=== PATIENT | female | born 1965 | race Caucasian/White ===

== ENCOUNTER → 2016-09-06 | Outpatient (CLI) | payer BC ==
--- NOTE | 2016-09-06 14:00 | REP ---
MRI LUMBAR SPINE WITHOUT CONTRAST: HISTORY: Back and left leg pain. Decreased signal intensity on T2-weighted images is present in the L3-4 through L5-S1 intervertebral discs. The discs are decreased in height. These findings are consistent with disc degeneration. A diffuse disc bulge and small left paracentral disc protrusion are present at the L1-2 level. There is minimal compression of the thecal sac. The L1 nerves exit the neural foramina without compression. There is no disc bulge or herniation at the L2-3 level. The L2 nerves exit the neural foramina without compression. A diffuse disc bulge is present at the L3-4 level. There is minimal compression of the thecal sac. The L3 nerves exit the neural foramina without compression. A diffuse disc bulge is present at the L4-5 level. There is minimal compression of the thecal sac. There is hypertrophy of the posterior articulating facets. The L4 nerves exit the neural foramina without compression. A diffuse disc bulge is present at the L5-S1 level. There is no thecal sac compression. There is hypertrophy of the posterior articulating facets. There are bilateral L5 pars defects. There are 3 mm of grade 1 spondylolisthesis of L5 on S1. There is compression of the L5 nerves in the neural foramina. The conus medullaris is normal in appearance terminating at the level of the L1-2 intervertebral disc. Normal signal intensity is present in the lumbar vertebral bodies. IMPRESSION: 1. Diffuse disc bulge and small left paracentral disc protrusion at the L1-2 level with minimal thecal sac compression. 2. Diffuse disc bulges at the L3-4 and L4-5 levels with minimal thecal sac compression. 3. Diffuse disc bulge at the L5-S1 level without thecal sac compression. There is grade 1 spondylolisthesis of L5 on S1 with associated L5 pars defects. There is compression of the L5 nerves in the neural foramina. Signed by Boom Van MD 09/06/2016 02:04 P
== END ==
LOC: M RAD 10:45
PROVIDERS: ATTEND Orthopaedic Surgery
DX: M54.5 Low back pain (principal)

== ENCOUNTER → 2017-07-17 | Outpatient (REF) ==
[2017-07-18 08:06] LABS: RUBEOLA IgG ANTIBODY >300.0 AU/mL (Immune >29.9)
[2017-07-18 11:40] LABS: RUBELLA IgG QUALITATIVE IMMUNE (IMMUNE)
== END ==
LOC: M LAB REF 13:43
DX: Z00.00 Encounter for general adult medical examination without abnormal findings (principal)

== ENCOUNTER → 2017-08-18 | Outpatient (REF) | payer BC ==
[2017-08-18 19:56] LABS: ERYTHROCYTE SEDIMENTATION RATE 67 mm/hr (0-30)
[2017-08-18 20:16] LABS: RHEUMATOID FACTOR QUANT < 10.0 IU/ML (0-15.0); TOTAL PROTEIN 7.7 GM/DL (6.4-8.2)
[2017-08-18 20:16] LABS: URIC ACID 4.1 MG/DL (2.6-6.0)
[2017-08-19 11:17] LABS: ALBUMIN 3.59 GM/DL (3.29-5.55); ALBUMIN % 46.6 % (55.8-66.1); ALPHA-1-GLOBULIN % 7.3 % (2.9-4.9); ALPHA-1-GLOBULINS 0.56 GM/DL (0.17-0.41); ALPHA-2-GLOBULINS 1.01 GM/DL (0.42-0.99); ALPHA-2-GLOBULINS % 13.1 % (7.1-11.8); BETA-1-GLOBULINS 0.52 GM/DL (0.28-0.60); BETA-1-GLOBULINS % 6.7 % (4.7-7.2); BETA-2-GLOBULINS 0.55 GM/DL (0.19-0.55); BETA-2-GLOBULINS % 7.1 % (3.2-6.5); GAMMA GLOBULIN % 19.2 % (11.1-18.8); GAMMA GLOBULINS 1.48 GM/DL (0.65-1.58)
== END ==
LOC: M LAB REF 17:52
DX: M51.36 Other intervertebral disc degeneration, lumbar region (principal)
CPT/HCPCS: 84165

== ENCOUNTER → 2017-09-01 | Outpatient (CLI) | payer BC | LOC: M PLARAD 08:07 | DX: R22.42 Localized swelling, mass and lump, left lower limb (principal); Z53.9 Procedure and treatment not carried out, unspecified reason ==

== ENCOUNTER → 2017-09-15 | Outpatient (CLI) | payer BC | LOC: M PLARAD 09:44 | DX: M51.26 Other intervertebral disc displacement, lumbar region (principal); R22.42 Localized swelling, mass and lump, left lower limb ==

== ENCOUNTER → 2017-09-25 | Outpatient (CLI) | payer BC ==
[~2017-09-25] MED LIST: ISOVUE-370 76% 100ML VIAL (Q9967) As Ordered
== END ==
LOC: M RAD 11:53
DX: M79.652 Pain in left thigh (principal); M54.5 Low back pain

== ENCOUNTER → 2017-09-26 | Outpatient (CLI) | payer BC ==
[~2017-09-26] MED LIST changes: -ISOVUE-370 76% 100ML VIAL (Q9967) As Ordered; +LIDOCAINE 1% MDV 20ML VIAL As Ordered
== END ==
LOC: M RADPRO 08:33
DX: C80.1 Malignant (primary) neoplasm, unspecified (principal); F06.4 Anxiety disorder due to known physiological condition; M54.2 Cervicalgia; K21.0 Gastro-esophageal reflux disease with esophagitis; F17.210 Nicotine dependence, cigarettes, uncomplicated; Z79.899 Other long term (current) drug therapy; Z88.8 Allergy status to other drugs, medicaments and biological substances
CPT/HCPCS: 27041

== ENCOUNTER → 2017-09-29 | Outpatient (REF) | payer BC ==
[2017-09-30 10:00] LABS: CA 125 34.7 U/ML (<30.2)
== END ==
LOC: M LAB REF 13:22
DX: C55 Malignant neoplasm of uterus, part unspecified (principal)
CPT/HCPCS: 86304

== ENCOUNTER → 2017-10-01 | Outpatient (CLI) | payer BC ==
[~2017-10-01] MED LIST changes: +ISOVUE-370 76% 100ML VIAL (Q9967) As Ordered; -LIDOCAINE 1% MDV 20ML VIAL As Ordered
== END ==
LOC: M RAD 16:19
DX: R19.00 Intra-abdominal and pelvic swelling, mass and lump, unspecified site (principal); Z85.42 Personal history of malignant neoplasm of other parts of uterus; R91.8 Other nonspecific abnormal finding of lung field
CPT/HCPCS: Q9967

== ENCOUNTER 2017-10-31 17:10 | Emergency (ER) | payer BC ==
[2017-10-31] MEDS: ENOXAPARIN 150 MG/ML SYR (J1650) SC ×2 (18:44)
== END 2017-10-31 19:16 | disposition home or self-care (01) ==
LOC: M ED 17:10
DX: I82.90 Acute embolism and thrombosis of unspecified vein (principal); C55 Malignant neoplasm of uterus, part unspecified; Z92.21 Personal history of antineoplastic chemotherapy; Z79.899 Other long term (current) drug therapy; Z88.1 Allergy status to other antibiotic agents; Z88.8 Allergy status to other drugs, medicaments and biological substances
CPT/HCPCS: J1650

== ENCOUNTER → 2017-10-31 | Outpatient (CLI) | payer BC | LOC: M RAD 14:49 | DX: I82.412 Acute embolism and thrombosis of left femoral vein (principal); I82.432 Acute embolism and thrombosis of left popliteal vein | CPT/HCPCS: 93971 ==

== ENCOUNTER → 2017-10-31 | Outpatient (REF) | payer BC ==
[2017-10-31 14:45] LABS: CA 125 30.3 U/ML (<30.2)
== END ==
LOC: M LAB REF 13:21
DX: C54.1 Malignant neoplasm of endometrium (principal); C79.9 Secondary malignant neoplasm of unspecified site
CPT/HCPCS: 86304

== ENCOUNTER → 2017-11-05 | Outpatient (CLI) | payer BC ==
[~2017-11-05] MED LIST changes: +GASTROGRAFIN SOLUTION 30ML (Q9963) As Ordered
== END ==
LOC: M RAD 14:57
DX: C54.1 Malignant neoplasm of endometrium (principal)
CPT/HCPCS: Q9963

== ENCOUNTER → 2017-11-21 | Outpatient (REF) | payer BC ==
[2017-11-21 13:05] LABS: CA 125 19.7 U/ML (<30.2)
== END ==
LOC: M LAB REF 11:59
DX: C54.1 Malignant neoplasm of endometrium (principal); C79.9 Secondary malignant neoplasm of unspecified site
CPT/HCPCS: 86304

== ENCOUNTER → 2017-12-11 | Outpatient (REF) | payer BC ==
[2017-12-12 11:04] LABS: CA 125 13.3 U/ML (<30.2)
== END ==
LOC: M LAB REF 13:52
DX: C54.1 Malignant neoplasm of endometrium (principal); C79.9 Secondary malignant neoplasm of unspecified site
CPT/HCPCS: 86304

== ENCOUNTER → 2018-01-01 | Outpatient (REF) | payer BC ==
[2018-01-02 10:25] LABS: CA 125 14.3 U/ML (<30.2)
== END ==
LOC: M LAB REF 13:12
DX: C54.1 Malignant neoplasm of endometrium (principal); C79.9 Secondary malignant neoplasm of unspecified site; Z86.718 Personal history of other venous thrombosis and embolism; G89.3 Neoplasm related pain (acute) (chronic)
CPT/HCPCS: 86304

== ENCOUNTER → 2018-01-22 | Outpatient (REF) | payer BC ==
[2018-01-23 10:46] LABS: CA 125 11.2 U/ML (<30.2)
== END ==
LOC: M LAB REF 13:54
DX: C54.1 Malignant neoplasm of endometrium (principal); C79.9 Secondary malignant neoplasm of unspecified site; Z86.718 Personal history of other venous thrombosis and embolism; G89.3 Neoplasm related pain (acute) (chronic)
CPT/HCPCS: 86304

== ENCOUNTER → 2018-02-23 | Outpatient (CLI) | payer BC | LOC: M RAD 11:19 | DX: C54.1 Malignant neoplasm of endometrium (principal); C79.9 Secondary malignant neoplasm of unspecified site | CPT/HCPCS: Q9963 ==

== ENCOUNTER → 2018-02-27 | Outpatient (REF) | payer BC ==
[2018-02-27 14:12] LABS: CA 125 26.7 U/ML (<30.2)
== END ==
LOC: M LAB REF 13:05
DX: C54.1 Malignant neoplasm of endometrium (principal); C79.9 Secondary malignant neoplasm of unspecified site; Z86.718 Personal history of other venous thrombosis and embolism; G89.3 Neoplasm related pain (acute) (chronic)
CPT/HCPCS: 86304

== ENCOUNTER → 2018-03-17 | Outpatient (CLI) | payer BC | LOC: M PLARAD 12:21 | DX: C54.1 Malignant neoplasm of endometrium (principal); Z92.21 Personal history of antineoplastic chemotherapy; R91.1 Solitary pulmonary nodule | CPT/HCPCS: 78816 ==

== ENCOUNTER → 2018-03-26 | Outpatient (REF) | payer BC ==
[2018-03-26 19:33] LABS: THYROID STIMULATING HORMONE 0.776 uIU/ML (0.358-3.740)
== END ==
LOC: M LAB REF 18:20
DX: C54.1 Malignant neoplasm of endometrium (principal); Z86.718 Personal history of other venous thrombosis and embolism; G89.3 Neoplasm related pain (acute) (chronic); C78.02 Secondary malignant neoplasm of left lung; C79.51 Secondary malignant neoplasm of bone; Z79.899 Other long term (current) drug therapy
CPT/HCPCS: 84443

== ENCOUNTER → 2018-03-27 | Outpatient (CLI) | payer BC | LOC: M ONCR 14:29 | DX: C54.1 Malignant neoplasm of endometrium (principal) | CPT/HCPCS: G0463 ==

== ENCOUNTER 2018-04-06 10:00 | Outpatient (RCR) | payer BC | END 2018-04-12 | LOC: M ONCR 10:00 | DX: C79.51 Secondary malignant neoplasm of bone (principal); C54.1 Malignant neoplasm of endometrium | CPT/HCPCS: 77334 ==

== ENCOUNTER 2018-04-13 09:09 | Outpatient (RCR) | payer BC | END 2018-05-13 | LOC: M ONCR 09:09 | DX: C79.51 Secondary malignant neoplasm of bone (principal); C54.1 Malignant neoplasm of endometrium | CPT/HCPCS: 77300 ==

== ENCOUNTER 2018-05-01 08:53 | Day surgery (SDC) | payer BC ==
[~2018-05-01 08:53] MED LIST changes: -GASTROGRAFIN SOLUTION 30ML (Q9963) As Ordered; -ISOVUE-370 76% 100ML VIAL (Q9967) As Ordered; +LIDOCAINE 1% MDV 20ML VIAL SQ
[2018-05-01] MEDS ORDERED: ceFAZolin 2 GM/D5W 50 ML IV BAG (J0690 PER 500MG) As Ordered (09:18)
[2018-05-01] MEDS ORDERED: LIDOCAINE 2% INJ 100 MG/5 ML SDV (FOR ANES.) As Ordered (09:33)
[2018-05-01] MEDS ORDERED: PROPOFOL 200 MG/20 ML VIAL As Ordered ×2 (09:33)
[2018-05-01] MEDS ORDERED: fentaNYL 100 MCG/2 ML INJECTION (J3010) As Ordered (09:34)
[2018-05-01] MEDS ORDERED: MIDAZOLAM INJ 2 MG/2 ML VIAL (J2250) As Ordered (09:34)
[2018-05-01 09:46] LABS: INR 1.11; PROTHROMBIN TIME 14.4 SECONDS (12.1-14.4)
[2018-05-01 09:47] LABS: PARTIAL THROMBOPLASTIN TIME 34.2 SECONDS (25.4-37.6)
[2018-05-01] MEDS: LR 1,000 ML IV (10:00)
[2018-05-01] MEDS ORDERED: dexameTHASONE 4 MG/ML 1ML VIAL (J1100) As Ordered (10:04)
[2018-05-01] MEDS ORDERED: ONDANSETRON 4MG/2ML VIAL (J2405) As Ordered (10:04)
[2018-05-01] MEDS: fentaNYL 25 MCG/HR PATCH TOP (10:40)
[2018-05-01] MEDS: HEPARIN SOD (PORCINE) 5000 UNITS/ML VIAL As Ordered ×2 (11:41→13:11)
[2018-05-01] MEDS: MUPIROCIN 2% OINT 22 GM TUBE TOP (12:45)
[2018-05-01] MEDS: LIDOCAINE 1% MDV 20ML VIAL As Ordered (13:03)
[2018-05-01] MEDS ORDERED: ePHEDrine SULFATE 25 MG/5 ML(5MG/ML) SYRINGE As Ordered (13:15)
[2018-05-01] MEDS: BUPIVACAINE LIPOSOME/PF 1.3% 20 ML VIAL (13.3MG/ML)(EXPAREL) As Ordered (13:20)
== END 2018-05-01 14:20 | disposition home or self-care (01) ==
LOC: M SDC 08:53
DX: C54.1 Malignant neoplasm of endometrium (principal); C78.00 Secondary malignant neoplasm of unspecified lung; Z45.2 Encounter for adjustment and management of vascular access device; F41.9 Anxiety disorder, unspecified; F32.9 Major depressive disorder, single episode, unspecified; Z88.8 Allergy status to other drugs, medicaments and biological substances; Z79.02 Long term (current) use of antithrombotics/antiplatelets; Z79.899 Other long term (current) drug therapy
CPT/HCPCS: 36561

== ENCOUNTER → 2018-05-07 | Outpatient (CLI) | payer BC | LOC: M SMT 10:39 | DX: C78.02 Secondary malignant neoplasm of left lung (principal) | CPT/HCPCS: 71046 ==

== ENCOUNTER → 2018-06-08 | Outpatient (CLI) | payer BC ==
[~2018-06-08] MED LIST changes: +GASTROGRAFIN SOLUTION 30ML (Q9963) As Ordered; +ISOVUE-370 76% 100ML VIAL (Q9967) As Ordered; -LIDOCAINE 1% MDV 20ML VIAL SQ
== END ==
LOC: M RAD 14:05
DX: C54.1 Malignant neoplasm of endometrium (principal); R91.8 Other nonspecific abnormal finding of lung field; E04.1 Nontoxic single thyroid nodule
CPT/HCPCS: Q9963

== ENCOUNTER → 2018-06-10 | Outpatient (CLI) | payer BC | LOC: M ONCR 10:46 | DX: C54.1 Malignant neoplasm of endometrium (principal) | CPT/HCPCS: G0463 ==

== ENCOUNTER → 2018-07-03 | Outpatient (CLI) | payer BC ==
[~2018-07-03] MED LIST changes: +ATIV1TAB10 PO; +BUSP1TAB PO; +CALC1TAB63 PO; +FENT10PA TD; +FENT1DIS14 TOP; +GABA-845 PO; -GASTROGRAFIN SOLUTION 30ML (Q9963) As Ordered; -ISOVUE-370 76% 100ML VIAL (Q9967) As Ordered; +LEVO50TA5 PO; +LIDO2.5C15 TOP; +MAGN400C2 PO; +MAPA500T2 PO; +VITATAB11 PO; +XARE20TA PO; +ZOLO100T PO
--- NOTE | 2018-07-03 08:34 | REP ---
MRI LUMBAR SPINE WITHOUT CONTRAST: HISTORY: Radiculopathy. COMPARISON: 09/06/2016. Decreased signal intensity on T2-weighted images is present in the L3-4 through L5-S1 intervertebral discs. The discs are decreased in height. These findings are consistent with disc degeneration. A diffuse disc bulge and small left paracentral disc protrusion are present at the L1-2 level. There is minimal compression of the thecal sac. The L1 nerves exit the neural foramina without compression. There is no disc bulge or herniation at the L2-3 level. The L2 nerves exit the neural foramina without compression. A diffuse disc bulge and small central disc protrusion are present at the L3-4 level. There is minimal compression of the thecal sac. The L3 nerves exit the neural foramina without compression. A diffuse disc bulge is present at the L4-5 level. There is minimal compression of the thecal sac. There is hypertrophy of the posterior articulating facets. The L4 nerves exit the neural foramina without compression. A diffuse disc bulge is present at the L5-S1 level. There is no thecal sac compression. There is hypertrophy of the posterior articulating facets. There are 3 mm of grade I spondylolisthesis of L5 on S1. This is associated with L5 pars defects. There is compression of the L5 nerves in the neural foramina. The conus medullaris is normal in appearance terminating at the level of the L1-2 intervertebral disc. Normal signal intensity is present in the lumbar vertebral bodies. Increased signal intensity o T2-weighted images present in the left iliac bone. This represents a metastatic lesion. IMPRESSION: 1. Diffuse disc bulge and small left paracentral disc protrusion at the L1-2 level with minimal thecal sac compression. 2. Diffuse disc bulge and small central disc protrusion at the L3-4 level with minimal thecal sac compression. The disc protrusion is a new finding. 3. Diffuse disc bulge at the L4-5 level with minimal thecal sac compression. 4. Diffuse disc bulge at the L5-S1 level without thecal sac compression. There is grade I spondylolisthesis of L5 on S1 with associated L5 pars defects. There is compression of the L5 nerves in the neural foramina. 5. There is a metastatic lesion in the left iliac bone. This is a new finding. Electronically Signed by Boom Van MD 07/03/2018 09:21 A
== END ==
LOC: M RAD 06:31
PROVIDERS: ATTEND Nurse Practitioner Family
DX: M54.17 Radiculopathy, lumbosacral region (principal)

== ENCOUNTER → 2018-07-30 | Outpatient (REF) | payer BC ==
[~2018-07-30] MED LIST changes: +DURA75DI2 TOP; +GABA600T4 PO; +LEVO-89 PO; +MEGE40TA PO; +TAMO20TA8 PO
[2018-07-30 15:03] LABS: INR 1.08; PROTHROMBIN TIME 14.2 SECONDS (12.1-14.4)
[2018-07-30 15:04] LABS: PARTIAL THROMBOPLASTIN TIME 46.4 SECONDS (25.4-37.6)
== END ==
LOC: M LAB REF 14:17
PROVIDERS: ATTEND Physical Medicine & Rehabilitation
DX: Z01.812 Encounter for preprocedural laboratory examination (principal); Z79.01 Long term (current) use of anticoagulants

== ENCOUNTER → 2018-08-14 | Outpatient (CLI) | payer BC ==
[~2018-08-14] MED LIST changes: -DURA75DI2 TOP; +ISOVUE-370 76% 100ML VIAL (Q9967) As Ordered ONE; -LEVO-89 PO; -MEGE40TA PO; -TAMO20TA8 PO
--- NOTE | 2018-08-14 17:51 | REP ---
Clinical: History of ovarian carcinoma with metastatic disease. Technique: Axial contrast enhanced images from the thoracic inlet to the upper abdomen with coronal and sagittal re-formations using 100 ml Isovue 370 intravenous contrast material. Comparison: 06/08/2018. Findings: Left upper lobe presumed metastatic focus is increased in size to 3.6 cm diameter and demonstrates subtle surrounding ground-glass opacity and minimal spiculations. Trace right posterior basilar dependent changes are noted. No further acute consolidation, new nodule or mass lesion identified. No pleural effusion. No pneumothorax. Tracheobronchial tree is patent. Mediastinal and hilar adenopathy is again noted with lymph nodes up to approximately 12 mm. Atherosclerotic changes to the thoracic aorta and coronary arteries noted without aortic aneurysm or dissection. No cardiomegaly or significant pericardial effusion. A rim calcified right thyroid nodule measures 2.8 cm maximal diameter and is essentially unchanged. Yzbybk-M-Sick identified with tip in the SVC. Surrounding musculoskeletal structures are intact. Bilateral adrenal glands are essentially normal. Impression: 1. Enlarging left upper lobe mass consistent with metastatic focus now measures 3.6 cm maximal diameter (previously measured 3.0 cm). No further consolidation, new nodule or mass lesion identified. No effusion. Mild associated adenopathy up to 12 mm again noted and unchanged. 2. Stable rim calcified right thyroid nodule measuring 2.8 cm. Electronically Signed by Umesh Gastelum MD 08/14/2018 05:42 P
== END ==
LOC: M RAD 17:02
PROVIDERS: ATTEND Internal Medicine Medical Oncology
DX: C56.9 Malignant neoplasm of unspecified ovary (principal); C79.9 Secondary malignant neoplasm of unspecified site
CPT/HCPCS: 71260; Q9967

== ENCOUNTER → 2018-08-17 | Outpatient (CLI) | payer BC ==
[~2018-08-17] MED LIST changes: +DURA75DI2 TOP; -ISOVUE-370 76% 100ML VIAL (Q9967) As Ordered ONE; +LEVO-89 PO; +MEGE40TA PO; +TAMO20TA8 PO
== END ==
LOC: M LAB 09:41
PROVIDERS: ATTEND Physical Medicine & Rehabilitation
DX: Z01.812 Encounter for preprocedural laboratory examination (principal)

== ENCOUNTER → 2018-08-17 | Outpatient (CLI) | payer BC ==
[2018-08-17 08:50] LABS: HEMATOCRIT 32.4 % (36.0-47.0); HEMOGLOBIN 10.1 g/dl (12.0-15.5); MEAN CORPUSCULAR HEMOGLOBIN 28.9 pg (27.0-33.0); MEAN CORPUSCULAR HGB CONC 31.2 g/dl (32.0-36.5); MEAN CORPUSCULAR VOLUME 92.6 fl (80.0-96.0); PLATELET COUNT, AUTOMATED 475 10^3/uL (150-450); WHITE BLOOD COUNT 14.6 10^3/uL (4.0-10.0)
[2018-08-17 09:27] LABS: ALBUMIN 3.6 GM/DL (3.2-5.2); ALT/SGPT 14 U/L (12-78); BILIRUBIN,TOTAL 0.2 MG/DL (0.2-1.0); BLOOD UREA NITROGEN 12 MG/DL (7-18); CALCIUM LEVEL 9.1 MG/DL (8.5-10.1); CARBON DIOXIDE LEVEL 32 MEQ/L (21-32); CHLORIDE LEVEL 100 MEQ/L (98-107); CREATININE FOR GFR 0.78 MG/DL (0.55-1.30); GLOMERULAR FILTRATION RATE > 60.0 (>51); GLUCOSE, FASTING 105 MG/DL (70-100); POTASSIUM SERUM 4.4 MEQ/L (3.5-5.1); SODIUM LEVEL 139 MEQ/L (136-145)
== END ==
LOC: M LAB 08:21
PROVIDERS: ATTEND Internal Medicine Medical Oncology
DX: C56.9 Malignant neoplasm of unspecified ovary (principal)

== ENCOUNTER → 2018-11-02 | Outpatient (CLI) | payer BC ==
[~2018-11-02] MED LIST changes: +GASTROGRAFIN SOLUTION 30ML (Q9963) As Ordered ONE; +ISOVUE-370 76% 100ML VIAL (Q9967) As Ordered ONE; +PROC5TA PO; +SYNT112T2 PO; +ZOFR4TAB16 PO
--- NOTE | 2018-11-02 14:14 | REP ---
CT CHEST WITH IV CONTRAST: HISTORY: Restaging endometrial carcinoma. The patient on third line treatment. Rule out progression. Comparison CT study August 14, 2018 and June 08, 2018. CT CONTRAST DOSE: 100 mL of intravenous Isovue [address] FINDINGS: The previously noted spiculated partially cavitary nodule in the left upper lobe posteriorly is a little smaller today; measuring 2.8 x 2.5 cm, previously 3.5 x 2.5 cm in the same plane by my measurement on August 14, 2018. Its craniocaudal dimension on sagittal multiplanar re-formation images has the decreased from 2.7 to 2.2 cm. No new pulmonary nodule is appreciated. Stable mediastinal and hilar lymph nodes are again noted. These are unchanged. No adrenal lesion is seen. No focal liver lesion is appreciated. Some vascular calcification is again noted. A peripherally calcified right thyroid lesion is again noted unchanged. IMPRESSION: Interval decrease in the size of the left upper lobe pulmonary nodule. No new pulmonary nodule is appreciated. A left-sided Ollwht-L-Gzmm catheter is noted in place. Electronically Signed by César Gunn MD 11/02/2018 03:17 P
--- NOTE | 2018-11-02 14:32 | REP ---
CT ABDOMEN AND PELVIS WITH IV AND ORAL CONTRAST: HISTORY: Restaging metastatic endometrial carcinoma on third-line chemotherapy. Comparison CT studies are from August 08, 2018 and June 08, 2018. Comparison PET-CT study is from March 17, 2018. CT CONTRAST DOSE: 100 mL of intravenous Isovue [address] FINDINGS: Preliminary digital film tests checker radiograph is unremarkable. The liver and spleen remain normal in size, homogeneous in texture. There are two small stable periportal lymph nodes in the right upper quadrant. There is disease involving the transverse segment of the duodenum and adjacent retroperitoneal aortocaval lymph node. There is some residual dilation of the descending segment of the duodenum just proximal to this. This transverse duodenal and aortocaval adenopathy disease appears improved however from the most recent prior study of August 08, 2018. The largest of these aortocaval lymph nodes has decreased from 2.1 x 2.2 cm to 1.8 x 1.6 cm. There is less mural thickening and paraduodenal edema. Small normal-sized left periaortic lymph nodes are again seen unchanged at this level. A right iliolumbar metastatic focus is again seen posterior to the right common iliac artery. This measures 5.3 x 3.4 cm today. Previously, 5.4 x 4.1 cm. It appears slightly smaller as well. There is some scalloping and cortical erosion or invasion of the right lateral margin of the L5 vertebral body in association with this. The cortical erosion and has increased however since August 08, 2018. This lesion extends to the lateral to the L5 and L4 vertebral body on coronal reformatted scans. On coronal reformatted scans, the craniocaudal span of this metastatic deposit has decreased from 7.75 cm to 6.62 cm. The previously noted left pelvic sidewall soft tissue thickening is again visible, unchanged from the August 08, 2018 and the June 08, 2018 prior studies. No new pelvic disease is appreciated. Urinary bladder is unremarkable. No adnexal abnormality is seen. Uterus is surgically absent. IMPRESSION: There is evidence of some decrease in the upper abdominal periaortic paraduodenal disease and in the soft tissue component of the right paravertebral/psoas deposit at L4-5. The associated bony erosion or scalloping of the lateral margin of L5 is more prominent than on the prior study. Previously noted left pelvic soft tissue and bony changes are stable. Electronically Signed by César Gunn MD 11/02/2018 03:18 P
== END ==
LOC: M RAD 10:59
PROVIDERS: ATTEND Internal Medicine Medical Oncology
DX: C54.1 Malignant neoplasm of endometrium (principal); K31.9 Disease of stomach and duodenum, unspecified
CPT/HCPCS: 71260; 74177; Q9963; Q9967

== ENCOUNTER → 2018-12-03 | Outpatient (CLI) | payer BC ==
[~2018-12-03] MED LIST changes: +FENT1DIS36 TOP; -GASTROGRAFIN SOLUTION 30ML (Q9963) As Ordered ONE; -ISOVUE-370 76% 100ML VIAL (Q9967) As Ordered ONE; +MIRA3350 PO; +SYNT125T PO
--- NOTE | 2018-12-07 08:38 | RADONC ---
RADIATION ONCOLOGY CONSULTATION NOTE DATE OF CONSULTATION: 12/03/2018 CHART NUMBER: [id number]. DIAGNOSIS: Endometrial carcinoma. STAGE: IV metastatic. ECOG PERFORMANCE STATUS: Zero. CONSULTATION NOTE: Ms. 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 HISTORY OF PRESENT ILLNESS: The patient was first seen by us on 03/27/2018 for consideration of palliative radiation therapy to a large left iliac region mass. This was causing her pain. We treated the patient to that area for a dose of 3000 cGy delivered in 10 fractions of 300 cGy each from 04/14/2018 through 04/28/2018. The patient had tolerated her treatments with some difficulty and did develop some GI upset and diarrhea. The pain, however, has improved significantly. The patient is now presenting with new discomfort. REVIEW OF SYSTEMS: The patient's review of systems is positive for her back pain running down her right pelvis and leg but is otherwise noncontributory. She denies nausea, vomiting, fevers, chills, night sweats, diplopia, headaches, anxiety or depression, anorexia, weight loss, visual disturbances, chest pain, urinary or bowel difficulties, bone pain, or neurological problems. PHYSICAL EXAMINATION: The patient is a well-developed, well-nourished female in no acute distress. HEENT examination is normocephalic, atraumatic. Extraocular movements are intact. There is no palpable cervical, supraclavicular, infraclavicular, axillary, or inguinal lymphadenopathy present. Lungs are clear to auscultation and percussion. Heart has a regular rate and rhythm. Abdomen is benign with no hepatosplenomegaly, masses, or tenderness. Skeletal examination reveals no tenderness to pressure or percussion of the bony skeleton. Extremities reveal no clubbing, cyanosis, or edema. Neurologic examination is grossly intact, as is the remainder of the physical examination. ASSESSMENT: Clearly, the patient is a candidate for external beam radiation therapy, and I have so informed her. I have discussed with the patient in detail the potential benefits, as well as possible acute and chronic sequelae of external beam radiation therapy. We discussed logistics of treatment planning, simulation, and subsequent fractionated daily radiation treatments. I have scheduled the patient for the next available simulation slot, and radiation will begin subsequently. Thank you for allowing us to participate in the care of this very pleasant woman. If I could be of any further assistance or provide you with any information, please free to contact me at any time,' As always, warm regards. Star Pizarro cc: MD Rush Carrasco MD
== END ==
LOC: M ONCR 09:57
PROVIDERS: ATTEND Radiology Radiation Oncology
DX: C79.51 Secondary malignant neoplasm of bone (principal)

== ENCOUNTER 2018-12-11 11:17 | Outpatient (CLI) | payer BC ==
[~2018-12-11] VITALS: Ht 167.6 cm; Wt 101.2 kg
[~2018-12-11 11:17] MED LIST changes: +ACETAMINOPHEN TAB 650MG DOSE (2X325MG) PO SCH; +SODIUM CHLORIDE 0.9% INJ 10 ML SYR IV SCH
[2018-12-11 11:30] VITALS: BP 134/63
[2018-12-11] MEDS: diphenhydrAMINE 50 MG CAP PO ONE ×2 (11:32→11:35)
[2018-12-11] MEDS ORDERED: XARE20TA PO (12:57)
[2018-12-11 16:50] VITALS: BP 155/72
== END 2018-12-11 16:50 | disposition home or self-care (01) ==
LOC: M INFU 11:17
PROVIDERS: ATTEND Internal Medicine Medical Oncology
DX: D64.9 Anemia, unspecified (principal)
CPT/HCPCS: 36430; P9016

== ENCOUNTER → 2018-12-23 | Outpatient (CLI) | payer BC ==
[~2018-12-23] MED LIST changes: -ACETAMINOPHEN TAB 650MG DOSE (2X325MG) PO SCH; -SODIUM CHLORIDE 0.9% INJ 10 ML SYR IV SCH
--- NOTE | 2018-12-23 15:53 | REP ---
HISTORY: Right groin pain. History of endometrial carcinoma. The patient refused intravenous gadolinium injection. There are no priors for comparison. The hip joint spaces are symmetric and relatively well maintained. There is no hip joint effusion. The femoral heads are spherical in shape and symmetric in appearance. There is abnormal T1 and T2 prolongation in the left sacrum imaged only on the large field of view T1 and T2-weighted images as this was ordered as a right hip MRI. Abnormal T1 and T2 prolongation is also seen in the inferior left sacroiliac joint and patchy abnormal T1 and T2 prolongation seen in the more proximally imaged left ileum. Patchy T2 hypersignal is seen in the iliacus and iliopsoas muscles bilaterally. The trochanteric tendinobursal region is seen with abnormal T1 and T2 prolongation bilaterally. There is patchy T2 hypersignal in the left gluteus medius and the minimus muscles. The signal and morphology throughout the remainder of the imaged musculature is within normal limits. The cortical and mineral signal seen throughout the remainder of the imaged osseous structures is within normal limits. Large field of view bilateral labral imaging shows subtle foci of T2 hypersignal in the labrum superolaterally. IMPRESSION: 1. Evidence of abnormal signal in the left sacroiliac region as described above suspicious for metastatic disease. Plain film correlation and CT should be considered. 2. Bilateral trochanteric tendinobursitis. 3. Bilateral iliacus and iliopsoas muscular edema of uncertain etiology. Correlate clinically. 4. Abnormal edema in the left gluteal musculature as described above of uncertain etiology. 5. Mild patchy T2 hypersignal seen in the left ileum also suspicious for metastatic disease. 6. Subtle finding of hypersignal foci in the superolateral labrum bilaterally, difficult to evaluate. If labral pathology is of clinical concern, then I would recommend followup with bilateral hip MRI arthrography. Electronically Signed by Joseph Fontaine DO 12/23/2018 04:10 P
== END ==
LOC: M RAD 12:57
PROVIDERS: ATTEND Radiology Radiation Oncology
DX: R93.5 Abnormal findings on diagnostic imaging of other abdominal regions, including retroperitoneum (principal); R60.0 Localized edema; M70.61 Trochanteric bursitis, right hip; M70.62 Trochanteric bursitis, left hip; M25.551 Pain in right hip; C54.1 Malignant neoplasm of endometrium

== ENCOUNTER 2019-01-08 11:13 | Outpatient (RCR) | payer BC ==
--- NOTE | 2018-12-20 10:54 | RADONC ---
RADIATION ONCOLOGY SIMULATION NOTE: DATE: 12/18/2018 CHART NUMBER: [id number] DIAGNOSIS: Endometrial cancer. STAGE: Metastatic. ECOG PERFORMANCE STATUS: 0-1. SIMULATION NOTE: The patient is being simulated today to the lumbar spine and right hip for possible R-4 localization secondary to her endometrial cancer which has metastasized. An immobilization device was constructed to immobilize the patient will be accurate. After the immobilization device was constructed the patient was placed in the supine position and images were gathered from the CT scanner at 3-mm intervals in order to allow contouring of the to be treated area as well as normal surrounding structures. Thereafter a plan to be generated for treatment delivery. She tolerated the fabrication of the immobilization device as well as the scanning process very well with no significant untoward side effects. I was there for the entire simulation process which went uneventfully. Her images now will be sent to dosimetry to generate an appropriate plan after contouring of the treatment volume is defined.
--- NOTE | 2019-01-05 11:03 | RADONC ---
RADIATION ONCOLOGY PROGRESS NOTE DATE OF SERVICE: 01/04/2019 CHART NUMBER: [id number]. PROGRESS NOTE: Mrs. Petersen with a diagnosis of endometrial adenocarcinoma metastatic to the L4-L5 region with a paraspinal mass is currently receiving local regional radiotherapy. She has today achieved a dose of 1250 cGy of a proposed 3000 cGy, and treatments are going reasonably well. She denies any specific issues related to her disease or to her treatment. REVIEW OF SYSTEMS: She has noted a significant improvement in her pain. She does still note some residual pain, but it is intermittent in nature. She also notes some right-sided rib pain, again intermittent in nature and not consistent with significant metastatic disease. The patient also wished to review her MRI scan obtained without contrast on 12/23/2018. We discuss the results of her scan to her satisfaction. REVIEW OF SYSTEMS: She denies any nausea, vomiting, diarrhea, dysuria, hematuria, or blood per rectum. Her energy level is satisfactory, and she is able to maintain some day-to-day activities without any alteration of her lifestyle. Skin irritation is not reported. EXAMINATION FINDINGS: She is a well-developed, well-nourished female, in no acute distress. Skin within the irradiated volume shows no evidence of erythema thus far. The remainder of the physical examination is unchanged. IMPRESSION: Tolerating therapy well with some pain improvement. PLAN: Treatments to continue.
[2019-01-11] MEDS ORDERED: FENT1DIS36 TOP (12:06)
== END 2019-01-10 ==
LOC: M ONCR 11:13
PROVIDERS: ATTEND Radiology Radiation Oncology
DX: C79.51 Secondary malignant neoplasm of bone (principal); C54.1 Malignant neoplasm of endometrium

== ENCOUNTER 2019-01-13 11:06 | Outpatient (RCR) | payer BC ==
--- NOTE | 2019-01-11 17:00 | RADONC ---
RADIATION ONCOLOGY PROGRESS NOTE DATE OF SERVICE: 01/11/2019 CHART NUMBER [id number] Ms. Petersen with a diagnosis of endometrial adenocarcinoma metastatic to L4-L5 and a paraspinal mass is currently receiving local regional radiotherapy. Her current dose is 2500 cGy of an anticipated 3000 cGy. She has only two more fractions to complete her entire prescribed dose of radiotherapy. She has no specific complaints referable to her disease or to her treatments and her pain has improved significantly. REVIEW OF SYSTEMS: She denies any nausea, vomiting, diarrhea, dysuria, hematuria or blood per rectum. There is no skin irritation or significant erythema. The remainder of the review of systems is noncontributory and unchanged. EXAMINATION FINDINGS: The skin within the irradiated volume shows no evidence of erythema and certainly no focal desquamation. No palpable peripheral lymphadenopathy is appreciated. The remainder of the physical examination is unchanged. IMPRESSION: Tolerating therapy well. PLAN: Treatments to continue. MTDD
--- NOTE | 2019-01-18 15:06 | RADONC ---
RADIATION THERAPY TREATMENT SUMMARY: DATE: 01/13/2019 CHART NUMBER: [id number] DIAGNOSIS: Endometrial carcinoma. STAGE: IV metastatic, specifically metastatic to the L4-L5 region with a paraspinal mass. ECOG PERFORMANCE STATUS: 0 PLAN OF RADIOTHERAPY: Local regional radiotherapy for palliation of the L4-L5 region. DATE RADIOTHERAPY STARTED: 12/29/2018. DATE RADIOTHERAPY COMPLETED: 01/13/2019. DOSE: The patient received a total of 3000 cGy administered in 12 fractions over 15 elapsed days. She was treated exclusively with 3D conformal radiotherapy via a 15 MV photon beam 100 cm SAD. A total of 250 cGy was administered in 12 fractions over 15 elapsed days. Prior to treatment delivery localization was accomplished upon our CT simulator and treatment portals defined by the use of multiple leaf collimators. STATUS OF TUMOR: There was no evidence of growth locally nor was there clinical evidence of further metastatic disease during her course of radiotherapy. TOLERANCE: In general treatments were fairly well-tolerated with a good local regional palliative response. She had only a minimal amount of residual pain at the completion of her radiotherapy. She denied any nausea, vomiting, diarrhea, dysuria, hematuria or blood per rectum. DISPOSITION: Return to clinic in 1 month for post radiotherapy followup visit and she was advised to return to her referring physicians as per their directions and instructions. Thank you for referring this brice patient to us allowing us the opportunity of participation in her overall management. Most sincerely cc: MD Rush Carrasco MD
[2019-02-05] MEDS ORDERED: SYNT125T PO (11:01)
[2019-02-05] MEDS ORDERED: XARE20TA PO (11:01)
[2019-02-23] MEDS ORDERED: FENT1DIS36 TOP (10:43)
[2019-02-23] MEDS ORDERED: LEXA5TAB13 PO (10:43)
[2019-02-23] MEDS ORDERED: LEVO-94 PO (15:51)
[2019-03-19] MEDS ORDERED: DILA4TAB13 PO (13:30)
[2019-03-24] MEDS ORDERED: TAMO20TA8 PO (14:13)
[2019-03-24] MEDS ORDERED: SYNT137T7 PO (14:13)
== END 2019-02-10 ==
LOC: M ONCR 11:06
PROVIDERS: ATTEND Radiology Radiation Oncology
DX: C79.51 Secondary malignant neoplasm of bone (principal); C54.1 Malignant neoplasm of endometrium

== ENCOUNTER → 2019-01-22 | Outpatient (CLI) | payer BC ==
[~2019-01-22] MED LIST changes: +CALC200T15 PO; +DILA4TAB13 PO; +ESSE250T PO; +FENT1DIS14 TD; +FLUC10TA PO; +GASTROGRAFIN SOLUTION 30ML (Q9963) As Ordered ONE; +HYDR8TAB PO; +Hyoscyamine/Maalox/Lidoca Visc PO; +ISOVUE-370 76% 100ML VIAL (Q9967) As Ordered ONE; +LEVO-94 PO; +LEXA5TAB13 PO; +LOVE0.8I SC; +MAGICMW SS; +MEGE20TA3 PO; +META28.32 PO; +MORP15TA2 PO; +MSIR30TA PO; +NYST50SS SS; +OXYCO5TA PO; +PANT-23 PO; +SENN18TA PO; +SENN8.6T58 PO; +SODI1TAB6 PO; +SYNT137T7 PO
--- NOTE | 2019-01-23 06:56 | REP ---
CT chest with IV contrast: History: Restaging metastatic endometrial carcinoma. Comparison CT study November 02, 2018. Comparison study from August 14, [address] contrast dose: 100 ml of intravenous Isovue 370. CT findings: The previously noted cavitary spiculated left upper lobe pulmonary nodule is again seen. It has increased in size somewhat since the most recent prior study of November 02, 2018. Its current transverse dimensions are 3.2 x 2.7 cm, previously 2.8 x 2.5 cm. Its craniocaudal dimension today is 2.4 cm, previously 2.2 cm. No new pulmonary nodule is appreciated. There are scattered stable mediastinal lymph nodes. The largest of these is in the AP window region measuring 7 mm in short axis dimension. No pleural or pericardial effusion is seen. Vascular calcification is noted. No adrenal lesion is observed. There is a peripherally calcified right thyroid nodule again seen. An Fdweep-M-Tehe catheter is noted in place via the left side. No bony destructive lesion is appreciated. Impression: Interval increase in the size of the spiculated left upper lobe mass with cavitary changes, now 3.2 cm in greatest diameter. No new lesion is identified. Electronically Signed by César Gunn MD 01/23/2019 11:44 A
--- NOTE | 2019-01-23 06:59 | REP ---
CT abdomen and pelvis with IV and oral contrast: History: Restaging metastatic endometrial carcinoma. Comparison CT studies are reviewed from November 02, 2018 and June 08, 2018. CT contrast dose: 100 ml of intravenous Isovue 370 is administered. A dual phase postcontrast acquisition was acquired. CT findings: The liver and the spleen are normal in size and homogeneous in texture. No adrenal lesion is seen. No pancreatic lesion is observed. The kidneys enhance symmetrically. There is a small subcentimeter cortical cyst in the left kidney. There is aortocaval lymphadenopathy at the level of the transverse duodenum adjacent to the posterior wall of the duodenum. This is a bit larger than it was June 08, 2018. It appears to be essentially unchanged from the most recent study of November 02, 2018. The heterogeneously enhancing mass in the right iliopsoas region is again noted. This measured 6.6 cm in greatest diameter previously, currently 5.8 cm. Transverse dimensions are 5.0 x 3.0 cm which are quite similar to the prior study. There is again noted to be some bony erosive change of the adjacent L5 vertebrae. This is unchanged in extent. No new bony destructive changes are noted here. The previously noted left lateral pelvic sidewall soft tissue density with adjacent areas of sclerosis in the sacrum and iliac bone are again seen unchanged. No new pelvic mass lesion or adenopathy is appreciated. Bilateral L5 pars defects are again seen. Impression: Stable retroperitoneal and left pelvic sidewall disease. Electronically Signed by César Gunn MD 01/23/2019 11:54 A
== END ==
LOC: M RAD 12:35
PROVIDERS: ATTEND Internal Medicine Medical Oncology
DX: N73.9 Female pelvic inflammatory disease, unspecified (principal); C54.1 Malignant neoplasm of endometrium; C79.51 Secondary malignant neoplasm of bone; C78.02 Secondary malignant neoplasm of left lung
CPT/HCPCS: 71260; 74177; Q9963; Q9967

== ENCOUNTER → 2019-02-23 | Outpatient (CLI) | payer BC ==
[~2019-02-23] MED LIST changes: -CALC200T15 PO; -DILA4TAB13 PO; -FENT1DIS14 TD; -FLUC10TA PO; -GASTROGRAFIN SOLUTION 30ML (Q9963) As Ordered ONE; -HYDR8TAB PO; -Hyoscyamine/Maalox/Lidoca Visc PO; -ISOVUE-370 76% 100ML VIAL (Q9967) As Ordered ONE; -LOVE0.8I SC; -MAGICMW SS; -MEGE20TA3 PO; -NYST50SS SS; -OXYCO5TA PO; -SENN18TA PO; -SENN8.6T58 PO; -SODI1TAB6 PO
--- NOTE | 2019-02-25 15:24 | RADONC ---
RADIATION ONCOLOGY PROGRESS NOTE DATE OF SERVICE: 02/23/2019 CHART NUMBER: [id number] DIAGNOSIS: Endometrial cancer. STAGE: Stage IV metastatic. ECOG PERFORMANCE STATUS: 0. Mrs. 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 She returns today for 1-month followup visit with no specific complaints referable to her disease or to her treatments. She has no longer any pain in the right hip and only a minimal amount of pain occasionally in the left hip. She claims that she is to have an endoscopy / sigmoidoscopy in the future to rule out any bleeding because she is quite anemic and the etiology may be coming from the bowel. She also has a nodule in the lung, which did not respond in the same way in which the other lesions have responded to systemic therapy and Dr. Ospina would like to get perhaps even a biopsy of this lung lesion to make sure that it is the same histology as her endometrial cancer. She denies any new areas of pain. REVIEW OF SYSTEMS: She denies any nausea, vomiting, diarrhea, dysuria, hematuria or blood per rectum. She has no skin irritation. EXAMINATION FINDINGS: The skin within the irradiated volume shows no evidence of erythema and certainly no focal desquamation. LYMPHATICS: There is no palpable peripheral lymphadenopathy noted in the cervical, supraclavicular, axillary or inguinal lymph node chains. Lungs: Clear to auscultation and percussion. Heart: Regular without murmurs. Abdomen: Without evidence of hepatomegaly, masses or deep abdominal tenderness. Extremities: Without cyanosis, clubbing or edema. Neurologic: Examination physiologic and nonfocal. IMPRESSION Clinically CLARK at this time. PLAN: We would like to have her return on a p.r.n. basis, and she is to continue seeing her referring physicians as per their instructions and directions. Thank you for allowing us the opportunity of participation in the management this very fine patient. cc: MD Rush Carrasco MD MTDD
--- NOTE | 2019-02-25 16:18 | MEDONC ---
MEDICAL ONCOLOGY FOLLOWUP DATE OF SERVICE: 02/23/2019 DIAGNOSES: 1. Refractory recurrent ER positive/DE positive, MSI high endometrial carcinoma with metastatic recurrence diagnosed 2017. History of stage I, grade 1-2 endometrial carcinoma December 2015 treated with surgery. Currently on third line palliative treatment with alternating tamoxifen/megestrol with partial response; prior treatments include carboplatin/paclitaxel followed by pembrolizumab. 2. Cancer related pain on fentanyl and rescue medication; status post palliative radiation to T12 paraspinal mass. 3. Anemia concerning for blood losses requiring transfusion scheduled for diagnostic endoscopy transfused in November 2018 requiring additional transfusion today for hemoglobin 6.9. PRIOR THERAPY: JEROME-BSO, (LND) December 2011, Umesh Mata MD (final pathology no LVI, no parametrial, ST, or ovarian carcinoma; 0/6 nodes). 2018 recurrence with left pelvic sidewall, right psoas and left lung pleural-based mass. Carboplatin/paclitaxel six cycles 10/07/2017 - 01/22/2018. Disease progression February 2018. Pembrolizumab - 08/20/2018 stopped for progression. Tamoxifen daily for 3 weeks/megestrol 80 mg b.i.d. daily for 3 weeks begun 08/20/2018. Palliative radiation 04/14/2018 - 04/28/2018 3000 cGy left iliac. L4-L5 paraspinal mass 3000 cGy completed 01/13/2019. Long-term rivaroxaban for history of left lower extremity DVT with active metastatic cancer. CURRENT THERAPY: Megestrol 80 mg b.i.d. daily for 3 weeks alternating with tamoxifen 40 mg daily for 3 weeks begun August 2018. Fentynal patch 87 mcg. Rescue Tylenol, ibuprofen. (Pain management currently under palliative care.) INTERVAL HISTORY: Nilsa is back for a 1-month followup. She had restaging CT chest, abdomen and pelvis, which essentially show stable disease in the pelvis. In fact, there is a several millimeter decrease in the size of the right psoas and left pelvic sidewall masses with an apparently stable central lymph node. The left upper lobe spiculated mass has increased in size now measuring 3.2 cm. There are no other lung findings. This remained suspicious for a second primary given the discordant response to treatment, its spiculated appearance. Nilsa was scheduled for a biopsy of this but deferred it s her has undergone bypass surgery. She is scheduled now for the end of the month. She reports contentment with her current pain management under CRICKET Delgadillo. She acknowledges apprehension about the CT-guided biopsy. She notes some residual low back pain at times though at the site of radiation her back is better. We discussed the issue of bone strengthening medication, which has good anticancer properties in terms of preventing additional cancer related fractures. However, because of Nilsa having some dentition issues we have held off from starting denosumab. Meanwhile, her plate is somewhat full needing to undergo the lung biopsy. I again reviewed the issue of a possible second primary. She has a smoking history and it is conceivable the lung mass represents a primary lung cancer. We walked through issues of how that might be treated including surgery, SBRT, weighing risks, benefits versus prognosis related to her uterine cancer. I reviewed the images of the recent restaging scans with Nilsa. REVIEW OF SYSTEMS: In addition to pertinent positives and negatives above, the patient denies new shortness of breath, new cough, new headache or visual disturbance, new chest pain, new leg swelling or cramping, new nausea or vomiting. Remainder of 12 system review negative. PHYSICAL EXAM: Weight 100 kg, temperature 97, blood pressure 109/68, heart rate 70, respiratory 98. Patient is a well-groomed, middle-aged woman. Respiratory: Clear lungs to auscultation bilaterally anteriorly and posteriorly. No wheezes, rubs, or rales. Cardiac: S1, S2, regular rate and rhythm. No murmurs or gallops. Abdomen: Nondistended, nondistended. No palpable hepatosplenomegaly or mass. To even the lightest touch the patient remarks is it is somewhat uncomfortable though without grimacing or flinching. No rebound tenderness elicited. No palpable mass. Extremities: No edema or asymmetry. Lymph nodes: No submandibular, cervical, supraclavicular, or axillary adenopathy bilaterally. LABS: WBC 8, hemoglobin 6.9, hematocrit 22, platelets 453, MCV 88. TSH 37. CA-125 9.7. IMPRESSION: Refractory recurrent ER positive endometrial carcinoma on third line palliative treatment with combination tamoxifen/megestrol responding below the diaphragm; enlarging left upper lobe spiculated solitary mass suspicious for possible second primary versus refractory medicine focus. History of left lower extremity DVT on long-term anticoagulation. New iron deficiency anemia, uncertain etiology, endoscopy planned. Cancer and noncancer related pain under palliative care Hypothyroidism, on levothyroxine, currently remaining hypothyroid, possibly requiring dose adjustment. PLAN: 1. Continue tamoxifen/megestrol. 2. Increase levothyroxine to 137 mcg. 3. 2 unit RBC transfusion. 4. Followup scheduled endoscopy. Communicate with Dr. Carmona, need for small bowel biopsy. 5. Consider iron infusion. 6. 4 week interval return. 7. Followup pulmonary biopsy. If consistent with second primary, will discuss options at time of next visit. Electronically Signed by Delmis Ospina MD 02/25/2019 06:10 P DD: Delmis Ospina MD 02/23/2019 03:29 P DT: steffanie 02/25/2019 04:02 P CC: CRICKET Delgadillo MD Steven Lyndaker, MD
== END ==
LOC: M ONCR 09:54
PROVIDERS: ATTEND Radiology Radiation Oncology
DX: Z08 Encounter for follow-up examination after completed treatment for malignant neoplasm (principal); C54.1 Malignant neoplasm of endometrium; C79.51 Secondary malignant neoplasm of bone; R91.1 Solitary pulmonary nodule; D63.0 Anemia in neoplastic disease

== ENCOUNTER 2019-02-28 02:28 | Inpatient (IN) | payer BC ==
[~2019-02-28] VITALS: Ht 167.6 cm; Wt 98.0 kg
[~2019-02-28 02:28] MED LIST changes: -ESSE250T PO; -META28.32 PO; -MORP15TA2 PO; -MSIR30TA PO; -PANT-23 PO; -SYNT137T7 PO
[2019-02-28 03:50] VITALS: BP 161/86
--- NOTE | 2019-02-28 03:59 | HPEPDOC ---
[facility] Medical History & Physical Date of Admission Feb 28, 2019 Date of Service: Feb 28, 2019 Attending Physician: GARY CODY MD History and Physical TIME OF SERVICE 415AM CHIEF COMPLAINT: Pain HISTORY OF PRESENT ILLNESS: This is a 53 old female who intially presented to [facility] with complaints of severe lower abdominal pain that radiated to the back and began on Friday. She went to the hospital because she "couldn't take the pain anymore". She also complained of a 30 pounds and loose stools. She denied having fevers, denied falling, has been able to walk, and denies having fecal or urinary incontinence. Her last meal was on Friday, and her last bowel movement was yesterday. She is chronically on fentanyl 87.5 mcg to control the pain related to the paraspinal metastases; she denies changes to her pain medication dose recently. Per discussion with Dr. Vega, the ER Attending at [facility], the patient had a CT scan of the abdomen which showed a mass at the head of the pancreas; the LFTs and lipase were within normal limits. The patient was already scheduled for an EGD and colonoscopy here at [facility] Friday, therefore, he requested transfer for ERCP to evaluate the pancreatic mass and so the patient would not miss her procedures on Friday. REVIEW OF SYSTEMS: 12 point review of systems negative except as listed in HPI PAST MEDICAL / SURGICAL HISTORY: 1 . Metastatic Endometrial cancer ER positive, MA positive, high-grade carcinoma that was initially diagnosed in 2016 and managed with a JEROME/BSO. She had a recurrence in 2018 with metastasis to the left pelvic wall, right psoas and left upper lobe of the lung and L4-L5 paraspinal muscles. The patient is currently on a third line palliative chemotherapy regimen, has had palliative radiation the iliac and paraspinal mass. 3. Iron deficiency anemia 4. Left lower extremity DVT rivaroxaban is on hold pending EGD and colonoscopy 5. Hypothyroidism 6. Depression SOCIAL HISTORY: Smoker FAMILY HISTORY: Diabetes Hypertension Coronary artery disease ALLERGIES: Please see below. HOME MEDICATIONS: Please see below. PHYSICAL EXAMINATION: VITAL SIGNS: Temperature see below GENERAL APPEARANCE: Well-nourished, well-developed, not in apparent distress, does not appear septic HEENT: Normocephalic, atraumatic, mucous members moist and pink CARDIOVASCULAR: Regular rate and rhythm. No murmurs, rubs or gallops LUNGS: Clear to escalation bilaterally on room air ABDOMEN: Hypoactive bowel sounds. Abdomen is obese, soft and tender with palpation of the mid lower region MUSCULOSKELETAL: Range of motion intact in all 4 extremities EXTREMITIES: Left lower extremity slightly more swollen than the right but is not warm or tender on palpation NEUROLOGICAL: Cranial nerves II-12 are grossly intact. Speech is not dysarthric PSYCHIATRIC: Alert and oriented to person, place and time, able to understand and follow commands LABORATORY DATA: Pending IMAGING: Pending...CDs have been sent from [employer] will have staff upload them. ASSESSMENT: Ms. Petersen is a 53 old female with a past medical history of metastatic endometrial cancer, hypothyroidism, left lower extremity DVT, iron deficiency anemia and depression who was causes his to be determined in the recently discovered pancreatic mass will be admitted for pain management. . PLAN: 1. Abdominal & Back pain likely 2/2 metastatic endometrial cancer Plan: Increase fentanyl to from 87.5 to 100 mcg Q2D, c/w Gabapentin, add IV Morphine PRN unit new dose of fentanyl takes effect / Oncology Consult / Palliative Care consult to co-manage pain 2. Pancreatic mass. Per discussion with Dr. Vega was seen on CT Suspect this may be metastasis Plan: Follow-up CT images once they have been uploaded / the daytime team can liaise with Dr. Ospina Oncologist to determine if the pt needs an ERCP 3. Iron deficiency anemia , Plan: Consult GI for procedure Friday / / CBC 4. Left lower extremity DVT Plan: rivaroxaban is on hold pending EGD and colonoscopy 5. Hypothyroidism Plan continue home meds. 6. Tobacco abuse. Plan: Nicotine patch DVT prophylaxis with SCDs Disposition pending clinical course Home Medications Scheduled Buspirone HCl (Buspirone HCl) 7.5 Mg Tab, 7.5 MG PO TID Escitalopram Oxalate (Lexapro) 5 Mg Tablet, 5 MG PO QHS Fentanyl (Fentanyl) 87.5 Mcg Patch.td72, 1 PATCH TOP Q2D for PAIN CURRENTLY APPLIED TO RIGHT UPPER CHEST Gabapentin (Gabapentin) 600 Mg Tab, 600 MG PO QID Levothyroxine Sodium (Levo-T) 137 Mcg Tablet, 1 TAB PO DAILY for hypothyroid Lidocaine/Prilocaine (Lidocaine-Prilocaine Cream) 1 Cre Cre, 1 APLCT TOP ASDIREC JUSTINE apply to [facility] 1 hour before treatment Magnesium Oxide (Magnesium Oxide) 250 Mg Tablet, 250 MG PO QHS Megestrol Acetate (Megestrol Acetate) 40 Mg Tablet, 80 MG PO BID UPDATE FROM PREVIOUS ONCOLOGY PRESCRIPTION 02/28/19: PREVIOUS INSTRUCTIONS - take 4 tabs daily for 3 weeks, then alternate with tamoxifen daily for 3 weeks Pantoprazole Sodium (Pantoprazole Sodium) 40 Mg Tablet.dr, 40 MG PO QPM Psyllium Husk (with Sugar) (Metamucil Powder) 575 Gm Powder, 1 PKT PO DAILY Rivaroxaban (Xarelto) 20 Mg Tablet, 1 TAB PO DAILY with food Sertraline Hcl (Zoloft) 100 Mg Tab, 100 MG PO QHS Tamoxifen Citrate (Tamoxifen Citrate) 20 Mg Tab, 40 MG PO DAILY for endomtrial cancer take 2 tabs daily for 3 weeks alternating with megestrol for 3 weeks Scheduled PRN Acetaminophen (Mapap) 500 Mg Tab, 1,000 MG PO PRN PRN for PAIN OR DYSPNEA Lorazepam (Ativan) 0.5 Mg Tab, 1 MG PO QIDP PRN for ANXIETY/AGITATION Ondansetron HCl (Zofran) 4 Mg Tab, 4 MG PO Q6-8HP PRN for nausea/vomiting Allergies Coded Allergies: azithromycin (Verified Allergy, Intermediate, RASH, 02/28/19) pregabalin (Verified Allergy, Intermediate, RASH, 02/28/19) baclofen (Verified Adverse Reaction, Intermediate, anxiety, 02/24/19) carisoprodol (Verified Adverse Reaction, Intermediate, anxiety, 02/24/19) cyclobenzaprine (Verified Adverse Reaction, Intermediate, anxiety, 02/24/19) diazepam (Verified Adverse Reaction, Intermediate, anxiety, 02/24/19) metaxalone (Verified Adverse Reaction, Intermediate, anxiety, 02/24/19) methocarbamol (Verified Adverse Reaction, Intermediate, anxiety, 02/24/19) tizanidine (Verified Adverse Reaction, Intermediate, anxiety, 02/24/19) A-FIB/CHADSVASC A-FIB History Current/History of A-Fib/PAF?: No Current PO Anticoag Therapy: No GARY CODY MD Feb 28, 2019 03:59
[2019-02-28] MEDS ORDERED: PANT-23 PO (04:42)
[2019-02-28] MEDS ORDERED: MEGE40TA PO (04:42)
[2019-02-28] MEDS ORDERED: META28.32 PO (04:42)
[2019-02-28] MEDS ORDERED: ESSE250T PO (04:42)
[2019-02-28] MEDS ORDERED: LIDOCAINE 4% CREAM 5GM (LMX4) TOP PRN (05:15)
[2019-02-28] MEDS ORDERED: FENTANYL REMOVAL DOCUMENTATION MISC XX SCH (05:15)
[2019-02-28] MEDS ORDERED: LORazepam 0.5 MG TAB PO PRN (05:15)
[2019-02-28] MEDS ORDERED: ACETAMINOPHEN 500 MG TAB PO PRN (05:15)
[2019-02-28] MEDS ORDERED: ONDANSETRON 4 MG TAB (S0181) PO PRN (05:15)
[2019-02-28 05:19] LABS: HEMATOCRIT 32.3 % (36.0-47.0); HEMOGLOBIN 9.8 g/dl (12.0-15.5); MEAN CORPUSCULAR HEMOGLOBIN 27.9 pg (27.0-33.0); MEAN CORPUSCULAR HGB CONC 30.3 g/dl (32.0-36.5); PLATELET COUNT, AUTOMATED 435 10^3/uL (150-450); RED BLOOD COUNT 3.51 10^6/uL (4.00-5.40); WHITE BLOOD COUNT 8.5 10^3/uL (4.0-10.0)
[2019-02-28 05:23] LABS: ALT/SGPT 23 U/L (12-78); BILIRUBIN,TOTAL 0.3 MG/DL (0.2-1.0); BLOOD UREA NITROGEN 10 MG/DL (7-18); CALCIUM LEVEL 8.3 MG/DL (8.5-10.1); CARBON DIOXIDE LEVEL 23 MEQ/L (21-32); CHLORIDE LEVEL 108 MEQ/L (98-107); CREATININE FOR GFR 0.72 MG/DL (0.55-1.30); GLOMERULAR FILTRATION RATE > 60.0 (>51); GLUCOSE, FASTING 80 MG/DL (70-100); POTASSIUM SERUM 3.8 MEQ/L (3.5-5.1); SODIUM LEVEL 140 MEQ/L (136-145); TOTAL PROTEIN 7.2 GM/DL (6.4-8.2)
[2019-02-28 05:30] LABS: INR 1.13; PROTHROMBIN TIME 14.2 SECONDS (11.8-14.0)
[2019-02-28] MEDS ORDERED: HYDROmorphone 2 MG TAB PO PRN (05:30)
[2019-02-28] MEDS: SERTRALINE 100 MG TAB PO SCH ×2 (05:53→20:31)
[2019-02-28] MEDS: ESCITALOPRAM OXALATE 5MG TABLET (LEXAPRO) PO SCH ×2 (05:54→20:31)
[2019-02-28] MEDS: LEVOTHYROXINE 137MCG TABLET (0.137MG) PO SCH (05:54)
[2019-02-28 06:00] VITALS: BP 136/88
[2019-02-28] MEDS: MORPHINE 4 MG/ML 1ML VIAL/SYRINGE (J2270) IV PRN ×2 (06:49→10:10)
[2019-02-28] MEDS ORDERED: PILL CUTTER 1 EACH XX PRN (08:30)
[2019-02-28] MEDS: METAMUCIL (PSYLLIUM) PACKET PO SCH ×2 (09:00→09:01)
[2019-02-28] MEDS: MORPHINE 30 MG TAB **MSIR PO PRN ×2 (09:00→14:47)
[2019-02-28] MEDS: busPIRone 5 MG TAB PO SCH ×3 (09:00→20:31)
[2019-02-28] MEDS ORDERED: MEGESTROL 40 MG TAB PO SCH (09:00)
[2019-02-28] MEDS: TAMOXIFEN CITRATE 10 MG TAB PO SCH (09:00)
[2019-02-28] MEDS: PANTOPRAZOLE 40MG TAB (PROTONIX) PO SCH (09:01)
[2019-02-28] MEDS: GABAPENTIN 300 MG CAP PO SCH ×4 (09:01→20:30)
[2019-02-28] MEDS: MORPHINE 15 MG SA TAB PO SCH ×2 (13:33→20:31)
[2019-02-28] MEDS: NICOTINE 14 MG/24 HR TRANSDERMAL TD PRN (13:33)
[2019-02-28 14:00] VITALS: BP 140/66
[2019-02-28] MEDS: fentaNYL 100 MCG/HR PATCH TOP SCH (14:32)
[2019-02-28 22:00] VITALS: BP 118/66
[2019-03-01] MEDS: MORPHINE 30 MG TAB **MSIR PO PRN ×3 (05:49→20:53)
[2019-03-01] MEDS: LEVOTHYROXINE 137MCG TABLET (0.137MG) PO SCH (05:49)
[2019-03-01 06:00] VITALS: BP 132/49
[2019-03-01] MEDS: busPIRone 5 MG TAB PO SCH ×3 (08:37→20:53)
[2019-03-01] MEDS: PANTOPRAZOLE 40MG TAB (PROTONIX) PO SCH (08:38)
[2019-03-01] MEDS: TAMOXIFEN CITRATE 10 MG TAB PO SCH (08:38)
[2019-03-01] MEDS: GABAPENTIN 300 MG CAP PO SCH ×4 (08:38→20:53)
[2019-03-01] MEDS: METAMUCIL (PSYLLIUM) PACKET PO SCH (08:38)
--- NOTE | 2019-03-01 10:50 | IPNPDOC ---
Subjective Date Seen The patient was seen on 03/01/19. Subjective Chief Complaint/HPI Pateint says that the pain is much better controlled today. DI not need any IV morphine since yesterday morning. She has finished her bowel prep. Planned for EGD and colonoscopy today with Dr Carmona. Events since last encounter Pain well controlled today but seems a little drowsy so will stop the MS contin. SHe has been following with the palliative care as an outpatient. No fever or chills, finished her prep. Objective Physical Examination General Exam: Positive: Alert, Cooperative, Mild Distress Eye Exam: Positive: PERRLA, Conjunctiva & lids normal, EOMI; Negative: Sclera icteric ENT Exam: Positive: Atraumatic, Mucous membr. moist/pink, Pharynx Normal Neck Exam: Positive: Supple; Negative: JVD, thyromegaly Chest Exam: Positive: Clear to auscultation, Normal air movement Heart Exam: Positive: Rate Normal, Regular Rhythm, Normal S1, Normal S2; Negative: Murmurs, Rubs Abdomen Exam: Positive: Normal bowel sounds, Soft, Tenderness (in the central lower abdomen with radiation to the sides and back); Negative: Hepatospenomegaly Extremity Exam: Positive: Edema (Left leg swollen); Negative: Clubbing, Cyanosis Skin Exam: Positive: Nl turgor and temperature; Negative: Rash, Breakdown Assessment /Plan Assessment This is a 53 old female with PMH of Metastatic Endometrial cancer with mets to lungs, paraspinal muscles, pelvic wall, psoas muscle, illiac bone, Iron deficiency anemia , Possible chronic GIB, Left lower extremity DVT rivaroxaban is on hold pending EGD and colonoscopy, Hypothyroidism, Depression who presented to [facility] with complaints of severe lower abdominal pain that radiates to the back that began on 02/26/19. She went to the hospital because she "couldn't take the pain anymore". She also complained of a 30 pounds weight loss and loose stools. She is chronically on fentanyl 87.5 mcg to control the pain related to the paraspinal metastases however this was not controlling the abdominal pain. In [facility] the patient had a CT scan of the abdomen which showed a mass at the head of the pancreas. The patient was already scheduled for an EGD and colonoscopy to evaluate for GIB here at [facility] on 03/01/19, therefore, he requested transfer for ERCP to evaluate the pancreatic mass and so the patient not miss her procedures on Friday. She was admitted for pain management Abdominal & Back pain Due to metastatic endometrial CA Plan: Increase fentanyl to from 87.5 to 100 mcg q 48 hours c/w Gabapentin, IV Morphine PRN started on MSIR and MS contin. Pancreatic head mass. with mild intrahepatic and extrahepatic biliary dilatation seen in CT with IV contrast at [facility] Suspect this may be metastasis will discuss with Dr Carmona regarding the biliary obstruction. Iron deficiency anemia concern for chronic GIB EGD and colonoscopy on 03/01/19 Left lower extremity DVT restart rivaroxaban after EGD and colonoscopy Hypothyroidism Synthroid Tobacco abuse. Nicotine patch Depression Bupropion, lexapro, sertraline Metastatic endometrial cancer on tamoxifen and megace alternately 3 weeks each. Obesity Plan/VTE VTE Prophylaxis Ordered?: Yes VS, I&O, 24H, Fishbone Vital Signs/I&O Vital Signs Date Time Temp Pulse Resp B/P (MAP) Pulse Ox O2 Delivery O2 Flow Rate FiO2 03/01/19 06:00 98.8 73 18 132/49 (76) 97 I&O- Last 24 Hours up to 6 AM 03/01/19 06:00 Intake Total 2900 ml Output Total 800 ml Balance 2100 ml Laboratory Data 24H LABS Laboratory Tests 2 02/28/19 21:43: Lipase 282 SOLITARIO ELLSWORTH MD Mar 01, 2019 06:41
--- NOTE | 2019-03-01 12:49 | ROOR ---
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 Procedure: Pre-Anesthesia Assessment: - Prior to the procedure, a History and Physical was performed, and patient medications and allergies were reviewed. The patient is competent. The risks and benefits of the procedure and the sedation options and risks were discussed with the patient. All questions were answered and informed consent was obtained. Patient identification and proposed procedure were verified by the physician, the nurse and the anesthesiologist in the procedure room. Mental Status Examination: alert and oriented. Airway Examination: normal oropharyngeal airway and neck mobility. Respiratory Examination: clear to auscultation. CV Examination: normal. Prophylactic Antibiotics: The patient does not require prophylactic antibiotics. Prior Anticoagulants: The patient has taken no previous anticoagulant or antiplatelet agents. ASA Grade Assessment: III - A patient with severe systemic disease. After reviewing the risks and benefits, the patient was deemed in satisfactory condition to undergo the procedure. The anesthesia plan was to use monitored anesthesia care (MAC). Immediately prior to administration of medications, the patient was re-assessed for adequacy to receive sedatives. The heart rate, respiratory rate, oxygen saturations, blood pressure, adequacy of pulmonary ventilation, and response to care were monitored throughout the procedure. The physical status of the patient was re-assessed after the procedure. The Endoscope was introduced through the mouth, and advanced to the second part of duodenum. The upper GI endoscopy was accomplished without difficulty. The patient tolerated the procedure well. Findings: No gross lesions were noted in the entire esophagus. Scattered mild inflammation characterized by erythema and granularity was found in the gastric antrum. Biopsies were taken with a cold forceps for Helicobacter pylori testing. A large frond-like/villous, infiltrative and ulcerated mass with stigmata of recent bleeding was found in the ampulla. Biopsies were taken with a cold forceps for histology. Normal mucosa was found in the duodenal bulb. Biopsies for histology were taken with a cold forceps for evaluation of celiac disease. Verification of patient identification for the specimen was done by the physician and nurse using the patient's name, date and medical record number. Estimated blood loss was minimal. An acquired malignant-appearing, intrinsic severe stenosis was found in the second portion of the duodenum and was non-traversed. Impression: - No gross lesions in esophagus. - Gastritis. Biopsied. 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 Biopsied. - Normal mucosa was found in the duodenal bulb. Biopsied. - Acquired duodenal stenosis. Recommendation: - Patient has a contact number available for emergencies. The signs and symptoms of potential delayed complications were discussed with the patient. Return to normal activities tomorrow. Written discharge instructions were provided to the patient. - Mechanical soft diet. - Continue present medications. - Await pathology results. - Perform magnetic resonance imaging (MRI) with gadolinium at appointment to be scheduled. - Refer to an interventional radiologist at appointment to be scheduled. - Telephone GI clinic for pathology results in 2 weeks. - DVT prophylaxis ( SCDs) while in hospital as per [facility] team. - Return to primary care physician. Juan Carmona MD Juan Carmona MD 03/01/2019 12:49:05 PM Electronically signed by Juan Carmona MD Number of Addenda: 0 Note Initiated On: 03/01/2019 11:47 AM Estimated Blood Loss: Estimated blood loss was minimal.
--- NOTE | 2019-03-01 13:18 | ROOR ---
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 Procedure: Pre-Anesthesia Assessment: - Prior to the procedure, a History and Physical was performed, and patient medications and allergies were reviewed. The patient is competent. The risks and benefits of the procedure and the sedation options and risks were discussed with the patient. All questions were answered and informed consent was obtained. Patient identification and proposed procedure were verified by the physician, the nurse and the anesthesiologist in the procedure room. Mental Status Examination: alert and oriented. Airway Examination: normal oropharyngeal airway and neck mobility. Respiratory Examination: clear to auscultation. CV Examination: normal. Prophylactic Antibiotics: The patient does not require prophylactic antibiotics. Prior Anticoagulants: The patient has taken Xarelto (rivaroxaban), last dose was 3 days prior to procedure. ASA Grade Assessment: III - A patient with severe systemic disease. After reviewing the risks and benefits, the patient was deemed in satisfactory condition to undergo the procedure. The anesthesia plan was to use monitored anesthesia care (MAC). Immediately prior to administration of medications, the patient was re-assessed for adequacy to receive sedatives. The heart rate, respiratory rate, oxygen saturations, blood pressure, adequacy of pulmonary ventilation, and response to care were monitored throughout the procedure. The physical status of the patient was re-assessed after the procedure. The Colonoscope was introduced through the anus and advanced to the terminal ileum, with identification of the appendiceal orifice and IC valve. The colonoscopy was performed without difficulty. The patient tolerated the procedure well. The quality of the bowel preparation was good. The ileocecal valve, appendiceal orifice, and rectum were photographed. Scope insertion time was 3 minutes. Scope withdrawal time was 7 minutes. The total duration of the procedure was 10 minutes. Findings: The perianal and digital rectal examinations were normal. The terminal ileum appeared normal. A few small-mouthed diverticula were found from sigmoid to descending colon. There was no evidence of diverticular bleeding. Non-bleeding external and internal hemorrhoids were found during retroflexion. The hemorrhoids were medium-sized. Impression: - The examined portion of the ileum was normal. - Mild diverticulosis from sigmoid to descending colon. There was no evidence of diverticular bleeding. - Non-bleeding external and internal hemorrhoids. - No specimens collected. Recommendation: - Patient has a contact number available for emergencies. The signs and symptoms of potential delayed complications were discussed with the patient. Return to normal activities tomorrow. Written discharge instructions were provided to the patient. - Chopped diet. - Continue present medications. - Resumption of anti-coagulation based on the risks and benefits from hematology/oncology team. - Repeat colonoscopy in 10 years for screening purposes and depending on clinical and functional status. - Return to primary care physician. Juan Carmona MD Juan Carmona MD 03/01/2019 1:17:35 PM Electronically signed by Juan Carmona MD Number of Addenda: 0 Note Initiated On: 03/01/2019 11:52 AM Estimated Blood Loss: Estimated blood loss was minimal.
[2019-03-01 14:15] VITALS: BP 145/76
[2019-03-01 14:45] VITALS: BP 137/85
[2019-03-01 15:18] VITALS: BP 143/73
[2019-03-01] MEDS: MORPHINE 4 MG/ML 1ML VIAL/SYRINGE (J2270) IV PRN (18:41)
[2019-03-01] MEDS: NICOTINE 14 MG/24 HR TRANSDERMAL TD PRN (18:41)
[2019-03-01] MEDS: SERTRALINE 100 MG TAB PO SCH (20:53)
[2019-03-01] MEDS: ESCITALOPRAM OXALATE 5MG TABLET (LEXAPRO) PO SCH (20:54)
[2019-03-01 22:47] VITALS: BP 126/55
[2019-03-02] MEDS: MORPHINE 4 MG/ML 1ML VIAL/SYRINGE (J2270) IV PRN (03:13)
[2019-03-02] MEDS: MORPHINE 30 MG TAB **MSIR PO PRN ×2 (06:40→15:10)
[2019-03-02] MEDS: LEVOTHYROXINE 137MCG TABLET (0.137MG) PO SCH (06:40)
[2019-03-02 06:43] VITALS: BP 164/84
[2019-03-02] MEDS ORDERED: MORPHINE 4 MG/ML 1ML VIAL/SYRINGE (J2270) IV ONE (08:15)
[2019-03-02] MEDS ORDERED: MORP15TA2 PO ×2 (08:45→08:51)
[2019-03-02] MEDS ORDERED: MSIR30TA PO (08:49)
[2019-03-02] MEDS: PANTOPRAZOLE 40MG TAB (PROTONIX) PO SCH (08:53)
[2019-03-02] MEDS: busPIRone 5 MG TAB PO SCH ×2 (08:53→15:10)
[2019-03-02] MEDS: GABAPENTIN 300 MG CAP PO SCH ×2 (08:53→13:06)
[2019-03-02] MEDS: fentaNYL 100 MCG/HR PATCH TOP SCH (08:54)
[2019-03-02] MEDS: TAMOXIFEN CITRATE 10 MG TAB PO SCH (08:55)
[2019-03-02] MEDS: METAMUCIL (PSYLLIUM) PACKET PO SCH (09:00)
--- NOTE | 2019-03-02 18:17 | REP ---
MRI ABDOMEN WITH AND WITHOUT CONTRAST: Multiple sequences are obtained in the axial and coronal planes prior to and following the intravenous administration of 20 mL ProHance. COMPARISON: Comparison made with several prior CT exams, most recently from [facility] 02/27/2019, also [facility] exams of 01/22/2019, 11/02/2018, and 08/08/2018. The liver is enlarged. The length of the liver is approximately 20 cm. Focal fatty infiltration is seen anteriorly along the fissure. Multiple tiny filling defects on the dependent portion of the gallbladder are compatible with tiny gallstones. There is no gallbladder wall edema identified. Common bile duct is minimally dilated at 8 mm. I do not see a definite filling defect in the common bile duct on the T2-weighted images. Pancreatic duct is not dilated. There is minimal central intrahepatic biliary dilatation. Transverse duodenum appears thickened. Spleen is normal in size with no intrinsic abnormality. Right adrenal gland is normal. Left adrenal gland is diffusely thickened, unchanged since the prior CT exams. There is no definite pancreatic mass. Visualized kidneys are unremarkable except for a small cyst in the upper pole of the left kidney. There is no hydronephrosis bilaterally. There is ill-defined adenopathy in the retroperitoneum just below the level of the pancreatic head, which is partially imaged, better seen on the CT exams. No free fluid is seen. IMPRESSION: Tiny gallstones in a moderately distended gallbladder, with no definite gallbladder wall edema. Mild central intrahepatic biliary dilatation. Common bile duct is slightly dilated at 8 mm with no definite filling defect on T2-weighted images. Pancreatic duct is normal in caliber. I do not see a definite pancreatic mass. There does appear to be thickening of the transverse duodenum. The mild biliary dilatation could be due to this duodenal wall thickening, less likely an occult stone at the ampulla of Vater or other occult stricturing lesion at the ampulla of Vater. There is adjacent retroperitoneal adenopathy again seen in the aortocaval region just below the level of the pancreatic head as seen on the prior CT examinations. Electronically Signed by Martin Ivy MD 03/03/2019 01:10 P
--- NOTE | 2019-03-03 18:15 | CR ---
DATE OF CONSULTATION: 03/02/2019 REQUESTING PHYSICIAN: Suni Butler M.D., of hospital service. 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 Good response by CA-125. Stable disease on CTs. Nilsa was admitted over the week with complaint of severe low abdominal pain. She is status post recent radiation to a T12 paraspinal mass. She has also received radiation in the past to a left iliac focus. Her pain is being managed through the palliative care service, and prior to this hospitalization she was on fentanyl 87 mg, switched from every 72 hours to every 48 hours. She was just seen in the office 02/25/2019, at that time found to be still hypothyroid, her the levothyroxine increased, and to have significant anemia, and a 2-unit red blood cells (RBC) transfusion ordered. Her anemia has prompted referral for endoscopy, which wound up being done today, here in the hospital. She has in addition to her known endometrial cancer a left upper lobe spiculated mass, for which biopsy has been ordered, as there is asynchronous response to treatment between her skkzz-hzz-gtbjuuluw and cnkxs-gki-wodcnqgcv disease sites. The query is whether she has a second primary tumor. Her sites of disease involve the right iliopsoas, left pelvic sidewall, the left lung mass, and a small central pelvic focus. In addition, bone metastases in the left iliac and left lumbar and thoracic spine. These have been thought to be under control and her recent scans showing just borderline progression when she presented to the emergency room with severe pain a few days after her office visit. At [facility], an abdomen and pelvis CT was done, read as showing a new pancreatic mass. Liver function, bilirubin were normal on her transfer to [facility]. Upper and lower endoscopy now done, the upper endoscopy revealing an apparent duodenal mass, which was biopsied. Pathology pending. No colonic disease focus found. At the bedside, Nilsa is actually upright in a chair, chatting with her sister when I enter the room. She immediately gets up and introduces me to her sister, appearing comfortable. She raises the question of this low pelvic central pain. She describes a band of pain in the suprapubic area. Asks if her bladder is involved. I explained the results of CTs to our knowledge so far but would like to further discuss the results of the [place] image with our radiologist. The films have been uploaded. It is not easy to correlate the objective findings known so far with the pain she describes, though potentially a bone focus could be causing referred pain. Medications reviewed. The patient has had a significant increase in analgesics during this hospitalization, fentanyl increased to 100 mcg, rescue morphine sulfate 2 mg every 3 hours, morphine sulfate 15 mg every 4 hours. PAST MEDICAL HISTORY: Known to me from close followup in office. Recent surgical history reviewed. PHYSICAL EXAMINATION: Limited. VITAL SIGNS: Temperature 97.8, blood pressure 145/76, heart rate 70, respiratory rate 14, oxygen saturation 99%. Patient is a well-groomed, non-anxious appearing woman. Gets in the bed easily. RESPIRATORY: Clear lungs to auscultation bilaterally anteriorly and posteriorly. No wheezes or rales. CARDIAC: S1, S2. Regular rate and rhythm. No murmur, rub, gallop. ABDOMEN: Nondistended, soft, nontender. Able to palpate deeply in the upper, lower, and central abdominal areas. No palpable mass. No organomegaly. The patient is chatting and smiling through this exam, then points to an area in her far left lower quadrant just above the inguinal area and asks me to palpate what she thinks is a new nodule. Below a significant pannus is a palpable mobile. lengthy, smooth, tubular, non-discrete finding, likely colon loop with stool present. No irregularity. No significant tenderness. No obvious irregular mass. No fixed mass. No inguinal adenopathy bilaterally. LABORATORY DATA: CBC on February 28: Hemoglobin 9.8, hematocrit 32,, platelets 435, WBC 8.5. Electrolytes unremarkable. Renal function normal. TSH 37, free T4 0.75 (a new prescription for higher dose of levothyroxine had just been prescribed outpatient). CA-125 of 9.7, a william count for this patient since September 2017. IMPRESSION: 1. Metastatic endometrial carcinoma, ER/WY positive, on tamoxifen/megestrol with biochemical response, clinically stable disease sites in the right iliopsoas, left pelvic sidewall with a growing left lung nodule, possibly a second primary, spiculated and due for biopsy, admitted with severe pain, found to have what may be a new pancreatic mass on imaging and a duodenal mass on upper endoscopy, biopsy pending. 2. Escalating pain medication requirement without objective findings at the site of reported pain in the low very low abdomen, central and left. PLAN: 1. Nilsa may be discharged tomorrow, and for the present I am recommending her pain management continue under palliative care direction. The objective findings and pain complaints are not correlating currently. 2. Followup esophagogastroduodenoscopy (EGD) biopsy. 3. Follow through with pulmonary biopsy. 4. Continue anticoagulation. 5. Return to clinic as scheduled, barring urgent new findings on pathology report. I will be in touch with Nilsa once I have these by telephone. 7. Continue tamoxifen/megestrol for now.
--- NOTE | 2019-03-04 21:41 | DS.PDOC ---
Discharge Summary General Date of Admission Feb 28, 2019 at 08:16 Date of Discharge 03/02/19 Discharge Summary PROCEDURES PERFORMED DURING STAY: EGD: No gross lesions were noted in the entire esophagus. Scattered mild inflammation characterized by erythema and granularity was found in the gastric antrum. Biopsies were taken with a cold forceps for Helicobacter pylori testing. A large frond-like/villous, infiltrative and ulcerated mass with stigmata of recent bleeding was found in the ampulla. Biopsies were taken with a cold forceps for histology. Normal mucosa was found in the duodenal bulb. Biopsies for histology were taken with a cold forceps for evaluation of celiac disease. An acquired malignant-appearing, intrinsic severe stenosis was found in the second portion of the duodenum and was non-traversed. COLONOSCOPY: - The examined portion of the ileum was normal. - Mild diverticulosis from sigmoid to descending colon. There was no evidence of diverticular bleeding. - Non-bleeding external and internal hemorrhoids. 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 Chronic Iron deficiency anemia. Mild intra and extrahepatic biliary dilatation SECONDARY DIAGNOSIS: Metastatic Endometrial cancer with mets to lungs, paraspinal muscles, pelvic wall, psoas muscle, illiac bone s/p palliateive RT, Iron deficiency anemia , Possible chronic GIB, Left lower extremity DVT Hypothyroidism, Depression, obesity COMPLICATIONS/CHIEF COMPLAINT: Cancer Related Pain. HISTORY OF PRESENT ILLNESS: See history and physical HOSPITAL COURSE: This is a 53 old female with PMH of Metastatic Endometrial cancer with mets to lungs, paraspinal muscles, pelvic wall, psoas muscle, illiac bone, Iron deficiency anemia , Possible chronic GIB, Left lower extremity DVT rivaroxaban is on hold pending EGD and colonoscopy, Hypothyroidism, Depression who presented to [facility] with complaints of severe lower abdominal pain that radiates to the back that began on 02/26/19. She went to the hospital because she "couldn't take the pain anymore". She also complained of a 30 pounds weight loss and loose stools. She is chronically on fentanyl 87.5 mcg to control the pain related to the paraspinal metastases however this was not controlling the abdominal pain. In [facility] the patient had a CT scan of the abdomen which showed a mass at the head of the pancreas. The patient was already scheduled for an EGD and colonoscopy to evaluate for GIB here at [facility] on 03/01/19, therefore, he requested transfer for ERCP to evaluate the pancreatic mass and so the patient not miss her procedures on Friday. 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 Continue fentanyl patch at 87.5 mcg q 48 hours c/w Gabapentin started on MSIR q 8 hours prn. Ampullary mass as seen in EGD with duodenal stenosis with mild intrahepatic and extrahepatic biliary dilatation this looks like is a second primary though unfortunately biopsies did not tile picker the tissue GIB chronic from the duodenal mass with Iron deficiency anemia Left lower extremity DVT continued rivaroxaban However may need to stop it in view of the duodenal mass with signs of chronic bleeding. Hypothyroidism Synthroid Tobacco abuse. Nicotine patch Depression Bupropion, lexapro, sertraline Metastatic endometrial cancer on tamoxifen and megace alternately 3 weeks each. Obesity DISCHARGE MEDICATIONS: Please see below. ALLERGIES: Please see below. PHYSICAL EXAMINATION ON DISCHARGE: VITAL SIGNS: Please see below. General Exam: Positive: Alert, Cooperative, Mild Distress Eye Exam: Positive: PERRLA, Conjunctiva & lids normal, EOMI; Negative: Sclera icteric ENT Exam: Positive: Atraumatic, Mucous membr. moist/pink, Pharynx Normal Neck Exam: Positive: Supple; Negative: JVD, thyromegaly Chest Exam: Positive: Clear to auscultation, Normal air movement Heart Exam: Positive: Rate Normal, Regular Rhythm, Normal S1, Normal S2; Negative: Murmurs, Rubs Abdomen Exam: Positive: Normal bowel sounds, Soft, Tenderness (in the central lower abdomen with radiation to the sides and back); Negative: Hepatosplenomegaly Extremity Exam: Positive: Edema (Left leg swollen); Negative: Clubbing, Cyanosis Skin Exam: Positive: Nl turgor and temperature; Negative: Rash, Breakdown LABORATORY DATA: Please see below. RADIOLOGY: MRI of ABDOMEN: Tiny gallstones in a moderately distended gallbladder, with no definite gallbladder wall edema. Mild central intrahepatic biliary dilatation. Common bile duct is slightly dilated at 8 mm with no definite filling defect on T2-weighted images. Pancreatic duct is normal in caliber. I do not see a definite pancreatic mass. There does appear to be thickening of the transverse duodenum. The mild biliary dilatation could be due to this duodenal wall thickening, less likely an occult stone at the ampulla of Vater or other occult stricturing lesion at the ampulla of Vater. There is adjacent retroperitoneal adenopathy again seen in the aortocaval region just below the level of the pancreatic head as seen on the prior CT examinations. ACTIVITY: [As tolerated]. DIET: As tolerated DISPOSITION: 01 Home, Self-Care. DISCHARGE INSTRUCTIONS: Follow up with Dr Ospina in 1 week Follow up with Palliative care in 1 week DISCHARGE CONDITION: [Stable]. TIME SPENT ON DISCHARGE: 35 minutes. Vital Signs/I&Os Vital Signs Date Time Temp Pulse Resp B/P (MAP) Pulse Ox O2 Delivery O2 Flow Rate FiO2 03/02/19 15:10 16 03/02/19 06:43 98.5 84 164/84 (110) 99 Laboratory Data CBC/BMP Item Value Date Time White Blood Count 8.5 10^3/uL 02/28/19448 Red Blood Count 3.51 10^6/uL L 02/28/19448 Hemoglobin 9.8 g/dl L 02/28/19448 Hematocrit 32.3 % L 02/28/19448 Mean Corpuscular Volume 92.0 fl 02/28/19448 Mean Corpuscular Hemoglobin 27.9 pg 02/28/19448 Mean Corpuscular Hemoglobin Concent 30.3 g/dl L 02/28/19448 Red Cell Distribution Width 16.7 % H 02/28/19448 Platelet Count 435 10^3/uL 02/28/19448 Nucleated Red Blood Cells % (auto) 0.0 % 02/28/19448 Sodium Level 140 MEQ/L 02/28/19448 Potassium Level 3.8 MEQ/L 02/28/19448 Chloride Level 108 MEQ/L H 02/28/19448 Carbon Dioxide Level 23 MEQ/L 02/28/19448 Anion Gap 9 MEQ/L 02/28/19448 Blood Urea Nitrogen 10 MG/DL 02/28/19448 Creatinine 0.72 MG/DL 02/28/19448 Glomerular Filtration Rate > 60.0 02/28/19448 Fasting Glucose 80 MG/DL 02/28/19448 Calcium Level 8.3 MG/DL L 02/28/19448 Total Bilirubin 0.3 MG/DL 02/28/19448 Aspartate Amino Transf (AST/SGOT) 20 U/L 02/28/19448 Alanine Aminotransferase (ALT/SGPT) 23 U/L 02/28/19448 Alkaline Phosphatase 66 U/L 02/28/19448 Total Protein 7.2 GM/DL 02/28/19448 Albumin 3.0 GM/DL L 02/28/19448 Albumin/Globulin Ratio 0.71 L 02/28/19448 Lipase 282 U/L 02/28/192142 Discharge Medications Scheduled Buspirone HCl (Buspirone HCl) 7.5 Mg Tab, 7.5 MG PO TID, (Reported) Escitalopram Oxalate (Lexapro) 5 Mg Tablet, 5 MG PO QHS, (Reported) Fentanyl (Fentanyl) 87.5 Mcg Patch.td72, 1 PATCH TOP Q2D for PAIN, (Reported) CURRENTLY APPLIED TO RIGHT UPPER CHEST Gabapentin (Gabapentin) 600 Mg Tab, 600 MG PO QID, (Reported) Levothyroxine Sodium (Levo-T) 137 Mcg Tablet, 1 TAB PO DAILY for hypothyroid Lidocaine/Prilocaine (Lidocaine-Prilocaine Cream) 1 Cre Cre, 1 APLCT TOP ASDIRECTED apply to [facility] site 1 hour before treatment Magnesium Oxide (Magnesium Oxide) 250 Mg Tablet, 250 MG PO QHS, (Reported) Pantoprazole Sodium (Pantoprazole Sodium) 40 Mg Tablet.dr, 40 MG PO QPM, (Reported) Psyllium Husk (with Sugar) (Metamucil Powder) 575 Gm Powder, 1 PKT PO DAILY, (Reported) Rivaroxaban (Xarelto) 20 Mg Tablet, 1 TAB PO DAILY with food Sertraline Hcl (Zoloft) 100 Mg Tab, 100 MG PO QHS, (Reported) Tamoxifen Citrate (Tamoxifen Citrate) 20 Mg Tab, 40 MG PO DAILY for endomtrial cancer take 2 tabs daily for 3 weeks alternating with megestrol for 3 weeks Scheduled PRN Acetaminophen (Mapap) 500 Mg Tab, 1,000 MG PO PRN PRN for PAIN OR DYSPNEA, (Reported) Lorazepam (Ativan) 0.5 Mg Tab, 1 MG PO QIDP PRN for ANXIETY/AGITATION, (Reported) Morphine Sulfate (Morphine Sulfate) 15 Mg Tablet, 15 MG PO Q8HP PRN for SEVERE PAIN (PS 8-10) Ondansetron HCl (Zofran) 4 Mg Tab, 4 MG PO Q6-8HP PRN for nausea/vomiting, (Reported) Allergies Coded Allergies: azithromycin (Verified Allergy, Intermediate, RASH, 02/28/19) pregabalin (Verified Allergy, Intermediate, RASH, 02/28/19) baclofen (Verified Adverse Reaction, Intermediate, anxiety, 02/24/19) carisoprodol (Verified Adverse Reaction, Intermediate, anxiety, 02/24/19) cyclobenzaprine (Verified Adverse Reaction, Intermediate, anxiety, 02/24/19) diazepam (Verified Adverse Reaction, Intermediate, anxiety, 02/24/19) metaxalone (Verified Adverse Reaction, Intermediate, anxiety, 02/24/19) methocarbamol (Verified Adverse Reaction, Intermediate, anxiety, 02/24/19) tizanidine (Verified Adverse Reaction, Intermediate, anxiety, 02/24/19) SOLITARIO ELLSWORTH MD Mar 04, 2019 21:41
== END 2019-03-02 16:30 | disposition home or self-care (01) | DRG 861 ==
LOC: M MS5PR 03:45 → INTOOBSV 04:16 → M ED INP 04:16 → UNDOADMOB 04:16 → M MS5PR 04:17 → M ED INP 04:17 → OBSVTOIN 08:16
PROVIDERS: ADMIT Internal Medicine; ATTEND Internal Medicine Nephrology
PROC: 0DJD8ZZ Inspection of Lower Intestinal Tract, Via Natural or Artificial Opening Endoscopic (ICD-10-PCS; 2019-03-01)
PROC: 0DB68ZX Excision of Stomach, Via Natural or Artificial Opening Endoscopic, Diagnostic (ICD-10-PCS; principal; 2019-03-01 14:30)
DX: G89.3 Neoplasm related pain (acute) (chronic) (principal); C78.89 Secondary malignant neoplasm of other digestive organs; C78.00 Secondary malignant neoplasm of unspecified lung; I82.402 Acute embolism and thrombosis of unspecified deep veins of left lower extremity; C79.51 Secondary malignant neoplasm of bone; K92.2 Gastrointestinal hemorrhage, unspecified; C24.1 Malignant neoplasm of ampulla of Vater; C79.89 Secondary malignant neoplasm of other specified sites; C54.1 Malignant neoplasm of endometrium; E66.9 Obesity, unspecified; Z68.35 Body mass index [BMI] 35.0-35.9, adult; D50.0 Iron deficiency anemia secondary to blood loss (chronic); K64.4 Residual hemorrhoidal skin tags; K64.8 Other hemorrhoids; E03.9 Hypothyroidism, unspecified; F17.200 Nicotine dependence, unspecified, uncomplicated; F32.9 Major depressive disorder, single episode, unspecified; Z79.899 Other long term (current) drug therapy; Z88.8 Allergy status to other drugs, medicaments and biological substances

== ENCOUNTER 2019-03-08 12:51 | Inpatient (IN) | payer BC ==
[~2019-03-08] VITALS: Ht 167.6 cm; Wt 92.3 kg
[~2019-03-08 12:51] MED LIST changes: +ESSE250T PO; +META28.32 PO; +MORP15TA2 PO; +MSIR30TA PO; +PANT-23 PO
[2019-03-08 15:08] LABS: BASO % 0.3 % (0.0-1.0); EOS # 0.1 10^3/uL (0.0-0.50); EOS % 0.8 % (0.0-3.0); HEMATOCRIT 34.8 % (36.0-47.0); HEMOGLOBIN 10.8 g/dl (12.0-15.5); LYMPH # 1.4 10^3/uL (1.5-4.5); LYMPH % 18.9 % (24.0-44.0); MEAN CORPUSCULAR VOLUME 90.2 fl (80.0-96.0); MONO # 0.5 10^3/uL (0.0-0.8); MONO % 7.1 % (0.0-5.0); NEUTROPHILS # 5.4 10^3/uL (1.8-7.7); NEUTROPHILS % 72.5 % (36.0-66.0); PLATELET COUNT, AUTOMATED 480 10^3/uL (150-450); RED BLOOD COUNT 3.86 10^6/uL (4.00-5.40); WHITE BLOOD COUNT 7.5 10^3/uL (4.0-10.0)
[2019-03-08 15:20] LABS: ALBUMIN 3.3 GM/DL (3.2-5.2); ALT/SGPT 201 U/L (12-78); BILIRUBIN,DIRECT 0.5 MG/DL (0.0-0.2); BILIRUBIN,TOTAL 0.6 MG/DL (0.2-1.0); BLOOD UREA NITROGEN 10 MG/DL (7-18); CALCIUM LEVEL 9.1 MG/DL (8.5-10.1); CARBON DIOXIDE LEVEL 27 MEQ/L (21-32); CHLORIDE LEVEL 106 MEQ/L (98-107); CREATININE FOR GFR 0.74 MG/DL (0.55-1.30); GLOMERULAR FILTRATION RATE > 60.0 (>51); GLUCOSE, FASTING 85 MG/DL (70-100); LIPASE 516 U/L (73-393); POTASSIUM SERUM 3.9 MEQ/L (3.5-5.1); SODIUM LEVEL 139 MEQ/L (136-145); TOTAL PROTEIN 7.7 GM/DL (6.4-8.2)
[2019-03-08] MEDS ORDERED: ONDANSETRON 4MG/2ML VIAL (J2405) IV ONE (15:30)
[2019-03-08] MEDS ORDERED: NS 1,000 ML IV ONE (15:30)
[2019-03-08] MEDS ORDERED: MORPHINE 10 MG/ML 1ML VIAL (J2270) IV ONE (15:30)
[2019-03-08] MEDS ORDERED: SODIUM CHLORIDE 0.9% INJ 10 ML SYR IV PRN (16:00)
[2019-03-08] MEDS ORDERED: NICOTINE 21MG/24HR 1 EA TRANSDERMAL TD ONE (16:45)
--- NOTE | 2019-03-08 17:00 | REP ---
ABDOMINAL SERIES: Supine and erect views of the abdomen demonstrate no free air and no evidence of bowel obstruction. No dilated small bowel loops are seen. Tiny phleboliths are seen in the pelvis. There are degenerative changes of the spine and sacroiliac joints. An accompanying view of the chest demonstrates a mass in the left upper lobe as seen on recent CT of 01/22/2019. No new infiltrate is seen. Heart is normal in size. IMPRESSION :No free air or obstruction. Electronically Signed by Martin Ivy MD 03/09/2019 11:35 P
[2019-03-08] MEDS ORDERED: MORPHINE 4 MG/ML 1ML VIAL/SYRINGE (J2270) IV PRN (18:00)
[2019-03-08] MEDS ORDERED: MAALOX 30 ML SUSP *UDC PO ONE (18:00)
[2019-03-08] MEDS ORDERED: SYNT137T7 PO (18:27)
[2019-03-08] MEDS ORDERED: MEGE40TA PO (18:27)
[2019-03-08] MEDS ORDERED: MORP15TA2 PO (18:27)
[2019-03-08] MEDS: NS 1,000 ML IV SCH ×2 (19:29→21:41)
[2019-03-08] MEDS ORDERED: fentaNYL 75 MCG/HR PATCH TOP SCH (19:30)
[2019-03-08] MEDS ORDERED: FENTANYL REMOVAL DOCUMENTATION MISC XX SCH (19:30)
[2019-03-08] MEDS ORDERED: ONDANSETRON 4 MG TAB (S0181) PO PRN (19:30)
[2019-03-08] MEDS ORDERED: PILL CUTTER 1 EACH XX PRN (20:00)
[2019-03-08] MEDS ORDERED: MEGESTROL 40 MG TAB PO SCH (21:00)
[2019-03-08 21:05] VITALS: BP 184/98
[2019-03-08] MEDS: SERTRALINE 100 MG TAB PO SCH (21:40)
[2019-03-08] MEDS: GABAPENTIN 300 MG CAP PO SCH (21:40)
[2019-03-08] MEDS: DOCUSATE SODIUM 100 MG CAP PO SCH (21:40)
[2019-03-08 22:00] VITALS: BP 174/95
[2019-03-08] MEDS: HYDROMORPHONE HCL 0.5 MG/ 0.5 ML SYRINGE (J1170 PER 1) IV PRN (22:01)
[2019-03-08] MEDS: busPIRone 5 MG TAB PO SCH (22:01)
[2019-03-08] MEDS: ESCITALOPRAM OXALATE 5MG TABLET (LEXAPRO) PO SCH (22:10)
--- NOTE | 2019-03-08 22:34 | HPEPDOC ---
[facility] Medical History & Physical Date of Admission Mar 08, 2019 Date of Service: Mar 08, 2019 History and Physical CHIEF COMPLAINT: left sided abdominal pain HISTORY OF PRESENT ILLNESS: 53 y/o F with Metastatic endometrial Ca, Iron def anemia, LLE DVT no longer on Xarelto, Hypothyroidism who was recently discharged from [facility] 03/04 for abdominal pain and possible new ampullary mass presents with complaints of left lower abdominal pain starting 2 days prior, described as a knife/stabbing pain, 9/10 in intensity but 6/10 after initial medications. Worse with laying on it and palpation, not improved with anything. Tried her home morphine and Tylenol without relief. 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 Colonoscopy done. Abd MRI done 03/02 as well. Since discharge patient notes no fevers, chills, vision changes, cough, wheezing, chest pain, palpitations, constipation (last BM Friday), n/v, numbness, weakness, focal swelling, no GI bleeding. PAST MEDICAL / SURGICAL HISTORY: 1 . Metastatic Endometrial cancer ER positive, NC positive, high-grade carcinoma that was initially diagnosed in 2016 and managed with a JEROME/BSO. She had a recurrence in 2018 with metastasis to the left pelvic wall, right psoas and left upper lobe of the lung and L4-L5 paraspinal muscles. The patient is currently on a third line palliative chemotherapy regimen, has had palliative radiation the iliac and paraspinal mass. 3. Iron deficiency anemia 4. Left lower extremity DVT rivaroxaban is on hold pending EGD and colonoscopy 5. Hypothyroidism 6. Depression SOCIAL HISTORY: Smoker. Denies EtOH or illicit drugs, lives with and daughter. FAMILY HISTORY: Mother and father Diabetes, Hypertension, Coronary artery disease ALLERGIES: Please see below. REVIEW OF SYSTEMS: 10 point ROS done and negative unless noted in HPI HOME MEDICATIONS: Please see below. Vitals Reviewed GEN: Obese female, mild distress from pain, laying on right side HEENT: MM dry, EOMI, no icterus Cardio: S1/S2 present, RRR Lungs: CTA b/l, good air entry, no wheezing Abd: soft, tender to light palpation throughout but particularly in the left lower quadrant. Bowel sounds hypoactive Ext: no LE edema MSK moving all extremities Neuro: A&Ox3, no focal deficits noted. Psych: appropriate mood and affect. Abd X-Ray: no free air or obstruction ASSESSMENT: 53 y/o F with Metastatic endometrial Ca, Iron def anemia, LLE DVT no longer on Xarelto, Hypothyroidism who was recently discharged from [facility] 03/04 for abdominal pain and possible new ampullary mass presents with complaints of acute on chronic LLQ abdominal pain. 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 Start Dilaudid 1mg q3 hours PRN for pain control. Maalox PRN, senna/Colace to avoid constipation. -Monitor labs -IVF hydration -NPO, advance diet as tolerated -Monitor LFTs to ensure down trending -GI consult if not improving. -Palliative care consulted in ED, will f/u. Onc: Metastatic Endometrial Ca -Continue Tamoxifen, megace LLE DVT -endorses xarelto stopped after EGD findings of ulcerative mass. Monitor Hypothyroidism: continue synthroid. Anxiety: continue Ativan PRN Depression: Continue Sertaline. Also on Lexapro, will hold for now as patient is on 2 SSRI, will need to clarify med rec Dvt ppx: lovenox Vital Signs Vital Signs Date Time Temp Pulse Resp B/P (MAP) Pulse Ox O2 Delivery O2 Flow Rate FiO2 03/08/19 22:01 18 03/08/19 21:02 88 152/88 (109) 96 03/08/19 19:04 Room Air 03/08/19 12:52 98.1 Laboratory Data Labs 24H Laboratory Tests 2 03/08/19 13:41: Urine Color HILL[place], Urine Appearance CLEAR, Urine pH 7.0, Urine Specific [place] 1.027, Urine Protein 1+H, Urine Glucose (UA) NEGATIVE, Urine Ketones NEGATIVE, Urine Blood NEGATIVE, Urine Nitrite NEGATIVE, Urine Bilirubin NEGATIVE, Urine Urobilinogen 2.0H, Urine Leukocyte Esterase NEGATIVE, Urine WBC (Auto) 1, Urine RBC (Auto) 5H, Urine Hyaline Casts (Auto) 0, Urine Bacteria (Auto) 1+H, Urine Squamous Epithelial Cells 2, Urine Mucus (Auto) SMALL, Urine Sperm (Auto) 03/08/19 14:44: Immature Granulocyte % (Auto) 0.4, White Blood Count 7.5, Red Blood Count 3.86L, Hemoglobin 10.8L, Hematocrit 34.8L, Mean Corpuscular Volume 90.2, Mean Marta uscular Hemoglobin 28.0, Mean Corpuscular Hemoglobin Concent 31.0L, Red Cell Distribution Width 16.1H, Platelet Count 480H, Neutrophils (%) (Auto) 72.5H, Lymphocytes (%) (Auto) 18.9L, Monocytes (%) (Auto) 7.1H, Eosinophils (%) (Auto) 0.8, Basophils (%) (Auto) 0.3, Neutrophils # (Auto) 5.4, Lymphocytes # (Auto) 1.4L, Monocytes # (Auto) 0.5, Eosinophils # (Auto) 0.1, Basophils # (Auto) 0.0, Nucleated Red Blood Cells % (auto) 0.0, Anion Gap 6L, Glomerular Filtration Rate > 60.0, Calcium Level 9.1, Aspartate Amino Transf (AST/SGOT) 154H, Alanine Aminotransferase (ALT/SGPT) 201H, Alkaline Phosphatase 237H, Total Bilirubin 0.6, Direct Bilirubin 0.5H, Total Protein 7.7, Albumin 3.3, Albumin/Globulin Ratio 0.75L, Lipase 516H CBC/BMP Laboratory Tests 03/08/19 14:44 Red Blood Count 3.86 L, Mean Corpuscular Volume 90.2, Mean Corpuscular Hemoglobin 28.0, Mean Corpuscular Hemoglobin Concent 31.0 L, Red Cell Distribution Width 16.1 H, Neutrophils (%) (Auto) 72.5 H, Lymphocytes (%) (Auto) 18.9 L, Monocytes (%) (Auto) 7.1 H, Eosinophils (%) (Auto) 0.8, Basophils (%) (Auto) 0.3, Neutrophils # (Auto) 5.4, Lymphocytes # (Auto) 1.4 L, Monocytes # (Auto) 0.5, Eosinophils # (Auto) 0.1, Basophils # (Auto) 0.0 Home Medications Scheduled Buspirone HCl (Buspirone HCl) 7.5 Mg Tab, 7.5 MG PO TID Escitalopram Oxalate (Lexapro) 5 Mg Tablet, 5 MG PO QHS Fentanyl (Fentanyl) 87.5 Mcg Patch.td72, 87.5 MCG TOP Q2D CURRENTLY APPLIED TO RIGHT UPPER CHEST Gabapentin (Gabapentin) 600 Mg Tab, 600 MG PO QID Levothyroxine Sodium (Synthroid) 137 Mcg Tablet, 137 MCG PO DAILY Magnesium Oxide (Magnesium Oxide) 250 Mg Tablet, 250 MG PO QHS Megestrol Acetate (Megestrol Acetate) 40 Mg Tablet, 80 MG PO BID ALTERNATES WITH TAMOXIFEN EVERY 3 WEEKS PER ONCOLOGY. PT STARTED TAMOXIFEN ON 02/27 Pantoprazole Sodium (Pantoprazole Sodium) 40 Mg Tablet.dr, 40 MG PO QPM Psyllium Husk (with Sugar) (Metamucil Powder) 575 Gm Powder, 1 PKT PO DAILY Sertraline Hcl (Zoloft) 100 Mg Tab, 100 MG PO QHS Tamoxifen Citrate (Tamoxifen Citrate) 20 Mg Tab, 40 MG PO DAILY for endomtrial cancer take 2 tabs daily for 3 weeks alternating with megestrol for 3 weeks Scheduled PRN Acetaminophen (Mapap) 500 Mg Tab, 1,000 MG PO Q6H PRN for PAIN OR DYSPNEA Lorazepam (Ativan) 0.5 Mg Tab, 1 MG PO QID PRN for ANXIETY/AGITATION Morphine Sulfate (Morphine Sulfate) 15 Mg Tablet, 15 MG PO Q8H PRN for SEVERE PAIN (PS 8-10) Ondansetron HCl (Zofran) 4 Mg Tab, 4 MG PO Q6H PRN for NAUSEA OR VOMITING Allergies Coded Allergies: azithromycin (Verified Allergy, Intermediate, RASH, 02/28/19) pregabalin (Verified Allergy, Intermediate, RASH, 02/28/19) baclofen (Verified Adverse Reaction, Intermediate, anxiety, 02/24/19) carisoprodol (Verified Adverse Reaction, Intermediate, anxiety, 02/24/19) cyclobenzaprine (Verified Adverse Reaction, Intermediate, anxiety, 02/24/19) diazepam (Verified Adverse Reaction, Intermediate, anxiety, 02/24/19) metaxalone (Verified Adverse Reaction, Intermediate, anxiety, 02/24/19) methocarbamol (Verified Adverse Reaction, Intermediate, anxiety, 02/24/19) tizanidine (Verified Adverse Reaction, Intermediate, anxiety, 02/24/19) RAQUEL HANSON MD Mar 08, 2019 22:34
[2019-03-08] MEDS: LORazepam 0.5 MG TAB PO PRN (23:29)
[2019-03-09] MEDS: HYDROMORPHONE HCL 0.5 MG/ 0.5 ML SYRINGE (J1170 PER 1) IV PRN ×7 (01:01→21:17)
[2019-03-09 06:00] VITALS: BP 178/90
[2019-03-09] MEDS: LEVOTHYROXINE 137MCG TABLET (0.137MG) PO SCH (06:40)
[2019-03-09] MEDS: NS 1,000 ML IV SCH ×2 (06:41→16:12)
[2019-03-09 06:59] LABS: HEMATOCRIT 32.8 % (36.0-47.0); HEMOGLOBIN 9.7 g/dl (12.0-15.5); MEAN CORPUSCULAR HEMOGLOBIN 26.5 pg (27.0-33.0); MEAN CORPUSCULAR HGB CONC 29.6 g/dl (32.0-36.5); MEAN CORPUSCULAR VOLUME 89.6 fl (80.0-96.0); PLATELET COUNT, AUTOMATED 455 10^3/uL (150-450); RED BLOOD COUNT 3.66 10^6/uL (4.00-5.40); WHITE BLOOD COUNT 7.1 10^3/uL (4.0-10.0)
[2019-03-09 07:34] LABS: ALT/SGPT 267 U/L (12-78); BILIRUBIN,TOTAL 1.4 MG/DL (0.2-1.0); BLOOD UREA NITROGEN 9 MG/DL (7-18); CALCIUM LEVEL 8.6 MG/DL (8.5-10.1); CARBON DIOXIDE LEVEL 28 MEQ/L (21-32); CHLORIDE LEVEL 108 MEQ/L (98-107); CREATININE FOR GFR 0.77 MG/DL (0.55-1.30); GLOMERULAR FILTRATION RATE > 60.0 (>51); GLUCOSE, FASTING 118 MG/DL (70-100); POTASSIUM SERUM 3.9 MEQ/L (3.5-5.1); SODIUM LEVEL 142 MEQ/L (136-145); TOTAL PROTEIN 7.3 GM/DL (6.4-8.2)
[2019-03-09] MEDS: ENOXAPARIN 40 MG/0.4 ML SYRINGE (J1650) SC SCH (07:39)
[2019-03-09] MEDS: DOCUSATE SODIUM 100 MG CAP PO SCH ×2 (07:51→21:00)
[2019-03-09] MEDS: SENNA 8.6 MG TAB (SENOKOT) PO SCH (07:51)
[2019-03-09] MEDS: GABAPENTIN 300 MG CAP PO SCH ×4 (07:52→21:13)
[2019-03-09] MEDS: METAMUCIL (PSYLLIUM) PACKET PO SCH (07:52)
[2019-03-09] MEDS: busPIRone 5 MG TAB PO SCH ×3 (07:52→21:15)
[2019-03-09] MEDS: TAMOXIFEN CITRATE 10 MG TAB PO SCH (10:51)
[2019-03-09 14:00] VITALS: BP 158/88
[2019-03-09] MEDS ORDERED: SODIUM CHLORIDE 0.9% INJ 10 ML SYR IV PRN (18:15)
--- NOTE | 2019-03-09 19:35 | IPNPDOC ---
Text Note Date of Service The patient was seen on 03/09/19. NOTE Subjective: Patient continues to have left abdominal pain mostly in the left lower quadrant. Patient continues to have nausea Patient denies fever, chills, shortness of breath, palpitations, diarrhea or dysuria Objective: General: NAD HEENT:PERRLA, EOMI Chest: S1S2 Abd: Nontender, nondistended Extremities: No cyanosis no swelling A/P: ASSESSMENT: 53 y/o F with Metastatic endometrial Ca, Iron def anemia, LLE DVT no longer on Xarelto due to high risk of GI bleed, hypothyroidism who was recently discharged from [facility] 03/04 for abdominal pain and possible new ampullary mass presents with complaints of acute on chronic LLQ abdominal pain. 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 Also patient stated that she had 2 cycles of pelvis radiation in 2018. Abdominal MRI was done on 03/02/2019 in February and showed the mild biliary dilatation could be due to this duodenal wall thickeni ng, less likely an occult stone at the ampulla of Vater or other occult stricturing lesion at the ampulla of Vater. There is adjacent retroperitoneal adenopathy again seen in the aortocaval region just below the level of the pancreatic head as seen on the prior CT examinations. Acute pancreatitis Could be secondary to biliary tract obstruction, stone versus metastases -continue pain management -IVF hydration - Clear liquid diet -LFT trended up -GI consult if not improving -Palliative care on board Abdominal US Onc: Metastatic Endometrial Ca -Continue Tamoxifen, megace Follow-up with oncologist in the outpatient settings LLE DVT -endorses xarelto stopped after EGD findings of ulcerative mass. Monitor Hypothyroidism: continue synthroid. VS,Fishbone, I+O VS, Fishbone, I+O Laboratory Tests 03/09/19 06:47 Red Blood Count 3.66 L, Mean Corpuscular Volume 89.6, Mean Corpuscular Hemoglobin 26.5 L, Mean Corpuscular Hemoglobin Concent 29.6 L, Red Cell Distribution Width 16.2 H, Calcium Level 8.6, Aspartate Amino Transf (AST/SGOT) 252 H, Alanine Aminotransferase (ALT/SGPT) 267 H, Alkaline Phosphatase 270 H, Total Bilirubin 1.4 #H, Total Protein 7.3, Albumin 3.0 L Vital Signs Date Time Temp Pulse Resp B/P (MAP) Pulse Ox O2 Delivery O2 Flow Rate FiO2 03/09/19 17:36 15 03/09/19 14:00 97.1 71 158/88 (111) 81 03/08/19 19:04 Room Air I&O- Last 24 Hours up to 6 AM 03/09/19 06:00 Intake Total 600 ml Balance 600 ml JESSICA SAHU DO Mar 09, 2019 19:35
--- NOTE | 2019-03-09 20:00 | CR.PDOC ---
General Date of Consultation: Mar 09, 2019 Referring Provider: RAQUEL HANSON MD Attending Physician: JESSICA SAHU DO Consultation REASON FOR CONSULTATION/CHIEF COMPLAINT: 53 year old female known to me from [facility] where she as rfefered by Dr. Delmis Ospina 2 months ago for assistance with pain and symptom managememt. I asked her to report to ED yesterday after she contacted me at my office to report a 4 day history of terrible pain in her hip and in her abdomen not controlled with fentanyl 87 mcg patch and prn morphine IR 15 mg tablets. HISTORY OF PRESENT ILLNESS: Metastatic endometrial cancer s/p chemotherapy, surgery with recurrent disease. She was doing reasonably well on her current medication management until after her recent admission for bidirectional s coping. She has a mass obstructing the biliary tree. She informed me today she will be scoped again because tissue sample was inadequate to do testing for possible chemotherapeutic regimen. Lorena has a HCP ( ED ) but no MOLST form. She has reviewed [facility] but has not made decisions yet regarding DNR/DNI, feeding tubes, etc. Today I saw her with her , sister Lulú and 3 sons present. She stated she did not feel she as ready to yet, but she is also not sure she wants to have a poor quality of life going through chemotherapy if the ultimate result will be the same ( ). ALLERGIES: Please see below. HOME MEDICATIONS: Please see below. PAST MEDICAL HISTORY: 1. endometrial cancer 2. hypothyroidism 3. depression PAST SURGICAL HISTORY: 1.hysterectomy SOCIAL HISTORY: Marital status and/or living arrangements: lives with who has cardiac problems Children: 4 Employment: retired Tobacco use:na ETOH: na Illicit drug use: no IV drug use: no REVIEW OF SYSTEMS: CONSTITUTIONAL: denies fevers, chills, has occasional night sweats HEENT: dry mouth CARDIOVASCULAR: denies chest pain or palpitations RESPIRATORY: [no wheezing GENITOURINARY: denie dysuria or frequency. reports her urine is quite dark MUSCULOSKELETAL: left hip pain constantly worse with weight bearing, low back pain GASTROINTESTINAL: constipation, abdominal pain SKIN: no lumps or bumps or rashes NEUROLOGICAL: denies tremors or headache PSYCHIATRIC: endorses anxiety ENDOCRINE: denies excessive thirst HEMATOLOGIC/LYMPHATIC: metastatic cancer ALLERGIC/IMMUNOLOGIC: na PHYSICAL EXAMINATION: VITAL SIGNS: Please see below. GENERAL APPEARANCE: resting in bed, no acute distress, appears intermittently anxious HEENT: dry mucous membranes RESPIRATORY: full respirations no adventitious sounds CARDIOVASCULAR: RRR ABDOMEN: [Obese, diffuse tenderness, some rebound tenderness, +BS EXTREMITIES: no CCE NEUROLOGICAL: CN 2-12 grossl intact no focal deficits PSYCHIATRIC: anxious LABORATORY DATA: Please see below. ASSESSMENT/PLAN: 1. Metastatic endometrial cancer with abdominal and hip pain. I am increasing fentanyl to 100 cmg q 2 day. Start po hydromorphone since I presume she will need to be controlled on po analgesics before being discharged. The conversion would actually be about 3 mg po but will start with 2 mg with a short dosing interval of 2 hr prn. I am leaving IV hydromorphon for rescue until I am confortable with her analgesia and ability to do without IV support. 2. Goals of care. I spent 45 minutes discussing with Lorena and her family whether she wants to have interventions that may negatvely impact her quality of life to get increased quantity of life. I plan to meet with her tomorrow after tumor boards and it would be my goal to complete a MOLST form with her at that time. She is in agrement with the above, her family is also in agreement. Her sons had many questions about whether further treatment makes sense at this point. Lorena certainly has capacity and karenatley will need to be the one to decide whether to pursue treatment or not. Vital Signs/I&O Vital Signs Date Time Temp Pulse Resp B/P (MAP) Pulse Ox O2 Delivery O2 Flow Rate FiO2 03/09/19 17:36 15 03/09/19 14:00 97.1 71 158/88 (111) 81 03/08/19 19:04 Room Air I&O- Last 24 Hours up to 6 AM 03/09/19 06:00 Intake Total 600 ml Balance 600 ml Laboratory Data Labs 24H Laboratory Tests 2 03/09/19 06:47: Nucleated Red Blood Cells % (auto) 0.0, Anion Gap 6L, Glomerular Filtration Rate > 60.0, Blood Urea Nitrogen 9, Creatinine 0.77, Sodium Level 142, Potassium Level 3.9, Chloride Level 108H, Carbon Dioxide Level 28, Calcium Level 8.6, Aspartate Amino Transf (AST/SGOT) 252H, Alanine Aminotransferase (ALT/SGPT) 267H, Alkaline Phosphatase 270H, Total Bilirubin 1.4#H, Total Protein 7.3, Albumin 3.0L, Albumin/Globulin Ratio 0.70L CBC/BMP Laboratory Tests 03/09/19 06:47 Red Blood Count 3.66 L, Mean Corpuscular Volume 89.6, Mean Corpuscular Hemoglobin 26.5 L, Mean Corpuscular Hemoglobin Concent 29.6 L, Red Cell Distribution Width 16.2 H, Calcium Level 8.6, Aspartate Amino Transf (AST/SGOT) 252 H, Alanine Aminotransferase (ALT/SGPT) 267 H, Alkaline Phosphatase 270 H, Total Bilirubin 1.4 #H, Total Protein 7.3, Albumin 3.0 L Allergies Coded Allergies: azithromycin (Verified Allergy, Intermediate, RASH, 02/28/19) pregabalin (Verified Allergy, Intermediate, RASH, 02/28/19) baclofen (Verified Adverse Reaction, Intermediate, anxiety, 02/24/19) carisoprodol (Verified Adverse Reaction, Intermediate, anxiety, 02/24/19) cyclobenzaprine (Verified Adverse Reaction, Intermediate, anxiety, 02/24/19) diazepam (Verified Adverse Reaction, Intermediate, anxiety, 02/24/19) metaxalone (Verified Adverse Reaction, Intermediate, anxiety, 02/24/19) methocarbamol (Verified Adverse Reaction, Intermediate, anxiety, 02/24/19) tizanidine (Verified Adverse Reaction, Intermediate, anxiety, 02/24/19) Home Medications Scheduled Buspirone HCl (Buspirone HCl) 7.5 Mg Tab, 7.5 MG PO TID, (Reported) Escitalopram Oxalate (Lexapro) 5 Mg Tablet, 5 MG PO QHS, (Reported) Fentanyl (Fentanyl) 87.5 Mcg Patch.td72, 87.5 MCG TOP Q2D, (Reported) CURRENTLY APPLIED TO RIGHT UPPER CHEST Gabapentin (Gabapentin) 600 Mg Tab, 600 MG PO QID, (Reported) Levothyroxine Sodium (Synthroid) 137 Mcg Tablet, 137 MCG PO DAILY, (Reported) Magnesium Oxide (Magnesium Oxide) 250 Mg Tablet, 250 MG PO QHS, (Reported) Megestrol Acetate (Megestrol Acetate) 40 Mg Tablet, 80 MG PO BID, (Reported) ALTERNATES WITH TAMOXIFEN EVERY 3 WEEKS PER ONCOLOGY. PT STARTED TAMOXIFEN ON 02/27 Pantoprazole Sodium (Pantoprazole Sodium) 40 Mg Tablet.dr, 40 MG PO QPM, (Reported) Psyllium Husk (with Sugar) (Metamucil Powder) 575 Gm Powder, 1 PKT PO DAILY, (Reported) Sertraline Hcl (Zoloft) 100 Mg Tab, 100 MG PO QHS, (Reported) Tamoxifen Citrate (Tamoxifen Citrate) 20 Mg Tab, 40 MG PO DAILY for endomtrial cancer for 30 Days, #60 take 2 tabs daily for 3 weeks alternating with megestrol for 3 weeks Scheduled PRN Acetaminophen (Mapap) 500 Mg Tab, 1,000 MG PO Q6H PRN for PAIN OR DYSPNEA, (Reported) Lorazepam (Ativan) 0.5 Mg Tab, 1 MG PO QID PRN for ANXIETY/AGITATION, (Reported) Morphine Sulfate (Morphine Sulfate) 15 Mg Tablet, 15 MG PO Q8H PRN for SEVERE PAIN (PS 8-10), (Reported) Ondansetron HCl (Zofran) 4 Mg Tab, 4 MG PO Q6H PRN for NAUSEA OR VOMITING, (Reported) Zoie [address] [employer] Mar 09, 2019 19:31
[2019-03-09] MEDS: SERTRALINE 100 MG TAB PO SCH (21:14)
[2019-03-09] MEDS: ESCITALOPRAM OXALATE 5MG TABLET (LEXAPRO) PO SCH (21:15)
[2019-03-09 22:00] VITALS: BP 145/82
[2019-03-10] MEDS: fentaNYL 100 MCG/HR PATCH TOP SCH (00:47)
[2019-03-10] MEDS: HYDROMORPHONE HCL 0.5 MG/ 0.5 ML SYRINGE (J1170 PER 1) IV PRN ×2 (00:49→04:35)
[2019-03-10] MEDS: FENTANYL REMOVAL DOCUMENTATION MISC XX SCH (01:07)
[2019-03-10] MEDS: NS 1,000 ML IV SCH ×2 (01:21→04:33)
--- NOTE | 2019-03-10 05:02 | REPVR ---
EXAM: US Abdomen Complete EXAM DATE/TIME: 03/10/19 (3:57am) CLINICAL HISTORY: 53 year old female. Pancreatitis. Possible CBD obstruction. Liver mets. TECHNIQUE: Imaging protocol: Real-time ultrasound of the abdomen with image documentation COMPARISON: CT ABDOMEN PELVIS of 02/27/19 FINDINGS: The liver is visually normal in size (X cm length). The spleen is normal in size (9.0 cm length). Distended gallbladder (measuring 13 x 4 x 4 cm in dimensions). Multiple small shadowing mobile gallstones. Possible small mural polyp (6 mm size) along right lateral gallbladder wall. Thin gallbladder wall (2.6 mm thickness). No pericholecystic fluid is seen. The CBD is dilated (8 mm diameter). No ductal stone is seen. The kidneys are normal in size, with no solid masses and no hydronephrosis noted. The right kidney measures 12.2 cm in length. The left kidney measures 13.0 cm in length. The pancreas is not optimally visualized. No abnormal fluid collections are seen. The abdominal aorta appears unremarkable. IMPRESSION: No definite evidence of acute cholecystitis. Multiple mobile gallstones, in a distended gallbladder. The gallbladder wall is thin. No pericholecystic fluid is seen. Dilated CBD (8 mm diameter). No ductal stone is seen. No hydronephrosis. Electronically signed by: Sol Brown On 03/10/2019 05:01:32 AM
[2019-03-10] MEDS: LEVOTHYROXINE 137MCG TABLET (0.137MG) PO SCH (05:50)
[2019-03-10 06:00] VITALS: BP 138/80
[2019-03-10 06:09] LABS: HEMATOCRIT 29.4 % (36.0-47.0); HEMOGLOBIN 8.9 g/dl (12.0-15.5); MEAN CORPUSCULAR HEMOGLOBIN 26.8 pg (27.0-33.0); MEAN CORPUSCULAR HGB CONC 30.3 g/dl (32.0-36.5); MEAN CORPUSCULAR VOLUME 88.6 fl (80.0-96.0); PLATELET COUNT, AUTOMATED 396 10^3/uL (150-450); RED BLOOD COUNT 3.32 10^6/uL (4.00-5.40)
[2019-03-10 06:34] LABS: ALBUMIN 2.8 GM/DL (3.2-5.2); ALT/SGPT 290 U/L (12-78); BILIRUBIN,TOTAL 1.9 MG/DL (0.2-1.0); BLOOD UREA NITROGEN 6 MG/DL (7-18); CALCIUM LEVEL 8.1 MG/DL (8.5-10.1); CARBON DIOXIDE LEVEL 26 MEQ/L (21-32); CHLORIDE LEVEL 111 MEQ/L (98-107); CREATININE FOR GFR 0.53 MG/DL (0.55-1.30); GLOMERULAR FILTRATION RATE > 60.0 (>51); GLUCOSE, FASTING 86 MG/DL (70-100); POTASSIUM SERUM 3.9 MEQ/L (3.5-5.1); SODIUM LEVEL 143 MEQ/L (136-145); TOTAL PROTEIN 6.3 GM/DL (6.4-8.2)
[2019-03-10] MEDS: SODIUM CHLORIDE 0.9% INJ 10 ML SYR IV SCH (08:09)
[2019-03-10] MEDS: METAMUCIL (PSYLLIUM) PACKET PO SCH (08:23)
[2019-03-10] MEDS: GABAPENTIN 300 MG CAP PO SCH ×4 (08:26→20:21)
[2019-03-10] MEDS: HYDROmorphone 2 MG TAB PO PRN ×4 (08:26→15:02)
[2019-03-10] MEDS: DOCUSATE SODIUM 100 MG CAP PO SCH ×2 (08:26→20:21)
[2019-03-10] MEDS: SENNA 8.6 MG TAB (SENOKOT) PO SCH (08:26)
[2019-03-10] MEDS: ENOXAPARIN 40 MG/0.4 ML SYRINGE (J1650) SC SCH (08:27)
[2019-03-10] MEDS ORDERED: fentaNYL 12 MCG/HR PATCH TOP SCH (09:00)
[2019-03-10] MEDS ORDERED: FENTANYL REMOVAL DOCUMENTATION MISC XX SCH (09:00)
[2019-03-10] MEDS ORDERED: fentaNYL 75 MCG/HR PATCH TOP SCH (09:00)
[2019-03-10] MEDS: TAMOXIFEN CITRATE 10 MG TAB PO SCH (10:26)
[2019-03-10] MEDS: busPIRone 5 MG TAB PO SCH ×3 (10:26→20:21)
[2019-03-10 14:00] VITALS: BP 144/73
--- NOTE | 2019-03-10 15:02 | IPNPDOC ---
Text Note Date of Service The patient was seen on 03/10/19. NOTE Subjective: Patient continues to have left abdominal pain. Patient stated that pain moderately subsided. Patient continues to have nausea. Patient denies fever, chills, shortness of breath, palpitations, diarrhea or dysuria Objective: General: NAD HEENT:PERRLA, EOMI Chest: S1S2 Abd: Nontender, nondistended Extremities: No cyanosis no swelling A/P: ASSESSMENT: 53 y/o F with Metastatic endometrial Ca, Iron def anemia, LLE DVT no longer on Xarelto due to high risk of GI bleed, hypothyroidism who was recently discharged from [facility] 03/04 for abdominal pain and possible new ampullary mass presents with complaints of acute on chronic LLQ abdominal pain. 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 Also patient stated that she had 2 cycles of pelvis radiation in 2018. Abdominal MRI was done on 03/02/2019 in February and showed the mild biliary dilatation could be due to this duodenal wall thickening, less likely an occult stone at the ampulla of Vater or other occult stricturing lesion at the ampulla of Vater. There is adjacent retroperitoneal adenopathy again seen in the aortocaval region just below the level of the pancreatic head as seen on the prior CT examinations. Acute pancreatitis Could be secondary to biliary tract obstruction,2/2 most likely mets. Ultrasound of abdomen was done yesterday and showed common bile dilatation of 0.8. Total bilirubin elevated from admission, and now is 1.9. There is concern for biliary tract obstruction most likely due to metastasis. I talked the GI team today, they recommended no EGD for now. If bilirubin continued to rise they r ecommended to place a biliary stent. -continue pain management -IVF hydration -Clear liquid -GI team on board -Palliative care on board Onc: Metastatic Endometrial Ca -Continue Tamoxifen, megace -Tomorrow IR procedure for lung biopsy, no breakfast tomorrow, no Lovenox in the morning Oncologist on board LLE DVT -endorses xarelto stopped after EGD findings of ulcerative mass. Monitor Hypothyroidism: continue synthroid. VS,Fishbone, I+O VS, Fishbone, I+O Laboratory Tests 03/10/19 05:42 Red Blood Count 3.32 L, Mean Corpuscular Volume 88.6, Mean Corpuscular Hemoglobin 26.8 L, Mean Corpuscular Hemoglobin Concent 30.3 L, Red Cell Distribution Width 16.4 H 03/10/19 05:43 Calcium Level 8.1 L, Aspartate Amino Transf (AST/SGOT) 228 H, Alanine Aminotransferase (ALT/SGPT) 290 H, Alkaline Phosphatase 295 H, Total Bilirubin 1.9 H, Total Protein 6.3 L, Albumin 2.8 L Vital Signs Date Time Temp Pulse Resp B/P (MAP) Pulse Ox O2 Delivery O2 Flow Rate FiO2 03/10/19 14:00 97.3 63 16 144/73 (96) 97 03/08/19 19:04 Room Air I&O- Last 24 Hours up to 6 AM 03/10/19 06:00 Intake Total 1020 ml Output Total 3400 ml Balance -2380 ml JESSICA SAHU DO Mar 10, 2019 15:02
[2019-03-10] MEDS: HYDROmorphone (DILAUDID) 4 MG TAB PO PRN ×2 (17:06→20:28)
--- NOTE | 2019-03-10 17:47 | IPNPDOC ---
Text Note Date of Service The patient was seen on 03/10/19. NOTE I saw Nilsa this afternoon following Tumor Board conference. I reviewed with Lorena, her Jose G and her sister Lulú what was discussed at tumor board. Dr. Carmona from GI service, who presented at Tumor Board also came and spoke with Lorena and her family about the followin. She has a mass in her lung that should be biopsied ( this is set up to be done tomorrow in IR ) to determine tissue type so treatment options can be considered 2. She has ampulla mass and duodenal area that will eventually get compressed which may need JG tube placement done in IR. This is not needed right now since she is able to eat and drink 3. Her lower abdominal pain may be related to previous tumor in her iliopsoas and iliac metastatic disease that improved with RT and chemo however, she still does have some problems with residual disease. I started to review MOLST form with her, however, she wanted to wait until her other sister Luz was available to review the document with her. We did review the form and it was signed at [id number] and witnessed. She is currently DNR, trial of intubation/ventilation, medical treatment if needed, fci feeding via tube, IV hydration. VS,Fishbone, I+O VS, Fishbone, I+O Laboratory Tests 03/10/19 05:42 Red Blood Count 3.32 L, Mean Corpuscular Volume 88.6, Mean Corpuscular Hemoglobin 26.8 L, Mean Corpuscular Hemoglobin Concent 30.3 L, Red Cell Distribution Width 16.4 H 03/10/19 05:43 Calcium Level 8.1 L, Aspartate Amino Transf (AST/SGOT) 228 H, Alanine Aminotransferase (ALT/SGPT) 290 H, Alkaline Phosphatase 295 H, Total Bilirubin 1.9 H, Total Protein 6.3 L, Albumin 2.8 L Vital Signs Date Time Temp Pulse Resp B/P (MAP) Pulse Ox O2 Delivery O2 Flow Rate FiO2 03/10/19 15:32 16 03/10/19 15:02 97.3 63 144/73 97 03/08/19 19:04 Room Air I&O- Last 24 Hours up to 6 AM 03/10/19 06:00 Intake Total 1020 ml Output Total 3400 ml Balance -2380 ml Zoie [employer] Mar 10, 2019 16:58
[2019-03-10] MEDS: SERTRALINE HCL 25 MG TABLET PO SCH (20:21)
[2019-03-10] MEDS: ESCITALOPRAM OXALATE 5MG TABLET (LEXAPRO) PO SCH (20:21)
[2019-03-10 22:00] VITALS: BP 133/64
[2019-03-11] MEDS: NS 1,000 ML IV SCH ×2 (00:54→20:25)
[2019-03-11] MEDS: HYDROmorphone (DILAUDID) 4 MG TAB PO PRN ×8 (00:58→23:57)
[2019-03-11] MEDS: LEVOTHYROXINE 137MCG TABLET (0.137MG) PO SCH (05:02)
[2019-03-11 05:35] LABS: HEMATOCRIT 29.9 % (36.0-47.0); HEMOGLOBIN 9.3 g/dl (12.0-15.5); MEAN CORPUSCULAR HGB CONC 31.1 g/dl (32.0-36.5); MEAN CORPUSCULAR VOLUME 90.1 fl (80.0-96.0); PLATELET COUNT, AUTOMATED 398 10^3/uL (150-450); RED BLOOD COUNT 3.32 10^6/uL (4.00-5.40); WHITE BLOOD COUNT 6.1 10^3/uL (4.0-10.0)
[2019-03-11 06:00] VITALS: BP 133/61
[2019-03-11 06:55] LABS: ALBUMIN 2.8 GM/DL (3.2-5.2); BILIRUBIN,DIRECT 1.8 MG/DL (0.0-0.2); BILIRUBIN,TOTAL 2.3 MG/DL (0.2-1.0); TOTAL PROTEIN 6.3 GM/DL (6.4-8.2)
[2019-03-11] MEDS: LORazepam 0.5 MG TAB PO PRN (07:34)
[2019-03-11] MEDS: SODIUM CHLORIDE 0.9% INJ 10 ML SYR IV SCH (08:00)
[2019-03-11] MEDS: ENOXAPARIN 40 MG/0.4 ML SYRINGE (J1650) SC SCH (08:01)
[2019-03-11] MEDS: GABAPENTIN 300 MG CAP PO SCH ×4 (08:08→20:28)
[2019-03-11] MEDS: SENNA 8.6 MG TAB (SENOKOT) PO SCH (08:08)
[2019-03-11] MEDS: DOCUSATE SODIUM 100 MG CAP PO SCH ×2 (08:08→20:28)
[2019-03-11] MEDS: busPIRone 5 MG TAB PO SCH ×3 (08:09→20:28)
[2019-03-11] MEDS: METAMUCIL (PSYLLIUM) PACKET PO SCH (08:10)
[2019-03-11] MEDS: TAMOXIFEN CITRATE 10 MG TAB PO SCH (08:10)
[2019-03-11 10:34] VITALS: BP 146/68
[2019-03-11 11:04] VITALS: BP 152/63
--- NOTE | 2019-03-11 11:19 | REP ---
CHEST X-RAY: Single view. HISTORY: This patient is a immediately status post CT guided needle biopsy left upper lobe lung mass. Comparison chest x-ray is from 07 May 2018. FINDINGS: The soft tissue mass in the left upper lobe is again seen larger than on the May 02, 2018 prior study. There is a tiny sliver of apical pleural air on the left consistent with a tiny post biopsy pneumothorax. An Ewuhgf-P-Ehqr catheter is noted in place via the left with its tip in the expected location of the superior vena cava. Lung rosas are otherwise clear. IMPRESSION: Tiny sliver of apical pleural air on the left consistent with a tiny post biopsy left-sided pneumothorax. Follow-up radiograph has been arranged. Electronically Signed by César Gunn MD 03/11/2019 04:45 P
[2019-03-11 11:34] VITALS: BP 160/73
[2019-03-11 14:00] VITALS: BP 156/71
--- NOTE | 2019-03-11 15:27 | REP ---
PA chest x-ray: Single view. 03:11 p.m. radiograph. History: Followup post needle biopsy of the left lung mass. Tiny post biopsy pneumothorax on the 10 old 04:00 a.m. film. Findings: There is a tiny left apical pneumothorax which is felt to be unchanged from the study done 5 hours earlier. The left lung mass which was the biopsy target is unchanged. A left-sided Hchjze-I-Otgp catheter is again noted. There is a monitoring electrode visible on the right. Impression: Tiny stable left apical pneumothorax post left lung biopsy. Electronically Signed by César Gunn MD 03/11/2019 03:19 P
--- NOTE | 2019-03-11 16:52 | REP ---
CT-GUIDED LEFT UPPER LOBE LUNG BIOPSY The procedure was performed under the direct supervision of Dr. Gunn. Patient has a history of a 3.2 cm spiculated left upper lobe mass seen on a previous CT scan dated 01/22/2019. The risks and benefits of the procedure were explained to the patient and informed consent was obtained. The left upper lobe lung mass was localized using CT guidance. The skin was prepped and draped in a sterile fashion. 1% lidocaine was used as a local anesthetic. Using CT guidance a 19/20 gauge coaxial needle biopsy system was inserted and advanced into the mass. Five core biopsy samples were obtained and sent to lab. Post biopsy images demonstrate a small left pneumothorax. The patient stated note chest discomfort obtained. Her O2 saturations were 96% on room air. The patient was placed on 2 liters of O2 via nasal cannula. Chest x-ray immediately after the procedure demonstrates a tiny left apical pneumothorax. Chest x-ray performed 2 hours later shows a stable tiny left apical pneumothorax. Reviewed by ERNESTO Flowers 03/11/2019 04:36 P Electronically Signed by César Gunn MD 03/11/2019 04:43 P
--- NOTE | 2019-03-11 16:53 | IPNPDOC ---
Text Note Date of Service The patient was seen on 03/11/19. NOTE Subjective: Patient continues to have left pelvis pain 8 out of 10. Patient continues to have nausea. Patient tolerated lung biopsy well. Patient denies fever, chills, shortness of breath, palpitations, diarrhea or dysuria Objective: General: In moderate distress, icterus HEENT:PERRLA, EOMI Chest: Diminished lung sounds bilaterally CV: S1-S2 Abd: tender over left iliac spine, nondistended Extremities: No cyanosis no swelling A/P: ASSESSMENT: 53 y/o F with Metastatic endometrial Ca, Iron def anemia, LLE DVT no longer on Xarelto due to high risk of GI bleed, hypothyroidism who was recently discharged from [facility] 03/04 for abdominal pain and possible new ampullary mass presents with complaints of acute on chronic LLQ abdominal pain. 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 Also patient stated that she had 2 cycles of pelvis radiation in 2018. Abdominal MRI was done on 03/02/2019 in February and showed the mild biliary dilatation could be due to this duodenal wall thickening, less likely an occult stone at the ampulla of Vater or other occult stricturing lesion at the ampulla of Vater. There is adjacent retroperitoneal adenopathy again seen in the aortocaval region just below the level of the pancreatic head as seen on the prior CT examinations. On this admission patient was found to have acute pancreatitis most likely secondary to obstruction of common bile duct. Total bilirubin continues to rise. Abdominal ultrasound showed dilatation of common bile duct to 0.8. Acute pancreatitis Could be secondary to biliary tract obstruction,2/2 most likely mets. Ultrasound of abdomen was done yesterday and showed common bile dilatation of 0.8. Total bilirubin elevated from admission, and now is 1.9. Today is 2.3. I talked the GI team y, they recommended no EGD for now. If bilirubin continued to rise they recommended to place a biliary stent. I talked to SACHI Espinal , the plan is to place biliary stent on the next week. -continue pain management -IVF hydration -GI team on board -Palliative care on board Onc: Metastatic Endometrial Ca -Continue Tamoxifen, megace Lung biopsy was done today Oncologist on board LLE DVT -endorses xarelto stopped after EGD findings of ulcerative mass. Monitor Hypothyroidism: continue synthroid. VS,Fishbone, I+O VS, Fishbone, I+O Laboratory Tests 03/11/19 05:18 Red Blood Count 3.32 L, Mean Corpuscular Volume 90.1, Mean Corpuscular Hemoglobin 28.0, Mean Corpuscular Hemoglobin Concent 31.1 L, Red Cell Distribution Width 16.5 H Vital Signs Date Time Temp Pulse Resp B/P (MAP) Pulse Ox O2 Delivery O2 Flow Rate FiO2 03/11/19 14:30 18 03/11/19 14:00 98.9 67 156/71 (99) 100 2.0 03/08/19 19:04 Room Air I&O- Last 24 Hours up to 6 AM 03/11/19 05:59 Intake Total 1710 ml Output Total 3700 ml Balance -1990 ml JESSICA SAHU DO Mar 11, 2019 16:53
[2019-03-11] MEDS: traMADol 50 MG TAB PO PRN (19:47)
[2019-03-11] MEDS: fentaNYL 100 MCG/HR PATCH TOP SCH (20:26)
[2019-03-11] MEDS: ESCITALOPRAM OXALATE 5MG TABLET (LEXAPRO) PO SCH (20:27)
[2019-03-11] MEDS: SERTRALINE HCL 25 MG TABLET PO SCH (20:28)
[2019-03-11] MEDS: FENTANYL REMOVAL DOCUMENTATION MISC XX SCH (20:39)
[2019-03-11 22:00] VITALS: BP 155/69
[2019-03-12] MEDS: HYDROmorphone (DILAUDID) 4 MG TAB PO PRN ×5 (03:07→16:14)
[2019-03-12 06:00] VITALS: BP 157/68
[2019-03-12] MEDS: LEVOTHYROXINE 137MCG TABLET (0.137MG) PO SCH (06:20)
[2019-03-12] MEDS: NS 1,000 ML IV SCH ×2 (06:21→13:30)
[2019-03-12 06:49] LABS: ALBUMIN 2.8 GM/DL (3.2-5.2); ALT/SGPT 429 U/L (12-78); BILIRUBIN,DIRECT 2.6 MG/DL (0.0-0.2); BILIRUBIN,TOTAL 3.1 MG/DL (0.2-1.0); BLOOD UREA NITROGEN 4 MG/DL (7-18); CALCIUM LEVEL 8.5 MG/DL (8.5-10.1); CARBON DIOXIDE LEVEL 27 MEQ/L (21-32); CHLORIDE LEVEL 108 MEQ/L (98-107); CREATININE FOR GFR 0.55 MG/DL (0.55-1.30); GLOMERULAR FILTRATION RATE > 60.0 (>51); GLUCOSE, FASTING 88 MG/DL (70-100); MAGNESIUM LEVEL 1.9 MG/DL (1.8-2.4); POTASSIUM SERUM 3.9 MEQ/L (3.5-5.1); SODIUM LEVEL 141 MEQ/L (136-145); TOTAL PROTEIN 6.6 GM/DL (6.4-8.2)
[2019-03-12] MEDS: METAMUCIL (PSYLLIUM) PACKET PO SCH (09:00)
[2019-03-12] MEDS: SODIUM CHLORIDE 0.9% INJ 10 ML SYR IV SCH (09:00)
[2019-03-12] MEDS: ENOXAPARIN 40 MG/0.4 ML SYRINGE (J1650) SC SCH ×2 (09:00→09:25)
[2019-03-12] MEDS: SENNA 8.6 MG TAB (SENOKOT) PO SCH (09:24)
[2019-03-12] MEDS: busPIRone 5 MG TAB PO SCH ×2 (09:24→16:13)
[2019-03-12] MEDS: GABAPENTIN 300 MG CAP PO SCH ×3 (09:24→16:13)
[2019-03-12] MEDS: TAMOXIFEN CITRATE 10 MG TAB PO SCH (09:24)
[2019-03-12] MEDS: DOCUSATE SODIUM 100 MG CAP PO SCH (09:24)
[2019-03-12] MEDS: traMADol 50 MG TAB PO PRN (10:59)
--- NOTE | 2019-03-12 11:35 | IPN ---
DATE OF SERVICE: 03/11/2019 DIAGNOSIS: 1. Metastatic ER/HI positive, MSI - high endometrial carcinoma involving bilateral lower pelvic disease site, bone, possible para-aortic lymphadenopathy below the diaphragm recently with stabilized disease on third line treatment with tamoxifen/ megestrol. 2. New suspicious duodenal thickening and mass versus pancreatic/ampullary mass suspicious for new primary malignancy versus the metastatic focus with threat to biliary outflow obstruction. 3. Left upper lobe spiculated solitary mass, metastasis versus second primary status post biopsy today. INTERIM HISTORY: Nilsa's case was discussed extensively in this weeks' tumor board. It was agreed Nilsa should probably have some sort of interventional procedure to avoid biliary obstruction. The time table for that was not clear; as at the time of tumor board, her total bilirubin was only 1.3. In the last few days, it has gone, currently 2.3, she has fairly significant transaminitis with AST, ALT 268 and 348, alkaline phosphatase 339. She continues to complain of pain involving her lower abdomen for which no clear objective cause was able to be found on most recent scans, which showed stability if not improvement of her iliac and spinal skeletal sites of disease, significant reduction in size of her iliopsoas focus and left pelvic sidewall focus. There is slight progression of the periaortic lymph nodes; however these may or may not be associated with the duodenal focus. Previous esophagogastroduodenoscopy (EGD) was negative, but the clinical suspicions for malignancy involving the duodenum is high. At bedside Nilsa was napping; when I entered the room, she awoke and complained of pain after I asked how she was, she assumed it was from being jostled for the lung biopsy. She had no new shortness of breath. Her pain continues to be in the low abdomen. She is under palliative care management. I carefully walked through with Nilsa the discussion from tumor board. She had also been apprised by Dr. Carmona. I explained that endometrial carcinoma metastatic to the ampulla or duodenum would be somewhat unusual, the lung site may be the endometrial cancer or another primary cancer. If she has three separate primary cancers, this would be clinically somewhat unusual and challenging to treat. The most threatening lesion currently is the duodenal one because of the potential for biliary outlet obstruction. She had already discussed with Dr. Mario the possible need for some sort of procedure. Dr. Mario and I earlier today discussed with the tumor board recommendation for an IR procedure. Otherwise, Nilsa is not in distress. She had a few questions tonight, but realizes her cancer diagnosis could become more complex, either because of more aggressive endometrial metastatic disease or additional new cancer diagnosis. IMPRESSION: 1. Metastatic endometrial carcinoma estrogen receptor (ER)/progesterone receptor (HI) positive, microsatellite instability (MSI) high on third line treatment with oral tamoxifen/megestrol after progressing through chemotherapy and immunotherapy. - New suspected duodenal or ancillary mass primary versus secondary neoplasm with rising bilirubin and suspected impending obstruction. - Left upper lobe progressively growing spiculated mass primary versus secondary neoplasm status post biopsy. - Current ECOG performance statis is 1-2, limited in the hospital by fatigue and procedures, but at baseline at home 0-1. PLAN: 1. Followup lung biopsy. 2. Agree with biliary decompression procedure, but deferred to interventional and/or GI as to what this procedure should be ideally. If possible, a tissue biopsy could be obtained at the time of procedure and timing of procedure again defer to GI and Interventional 3. The purpose of all these procedures and biopsies is to understand whether Nilsa's endometrial cancer has transformed to a more aggressive progressively metastatic version leading to treatment refractory, lung and GI metastases or whether she has second primaries which could be discretely treated, for example sterotactic body radiatio therapy (SBRT) to the lung, possible localized versus systemic therapy to the duodenal neoplasm while continuing hormonal therapy for the endometrial cancer. This would be highly unusual, but Nilsa has an overall poor prognosis, is young and at baseline usually a very good performance status and in general has been anxious to pursue optimal treatment. Will follow.
--- NOTE | 2019-03-12 12:11 | IPNPDOC ---
Text Note Date of Service The patient was seen on 03/12/19. NOTE Subjective: Patient continues to have left pelvis pain 8 out of 10. I discussed with her the result of tumor board and possible procedure for biliary drainage. Patient understood and agree. Patient denies fever, chills, shortness of breath, palpitations, diarrhea or dysuria Objective: General: In moderate distress, icterus Skin : yellow HEENT:PERRLA, EOMI Chest: Diminished lung sounds bilaterally CV: S1-S2 Abd: tender over left iliac spine, nondistended Extremities: No cyanosis no swelling A/P: ASSESSMENT: 53 y/o F with Metastatic endometrial Ca, Iron def anemia, LLE DVT no longer on Xarelto due to high risk of GI bleed, hypothyroidism who was recently discharged from [facility] 03/04 for abdominal pain and possible new ampullary mass presents with complaints of acute on chronic LLQ abdominal pain. 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 Also patient stated that she had 2 cycles of pelvis radiation in 2018. Abdominal MRI was done on 03/02/2019 in February and showed the mild biliary dilatation could be due to this duodenal wall thickening, less likely an occult stone at the ampulla of Vater or other occult stricturing lesion at the ampulla of Vater. There is adjacent retroperitoneal adenopathy again seen in the aortocaval region just below the level of the pancreatic head as seen on the prior CT examinations. On this admission patient was found to have acute pancreatitis most likely secondary to obstruction of common bile duct. Dr Carmona presented the case to tumor board, no EGD recommended for now. 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 Total bilirubin continues to rise. Abdominal ultrasound showed dilatation of common bile duct to 0.8. Dr. Valdes and I earlier discussed with the tumor board recommendation for an IR procedure. IR specialist Dr Espinal will consult pt today Acute pancreatitis Could be secondary to biliary tract obstruction,2/2 most likely mets or primary cancer of ampulla of duodenum. Ultrasound of abdomen was done and showed common bile dilatation of 0.8. Total bilirubin elevated from admission. Today is 3.1. Await IR Dr. Espinal consult to define the time for stent placement -continue pain management -IVF hydration -GI team on board -Palliative care on board Onc: Metastatic Endometrial Ca -Continue Tamoxifen, megace Lung nodule Primary cancer versus metastases Lung biopsy was done Await biopsy result Oncologist on board LLE DVT -endorses xarelto stopped after EGD findings of ulcerative mass. Monitor Hypothyroidism: continue synthroid. VS,Fishbone, I+O VS, Fishbone, I+O Laboratory Tests 03/12/19 05:59 Vital Signs Date Time Temp Pulse Resp B/P (MAP) Pulse Ox O2 Delivery O2 Flow Rate FiO2 03/12/19 11:52 16 03/12/19 06:51 99 03/12/19 06:00 99.0 62 157/68 (97) 03/12/19 02:00 Room Air 03/11/19 14:00 2.0 I&O- Last 24 Hours up to 6 AM 03/12/19 06:00 Intake Total 2820 ml Output Total 2900 ml Balance -80 ml JESSICA SAHU DO Mar 12, 2019 12:11
--- NOTE | 2019-03-12 13:47 | IPNPDOC ---
Text Note Date of Service The patient was seen on 03/12/19. NOTE Lorena called [facility] office this mrtony statingher pain was still n ot well controlled. She was requiring hydromorphone 4 mg very regularly and felt it only helpoed for about 2 hours. She is tolerating fentanyl 100 mcg patch and po hydromorphone. She contineus to have intermittent nausea, but has tolerated clears and is about to try some soft food. She will see IR next week for possible stent placement. I will orer her discharge medication for pain and have notfied Dr. Mario regarding this. I am increasing both fentanyl patch and hydromrphone dsoes. Fentanyl 125 mcg hr q 48 hr and hydromorphone 8 mg po q 3hr prn. I also asked her to take ibuprofen 400-600 mg twice or three times daily with food to try to reduce the pain she has in her left hip. She reports Dr. Espinal from IR thought she may be able to do a procedure to reduce her pain in the hip area which has been a source of pain fro quite some time despite best efforts to control it. Lorena asked what should she do if her pain gets out of control over the weekend. I told her she would have no recourse other than to return to ED for evalaution though I am hoping dose increases in her opiate regimen and some NSAID will settle things enough that she won;t have to do that. She will contact me to tell me when her procedure in IR is scheduled for next week. VS,Roya, I+O VS, Owene, I+O Laboratory Tests 03/12/19 05:59 Vital Signs Date Time Temp Pulse Resp B/P (MAP) Pulse Ox O2 Delivery O2 Flow Rate FiO2 03/12/19 13:28 16 03/12/19 06:51 99 03/12/19 06:00 99.0 62 157/68 (97) 03/12/19 02:00 Room Air 03/11/19 14:00 2.0 I&O- Last 24 Hours up to 6 AM 03/12/19 06:00 Intake Total 2820 ml Output Total 2900 ml Balance -80 ml Zoie CADENAP Mar 12, 2019 13:47
[2019-03-12 14:00] VITALS: BP 152/62
--- NOTE | 2019-03-12 15:11 | CR.PDOC ---
General Date of Consultation: Mar 12, 2019 Referring Provider: JESSICA SAHU DO Consultation REASON FOR CONSULTATION/CHIEF COMPLAINT: cancer pain. Jaundice. Biliary obstruction. HISTORY OF PRESENT ILLNESS: 63 female with metastatic endometrial cancer, left sacroiliac destruction and jaundice, new ampullary mass and lung mass presents with intractable left hip pain. History from chart "Metastatic Endometrial cancer history, ER positive, RI positive, high-grade carcinoma that was initially diagnosed in 2016 and managed with a JEROME/BSO. She had a recurrence in 2018 with metastasis to the left pelvic wall, right psoas and left upper lobe of the lung and L4-L5 paraspinal muscles. The patient is currently on a third line palliative chemotherapy regimen, has had palliative radiation the iliac and paraspinal mass." Patient complains of several months of intractable pain in the left hip. This keeps patient awake at night. She is unable to ambulate comfortably. Nothing relieves the pain although she has been on fentanyl patches for many months now. Pain is there all the time and worse with moving and laying flat. No shooting pains in the legs. No numbness or tingling in the legs. No vomiting. No abdominal pain. No fevers or chills. ALLERGIES: Please see below. HOME MEDICATIONS: Please see below. PAST MEDICAL HISTORY: 1. Endometrial cancer metastatic. PAST SURGICAL HISTORY: 1. Total abdominal hysterectomy FAMILY HISTORY: Nonsignificant SOCIAL HISTORY: Lives with . Independent with activities of daily living. Smoker. No alcohol. REVIEW OF SYSTEMS: Otherwise negative. PHYSICAL EXAMINATION: VITAL SIGNS: Please see below. GENERAL APPEARANCE: In acute distress from left hip pain. HEENT: Mild scleral icterus. RESPIRATORY: Normal breathing at rest. Symmetric bilateral breath sounds. CARDIOVASCULAR: Normal rate. ABDOMEN: Soft nontender. No right upper quadrant tenderness. No rebound or guarding. EXTREMITIES: Tenderness over the left sacrum and sacroiliac joint. NEUROLOGICAL: Moving all 4 extremities. Weightbearing. Motor 5 out of 5 all 4 extremities. PSYCHIATRIC: Appropriate to circumstances. LABORATORY DATA: Please see below. Imaging: I reviewed the most recent contrast enhanced abdomen and pelvis CT. There are lytic lesions in the sacrum bilaterally, a pathologic fracture through the left sacrum. There is destruction at the left sacroiliac articulation and postradiation sclerotic changes in the left iliac bone. There is minimal biliary dilation. No ascites. ASSESSMENT/PLAN: 1. 53-year-old female with metastatic endometrial cancer and left sacral and iliac bone destruction presents with intractable pain. This responded to prior radiation treatment. Further radiation may help. Patient is also a good candidate for left sacroplasty for pathologic fracture. This will help with pain and stability. We discussed the risks and benefits of the procedure and patient would like to proceed. This will be done as an outpatient. 2. Obstructive jaundice with minimal biliary dilation on CT and no fevers or chills. Patient will require biliary drainage due to obstructing ampullary mass. This is not amenable to endoscopic stenting. I'm happy to see the patient is an outpatient next week to check for biliary dilation and antegrade stenting. We will schedule appropriate follow-up of this issue. Thank you for this referral. Vital Signs/I&O Vital Signs Date Time Temp Pulse Resp B/P (MAP) Pulse Ox O2 Delivery O2 Flow Rate FiO2 03/12/19 12:42 17 03/12/19 06:51 99 03/12/19 06:00 99.0 62 157/68 (97) 03/12/19 02:00 Room Air 03/11/19 14:00 2.0 I&O- Last 24 Hours up to 6 AM 03/12/19 06:00 Intake Total 2820 ml Output Total 2900 ml Balance -80 ml Laboratory Data Labs 24H Laboratory Tests 2 03/12/19 05:59: Anion Gap 6L, Glomerular Filtration Rate > 60.0, Calcium Level 8.5, Magnesium Level 1.9, Aspartate Amino Transf (AST/SGOT) 326H, Alanine Aminotransferase (ALT/SGPT) 429H, Alkaline Phosphatase 383H, Total Bilirubin 3.1H, Direct Bilirubin 2.6H, Total Protein 6.6, Albumin 2.8L, Albumin/Globulin Ratio 0.74L CBC/BMP Laboratory Tests 03/12/19 05:59 Allergies Coded Allergies: azithromycin (Verified Allergy, Intermediate, RASH, 02/28/19) pregabalin (Verified Allergy, Intermediate, RASH, 02/28/19) baclofen (Verified Adverse Reaction, Intermediate, anxiety, 02/24/19) carisoprodol (Verified Adverse Reaction, Intermediate, anxiety, 02/24/19) cyclobenzaprine (Verified Adverse Reaction, Intermediate, anxiety, 02/24/19) diazepam (Verified Adverse Reaction, Intermediate, anxiety, 02/24/19) metaxalone (Verified Adverse Reaction, Intermediate, anxiety, 02/24/19) methocarbamol (Verified Adverse Reaction, Intermediate, anxiety, 02/24/19) tizanidine (Verified Adverse Reaction, Intermediate, anxiety, 02/24/19) Home Medications Scheduled Buspirone HCl (Buspirone HCl) 7.5 Mg Tab, 7.5 MG PO TID, (Reported) Escitalopram Oxalate (Lexapro) 5 Mg Tablet, 5 MG PO QHS, (Reported) Fentanyl (Fentanyl) 87.5 Mcg Patch.td72, 87.5 MCG TOP Q2D, (Reported) CURRENTLY APPLIED TO RIGHT UPPER CHEST Gabapentin (Gabapentin) 600 Mg Tab, 600 MG PO QID, (Reported) Levothyroxine Sodium (Synthroid) 137 Mcg Tablet, 137 MCG PO DAILY, (Reported) Magnesium Oxide (Magnesium Oxide) 250 Mg Tablet, 250 MG PO QHS, (Reported) Megestrol Acetate (Megestrol Acetate) 40 Mg Tablet, 80 MG PO BID, (Reported) ALTERNATES WITH TAMOXIFEN EVERY 3 WEEKS PER ONCOLOGY. PT STARTED TAMOXIFEN ON 02/27 Pantoprazole Sodium (Pantoprazole Sodium) 40 Mg Tablet.dr, 40 MG PO QPM, (Reported) Psyllium Husk (with Sugar) (Metamucil Powder) 575 Gm Powder, 1 PKT PO DAILY, (Reported) Sertraline Hcl (Zoloft) 100 Mg Tab, 100 MG PO QHS, (Reported) Tamoxifen Citrate (Tamoxifen Citrate) 20 Mg Tab, 40 MG PO DAILY for endomtrial cancer for 30 Days, #60 take 2 tabs daily for 3 weeks alternating with megestrol for 3 weeks Scheduled PRN Acetaminophen (Mapap) 500 Mg Tab, 1,000 MG PO Q6H PRN for PAIN OR DYSPNEA, (Reported) Lorazepam (Ativan) 0.5 Mg Tab, 1 MG PO QID PRN for ANXIETY/AGITATION, (Reported) Morphine Sulfate (Morphine Sulfate) 15 Mg Tablet, 15 MG PO Q8H PRN for SEVERE PAIN (PS 8-10), (Reported) Ondansetron HCl (Zofran) 4 Mg Tab, 4 MG PO Q6H PRN for NAUSEA OR VOMITING, (Reported) JASKARAN JO MD Mar 12, 2019 14:58
[2019-03-12] MEDS ORDERED: SENN18TA PO (15:34)
[2019-03-12] MEDS ORDERED: MORPHINE 30 MG TAB **MSIR PO PRN (16:00)
--- NOTE | 2019-03-12 17:54 | DS.PDOC ---
Discharge Summary General Date of Admission Mar 08, 2019 at 20:48 Date of Discharge 03/12/19 Primary Care Physician: Rush Samson Attending Physician: JESSICA SAHU DO Discharge Summary PROCEDURES PERFORMED DURING STAY: None. ADMITTING DIAGNOSES: Acute pancreatitis Acute on chronic LLQ abd pain Onc: Metastatic Endometrial Ca Lung nodule DISCHARGE DIAGNOSES: Acute pancreatitis Acute on chronic LLQ abd pain Onc: Metastatic Endometrial Ca Lung nodule COMPLICATIONS/CHIEF COMPLAINT: Cancer Related Pain,Intractable Abdominal Pain. HISTORY OF PRESENT ILLNESS: 53 y/o F with Metastatic endometrial Ca, Iron def anemia, LLE DVT no longer on Xarelto, Hypothyroidism who was recently discharged from [facility] 03/04 for abdominal pain and possible new ampullary mass presents with complaints of left lower abdominal pain starting 2 days prior, described as a knife/stabbing pain, 9/10 in intensity but 6/10 after initial medications. Worse with laying on it and palpation, not improved with anything. Tried her home morphine and Tylenol without relief. 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 Colonoscopy done. Abd MRI done 03/02 as well. Since discharge patient notes no fevers, chills, vision changes, cough, wheezing, chest pain, palpitations, constipation, n/v, numbness, weakness, focal swelling, no GI bleeding. HOSPITAL COURSE: On this admission patient was found to have acute pancreatitis most likely secondary to obstruction of common bile duct. Dr Carmona presented the case to tumor board, no EGD recommended for now. 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 Total bilirubin continues to rise. Abdominal ultrasound showed dilatation of common bile duct to 0.8. Dr. Valdes and I earlier discussed the tumor board recommendation for an IR procedure. During hospital stay following issues were addressed Acute pancreatitis Could be secondary to biliary tract obstruction, due to most likely mets or primary cancer of ampulla of duodenum. Ultrasound of abdomen was done and showed common bile dilatation of 0.8. Total bilirubin elevated from admission. Today is 3.1. 03/12/[address] Espinal will see patient on the next week for evaluation for biliary stent placement -Patient received pain management, IVF hydration -Palliative care on board Onc: Metastatic Endometrial Ca -Continue Tamoxifen, megace Lung nodule Primary cancer versus metastases Lung biopsy was done Await biopsy result Oncologist on board LLE DVT -endorses xarelto stopped after EGD findings of ulcerative mass. Monitor Hypothyroidism: continue synthroid. DISCHARGE MEDICATIONS: Please see below. ALLERGIES: Please see below. PHYSICAL EXAMINATION ON DISCHARGE: VITAL SIGNS: Please see below. General: In moderate distress, icterus Skin : yellow HEENT:PERRLA, EOMI Chest: Diminished lung sounds bilaterally CV: S1-S2 Abd: tender over left iliac spine, nondistended Extremities: No cyanosis no swelling LABORATORY DATA: Please see below. IMAGING: ABDOMINAL SERIES: Supine and erect views of the abdomen demonstrate no free air and no evidence of bowel obstruction. No dilated small bowel loops are seen. Tiny phleboliths are seen in the pelvis. There are degenerative changes of the spine and sacroiliac joints. An accompanying view of the chest demonstrates a mass in the left upper lobe as seen on recent CT of 01/22/2019. No new infiltrate is seen. Heart is normal in size. IMPRESSION :No free air or obstruction. Electronically Signed by Martin Ivy MD 03/09/2019 11:35 P PROGNOSIS: Guarded ACTIVITY: As tolerated. DIET: Soft diet DISCHARGE PLAN: Home DISPOSITION: 01 Home, Self-Care. DISCHARGE INSTRUCTIONS: 1. Follow-up with oncologist and IR specialist on the next week ITEMS TO FOLLOWUP ON ON OUTPATIENT: 1. Follow-up with palliative care for pain management DISCHARGE CONDITION: Stable TIME SPENT ON DISCHARGE: Greater than 20 minutes. Vital Signs/I&Os Vital Signs Date Time Temp Pulse Resp B/P (MAP) Pulse Ox O2 Delivery O2 Flow Rate FiO2 03/12/19 16:14 20 03/12/19 14:00 99.6 70 152/62 (92) 98 03/12/19 02:00 Room Air 03/11/19 14:00 2.0 l I&O- Last 24 Hours up to 6 AM 03/12/19 06:00 Intake Total 2820 ml Output Total 2900 ml Balance -80 ml Laboratory Data Labs 24H Laboratory Tests 2 03/12/19 05:59: Anion Gap 6L, Glomerular Filtration Rate > 60.0, Calcium Level 8.5, Magnesium Level 1.9, Aspartate Amino Transf (AST/SGOT) 326H, Alanine Aminotransferase (ALT/SGPT) 429H, Alkaline Phosphatase 383H, Total Bilirubin 3.1H, Direct Bilirubin 2.6H, Total Protein 6.6, Albumin 2.8L, Albumin/Globulin Ratio 0.74L CBC/BMP Laboratory Tests 03/12/19 05:59 Discharge Medications Scheduled Buspirone HCl (Buspirone HCl) 7.5 Mg Tab, 7.5 MG PO TID, (Reported) Escitalopram Oxalate (Lexapro) 5 Mg Tablet, 5 MG PO QHS, (Reported) Fentanyl (Fentanyl) 87.5 Mcg Patch.td72, 87.5 MCG TOP Q2D, (Reported) CURRENTLY APPLIED TO RIGHT UPPER CHEST Gabapentin (Gabapentin) 600 Mg Tab, 600 MG PO QID, (Reported) Levothyroxine Sodium (Synthroid) 137 Mcg Tablet, 137 MCG PO DAILY, (Reported) Magnesium Oxide (Magnesium Oxide) 250 Mg Tablet, 250 MG PO QHS, (Reported) Megestrol Acetate (Megestrol Acetate) 40 Mg Tablet, 80 MG PO BID, (Reported) ALTERNATES WITH TAMOXIFEN EVERY 3 WEEKS PER ONCOLOGY. PT STARTED TAMOXIFEN ON 02/27 Pantoprazole Sodium (Pantoprazole Sodium) 40 Mg Tablet.dr, 40 MG PO QPM, (Reported) Psyllium Husk (with Sugar) (Metamucil Powder) 575 Gm Powder, 1 PKT PO DAILY, (Reported) Senna (Senna Lax) 8.6 Mg Tablet, 2 TAB PO DAILY Sertraline Hcl (Zoloft) 100 Mg Tab, 100 MG PO QHS, (Reported) Tamoxifen Citrate (Tamoxifen Citrate) 20 Mg Tab, 40 MG PO DAILY for endomtrial cancer take 2 tabs daily for 3 weeks alternating with megestrol for 3 weeks Scheduled PRN Acetaminophen (Mapap) 500 Mg Tab, 1,000 MG PO Q6H PRN for PAIN OR DYSPNEA, (Reported) Lorazepam (Ativan) 0.5 Mg Tab, 1 MG PO QID PRN for ANXIETY/AGITATION, (Reported) Morphine Sulfate (Morphine Sulfate) 15 Mg Tablet, 15 MG PO Q8H PRN for SEVERE PAIN (PS 8-10), (Reported) Ondansetron HCl (Zofran) 4 Mg Tab, 4 MG PO Q6H PRN for NAUSEA OR VOMITING, (Reported) Allergies Coded Allergies: azithromycin (Verified Allergy, Intermediate, RASH, 02/28/19) pregabalin (Verified Allergy, Intermediate, RASH, 02/28/19) baclofen (Verified Adverse Reaction, Intermediate, anxiety, 02/24/19) carisoprodol (Verified Adverse Reaction, Intermediate, anxiety, 02/24/19) cyclobenzaprine (Verified Adverse Reaction, Intermediate, anxiety, 02/24/19) diazepam (Verified Adverse Reaction, Intermediate, anxiety, 02/24/19) metaxalone (Verified Adverse Reaction, Intermediate, anxiety, 02/24/19) methocarbamol (Verified Adverse Reaction, Intermediate, anxiety, 02/24/19) tizanidine (Verified Adverse Reaction, Intermediate, anxiety, 02/24/19) JESSICA SAHU DO Mar 12, 2019 17:54
[2019-03-12] MEDS ORDERED: SERTRALINE HCL 50 MG TAB PO SCH (21:00)
[2019-03-14] MEDS ORDERED: SERTRALINE HCL 25 MG TABLET PO SCH (21:00)
[2019-03-20] MEDS ORDERED: MEGESTROL 40 MG TAB PO SCH (09:00)
== END 2019-03-12 17:54 | disposition home or self-care (01) | DRG 694 ==
LOC: M ED 12:51 → M ED INP 12:52 → UNDOADMOB 12:52 → OBSVTOIN 20:48 → INTOOBSV 20:48 → M MSPAV 20:48 → M ED INP 21:03 → M MSPAV 03-09 20:49 → OBSVTOIN 03-09 20:49 → UNDODISIN 03-12 16:59
PROVIDERS: ADMIT Internal Medicine; ATTEND Internal Medicine
DX: C79.89 Secondary malignant neoplasm of other specified sites (principal); K85.90 Acute pancreatitis without necrosis or infection, unspecified; K83.1 Obstruction of bile duct; G89.3 Neoplasm related pain (acute) (chronic); R91.1 Solitary pulmonary nodule; D50.9 Iron deficiency anemia, unspecified; E03.9 Hypothyroidism, unspecified; F41.9 Anxiety disorder, unspecified; Z79.899 Other long term (current) drug therapy; Z88.8 Allergy status to other drugs, medicaments and biological substances; C54.1 Malignant neoplasm of endometrium; C78.02 Secondary malignant neoplasm of left lung

== ENCOUNTER → 2019-03-19 | Outpatient (CLI) | payer BC ==
[~2019-03-19] MED LIST changes: +CALC200T15 PO; +DILA4TAB13 PO; +FENT1DIS14 TD; +FLUC10TA PO; +HYDR8TAB PO; +Hyoscyamine/Maalox/Lidoca Visc PO; +ISOVUE-300 61% 50ML VIAL (Q9967) As Ordered ONE; +LIDOCAINE 1% MDV 20ML VIAL As Ordered ONE; +LIDOCAINE 2% MDV 20 ML VIAL As Ordered ONE; +LOVE0.8I SC; +MAGICMW SS; +MEGE20TA3 PO; +MIDAZOLAM INJ 2 MG/2 ML VIAL (J2250) As Ordered ONE; +NYST50SS SS; +OXYCO5TA PO; +PERCOCET 5MG/325MG TAB As Ordered ONE; +PERCOCET 5MG/325MG TAB PO ONE; +PROMETHAZINE INJ 25 MG/ML VIAL (J2550) As Ordered ONE; +SENN18TA PO; +SENN8.6T58 PO; +SODI1TAB6 PO; +SYNT137T7 PO; +cefTRIAXone SOD 1 GM VIAL (J0696) As Ordered ONE; +diphenhydrAMINE INJ 50MG/ML VIAL (J1200) As Ordered ONE; +fentaNYL 100 MCG/2 ML INJECTION (J3010) As Ordered ONE
--- NOTE | 2019-03-19 13:25 | IRHP ---
[facility] IR Pre-Procedure H & P General Date of Service: Mar 19, 2019 Procedure: Same Day Surgery Interval History and Physical I have seen the patient and reviewed last H & P performed within 30 days. There is no significant interval change. Patient is stable for procedure. History of Present Illness Chief Complaint The patient is a 53-year-old female admitted with a reason for visit of Biliary Obstruction. PRE-PROCEDURE DIAGNOSIS: biliary obstruction HEART: normal rate. LUNGS: normal breathing at rest. ASA Classification ASA Classification: II-Mild systemic disease Mallampati Score: II NPO: Yes Problems with prior sedation: No Obstructive Sleep Apnea: No Plan moderate sedation Allergies Coded Allergies: azithromycin (Verified Allergy, Intermediate, RASH, 02/28/19) pregabalin (Verified Allergy, Intermediate, RASH, 02/28/19) baclofen (Verified Adverse Reaction, Intermediate, anxiety, 02/24/19) carisoprodol (Verified Adverse Reaction, Intermediate, anxiety, 02/24/19) cyclobenzaprine (Verified Adverse Reaction, Intermediate, anxiety, 02/24/19) diazepam (Verified Adverse Reaction, Intermediate, anxiety, 02/24/19) metaxalone (Verified Adverse Reaction, Intermediate, anxiety, 02/24/19) methocarbamol (Verified Adverse Reaction, Intermediate, anxiety, 02/24/19) tizanidine (Verified Adverse Reaction, Intermediate, anxiety, 02/24/19) Home Medications Scheduled Buspirone HCl (Buspirone HCl), 7.5 MG PO TID, (Reported) Escitalopram Oxalate (Lexapro), 5 MG PO QHS, (Reported) Fentanyl (Fentanyl), 87.5 MCG TOP Q2D, (Reported) Gabapentin (Gabapentin), 600 MG PO QID, (Reported) Levothyroxine Sodium (Synthroid), 137 MCG PO DAILY, (Reported) Magnesium Oxide (Magnesium Oxide), 250 MG PO QHS, (Reported) Megestrol Acetate (Megestrol Acetate), 80 MG PO BID, (Reported) Pantoprazole Sodium (Pantoprazole Sodium), 40 MG PO QPM, (Reported) Psyllium Husk (with Sugar) (Metamucil Powder), 1 PKT PO DAILY, (Reported) Senna (Senna Lax), 2 TAB PO DAILY Sertraline Hcl (Zoloft), 100 MG PO QHS, (Reported) Tamoxifen Citrate (Tamoxifen Citrate), 40 MG PO DAILY Scheduled PRN Acetaminophen (Mapap), 1,000 MG PO Q6H PRN for PAIN OR DYSPNEA, (Reported) Lorazepam (Ativan), 1 MG PO QID PRN for ANXIETY/AGITATION, (Reported) Morphine Sulfate (Morphine Sulfate), 15 MG PO Q8H PRN for SEVERE PAIN (PS 8-10), (Reported) Ondansetron HCl (Zofran), 4 MG PO Q6H PRN for NAUSEA OR VOMITING, (Reported) VS, I&O, 24H, Fishbone Vital Signs/I&O Vital Signs Date Time Temp Pulse Resp B/P (MAP) Pulse Ox O2 Delivery O2 Flow Rate FiO2 03/19/19 13:17 97.1 73 18 97 JASKARAN JO MD Mar 19, 2019 13:25
--- NOTE | 2019-03-19 16:39 | POST-OPPD ---
Postoperative Procedure Note Date Of Procedure: Mar 19, 2019 Time Of Procedure: 16:37 PREOPERATIVE DIAGNOSIS: biliary obstruction. cancer POSTOPERATIVE DIAGNOSIS: biliary obstruction. cancer FINDINGS: biliary obstruction. PROCEDURE: 8F internal external drain placed. return to IR in two weeks for brushings and stent SURGEON: osmani ANESTHESIA: moderate sedation ESTIMATED BLOOD LOSS: < 5 ml COMPLICATIONS: none POSTOPERATIVE CONDITION: stable JASKARAN JO MD Mar 19, 2019 16:39
--- NOTE | 2019-03-19 17:03 | REP ---
IR percutaneous transhepatic cholangiography (PTC). IR internal/external biliary drainage catheter placement with fluoroscopy guidance. IR moderate sedation. Clinical information: Biliary obstruction. Obstructive jaundice. Ampullary mass. Physician: Dr. Espinal. Procedure: The patient was advised of the benefits, risks and alternatives of the procedure and informed consent was obtained. The time-out was performed with verification of the patient's name, MRN, site of procedure and type of procedure to be performed. The patient was positioned in the supine position on the angiographic table. The site was prepped and draped in the usual sterile fashion. Moderate sedation was performed by the physician including the presence of an independent trained observer that assisted in monitoring the patient's level of consciousness and physiologic status. Following the administration of Fentanyl and Versed, the physician spent 90 minutes of continuous face to face time with the patient. A senior administrative associate senior administrative associate radiograph reveals no gross abnormality. The soft tissues overlying the anticipated right upper quadrant puncture site were anesthetized with lidocaine. A right hepatic duct was accessed with a 21 gauge Chiba needle under fluoroscopy guidance. A percutaneous transhepatic cholangiogram was performed and demonstrates minimal intrahepatic biliary dilation but massive extrahepatic biliary dilation and distal common bile duct obstruction. A wire was advanced into the central biliary tree and common bile duct, under fluoroscopy guidance. The needle was exchanged for a non vascular introducer sheath. The inner dilator and wire were removed. Repeat cholangiography demonstrates dilated common bile duct and distal CBD obstruction. Using a Kumpe catheter, the guide wire was negotiated carefully through the common bile duct obstruction into the small bowel. Injection of contrast through the catheter demonstrates folds of small bowel and reflux of contrast retrograde to the stomach. The catheter was exchanged over an Amplatz wire for an 8-Anguillan internal external biliary drainage catheter. The catheter pigtail was formed. Injection of contrast confirmed adequate placement of the catheter with the tip formed in the duodenum. The catheter was sutured to the skin with 2-0 Prolene and placed to gravity drainage. A sterile dressing was applied to the catheter insertion site. The patient tolerated the procedure well and was returned to the PRU in stable condition. EBL: Less than 5 ml. Complications: None. Conclusion: 1. Percutaneous transhepatic cholangiography demonstrates minimal intrahepatic biliary duct dilation but massive extrahepatic biliary duct dilation and distal common bile duct occlusion. 2. Successful placement of an 8-Anguillan internal external biliary drainage catheter. The catheter should be flushed daily with 10 ml of sterile saline. 3. Patient to return to IR in 2 weeks for biliary brushings and/or stenting. Thank you this referral. Electronically Signed by Janie Espinal MD 03/19/2019 05:02 P
[2019-03-19 17:53] VITALS: BP 183/79
== END ==
LOC: M IRPRO 13:04
PROVIDERS: ATTEND Radiology Diagnostic Radiology
DX: K83.1 Obstruction of bile duct (principal); K83.8 Other specified diseases of biliary tract; D37.6 Neoplasm of uncertain behavior of liver, gallbladder and bile ducts; Z88.1 Allergy status to other antibiotic agents; Z88.8 Allergy status to other drugs, medicaments and biological substances; Z79.899 Other long term (current) drug therapy
CPT/HCPCS: 47534; 99152; 99153; C1729; C1769; C1887; C1894; J0696; J1200; J2250; J3010; Q9967

== ENCOUNTER 2019-03-25 10:44 | Inpatient (IN) | payer BC ==
[~2019-03-25] VITALS: Ht 167.6 cm; Wt 94.0 kg
[~2019-03-25 10:44] MED LIST changes: -CALC200T15 PO; -FENT1DIS14 TD; -FLUC10TA PO; -HYDR8TAB PO; -Hyoscyamine/Maalox/Lidoca Visc PO; -ISOVUE-300 61% 50ML VIAL (Q9967) As Ordered ONE; -LIDOCAINE 1% MDV 20ML VIAL As Ordered ONE; -LIDOCAINE 2% MDV 20 ML VIAL As Ordered ONE; -LOVE0.8I SC; -MAGICMW SS; -MEGE20TA3 PO; -MIDAZOLAM INJ 2 MG/2 ML VIAL (J2250) As Ordered ONE; -NYST50SS SS; -OXYCO5TA PO; -PERCOCET 5MG/325MG TAB As Ordered ONE; -PERCOCET 5MG/325MG TAB PO ONE; -PROMETHAZINE INJ 25 MG/ML VIAL (J2550) As Ordered ONE; -SENN8.6T58 PO; -SODI1TAB6 PO; -cefTRIAXone SOD 1 GM VIAL (J0696) As Ordered ONE; -diphenhydrAMINE INJ 50MG/ML VIAL (J1200) As Ordered ONE; -fentaNYL 100 MCG/2 ML INJECTION (J3010) As Ordered ONE
[2019-03-25] MEDS ORDERED: NS 1,000 ML IV SCH (11:15)
[2019-03-25 11:36] LABS: APPEARANCE, URINE CLOUDY (CLEAR); BACTERIA, URINE AUTO 2+ (NEGATIVE); BILIRUBIN, URINE AUTO 1+ (NEGATIVE); BLOOD, URINE BLOOD NEGATIVE (NEGATIVE); COLOR, URINE AMBER (YELLOW); GLUCOSE, URINE (UA) AUTO 1+ mg/dL (NEGATIVE); KETONE, URINE AUTO NEGATIVE (NEGATIVE); LEUKOCYTE ESTERASE, URINE AUTO 1+ (NEGATIVE); MUCUS, URINE SMALL (NEGATIVE); NITRITE, URINE AUTO NEGATIVE (NEGATIVE); PROTEIN, URINE AUTO 1+ mg/dL (NEGATIVE); RBC, URINE AUTO 4 /HPF (0-3); SPECIFIC GRAVITY URINE AUTO 1.017 (1.002-1.035); SQUAMOUS EPITHELIAL CELL UR AU 14 /HPF (0-6); TRANSITIONAL EPITHELIAL AUTO 4 /HPF; WBC, URINE AUTO 17 /HPF (0-3)
[2019-03-25 11:39] LABS: OSMOLALITY URINE 331 MOSM/KG (500-800)
[2019-03-25 12:02] LABS: SODIUM,RANDOM URINE < 10 MEQ/L
[2019-03-25] MEDS: MORPHINE 4 MG/ML 1ML VIAL/SYRINGE (J2270) IV PRN (12:43)
[2019-03-25] MEDS ORDERED: ONDANSETRON 4MG/2ML VIAL (J2405) IV ONE (12:45)
[2019-03-25 12:51] LABS: FREE T4 0.87 NG/DL (0.76-1.46); MAGNESIUM LEVEL 2.2 MG/DL (1.8-2.4); THYROID STIMULATING HORMONE 3.58 uIU/ML (0.358-3.740)
[2019-03-25] MEDS ORDERED: PIPERACILLIN/TAZOBACTAM SOD 2.25 GM in D5W MINI-BAG PLUS 50 ML IV ONE (13:15)
--- NOTE | 2019-03-25 13:44 | REP ---
RIGHT UPPER QUADRANT ULTRASOUND: Patient was scheduled for abdominal ultrasound but could only tolerate scanning of the right upper quadrant due to pain. Gallbladder demonstrates sludge and multiple stones. There is no gallbladder wall thickening, thickness is 3 mm. The fundus of the gallbladder is not well seen due to overlying bowel gas. There is intrahepatic and extrahepatic biliary dilatation. The common bile duct measures 18 mm. The patient has a biliary stent with pneumobilia. The liver demonstrates no gross mass. The pancreas demonstrates no gross abnormality, although the pancreatic duct is slightly dilated at 4 mm. The pancreas is not well seen due to overlying bowel gas. There is mild complex perihepatic fluid. The right kidney is normal in size with no hydronephrosis, measuring 11.3 cm in length. IMPRESSION: Sludge and stones in the gallbladder without gallbladder wall thickening. Significant biliary dilatation, common bile duct measures 18 mm. Mild complex perihepatic fluid. Slight dilatation of the pancreatic duct at 4 mm. Electronically Signed by Martin Ivy MD 03/25/2019 02:11 P
[2019-03-25] MEDS ORDERED: MEGE20TA3 PO (14:17)
[2019-03-25] MEDS ORDERED: HYDR8TAB PO (14:19)
[2019-03-25] MEDS ORDERED: SENN8.6T58 PO (14:20)
[2019-03-25] MEDS ORDERED: FENT10PA TD (14:22)
[2019-03-25] MEDS ORDERED: FENT1DIS14 TD (14:22)
--- NOTE | 2019-03-25 15:41 | REP ---
KUB: Two views. History: Biliary obstruction status post internal and external biliary drainage catheter placement. Obstructive jaundice. Question cholangitis. Comparison is made with March 19, 2019 cholangiography biliary drainage images. Findings: A percutaneous transhepatic internal external biliary drainage catheter is seen in what appears to be good position in the right upper quadrant. There is a vertically oriented collection of air along the right abdomen adjacent to the liver. This may be free intraperitoneal air. Bowel gas pattern is normal. EKG electrodes are seen. Impression: Percutaneous transhepatic biliary drainage catheter in what appears to be good position. There is a collection of peritoneal air lateral to the liver which may be related to the catheter. Electronically Signed by César Gunn MD 03/25/2019 04:06 P
[2019-03-25] MEDS ORDERED: ISOVUE-300 61% 50ML VIAL (Q9967) As Ordered ONE (16:38)
[2019-03-25] MEDS ORDERED: ONDANSETRON 4 MG TAB (S0181) PO PRN (17:30)
[2019-03-25] MEDS ORDERED: ACETAMINOPHEN 500 MG TAB PO PRN (17:30)
[2019-03-25] MEDS ORDERED: SENNA 8.6 MG TAB (SENOKOT) PO PRN (17:30)
[2019-03-25] MEDS: KCL 20MEQ IN 0.45NS 1000ML 1,000 ML IV SCH ×2 (17:35→21:55)
[2019-03-25] MEDS ORDERED: PILL CUTTER 1 EACH XX PRN (17:45)
--- NOTE | 2019-03-25 17:49 | HPE ---
DATE OF ADMISSION: 03/25/2019 PRINCIPAL DIAGNOSIS: Acute cholangitis with biliary obstruction. HISTORY: Nilsa Petersen is a 53-year-old with an unfortunate medical history of metastatic endometrial cancer followed by [facility] sent over from [facility] with jaundice. She had undergone external biliary drainage by Dr. Espinal on 03/19/2019. Was seen in medical oncology today and was lethargic and jaundiced. She was sent to the emergency room. Lab work was obtained. Bilirubin had gone from 3.1 to 6.7, and she had a leukocytosis, white count of 15.2. Dr. Espinal was in conference. Dr. Vern Gunn and I discussed the case. He agreed to see the patient and was going to do a cholangiogram and pass a wire. I do not have the dictation back on what he did, but per Dr. Jackson, the drainage tube is in place, functioning well, nothing mechanical obstructing it, and nothing mechanical more to do. She is being admitted for antibiotic therapy. Has no other problems. As noted above, the patient has metastatic endometrial cancer. She has a DO NOT RESUSCITATE. Order on her Medical Orders for Life-Sustaining Treatment (MOLST) form that was signed on 03/10/2019 specifies DO NOT RESUSCITATE, trial of intubation if necessary, long-term feeding and intravenous (IV) fluids if necessary. 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 She has had radiation for a T12 paraspinal mass. Pain control being managed through palliative care service. Intermittent anemia requiring transfusion as well as a left upper lobe spiculated mass, which has been biopsied. Her endometrial carcinoma involves the right iliopsoas, left pelvic sidewall, left lung, and a small area in the central pelvis as well as bony metastases left iliac, left lumbar, and thoracic spine. She has a new mass in her pancreas suspected to be metastatic as well. Other past history shows hypothyroidism, depression, history of deep venous thrombosis (DVT) left lower extremity, anticoagulant on hold for procedures, history of iron deficiency anemia. SOCIAL HISTORY: She smoked. No alcohol or drug abuse. Lives with and daughter. FAMILY HISTORY: Her parents have diabetes, hypertension, and coronary disease. REVIEW OF SYSTEMS: She says she felt weak, ill, febrile, with abdominal pain. Did receive morphine just prior to my seeing her and was somewhat lethargic. I am not sure what her baseline is. PHYSICAL EXAMINATION: VITAL SIGNS: Per flow sheet. Temperature 97.8. She is tachycardic, 129. Blood pressure is 125/75. Oxygen saturation 96% on room air. GENERAL APPEARANCE: Jaundiced. Somewhat lethargic after receiving morphine. Pupils equal, round, and reactive to light. Tympanic membranes (TMs) and oropharynx benign. Mucous membranes dry. NECK: No masses. LUNGS: Decreased breath sounds. HEART: Regular rhythm. ABDOMEN: Soft. Tender in the right upper quadrant. Some ascites felt to be present. EXTREMITIES: No clubbing, cyanosis, edema. SKIN: Skin is jaundiced. LABS: White count 15.2, hemoglobin 9.3, platelets 299. Sodium 123, potassium 3.3, BUN 66, creatinine 2.84, glucose 143, bilirubin 6.7. TSH normal. IMPRESSION: 1. Biliary obstruction. Patient was sent to interventional radiology. I am waiting for the report, but, per Dr. Jackson, tube is functioning. Will flush this per routine and ask Dr. Espinal to see the patient tomorrow. 2. Suspected cholangitis. Will start Zosyn as the patient has no penicillin allergy. Aggressive IV fluids have been ordered. Patient is DO NOT RESUSCITATE but will be put in progressive care unit (PCU) due to the sepsis. 3. Hypothyroidism. Continue on current levothyroxine. 4. Chronic pain syndrome. Continue on current analgesics. Palliative care sees her as an outpatient, and Zoie Osborne NP, could be consulted tomorrow if the rounding team wishes her involvement. 5. History of depression. Continue on current antidepressant medications. 6. Metastatic endometrial cancer. Continue analgesics and her Megace 80 mg twice a day. Prognosis is grim. DO NOT RESUSCITATE, as summarized above. 7. Hyponatremia/hypokalemia. The patient has already received IV saline. We will change this to half normal saline to allow a higher infusion rate. We need to gradually increase her sodium over the next 12-24 hours. Supplemental potassium has been given. 8. Acute kidney injury. She looks dry and should respond to hydration. Dr. Espinal is not available today and is unaware of the consultation. Rounding team will need to contact her tomorrow and make her aware of this. Edited: davian 03/25/2019 [id number]
--- NOTE | 2019-03-25 17:51 | REP ---
Catheter cholangiogram: Fluoroscopy. 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 History of a possible cholangitis and rising bilirubin. The patient is 6 days post placement of an internal external string fixed multi side-hole transhepatic biliary drainage catheter. Procedure: The injection procedure was performed by ERNESTO Mari in the ANGIO suite after informed consent was obtained from the patient and her . The patient's existing percutaneous drainage catheter was injected and fluoroscopic spot films were obtained. Fluoroscopy time is 0.8 minutes. Cholangiographic findings: Biliary drainage catheter is appropriately positioned within the intrahepatic bile ducts. Contrast injection demonstrates opacification of normal caliber intrahepatic bile ducts and common hepatic bile duct. The cystic duct is patent and the gallbladder is reflux. Final film shows contrast in the second portion of the duodenum. The catheter is in good position. There is some contrast passing along the catheter tract and accumulating in the perihepatic peritoneal space. Impression: Internal external biliary drainage catheter in good position across the biliary obstruction with internal loop in the duodenum. Findings were telephoned to Dr. Jackson at the time of the study. Electronically Signed by César Gunn MD 03/25/2019 06:20 P
[2019-03-25 20:00] VITALS: BP 118/58
[2019-03-25] MEDS: PIPERACILLIN/TAZOBACTAM SOD 3.375 GM in D5W MINI-BAG PLUS 50 ML IV SCH (20:00)
[2019-03-25] MEDS: GABAPENTIN 300 MG CAP PO SCH (21:00)
[2019-03-25] MEDS: ESCITALOPRAM OXALATE 5MG TABLET (LEXAPRO) PO SCH (21:00)
[2019-03-25] MEDS ORDERED: FENTANYL REMOVAL DOCUMENTATION MISC XX SCH (21:00)
[2019-03-25] MEDS: SERTRALINE 100 MG TAB PO SCH (21:00)
[2019-03-25] MEDS ORDERED: fentaNYL 100 MCG/HR PATCH TD SCH (21:00)
[2019-03-25] MEDS: busPIRone 5 MG TAB PO SCH (21:00)
[2019-03-25 23:59] VITALS: BP 118/70
[2019-03-26] VITALS (21 sets, daily range): BP systolic 107–121; BP diastolic 51–62; O2SAT 94–98
[2019-03-26] MEDS: KCL 20MEQ IN 0.45NS 1000ML 1,000 ML IV SCH ×2 (01:30→05:45)
[2019-03-26] MEDS: PIPERACILLIN/TAZOBACTAM SOD 3.375 GM in D5W MINI-BAG PLUS 50 ML IV SCH ×4 (02:15→20:34)
[2019-03-26] MEDS ORDERED: MAGIC MOUTHWASH SUSPENSION BTL SS PRN (04:15)
[2019-03-26] MEDS: LEVOTHYROXINE 137MCG TABLET (0.137MG) PO SCH (06:02)
[2019-03-26 06:03] LABS: ALBUMIN 1.5 GM/DL (3.2-5.2); BILIRUBIN,TOTAL 4.2 MG/DL (0.2-1.0); CALCIUM LEVEL 7.9 MG/DL (8.5-10.1); CREATININE FOR GFR 2.92 MG/DL (0.55-1.30); GLOMERULAR FILTRATION RATE 17.9 (>51); POTASSIUM SERUM 4.1 MEQ/L (3.5-5.1); TOTAL PROTEIN 6.3 GM/DL (6.4-8.2)
[2019-03-26 06:35] LABS: HEMATOCRIT 25.9 % (36.0-47.0); HEMOGLOBIN 8.5 g/dl (12.0-15.5); MEAN CORPUSCULAR HEMOGLOBIN 27.3 pg (27.0-33.0); MEAN CORPUSCULAR HGB CONC 32.8 g/dl (32.0-36.5); MEAN CORPUSCULAR VOLUME 83.3 fl (80.0-96.0); PLATELET COUNT, AUTOMATED 267 10^3/uL (150-450); RED BLOOD COUNT 3.11 10^6/uL (4.00-5.40); WHITE BLOOD COUNT 20.9 10^3/uL (4.0-10.0)
[2019-03-26 07:11] LABS: HYPOCHROMASIA 2+; LYMPHOCYTES 5 % (16-44); NEUTROPHILS 81 % (28-66); PLATELET ESTIMATE NORMAL (NORMAL)
[2019-03-26] MEDS: GABAPENTIN 300 MG CAP PO SCH ×4 (08:32→20:36)
[2019-03-26] MEDS: HYDROmorphone (DILAUDID) 4 MG TAB PO PRN (08:32)
[2019-03-26] MEDS: NYSTATIN 500,000 U/5 ML SUSP UDC SS SCH ×4 (08:33→20:35)
[2019-03-26] MEDS: MEGESTROL 40 MG TAB PO SCH ×2 (08:33→20:35)
[2019-03-26] MEDS: busPIRone 5 MG TAB PO SCH ×3 (08:34→20:35)
[2019-03-26] MEDS: ENOXAPARIN 30 MG/0.3 ML SYR (J1650) SC SCH (08:37)
[2019-03-26] MEDS: fentaNYL 100 MCG/HR PATCH TD SCH (08:39)
[2019-03-26] MEDS ORDERED: FENTANYL REMOVAL DOCUMENTATION MISC XX SCH (09:00)
[2019-03-26 10:07] LABS: URIC ACID 8.6 MG/DL (2.6-6.0)
--- NOTE | 2019-03-26 10:10 | IPN ---
DATE: 03/26/2019 SUBJECTIVE: The patient complains of epigastric, right upper quadrant abdominal pain. She appears lethargic but is appropriate this morning. Overnight, the patient has had no fevers. She is continued on IV Zosyn. No nausea or vomiting. She is tolerating her diet of liquids. Cholecystotomy tube is draining well with output of 250 overnight and [address] Espinal is to see the patient. No complaints of headaches, seizures, changes in vision. This morning, she is awake, alert, and oriented to person, place and time. The patient does complain of some odynophagia with oral thrush noted. SUBJECTIVE: PHYSICAL EXAMINATION: VITAL SIGNS: Temperature 97.2, pulse 111, respiratory rate 20, blood pressure 111/51, 97% on room air. GENERAL: The patient is able to speak in full sentences. She has jaundice with mild icterus. She is able to state her name, place and date. No respiratory distress or use of accessory respiratory muscles. No jugular venous distention (JVD), thyromegaly or cervical lymphadenopathy. The patient has oral thrush and dry mucous membranes. LUNGS: Air entry is equal bilaterally. Clear to auscultation. No wheezes or rales noted. HEART: S1, S2. Sinus tachycardia. ABDOMEN: Tender in the epigastric, right upper quadrant. No rebound or guarding. Positive bowel sounds. Right cholecystotomy tube is noted with drainage. EXTREMITIES: 2+ pitting edema to the sacrum. LABORATORY DATA: White count 20.9, hemoglobin 8.5, hematocrit 25.9, platelet count 267. Sodium 124, potassium 4.1, chloride 92, bicarbonate 14, BUN 77, creatinine 2.92, glucose 98, lactic acid of 2.6, magnesium 7.9, total bilirubin 4.2, AST 65, ALT 52, alkaline phosphatase 179, albumin of 1.5. 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 Radiation for T12 paraspinal mass. Managed by palliative care. Hypothyroidism, depression, history of deep vein thrombosis (DVT) in left lower extremity, anticoagulants have been placed on hold for procedures, iron deficiency anemia, underwent external biliary drainage by Dr. Espinal on 03/19/2019, was found to be lethargic and jaundice with bilirubin increasing to 6.7 and leukocytosis of 15.2. Cholecystotomy tube is currently draining well with 250 overnight and 50 this morning. On intravenous Zosyn. IMPRESSION: 1. Sepsis secondary to acute cholangitis with heart rate of 111, white count of 20.9. The patient is currently under full supportive care. Dr. Espinal to check cholecystotomy tube and IV Zosyn for cholangitis that is renally dosed by pharmacy. 2. Acute cholangitis, currently on intravenous Zosyn started on 03/25/2019, cholecystotomy tube to be checked by Dr. Espinal. Clear liquid diet for now. 3. Hyponatremia, most likely secondary to dehydration due to decreased oral intake and mental status changes. We will check serum osmolarity, urine osmolarity, uric acid, urine sodium. Check metabolic panel every 6 hours with maximum change of 10 to 12 equivalent over a 24 hour period and mental status changes monitoring. To prevent central pontine myelinolysis, the patient will be kept on salt tablets and on trial of IV fluids. 4. Metastatic endometrial cancer, currently on Tamoxifen, managed by oncology as outpatient. Currently on palliative care. DO NOT RESUSCITATE, DO NOT INTUBATE. 5. Cholestasis. Abdominal ultrasound 03/25/2019 showed sludging and stones in the gallbladder without gallbladder wall thickening with slight dilation in pancreatic duct. Dr. Espinal to recommend if patient requires further ERCP with stent placement. For now, continue with cholecystotomy tube, adjustment if needed. 6. Acute kidney injury, most likely secondary to dehydration. IV fluid hydration and bladder scan if needed. IV fluids. 7. Metabolic acidosis secondary to dehydration and renal failure. Monitor with every 6 hour metabolic panel. 8. Depression. On chronic Zoloft. 9. Oral thrush. Continue on nystatin 5 mL, swish and swallow four times a day. 10. Hypothyroidism. On Levothyroxine. 11. Chronic pain. On Neurontin and Dilaudid. DATE: 03/26/2019 ADDENDUM: Nurse had called regarding increased drainage at the biliary drain that has emptied onto her skin soaking gown and the bed. Dr. Giraldo is currently unavailable. Patient did undergo a catheter cholangiogram yesterday and appeared to be in the correct position. I have spoken with Dr. Martin Ivy from radiology today. He will speak with Dr. Gunn to see if the patient needs a larger drainage catheter. Addendum dictated: 03/26/2019 1316 Addendum transcribed: 03/26/2019 1324 shanellm JESSIE
[2019-03-26] MEDS: MORPHINE 4 MG/ML 1ML VIAL/SYRINGE (J2270) IV PRN (10:45)
[2019-03-26] MEDS: SODIUM CHLORIDE 1 GM TAB PO SCH ×2 (12:39→18:14)
[2019-03-26] MEDS ORDERED: MORPHINE 4 MG/ML 1ML VIAL/SYRINGE (J2270) IV ONE (13:00)
[2019-03-26] MEDS ORDERED: CALCIUM CARBONATE 500 MG CHEW U/D PO ONE (13:15)
[2019-03-26] MEDS ORDERED: CALCIUM CARBONATE 500 MG CHEW U/D PO PRN (13:15)
[2019-03-26] MEDS ORDERED: GI COCKTAIL 50ML BTL(HYOSCYAMINE/MAALOX/LIDOCAINE VISCOUS)(1:3:1) PO ONE (14:00)
[2019-03-26] MEDS ORDERED: SLF 3 ML SYR IV PRN (14:45)
[2019-03-26] MEDS: NS 1,000 ML IV SCH (15:01)
--- NOTE | 2019-03-26 15:51 | IPNPDOC ---
Text Note Date of Service The patient was seen on 03/26/19. NOTE I am following Nilsa at [facility]. I lastspoke with her Friday Se ptember 9 in the morning by telephone and she reported at that time she was feeling well and her pain was in excellent control with fenatnyl 125 mcg patch, hydromorphone 4 mg po q 3 hours prn and ibuprofen 600 mg po bid-tid with food. She reported she had decreased her hydromorphon dose from 8 mg to 4 mg after she found ibuprofen addition made a postive change in her back an hip pain. I was contacted by Lorena yesterday she was not making her follow up appointment with me as she was being admitted to [facility]. Notes from Dr. Irene and Dr. Ward appreciated. Today I spoke with Lorena's , Jose G, who I saw in the lobby on my way up and also met with Lorena fernández her sister, Lulú who was present when I arrived in Lorena's room. Lorena was lethargic but arousable. She reported her pain was in fairly good control after receiving morphine IV. Nursing staff reported she has been ordered hydromorphone [address] Qureshi is considering ordering morphine IV as a prn to be available if needed. I will arrange follow up with Lorena in [facility] next week, her sister indicated it was anticipated she may be here through the week end. VS,Fishbone, I+O VS, Fishbone, I+O Laboratory Tests 03/26/19 05:09 Red Blood Count 3.11 L, Mean Corpuscular Volume 83.3, Mean Corpuscular Hemoglobin 27.3, Mean Corpuscular Hemoglobin Concent 32.8, Red Cell Distribution Width 19.4 H, Calcium Level 7.9 L, Aspartate Amino Transf (AST/SGOT) 65 H, Alanine Aminotransferase (ALT/SGPT) 52, Alkaline Phosphatase 179 H, Total Bilirubin 4.2 H, Total Protein 6.3 L, Albumin 1.5 L Vital Signs Date Time Temp Pulse Resp B/P (MAP) Pulse Ox O2 Delivery O2 Flow Rate FiO2 03/26/19 14:33 18 03/26/19 12:00 96.4 110 107/59 (75) 97 03/26/19 06:00 Room Air I&O- Last 24 Hours up to 6 AM 03/26/19 06:00 Intake Total 2670 ml Output Total 950 ml Balance 1720 ml Zoie CADENA [employer] Mar 26, 2019 15:51
[2019-03-26 19:01] LABS: CALCIUM LEVEL 8.1 MG/DL (8.5-10.1); CREATININE FOR GFR 2.75 MG/DL (0.55-1.30); GLOMERULAR FILTRATION RATE 19.1 (>51)
[2019-03-26] MEDS ORDERED: GI COCKTAIL 50ML BTL(HYOSCYAMINE/MAALOX/LIDOCAINE VISCOUS)(1:3:1) PO PRN (20:00)
[2019-03-26] MEDS: SERTRALINE 100 MG TAB PO SCH (20:35)
[2019-03-26] MEDS: ESCITALOPRAM OXALATE 5MG TABLET (LEXAPRO) PO SCH (20:35)
[2019-03-26] MEDS: SLF 3 ML SYR IV SCH (22:00)
[2019-03-27] VITALS (27 sets, daily range): BP systolic 121–145; BP diastolic 58–76; O2SAT 94–98
[2019-03-27 00:47] LABS: CALCIUM LEVEL 7.7 MG/DL (8.5-10.1); CREATININE FOR GFR 2.63 MG/DL (0.55-1.30); GLOMERULAR FILTRATION RATE 20.2 (>51); POTASSIUM SERUM 3.8 MEQ/L (3.5-5.1)
[2019-03-27] MEDS: PIPERACILLIN/TAZOBACTAM SOD 3.375 GM in D5W MINI-BAG PLUS 50 ML IV SCH ×4 (02:32→21:18)
[2019-03-27] MEDS: SLF 3 ML SYR IV SCH ×3 (06:00→21:20)
[2019-03-27] MEDS: LEVOTHYROXINE 137MCG TABLET (0.137MG) PO SCH (06:46)
[2019-03-27 07:10] LABS: BASO % 0.1 % (0.0-1.0); HEMATOCRIT 20.8 % (36.0-47.0); LYMPH # 1.1 10^3/uL (1.5-5.0); LYMPH % 5.1 % (24.0-44.0); MEAN CORPUSCULAR HEMOGLOBIN 27.9 pg (27.0-33.0); MEAN CORPUSCULAR HGB CONC 33.2 g/dl (32.0-36.5); MEAN CORPUSCULAR VOLUME 84.2 fl (80.0-96.0); MONO # 0.5 10^3/uL (0.0-0.8); MONO % 2.6 % (0.0-5.0); NEUTROPHILS % 89.9 % (36.0-66.0); PLATELET COUNT, AUTOMATED 204 10^3/uL (150-450); RED BLOOD COUNT 2.47 10^6/uL (4.00-5.40); WHITE BLOOD COUNT 21.1 10^3/uL (4.0-10.0)
[2019-03-27 07:21] LABS: HEMOGLOBIN 6.9 g/dl (12.0-15.5)
[2019-03-27 07:33] LABS: ALBUMIN 1.4 GM/DL (3.2-5.2); BILIRUBIN,TOTAL 3.4 MG/DL (0.2-1.0); CALCIUM LEVEL 7.8 MG/DL (8.5-10.1); CREATININE FOR GFR 2.51 MG/DL (0.55-1.30); GLOMERULAR FILTRATION RATE 21.3 (>51); POTASSIUM SERUM 3.9 MEQ/L (3.5-5.1); TOTAL PROTEIN 5.9 GM/DL (6.4-8.2)
[2019-03-27] MEDS: NYSTATIN 500,000 U/5 ML SUSP UDC SS SCH ×4 (08:52→21:19)
[2019-03-27] MEDS: ENOXAPARIN 30 MG/0.3 ML SYR (J1650) SC SCH (08:52)
[2019-03-27] MEDS: busPIRone 5 MG TAB PO SCH ×3 (08:52→21:19)
[2019-03-27] MEDS: SODIUM CHLORIDE 1 GM TAB PO SCH ×3 (08:53→17:15)
[2019-03-27] MEDS: GABAPENTIN 300 MG CAP PO SCH ×4 (08:53→21:19)
[2019-03-27] MEDS: NS 1,000 ML IV SCH (08:53)
[2019-03-27] MEDS: MEGESTROL 40 MG TAB PO SCH ×2 (08:53→21:19)
[2019-03-27] MEDS: KCL 20MEQ in NS 1000ML 1,000 ML IV SCH (10:37)
[2019-03-27 13:37] LABS: CALCIUM LEVEL 7.8 MG/DL (8.5-10.1); CREATININE FOR GFR 2.46 MG/DL (0.55-1.30); GLOMERULAR FILTRATION RATE 21.8 (>51)
--- NOTE | 2019-03-27 14:26 | IPN ---
DATE: 03/27/2019 Nilsa was seen while rounding for the hospitalists. She is anemic today. She has been seen by palliative care. She was admitted for cholangitis. I gave a verbal order (did not have access to [employer] at the time) to culture her bile fluid, but unfortunately this apparently was not done because I do not see any culture, which is unfortunate. I also wanted a urine culture and I do not think that was done either. Overall, she feels better though she is anemic today with a hemoglobin of 6.9 requiring transfusion. No chest pain. No shortness of breath. No fever. No chills. PHYSICAL EXAMINATION: Afebrile, 121/58, pulse is 90, 97% oxygen saturation. She looks jaundiced, chronically ill. Lungs clear. Heart regular rhythm. Abdomen soft, diffusely mildly tender. External biliary drainage tube present. Extremities show trace peripheral edema. LABS: White count 21, hemoglobin 6.9, and platelets 204. Sodium 129, potassium 3.9, BUN 93, creatinine 2.5, glucose 88. IMPRESSION: 1. Cholangitis. Continue Zosyn. Unfortunately a verbal order I gave for culturing the bile apparently was not done (it was entered on 03/25/2019, but I do not see anything pending in the microbiology section - hopefully it was done and will be resulted). She looks dry and I am increasing her IV fluids. 2. Anemia secondary to malignancy. No active bleeding. Consent was given by her for blood (she was lethargic from her opiates). She has had blood transfusions in the past. 2 units have been ordered. 3. Acute kidney injury. I will increase her IV fluid rate. 4. Hypothyroidism. Continue current dose of levothyroxine. 5. Hyponatremia. Probably from her SSRI. She is chronic stable and will be addressed through her IV fluids.
[2019-03-27] MEDS: SERTRALINE 100 MG TAB PO SCH (21:19)
[2019-03-27] MEDS: ESCITALOPRAM OXALATE 5MG TABLET (LEXAPRO) PO SCH (21:19)
[2019-03-27 23:47] LABS: HEMATOCRIT 30.7 % (36.0-47.0); MEAN CORPUSCULAR HEMOGLOBIN 27.9 pg (27.0-33.0); MEAN CORPUSCULAR HGB CONC 33.2 g/dl (32.0-36.5); MEAN CORPUSCULAR VOLUME 83.9 fl (80.0-96.0); PLATELET COUNT, AUTOMATED 183 10^3/uL (150-450); RED BLOOD COUNT 3.66 10^6/uL (4.00-5.40); WHITE BLOOD COUNT 24.5 10^3/uL (4.0-10.0)
[2019-03-27 23:55] LABS: HEMOGLOBIN 10.2 g/dl (12.0-15.5)
[2019-03-28] VITALS (21 sets, daily range): BP systolic 138–180; BP diastolic 72–88; O2SAT 94–98
[2019-03-28 00:18] LABS: CALCIUM LEVEL 8.1 MG/DL (8.5-10.1); CREATININE FOR GFR 2.04 MG/DL (0.55-1.30); POTASSIUM SERUM 3.7 MEQ/L (3.5-5.1)
[2019-03-28] MEDS: PIPERACILLIN/TAZOBACTAM SOD 3.375 GM in D5W MINI-BAG PLUS 50 ML IV SCH ×4 (02:32→19:43)
[2019-03-28] MEDS: HYDROmorphone (DILAUDID) 4 MG TAB PO PRN ×3 (03:11→22:13)
[2019-03-28] MEDS: KCL 20MEQ in NS 1000ML 1,000 ML IV SCH ×3 (03:11→19:43)
[2019-03-28] MEDS: SLF 3 ML SYR IV SCH ×3 (06:00→22:00)
[2019-03-28] MEDS: LEVOTHYROXINE 137MCG TABLET (0.137MG) PO SCH (06:06)
[2019-03-28 06:46] LABS: HEMATOCRIT 28.3 % (36.0-47.0); HEMOGLOBIN 9.5 g/dl (12.0-15.5); MEAN CORPUSCULAR HEMOGLOBIN 27.1 pg (27.0-33.0); MEAN CORPUSCULAR HGB CONC 33.6 g/dl (32.0-36.5); MEAN CORPUSCULAR VOLUME 80.9 fl (80.0-96.0); PLATELET COUNT, AUTOMATED 183 10^3/uL (150-450); WHITE BLOOD COUNT 27.3 10^3/uL (4.0-10.0)
[2019-03-28 07:20] LABS: ALBUMIN 1.6 GM/DL (3.2-5.2); BILIRUBIN,TOTAL 4.8 MG/DL (0.2-1.0); CALCIUM LEVEL 8.3 MG/DL (8.5-10.1); CREATININE FOR GFR 1.68 MG/DL (0.55-1.30); GLOMERULAR FILTRATION RATE 33.8 (>51); TOTAL PROTEIN 6.4 GM/DL (6.4-8.2)
[2019-03-28 07:21] LABS: LYMPHOCYTES 1 % (16-44); METAMYELOCYTES 1 % (0-0); MONOCYTES 3 % (0-5); NEUTROPHILS 95 % (28-66); PLATELET ESTIMATE NORMAL (NORMAL)
[2019-03-28 07:22] LABS: ANISOCYTOSIS 2+; TOXIC VACUOLATION 1+
[2019-03-28] MEDS: ENOXAPARIN 30 MG/0.3 ML SYR (J1650) SC SCH (08:02)
[2019-03-28] MEDS: SODIUM CHLORIDE 1 GM TAB PO SCH ×3 (08:02→18:31)
[2019-03-28] MEDS: NYSTATIN 500,000 U/5 ML SUSP UDC SS SCH ×4 (08:02→22:14)
[2019-03-28] MEDS: busPIRone 5 MG TAB PO SCH ×3 (08:03→22:15)
[2019-03-28] MEDS: MEGESTROL 40 MG TAB PO SCH ×2 (08:03→22:12)
[2019-03-28] MEDS: fentaNYL 25 MCG/HR PATCH TD SCH (08:04)
[2019-03-28] MEDS: GABAPENTIN 300 MG CAP PO SCH ×4 (08:04→22:12)
--- NOTE | 2019-03-28 09:42 | REP ---
DEEP VENOUS ULTRASONOGRAPHY BILATERAL THIGHS, RULE OUT DVT: REASON: Bilateral thigh pain and swelling. TECHNIQUE: Multiple ultrasonographic images of the deep venous structures of the bilateral thighs were obtained from the common femoral vein to the popliteal vein along with Doppler interrogation and color flow Doppler images. FINDINGS: There is no abnormal echogenic material seen within any of the visualized deep venous structures that would suggest acute thrombosis. Coaptation is unremarkable throughout. Doppler interrogation shows an expected response to respiratory variability and augmentation. The color flow images show what appears to be a normal vascular pattern throughout. Seen in the right posterior popliteal fossa, there is a less than 2 cm sized anechoic structure, likely representing a small Burnette cyst. IMPRESSION: There is no ultrasonographic evidence of deep venous thrombosis involving any of the visualized deep venous structures of the bilateral thighs, as described above. Electronically Signed by Joseph Fontaine DO 03/28/2019 09:46 A
[2019-03-28] MEDS: VANCOMYCIN HCL 1,000 MG, VIAL MATE ADAPTER 1 EACH in D5W 250 ML IV SCH ×2 (09:45→22:14)
--- NOTE | 2019-03-28 11:01 | IPNPDOC ---
Text Note Date of Service The patient was seen on 03/28/19. NOTE Subjective: Patient is a 53-year-old female with PMHx of Metastatic Endometrial CA, Hx of DVT (currently not on anticoagulation), Hx of Iron deficiency anemia, Hypothyroidism, Depression / Anxiety, who recently was found to have obstructive jaundice and had an external drain placed by interventional radiology on 03/19/2019 and subsequently sent home. Presented to the emergency room because she was sent by her oncologist for worsening jaundice and AMS. Emergency room, patient is found to have an elevation of her bilirubin. Hospital services consultation for further evaluation. Interventional radiology has evaluated the drain and it continues to function appropriately. Patient was seen and examined at the bedside. Currently, patient reports that she feels much better. Over last 2 days. She denies any chest pain, shortness of breath or palpitation. She denies any abdominal pain, nausea, vomiting, diarrhea, urinary discomfort. Objective: Vitals (See below) General: Lying in bed, no acute distress, comfortable, AAOx3 HEENT: NC, AT CVS: +S1S2 Lungs: Fair air entry b/l, -w/r/r Abdomen: Soft, ND, NT, Drain in place at RUQ Extremities: - Edema, - Calf tenderness Assessment and plan: Cholangitis - Currently, patient reports that she's feeling significantly better - Has had drain placement on 03/19/2019 for obstructive jaundice by IR - Has been evaluated by interventional radiology; will be reevaluated again on Friday by Dr. Espinal - c/w Zosyn (Day #3) Bacteremia / Fungemia - possibly 2/2 line infection - 2/2 port - Blood cultures 03/25: Yeast-like organisms, gram-positive rods - Will get ECHO to evaluate for possible vegetations - Will repeat blood cultures peripherally and via port - c/w Zosyn (Day #3) - Will add Vancomycin and Diflucan - Will consult infectious disease on Friday - Will discuss with Vascular surgery Normocytic anemia - likely 2/2 iron deficiency anemia and dilutional etiology - s/p 2 units PRBC - Hg has remained stable - Will continue to monitor Hyponatremia - Sodium has slowly trended upward at an adequate rate - Will continue with gentle IV fluid hydration as to avoid central pontine myelinolysis BEATRICE - likely 2/2 pre-renal etiology - Kidney function appears to be improving - Will c/w IV fluid hydration Questionable LE swelling - Patient appears to have nonpitting edema; however, there is a question of asymmetric swelling - Duplex US BL LE 03/28: There is no ultrasonographic evidence of deep venous thrombosis involving any of the visualized deep venous structures of the bilateral thighs, as described above. Hypothyroidism - c/w Levothyroxine Depression / Anxiety - c/w Buspirone, Escitalopram, Sertraline Chronic pain 2/2 Metastatic endometrial CA - c/w Fentanyl patch, Dilaudid, Gabapentin, Endometrial CA - c/w Tamoxifen - Follows with oncology; will h DVT prophylaxis - c/w Lovenox VS,Fishbone, I+O VS, Fishbone, I+O Laboratory Tests 03/27/19 12:55 Calcium Level 7.8 L 03/27/19 23:42 Calcium Level 8.1 L, Red Blood Count 3.66 L, Mean Corpuscular Volume 83.9, Mean Corpuscular Hemoglobin 27.9, Mean Corpuscular Hemoglobin Concent 33.2, Red Cell Distribution Width 17.9 H 03/28/19 06:34 Calcium Level 8.3 L, Red Blood Count 3.50 L, Mean Corpuscular Volume 80.9, Mean Corpuscular Hemoglobin 27.1, Mean Corpuscular Hemoglobin Concent 33.6, Red Cell Distribution Width 18.7 H, Aspartate Amino Transf (AST/SGOT) 56 H, Alanine Amino transferase (ALT/SGPT) 59, Alkaline Phosphatase 178 H, Total Bilirubin 4.8 H, Total Protein 6.4, Albumin 1.6 L Vital Signs Date Time Temp Pulse Resp B/P (MAP) Pulse Ox O2 Delivery O2 Flow Rate FiO2 03/28/19 08:34 18 95 03/28/19 07:40 96.4 72 147/78 (101) 03/28/19 06:00 Room Air I&O- Last 24 Hours up to 6 AM 03/28/19 06:00 Intake Total 3477.5 ml Output Total 2210 ml Balance 1267.5 ml EDWARD LANG MD Mar 28, 2019 11:01
[2019-03-28] MEDS: FLUCONAZOLE 200 MG in IV 1 EA IV SCH (11:18)
[2019-03-28] MEDS: ESCITALOPRAM OXALATE 5MG TABLET (LEXAPRO) PO SCH (22:12)
[2019-03-28] MEDS: SERTRALINE 100 MG TAB PO SCH (22:12)
[2019-03-29] VITALS (23 sets, daily range): BP systolic 113–156; BP diastolic 60–81; O2SAT 88–97
[2019-03-29] MEDS: PIPERACILLIN/TAZOBACTAM SOD 3.375 GM in D5W MINI-BAG PLUS 50 ML IV SCH ×4 (02:22→19:55)
[2019-03-29] MEDS: KCL 20MEQ in NS 1000ML 1,000 ML IV SCH (02:23)
[2019-03-29] MEDS: SLF 3 ML SYR IV SCH ×3 (06:00→21:11)
[2019-03-29] MEDS: LEVOTHYROXINE 137MCG TABLET (0.137MG) PO SCH (06:13)
--- NOTE | 2019-03-29 06:29 | ECHO ---
DATE OF PROCEDURE: 03/28/2019 DATE OF : 1965 AGE: 53 REFERRING PHYSICIAN: Dr. Jatin Qureshi PATIENT LOCATION; Room 3212 REASON FOR STUDY: Sepsis. 2-D MEASUREMENTS: IVS: 1.2 cm LV: 5.4 cm LVPW: 1.1 cm LA: 3.5 cm Aorta: 2.6 cm IVC: 1.9 cm DOPPLER MEASUREMENTS: Peak velocity across the aortic valve: 1.3 m/s Peak velocity across the LVOT: 1.1 m/s Mitral E: 0.55 Mitral A: 0.61 Ratio: 0.9 2-D COMMENTS: 1. Normal left ventricular size and wall thickness, but with a moderately depressed global left ventricular systolic function. There was mild global hypokinesis, but the anterior septum seems to be more hypokinetic. The estimated left ventricular systolic ejection fraction is 35-40%. 2. Normal left atrium. The right atrium and the right ventricle appeared to be normal in size in limited views. 3. The atrial septum appeared to be normal without evidence of defect or shunt. 4. Normal aortic root. 5. No pericardial effusion seen. 6. Minimally calcified aortic valve with normal leaflet excursion. The mitral valve and the tricuspid valve appeared to be normal. The pulmonic valve and proximal pulmonary artery branches were not well visualized. 7. The inferior vena cava was normal in size, central venous pressure might be normal. DOPPLER: No valvular abnormalities detected. Abnormal relaxation pattern was noted across the mitral valve leaflets as well as the mitral valve annulus consistent with features of grade 1 left ventricular diastolic dysfunction. IMPRESSION: 1. Technically limited study due to poor acoustic window. 2. Probably moderate global left ventricular systolic dysfunction with regional wall motion abnormalities that may be related to a history of CAD/coronary artery disease. 3. Aortic valve sclerosis without stenosis or aortic radiation. 4. The right heart chambers were not well visualized, but appeared to be normal in size in limited views. 5. The inferior vena cava was normal in size. 6. There are features of grade 1 left ventricular diastolic dysfunction manifested by abnormal relaxation. MTDD
[2019-03-29] MEDS: SODIUM CHLORIDE 1 GM TAB PO SCH ×3 (08:00→17:13)
[2019-03-29] MEDS: ENOXAPARIN 30 MG/0.3 ML SYR (J1650) SC SCH (08:33)
[2019-03-29] MEDS: busPIRone 5 MG TAB PO SCH ×3 (08:34→21:12)
[2019-03-29] MEDS: MEGESTROL 40 MG TAB PO SCH ×2 (08:34→21:12)
[2019-03-29] MEDS: NYSTATIN 500,000 U/5 ML SUSP UDC SS SCH ×5 (08:34→21:12)
[2019-03-29] MEDS: GABAPENTIN 300 MG CAP PO SCH ×4 (08:34→21:12)
[2019-03-29 08:39] LABS: HEMATOCRIT 28.6 % (36.0-47.0); HEMOGLOBIN 9.3 g/dl (12.0-15.5); MEAN CORPUSCULAR HEMOGLOBIN 27.8 pg (27.0-33.0); MEAN CORPUSCULAR HGB CONC 32.5 g/dl (32.0-36.5); MEAN CORPUSCULAR VOLUME 85.6 fl (80.0-96.0); PLATELET COUNT, AUTOMATED 191 10^3/uL (150-450); RED BLOOD COUNT 3.34 10^6/uL (4.00-5.40); WHITE BLOOD COUNT 25.1 10^3/uL (4.0-10.0)
[2019-03-29] MEDS: fentaNYL 100 MCG/HR PATCH TD SCH (08:52)
[2019-03-29 09:03] LABS: ALBUMIN 1.6 GM/DL (3.2-5.2); BILIRUBIN,TOTAL 5.1 MG/DL (0.2-1.0); CALCIUM LEVEL 8.4 MG/DL (8.5-10.1); CREATININE FOR GFR 1.07 MG/DL (0.55-1.30); GLOMERULAR FILTRATION RATE 56.9 (>51); MAGNESIUM LEVEL 2.3 MG/DL (1.8-2.4); POTASSIUM SERUM 4.2 MEQ/L (3.5-5.1); TOTAL PROTEIN 6.2 GM/DL (6.4-8.2)
--- NOTE | 2019-03-29 09:48 | PHACANCOPD ---
PHARMACY VANCOMYCIN DOSING Pt Demographics Demographics Patient Age:53 , Weight:93.300 , Gender: female Adjusted Body Weight Date: 03/29/19, Adjusted Body Weight: Kg Events Past 24 Hours Events Past 24 Hours: NO: Dialysis, Diuretic Therapy, Change in CrCl, Fever, Elevation in WBC, Pending Diagnostics, Pending Procedures, Other Vancomycin Vancomycin indication: MRSA Coverage Vancomycin Target Ranges: 15-20 mcg/ml Vancomycin Load Y/N: Yes Load Dose Date Time Vancomycin Load Dose: Date: Time: Vancomycin Dose Date: 03/29/19. Current Vancomycin Dose: [1g Q12H] Intermittent Dosing?: No Labs Micro Microbiology 03/28/19 Blood Culture, Received Pending 03/28/19 Blood Culture - Preliminary, Resulted No growth after 24 hours . All specim... 03/28/19 Blood Culture - Preliminary, Resulted No growth after 24 hours . All specim... 03/25/19 Blood Culture - Preliminary, Resulted Yeast Like Organism 03/25/19 Blood Culture - Preliminary, Resulted Yeast Like Organism 03/28/19 Gram Stain - Final, Resulted 03/28/19 Body Fluid Culture, Resulted Pending 03/28/19 Urine Culture, Received Pending Creatinine Clearance Date:03/29/19. Creatinine Clearance: [60]. Assessment and Plan Maintaining Current Dose?: Yes Reason for dose change: No Dose Change Pharmacist Note Pharmacist Note Date: 03/29/19. Pharmacist note: Patient's ScCr= 1.07, CrCl=60, and vanco trough came back at 15.2. We will continue the patient on IV Vancomycin Q12H and will monitor and adjust dose as necessary. MARITZA SANDOVAL, PHARMACY Mar 29, 2019 09:47
[2019-03-29 10:04] LABS: ANISOCYTOSIS 1+; LYMPHOCYTES 8 % (16-44); METAMYELOCYTES 1 % (0-0); MONOCYTES 2 % (0-5); MYELOCYTES 2 % (0-0); NEUTROPHILS 86 % (28-66); PLATELET ESTIMATE NORMAL (NORMAL)
[2019-03-29 10:05] LABS: TOXIC GRANULATION 1+
[2019-03-29] MEDS: VANCOMYCIN HCL 1,000 MG, VIAL MATE ADAPTER 1 EACH in D5W 250 ML IV SCH ×2 (10:16→21:11)
[2019-03-29] MEDS ORDERED: ISOVUE-300 61% 50ML VIAL (Q9967) As Ordered ONE (11:12)
[2019-03-29] MEDS ORDERED: LIDOCAINE 1% MDV 20ML VIAL As Ordered ONE (11:12)
[2019-03-29] MEDS ORDERED: fentaNYL 100 MCG/2 ML INJECTION (J3010) As Ordered ONE (11:35)
[2019-03-29] MEDS ORDERED: MIDAZOLAM INJ 2 MG/2 ML VIAL (J2250) As Ordered ONE (11:35)
[2019-03-29] MEDS ORDERED: diphenhydrAMINE INJ 50MG/ML VIAL (J1200) As Ordered ONE (11:35)
--- NOTE | 2019-03-29 12:05 | IRMSE ---
[facility] IR Moderate Sedation Eval. Date and Time Date: Mar 29, 2019 Time: 12:05 ASA Classification ASA Classification: II-Mild systemic disease Mallampati Score: I NPO: Yes Obstructive Sleep Apnea: No Interval Plan: moderate sedation JASKARAN JO MD Mar 29, 2019 12:05
--- NOTE | 2019-03-29 12:35 | IPNPDOC ---
Text Note Date of Service The patient was seen on 03/29/19. NOTE Subjective: Patient seen at bedside and reports she is less confused today, but her abdominal pain is not well controlled. She is scheduled to have her drain evalu ated and possibly re-adjusted by IR this AM. She denies any chest pain, difficulty breathing, nausea, or vomiting. HPI: Patient is a 53-year-old female with PMHx of Metastatic Endometrial CA, Hx of DVT (currently not on anticoagulation), Hx of Iron deficiency anemia, Hypothyroidism, Depression / Anxiety, who recently was found to have obstructive jaundice and had an external drain placed by interventional radiology on 03/19/2019 and subsequently sent home. Presented to the emergency ro om because she was sent by her oncologist for worsening jaundice and AMS. Emergency room, patient is found to have an elevation of her bilirubin. Hospital services consultation for further evaluation. Objective: Vitals (See below) General: Lying in bed, no acute distress, comfortable, AAOx3 HEENT: normocephalic, atraumatic. CVS: RRR, normal S1 and S2. Lungs: CTAB with diminished breath sounds bilaterally. No wheezes, crackles, or rhonchi. Abdomen: Soft, diffuse tenderness to palpation. Drain in place at RUQ Extremities: Non-pitting edema Assessment and plan: Cholangitis - Re-evaluated by IR, Dr. Espinal this AM. Drain placed on 03/19 for obstructive jaundice. - Gram stain from gallbladder fluid growing gram positive cocci, rods, and many yeast like organism. - Continue with Zosyn (day #4) Bacteremia / Fungemia - possibly 2/2 line infection - 2/2 port - Blood cultures on 03/25: Yeast-like organisms, gram-positive rods, gram stain - Repeat preliminary blood cultures on 03/28 drawn prior to vanc,diflucan initiation show no growth after 24 hours. - Echo is negative for vegetations. - Continue with Zosyn (Day #4), Vancomycin (Day #2), diflucan (Day #2) - Consulting ID to get their input on whether they feel source of infection is secondary to port, if they believe it is, we will get in touch with Dr. Ramirez to take it out and put a new one in. Recommendations appreciated. Normocytic anemia - likely 2/2 iron deficiency anemia and dilutional etiology - s/p 2 units PRBC - Hg stable, will continue to monitor Hyponatremia - Resolved, holding fluids for time being. BEATRICE - likely 2/2 pre-renal etiology - Kidney function continues to improve. Questionable LE swelling - Duplex US BL LE 03/28: There is no ultrasonographic evidence of deep venous thrombosis involving any of the visualized deep venous structures of the bilateral thighs, as described above. Hypothyroidism - Continue Levothyroxine Depression / Anxiety - Continue Buspirone, Escitalopram, Sertraline Chronic pain 2/2 Metastatic endometrial carcinoma - c/w Fentanyl patch, Dilaudid, Gabapentin Endometrial carcinoma - c/w Tamoxifen - Follows with oncology, poor prognosis DVT prophylaxis - c/w Lovenox Prognosis: Poor in the setting of metastatic disease, poorer with concomitant bacterial/fungal infection VS,Fishbone, I+O VS, Fishbone, I+O Laboratory Tests 03/29/19 08:02 Red Blood Count 3.34 L, Mean Corpuscular Volume 85.6, Mean Corpuscular Hemoglobin 27.8, Mean Corpuscular Hemoglobin Concent 32.5, Red Cell Distribution Width 19.6 H, Calcium Level 8.4 L, Aspartate Amino Transf (AST/SGOT) 55 H, Alanine Aminotransferase (ALT/SGPT) 67, Alkaline Phosphatase 212 H, Total Bilirubin 5.1 H, Total Protein 6.2 L, Albumin 1.6 L Vital Signs Date Time Temp Pulse Resp B/P (MAP) Pulse Ox O2 Delivery O2 Flow Rate FiO2 03/29/19 11:54 78 20 99 4 03/29/19 10:43 97.1 03/29/19 10:00 Room Air 03/29/19 09:22 153/71 I&O- Last 24 Hours up to 6 AM 03/29/19 06:00 Intake Total 6355 ml Output Total 1700 ml Balance 4655 ml GME ATTESTATION GME ATTESTATION My faculty preceptor for this patient encounter was physically present during the encounter and was fully available. All aspects of the patient interview, examination, medical decision making process, and medical care plan development were reviewed and approved by the faculty preceptor. The faculty preceptor is aware and concurs with the plan as stated in the body of this note and will attest to such by his/her cosignature. ATTENDING NOTE I, Jatin Qureshi, have independently examined this patient and performed my own physical exam, as well as reviewed the documentation and edited where necessary. I have discussed in detail with the resident / student the findings and plan of treatment as documented by the resident / student and edited their note. I agree with their findings and treatment plan and have edited their documentation. I will continue to follow the patient during this hospital stay. Discussed with infectious disease resident; ID, will be on consultation THEO PACE DO Mar 29, 2019 12:35 JATIN QURESHI MD Mar 29, 2019 15:29
[2019-03-29] MEDS: SODIUM CHLORIDE 0.9% INJ 10 ML SYR XX SCH (13:07)
--- NOTE | 2019-03-29 13:08 | POST-OPPD ---
Postoperative Procedure Note Date Of Procedure: Mar 29, 2019 Time Of Procedure: 13:06 PREOPERATIVE DIAGNOSIS: biliary obstruction malignant POSTOPERATIVE DIAGNOSIS: biliary obstruction malignant FINDINGS: biliary obstruction malignant PROCEDURE: upsize 8 F to 10 F drain for improved drainage and stop leaking at s kin. SURGEON: osmani ANESTHESIA: moderate sedation ESTIMATED BLOOD LOSS: < 5 ml COMPLICATIONS: none POSTOPERATIVE CONDITION: stable JASKARAN JO MD Mar 29, 2019 13:08
[2019-03-29] MEDS: FLUCONAZOLE 200 MG in IV 1 EA IV SCH (13:48)
--- NOTE | 2019-03-29 16:17 | REP ---
IR Biliary catheter exchange. IR moderate sedation. Clinical information: Biliary obstruction. Leaking around current 8F catheter. Procedure: The patient was advised of the benefits, risks and alternatives of the procedure and informed consent was obtained. The time-out was performed with verification of the patient's name, MRN, site of procedure and type of procedure to be performed. The patient was positioned in the supine position on the angiographic table. The site was prepped and draped in the usual sterile fashion. Moderate sedation was performed by the physician including the presence of an independent trained observer who assisted in monitoring the patient's level of consciousness and physiologic status. Following the administration of Fentanyl and Versed, the physician spent 45 minutes of continuous face to face time with the patient. A multimedia programmer radiograph reveals an internal external biliary drainage catheter in expected location. The soft tissues surrounding the catheter insertion site were anesthetized with lidocaine. The sutures securing the catheter was cut. A cholangiogram through the preexisting catheter demonstrates patent catheter. An Amplatz wire was advanced through the catheter into the small bowel. A new 10 F internal external biliary drainage catheter was advanced over the wire under fluoroscopy guidance and positioned with the pigtail in the duodenum. Repeat cholangiogram confirms appropriate location of the distal pigtails and side holes communicating with the intrahepatic bile ducts. The catheter was secured to the skin with 2-0 Prolene. A sterile dressing was applied. The catheter was attached to a gravity drainage bag. The patient tolerated the procedure well and was returned to the PRU in stable condition. EBL: Less than 5 ml. Complications: None. Conclusion: 1. Percutaneous trans hepatic over the wire cholangiogram demonstrates decompressed right hepatic ducts. Some contrast backs up into left hepatic duct. 2. Successful exchange and upsize of internal external biliary drainage catheter to 10 F for better drainage and decrease leaking at skin. Patient to follow up in IR in few weeks for stenting. Thank you this referral. Electronically Signed by Janie Espinal MD 03/29/2019 04:14 P
[2019-03-29 16:44] LABS: BILIRUBIN,DIRECT 4.4 MG/DL (0.0-0.2)
[2019-03-29] MEDS: MICAFUNGIN SODIUM 100 MG in D5W MINI-BAG PLUS 100 ML IV SCH (18:29)
[2019-03-29] MEDS: SERTRALINE 100 MG TAB PO SCH (21:12)
[2019-03-29] MEDS: ESCITALOPRAM OXALATE 5MG TABLET (LEXAPRO) PO SCH (21:12)
[2019-03-30] VITALS (23 sets, daily range): BP systolic 139–166; BP diastolic 62–82; O2SAT 87–97
[2019-03-30] MEDS: PIPERACILLIN/TAZOBACTAM SOD 3.375 GM in D5W MINI-BAG PLUS 50 ML IV SCH ×4 (02:13→20:36)
[2019-03-30 05:52] LABS: HEMATOCRIT 24.8 % (36.0-47.0); MEAN CORPUSCULAR HGB CONC 32.3 g/dl (32.0-36.5); MEAN CORPUSCULAR VOLUME 83.8 fl (80.0-96.0); PLATELET COUNT, AUTOMATED 215 10^3/uL (150-450); RED BLOOD COUNT 2.96 10^6/uL (4.00-5.40)
[2019-03-30 06:11] LABS: ALBUMIN 1.6 GM/DL (3.2-5.2); BILIRUBIN,TOTAL 5.5 MG/DL (0.2-1.0); CALCIUM LEVEL 8.4 MG/DL (8.5-10.1); CREATININE FOR GFR 1.05 MG/DL (0.55-1.30); GLOMERULAR FILTRATION RATE 58.1 (>51); POTASSIUM SERUM 4.4 MEQ/L (3.5-5.1); TOTAL PROTEIN 6.1 GM/DL (6.4-8.2)
[2019-03-30] MEDS: SLF 3 ML SYR IV SCH ×3 (06:14→23:33)
[2019-03-30] MEDS: LEVOTHYROXINE 137MCG TABLET (0.137MG) PO SCH (06:18)
[2019-03-30 06:30] LABS: ANISOCYTOSIS 3+; LYMPHOCYTES 3 % (16-44); MONOCYTES 2 % (0-5); NEUTROPHILS 95 % (28-66); PLATELET ESTIMATE NORMAL (NORMAL)
[2019-03-30] MEDS: GASTROGRAFIN SOLUTION 30ML PO SCH ×2 (06:38→07:22)
[2019-03-30] MEDS ORDERED: ISOVUE-370 76% 100ML VIAL (Q9967) As Ordered ONE (08:10)
[2019-03-30] MEDS: SODIUM CHLORIDE 0.9% INJ 10 ML SYR XX SCH ×2 (08:56→09:36)
[2019-03-30] MEDS: GABAPENTIN 300 MG CAP PO SCH ×4 (09:19→23:32)
[2019-03-30] MEDS: SODIUM CHLORIDE 1 GM TAB PO SCH ×3 (09:19→17:11)
[2019-03-30] MEDS: MEGESTROL 40 MG TAB PO SCH ×2 (09:19→23:31)
[2019-03-30] MEDS: NYSTATIN 500,000 U/5 ML SUSP UDC SS SCH ×4 (09:19→23:31)
[2019-03-30] MEDS: ENOXAPARIN 30 MG/0.3 ML SYR (J1650) SC SCH (09:19)
[2019-03-30] MEDS: busPIRone 5 MG TAB PO SCH ×3 (09:20→23:32)
--- NOTE | 2019-03-30 10:25 | CR ---
DATE OF CONSULTATION: 03/29/2019 REASON FOR CONSULTATION: Port site infection. HISTORY OF PRESENT ILLNESS: This is a 53-year-old female with the pertinent positive medical history of endometrial carcinoma with metastatic recurrence diagnosed early 2017 currently on third line treatment with tamoxifen/megestrol with partial response, multifactorial pneumonia possibly secondary to chemotherapy, requiring transfusions in November 2018, history of biliary obstruction status post external biliary drainage by Dr. Espinal on 03/19/2019, who presented to the emergency room on 03/25/2019 for acute cholangitis and biliary obstruction. Originally, the morning prior to the emergency room, the patient was evaluated by her oncologist and she was complaining of increasing right upper quadrant pain with fatigue, malaise, and intermittent blurred vision. Labs at that time showed that she had an elevated total bilirubin and acute renal failure. It was recommended that the patient was to be evaluated in the emergency room bilirubin was elevated at 6.7 with a leukocytosis of 15.2 and she was started on IV antibiotics Zosyn for suspected cholangitis. She had two blood cultures obtained in the emergency room, which both came back positive for yeast that was reported on 03/28/2019 when she was then started on vancomycin and Diflucan. Infectious disease was then called for recommendations for fungal bacteremia treatment and if her port needs to be removed. PAST MEDICAL HISTORY: 1. Endometrial carcinoma with metastatic recurrence, diagnosed early 2017, FIGO, stage I to II endometrial cancer 2016 treated with surgery and no adjuvant systemic therapy. Currently on third line treatment with alternating tamoxifen/megestrol with partial response. Refractory recurrent ER positive, DE positive. 2. Cancer related pain currently on fentanyl patch prescribed by palliative care, recent dose of 125 mcg every 48 hours. 3. Opiate-related constipation. 4. Multifactorial pneumonia due to prior chemotherapy requiring multiple transfusions as of November 2018. Evidence of iron deficiency gastritis, questionable malignant duodenal mass. 5. L4-5 paraspinal mass status post palliative radiation. 6. Biliary obstruction status post external drain placement by Dr. Espinal on 03/19/2019. 7. Questionable mass on the pancreas. 8. Hypothyroidism. 9. Depression. 10. History of deep venous thrombosis (DVT) in the left lower extremity, currently not on anticoagulation because of procedure. SOCIAL HISTORY: Previous smoker. Currently does not use alcohol or any drugs. Lives with her and daughter. She is currently DO NOT INTUBATE, DO NOT RESUSCITATE, going to palliative care. End of life wishes is hospice and palliative care. FAMILY HISTORY: Positive for diabetes, hypertension, and coronary artery disease in both of her parents. REVIEW OF SYSTEMS: Positive for malaise, fever, abdominal pain, and painless jaundice. The remaining 10-point system is negative. PHYSICAL EXAMINATION: VITALS: Temperature 97.0, pulse 82, respiration rate 18, blood pressure 131/60s (83), pulse ox 95% on room air. GENERAL: This is a 53-year-old female who does not appear in acute distress, slightly tired, laying comfortably in the bed, alert and oriented times three, appropriately answering questions. HEENT: Atraumatic. Normocephalic. Jaundiced sclerae. CARDIOVASCULAR: Regular rate and rhythm. No audible murmurs, rubs or gallops. LUNGS: No audible wheezing, rhonchi or rales but diminished breath sounds due to lack of effort. CHEST: Right chest wall port in place, not infectious. No erythema. No discharge noted. ABDOMEN: Soft, obese abdomen with tenderness on palpation on the right upper quadrant with a drain in place in the right upper quadrant as well. EXTREMITIES: Lower extremity, nonpitting edema bilaterally. No tenderness o palpation of the calf muscles. LABORATORY DATA: WBC 25.1, hemoglobin 9.3, hematocrit 28.6, platelets 191. Chemistries: Sodium 136, potassium 4.2, chloride 110, carbon dioxide 17, BUN 52, creatinine 1.07, fasting glucose 111, calcium 8.4, magnesium 2.3. Total bilirubin 5.1, direct bilirubin 4.4, GGT 268, AST 55, ALT 67, alkaline phosphatase 212 ammonia less than 10. Microbiology: Blood cultures on 03/25/2019 times two positive for yeast-like organism. Blood cultures times three on 03/28/2019 negative for growth at 24 hours. Gallbladder fluid cultures, final report currently pending, positive for Gram positive cocci, Gram positive rods, many yeast-like organisms. Urine culture is negative. Blood bank: Check red blood cells (RBCs), transfused two units. Imaging: Abdominal ultrasound on 03/25/2019 showed sludge stones in the gallbladder without gallbladder wall thickening. Significant biliary dilatation. Common bile duct measures about 18 mm. Mild complex perihepatic fluid. Slight dilatation of the pancreatic duct at 4 mm. Abdominal x-ray shows percutaneous transhepatic biliary drainage catheter in what appears to be good position. There is a collection of peritoneal air lateral to the liver, which would be related to the catheter. Vascular ultrasound of the lower extremities: No evidence of DVT involving any visual deep vein structures of the bilateral thighs. Echocardiogram: 03/28/[address] Clarke showed a normal left ventricular size and wall thickness but moderate depressed global left ventricular systolic function. Mild global hypokinesis but the anterior septum is even more hypokinetic. Estimated ejection of 35-40%. Normal left atrium. Minimally calcified aortic valve. Negative for any endocarditis. Antibiotics: Fluconazole start date 03/28/2019, Zosyn start date 03/25/2019, vancomycin start date 03/28/2019. IMPRESSION: 1. Candidemia possible source the gallbladder Vs Line infection. Recent external biliary drainage placement on 03/19/2019. Possible seeded prior to replacement. The drainage is showing growth of yeast-like organisms, as well as with Gram positive cocci and Gram positive rods. Another possible source is right port for her chemotherapy. Patient has a desire for hospice/ palliative care and not sure she wants removal of line. 2. Acute cholangitis. The patient does have an elevated leukocytosis of 21.5 with a total bilirubin of 5.1, direct bilirubin of 4.4, GGT 268, AST 55 ALT 67. She does have a complaint of right upper quadrant pain even though she has a right percutaneous biliary drainage in place under US guidance. Last CT of the abdomen was done in January. No recent CT imaging to Rule out intarabdominal abscess. 3. The patient does have a history of multifactorial anemia in the past which shows that she has iron deficiency and gastritis history. She is status post two transfusions this admission. PLAN: Discontinue Diflucan. Treatment of choice for candidemia is micafungin 100 mg every 24 hours until Identification of fungus if C. albicans or non albicans. Recommend to continue the vancomycin and Zosyn, deescalate antibodies pending culture sensitivities. Because of increasing abdominal pain, I would recommend getting CT of abdomen with contrast to rule out an abscess. Because the patient is positive for candidemia in the blood, recommendations do include removal of all lines, including infusaport placement. Because of the patient's end of life goal is hospice, palliative care and her sister's decision to keep the port placed in, if the white count increasingly gets worse or does not improve, will need re consider removing the port for it is the recommendation for any fungal infection. Also recommendation is to have dilated fundal exam of the eyes to rule out endophthalmitis. We will continue to follow the patient while she is admitted. Thank you for this consultation. JESSIE
[2019-03-30] MEDS: VANCOMYCIN HCL 1,000 MG, VIAL MATE ADAPTER 1 EACH in D5W 250 ML IV SCH ×2 (10:39→23:33)
--- NOTE | 2019-03-30 12:10 | IPNPDOC ---
Text Note Date of Service The patient was seen on 03/30/19. NOTE Patient seen at bedside and is complaining of increased "fogginess". She feels like she has a difficult time thinking clearly. I had discussion with her about her goals of therapy and her only goal is to be able to get well enough to spend some more time with her grandchildren. Her sister Felicitas, the health care proxy, spoke with infectious disease service yesterday and expressed she does not want the port removed regardless of whether or not it is serving as a source of the yeast infection in her blood since the patient's ultimate end of life goal at this time is for hospice and palliative care. HPI: Patient is a 53-year-old female with PMHx of Metastatic E ndometrial CA, Hx of DVT (currently not on anticoagulation), Hx of Iron deficiency anemia, Hypothyroidism, Depression / Anxiety, who recently was found to have obstructive jaundice and had an external drain placed by interventional radiology on 03/19/2019 and subsequently sent home. Presented to the emergency room because she was sent by her oncologist for worsening jaundice and AMS. Emergency room, patient is found to have an elevation of her bilirubin. Hospital services consultation for further evaluation. Objective: Vitals (See below) General: Sick appearing female, in no acute distress, with eyes closed, comfortable, AOx3 HEENT: normocephalic, atraumatic. Icteric sclera. CVS: RRR, normal S1 and S2. Lungs: CTAB with diminished breath sounds bilaterally. No wheezes, crackles, or rhonchi. Abdomen: Soft, diffuse tenderness to palpation. Drain in place in RUQ Extremities: Non-pitting edema Neuro: asterixis noted. Skin: jaundiced skin. Assessment and plan: Cholangitis - Re-evaluated by Dr. Espinal with IR on 03/29. He replaced 8F for 10F drain. Drain initially placed on 03/19 for obstructive jaundice. - Gram stain from gallbladder fluid growing gram positive cocci, rods, and many yeast like organism. Zosyn day 5 Bacteremia / Fungemia - possibly 2/2 line infection - 2/2 port - Blood cultures on 03/25: Yeast-like organisms, gram-positive rods, gram stain - Repeat preliminary blood cultures on 03/28 drawn prior to vanc,diflucan initiation show no growth. - Echo is negative for vegetations. - Continue with Zosyn (Day #4), Vancomycin (Day #2), micafungin (Day #1, antifungal day 3) - ID consulted, recommendations appreciated, they have changed diflucan to micafungin. Currently no plans to remove port although that is ID's recommendation if the infection fails to resolve. They have also placed an order for a CT abd/pelvis to rule out the possibility of an abscess. Depending on the results of this it may alter our decision making as an abscess would require further invasive intervention that the patient may not want. Planning to have meeting with family after results of CT to clarify patients wishes and see, if she is able to get through this admission, if she would like to de-escalate care and enter hospice. Given Dr. Ospina most recent notes indicating extensive metastatic disease and the patient's recent infections, her prognosis is quite poor. Hyperbilirubinemia - Asterixis and jaundice on exam with increased mental clarity per the patient. We will check an ammonia level. Last one drawn on 03/28 was negative. Normocytic anemia - likely 2/2 iron deficiency anemia and dilutional etiology - s/p 2 units PRBC - Hg stable, will continue to monitor Hyponatremia - Resolved BEATRICE - likely 2/2 pre-renal etiology - Kidney function continues to improve. Questionable LE swelling - Duplex US BL LE 03/28: There is no ultrasonographic evidence of deep venous thrombosis involving any of the visualized deep venous structures of the bilateral thighs, as described above. Hypothyroidism - Continue Levothyroxine Depression / Anxiety - Continue Buspirone, Escitalopram, Sertraline Chronic pain 2/2 Metastatic endometrial carcinoma - c/w Fentanyl patch, Dilaudid, Gabapentin Endometrial carcinoma - c/w Tamoxifen - Follows with oncology DVT prophylaxis - c/w Lovenox Prognosis: poor VS,Fishbone, I+O VS, Fishbone, I+O Laboratory Tests 03/30/19 05:32 Red Blood Count 2.96 L, Mean Corpuscular Volume 83.8, Mean Corpuscular Hemoglobin 27.0, Mean Corpuscular Hemoglobin Concent 32.3, Red Cell Distribution Width 19.5 H, Calcium Level 8.4 L, Aspartate Amino Transf (AST/SGOT) 65 H, Alanine Aminotransferase (ALT/SGPT) 70, Alkaline Phosphatase 203 H, Total Renzo irubin 5.5 H, Total Protein 6.1 L, Albumin 1.6 L Vital Signs Date Time Temp Pulse Resp B/P (MAP) Pulse Ox O2 Delivery O2 Flow Rate FiO2 03/30/19 11:00 93 Nasal Cannula 1.0 03/30/19 08:00 97.0 89 18 162/77 (105) I&O- Last 24 Hours up to 6 AM 03/30/19 06:00 Intake Total 620 ml Output Total 1110 ml Balance -490 ml GME ATTESTATION GME ATTESTATION I saw and evaluated the patient. I agree with the findings and plan of care as documented in the above note THEO PACE DO Mar 30, 2019 12:10 SAMMY DE LEON MD Apr 05, 2019 14:16
--- NOTE | 2019-03-30 12:18 | REP ---
CT of the abdomen and pelvis with IV and oral contrast: Comparisons are 02/27/2019 and 01/22/2019. There are bibasilar diffuse infiltrates throughout the visualized lower lung rosas as a change from both prior studies. No pleural effusions are identified. There has been interval for placement of a percutaneous biliary drainage catheter. The distal pigtail of the drainage catheter is adjacent to a 2.0 cm fluid collection in the region of the pancreatic uncinate process and transverse duodenum. The mass like fluid collection was identified in this area on 02/27/2019 that measured 3.6 cm. This fluid collection is of uncertain significance and could represent fluid within the duodenal loop, duodenal loop wall cyst or uncinate pancreatic process cyst. There is pneumobilia as a consequence of the drainage catheter placement. There is a large subcapsular confluent fluid collection surrounding the right lobe of the liver, not present previously. There is a large air-fluid level within the nondependent portion of this subcapsular fluid collection. This could represent sub capsular hematoma or abscess. The body and tail of the pancreas and spleen are unremarkable. The adrenals and kidneys are unremarkable. There are aortocaval nodes adjacent to the posterior wall of the transverse duodenum, not significantly changed. There is a right iliopsoas mass, not significantly changed. No bony destructive change along the right lateral margin of the L5 vertebral body is unchanged. Sclerotic changes are again identified in the left sacral wing and posteriorly in the left iliac wing. There is soft tissue density adjacent to these areas along the left pelvic sidewall. This is unchanged. The bilateral L5 pars interarticularis defects are unchanged. Small of ascites in the pelvis. Dependent edema in the subcutaneous soft tissues. Impression: There are diffuse bilateral lower lobe infiltrates as an interval change. No pleural effusion. Interval placement of a percutaneous biliary drainage catheter. There is a new large subcapsular fluid collection surrounding the right lobe of the liver. There is an air-fluid level in the nondependent portion of this fluid collection. This could represent hematoma or abscess.. This was not present previously. There is pneumobilia. Small fluid collection adjacent to the pigtail of the distal biliary drainage catheter, decreased in size from 02/27/2019. This is nonspecific and could represent a cyst in the duodenal wall or a cyst in the pancreatic uncinate process or a duodenal intraluminal fluid collection. The aortocaval adenopathy is unchanged. The sclerotic changes in the left iliac wing and left sacral wing are unchanged. The soft tissue density adjacent to the sclerotic areas is unchanged. There is a small volume of ascites in the pelvis. There is end edema in the subcutaneous soft tissues. Electronically Signed by Martin Lezama MD 03/30/2019 12:08 P
[2019-03-30] MEDS ORDERED: FLUCONAZOLE 200 MG in IV 1 EA IV SCH (13:00)
[2019-03-30] MEDS: HYDROmorphone (DILAUDID) 4 MG TAB PO PRN (13:43)
[2019-03-30] MEDS: MICAFUNGIN SODIUM 100 MG in D5W MINI-BAG PLUS 100 ML IV SCH (17:12)
--- NOTE | 2019-03-30 21:52 | IPN ---
DATE OF SERVICE: 03/30/2019 Medical oncology inpatient followup. DIAGNOSIS: Metastatic ER/OH positive, PDL1 high endometrial carcinoma with retroperitoneal, pelvic, and biopsy confirmed lung metastases with discordant response to most recent treatment, including progressive left upper lobe mass in the setting of stable pelvic disease. Most treatment, third line palliative combination tamoxifen and megestrol, now hospitalized with biliary obstruction, progressive mass versus phlegmon versus infection status post biliary stent followed by a replacement stent after developing fever. To date no definitive malignancy tissue diagnosis from the biliary obstructing process. Nilsa is lying in bed, somnolent, responds to voice, makes no complaint, obviously jaundiced, bilirubin today 5.5. She is here with her mother and . They asked about her prognosis, whether they should undergo stent replacement, whether it is worth it to do the procedures that have been outlined apparently as an effort to drain a fluid collection involving the liver area. Most recent abdomen and pelvis CT today shows diffuse bilateral lower lobe infiltrate. No pleural effusion. Presence of percutaneous biliary drainage catheter. A new large subcapsular fluid collection surrounding the right liver lobe with an air-fluid level. Hematoma versus abscess new. A small fluid collection is adjacent to the pigtail of the distal biliary drainage catheter, decreased versus 02/27/2019, nonspecific. Aortocaval adenopathy unchanged and sclerotic left iliac and soft tissue density left pelvic foci unchanged. Blood cultures have grown out yeast identified as Corynebacterium. LABORATORY DATA: WBC 26, hemoglobin 8, hematocrit 25, platelets 215, bilirubin 5.5, alkaline phosphatase 203, ammonia undetectable. Electrolytes unremarkable. Albumin 1.6. IMPRESSION: Metastatic endometrial carcinoma with progression through three optimal lines of therapy including carboplatin/taxol, pembrolizumab and most recently tamoxifen and megestrol. Stable pelvic disease, lung progression. new biliary obstructive process, neoplasm suspected, but biopsies to date negative. The issue is whether all of Nilsa's current problems are related to her cancer or whether she has a separate either malignant or nonmalignant biliary obstructing process. The family expressed interest in knowing what her overall prognosis is today. Nilsa was unable to stay alert enough during the conversation to participate. If she has a primary biliary malignancy causing the obstruction with an infected stent, her overall prognosis both short and intermediate term, is poor. If this is a metastatic focus of endometrial cancer involving the biliary area, this would also argue for a highly aggressive metastatic process, auguring poor prognosis. During approximately 2 years of observation, Nilsa has not developed new metastatic foci of disease but rather progression at known lung sites. The biliary tree would be a rare site for endometrial cancer to metastasize to. It is not impossible but rare. A second, primary biliary malignancy would also be rare. In answer to the family's questions, I was unable to tell them definitively that her current biliary obstruction is related to her cancer. Unfortunately, she is clinically in a very tenuous situation now with yeast / fungal sepsis. She is on fairly low doses of opioids at this point with Fentanyl patch 25 mcg, but even with this quite somnolent and perhaps a wean down from opioids is needed to help her respond better and help make decisions. PLAN: 1. I will speak with Drs. Espinal and Kim in the morning. I have also conferred with Dr. Triston rodríguez. The goal is to help the patient survive acute discomfort and also make decisions about long-term treatment. Her endometrial cancer is metastatic and therefore her long-term prognosis is poor and untreated she likely has less than 6 months life expectancy based on the known metastatic sites by themselves. If she has a second, biliary primary malignancy causing her current troubles, her life expectancy is equally short, possibly well below 6 months. Will follow. ROBERTOD
[2019-03-30] MEDS: SERTRALINE 100 MG TAB PO SCH (23:31)
[2019-03-30] MEDS: ESCITALOPRAM OXALATE 5MG TABLET (LEXAPRO) PO SCH (23:32)
[2019-03-31] VITALS (22 sets, daily range): BP systolic 122–160; BP diastolic 58–80; O2SAT 90–97
[2019-03-31] MEDS: PIPERACILLIN/TAZOBACTAM SOD 3.375 GM in D5W MINI-BAG PLUS 50 ML IV SCH ×4 (02:57→20:11)
[2019-03-31 05:20] LABS: HEMATOCRIT 23.3 % (36.0-47.0); HEMOGLOBIN 7.4 g/dl (12.0-15.5); MEAN CORPUSCULAR HEMOGLOBIN 27.6 pg (27.0-33.0); MEAN CORPUSCULAR HGB CONC 31.8 g/dl (32.0-36.5); MEAN CORPUSCULAR VOLUME 86.9 fl (80.0-96.0); PLATELET COUNT, AUTOMATED 250 10^3/uL (150-450); RED BLOOD COUNT 2.68 10^6/uL (4.00-5.40); WHITE BLOOD COUNT 17.2 10^3/uL (4.0-10.0)
[2019-03-31 05:51] LABS: LYMPHOCYTES 3 % (16-44); METAMYELOCYTES 1 % (0-0); MONOCYTES 2 % (0-5); MYELOCYTES 1 % (0-0); NEUTROPHILS 93 % (28-66); PLATELET ESTIMATE NORMAL (NORMAL)
[2019-03-31 05:52] LABS: ANISOCYTOSIS 2+; HYPOCHROMASIA 1+
[2019-03-31 05:54] LABS: ALBUMIN 1.5 GM/DL (3.2-5.2); ALT/SGPT 73 U/L (12-78); BILIRUBIN,TOTAL 4.6 MG/DL (0.2-1.0); BLOOD UREA NITROGEN 32 MG/DL (7-18); CALCIUM LEVEL 8.3 MG/DL (8.5-10.1); CARBON DIOXIDE LEVEL 17 MEQ/L (21-32); CHLORIDE LEVEL 110 MEQ/L (98-107); CREATININE FOR GFR 0.93 MG/DL (0.55-1.30); GLOMERULAR FILTRATION RATE > 60.0 (>51); GLUCOSE, FASTING 109 MG/DL (70-100); POTASSIUM SERUM 4.2 MEQ/L (3.5-5.1); SODIUM LEVEL 137 MEQ/L (136-145)
[2019-03-31] MEDS: SLF 3 ML SYR IV SCH ×3 (05:58→22:35)
[2019-03-31] MEDS: LEVOTHYROXINE 137MCG TABLET (0.137MG) PO SCH (06:13)
[2019-03-31] MEDS: HYDROmorphone (DILAUDID) 4 MG TAB PO PRN ×2 (07:37→18:57)
[2019-03-31] MEDS: NYSTATIN 500,000 U/5 ML SUSP UDC SS SCH ×4 (09:26→21:13)
[2019-03-31] MEDS: ENOXAPARIN 30 MG/0.3 ML SYR (J1650) SC SCH (09:26)
[2019-03-31] MEDS: fentaNYL 25 MCG/HR PATCH TD SCH (09:27)
[2019-03-31] MEDS: MEGESTROL 40 MG TAB PO SCH ×2 (09:28→21:12)
[2019-03-31] MEDS: SODIUM CHLORIDE 0.9% INJ 10 ML SYR XX SCH (09:29)
[2019-03-31] MEDS: GABAPENTIN 300 MG CAP PO SCH ×4 (09:29→21:13)
[2019-03-31] MEDS: busPIRone 5 MG TAB PO SCH ×3 (09:29→21:12)
[2019-03-31] MEDS: SODIUM CHLORIDE 1 GM TAB PO SCH ×3 (09:29→17:00)
[2019-03-31] MEDS: FENTANYL REMOVAL DOCUMENTATION MISC XX SCH (10:12)
[2019-03-31] MEDS: VANCOMYCIN HCL 1,000 MG, VIAL MATE ADAPTER 1 EACH in D5W 250 ML IV SCH ×2 (10:21→21:13)
[2019-03-31] MEDS: MICAFUNGIN SODIUM 100 MG in D5W MINI-BAG PLUS 100 ML IV SCH (17:00)
--- NOTE | 2019-03-31 18:47 | IPNPDOC ---
Text Note Date of Service The patient was seen on 03/31/19. NOTE Patient reports she feels significantly less confused today and does not [place] m[place] many of the conversations she had yesterday with her sister, , and Dr. Ospina. This morning she reports her mental clarity and abdominal pain are significantly improved. Discussions were had with myself, Dr. Gonzales, and Dr. De Leon about her goals and wishes moving forward and she has decided not to pursue further aggressive interventions. HPI: Patient is a 53-year-old female with PMHx of Metastatic Endometrial CA, Hx of DVT (currently not on anticoagulation), Hx of Iron deficiency anemia, Hypothyroidism, Depression / Anxiety, who recently was found to have obstructive jaundice and had an external drain placed by interventional radiology on 03/19/2019 and subsequently sent home. Presented to the emergency room because she was sent by her oncologist for worsening jaundice and AMS. Emergency room, patient is found to have an elevation of her bilirubin. Hospital services consultation for further evaluation. Objective: Vitals (See below) General: Sick appearing female, in no acute distress, patient appears comfortable and is significantly more alert than days prior. HEENT: normocephalic, atraumatic. Icteric sclera. CVS: RRR, normal S1 and S2. Lungs: CTAB with diminished breath sounds bilaterally. No wheezes, crackles, or rhonchi. Abdomen: Soft, minimally tender to palpation in RUQ. Drain in place in RUQ with fluid draining into catheter bag. Extremities: Non-pitting edema Neuro: Alert and oriented, no asterixis noted on exam. Skin: jaundiced skin. Assessment and plan: Patient spoke with myself, Dr. Gonzales, and Dr. De Leon and ultimately elected that she does not wish to pursue further or more aggressive care. A hospice consult has been placed and will be by to see her later today. construction services technician has consulted hospice team and they are waiting to get in touch with the for a sit down meeting to discuss her wishes. Will continue medications for the time being. Patient's overall prognosis is poor even if she is able to recover from this acute illness, her expected life expectancy is less than 6 months. Cholangitis - Re-evaluated by Dr. Espinal with IR on 03/29. He replaced 8F for 10F drain. Drain initially placed on 03/19 for obstructive jaundice. - Gram stain from gallbladder fluid growing gram positive cocci, rods, and many yeast like organism. Zosyn day 6. Bacteremia / Fungemia - possibly 2/2 line infection - 2/2 port - Blood cultures on 03/25: Yeast-like organisms, gram-positive rods, gram stain - Repeat preliminary blood cultures on 03/28 drawn prior to vanc,diflucan initiation show no growth. - Echo is negative for vegetations. - Continue with Zosyn (Day #6), Vancomycin (Day #3), micafungin (Day #2, antifungal day 4) - ID consulted, recommendations appreciated, they have changed diflucan to micafungin. Currently no plans to remove port although that is ID's recommendation if the infection fails to resolve. CT abd/pelvis showing new large subscapular fluid collection surrounding the right lobe of the liver that could represent hematoma or abscess. This could potentially represent some of the fluid that has been drained. May consider reaching out to Dr. Fang for his input into the situation. However, given that the patient is improving clini rita, I suspect that an abscess is less likely. Hyperbilirubinemia -Improving. We suspect this is secondary to increased drainage since changing out the catheter. Normocytic anemia - likely 2/2 iron deficiency anemia and dilutional etiology - s/p 2 units PRBC, hgb has continued to trend down and was 7.4 today. Will transfuse if <7. BEATRICE - likely 2/2 pre-renal etiology -Resolved. Questionable LE swelling - Duplex US BL LE 03/28: negative Hypothyroidism - Continue Levothyroxine Depression / Anxiety - Continue Buspirone, Escitalopram, Sertraline Chronic pain 2/2 Metastatic endometrial carcinoma - Continue Fentanyl patch, Dilaudid, Gabapentin Endometrial carcinoma - Continue with Tamoxifen - Follows with oncology DVT prophylaxis - Lovenox VS,Fishbone, I+O VS, Fishbone, I+O Laboratory Tests 03/31/19 04:54 Red Blood Count 2.68 L, Mean Corpuscular Volume 86.9, Mean Corpuscular Hemoglobin 27.6, Mean Corpuscular Hemoglobin Concent 31.8 L, Red Cell Distribution Width 19.9 H, Calcium Level 8.3 L, Aspartate Amino Transf (AST/SGOT) 63 H, Alanine Aminotransferase (ALT/SGPT) 73, Alkaline Phosphatase 189 H, Total Bilirubin 4.6 H, Total Protein 6.0 L, Albumin 1.5 L Vital Signs Date Time Temp Pulse Resp B/P (MAP) Pulse Ox O2 Delivery O2 Flow Rate FiO2 03/31/19 16:00 94 Room Air 03/31/19 16:00 96.8 104 18 122/58 (79) 03/31/19 06:00 1.0 I&O- Last 24 Hours up to 6 AM 03/31/19 06:00 Intake Total 1590 ml Output Total 1400 ml Balance 190 ml GME ATTESTATION GME ATTESTATION I saw and evaluated the patient. I agree with the findings and plan of care as documented in the above note THEO PACE DO Mar 31, 2019 18:47 SAMMY DE LEON MD Apr 05, 2019 14:16
[2019-03-31] MEDS: ESCITALOPRAM OXALATE 5MG TABLET (LEXAPRO) PO SCH (21:12)
[2019-03-31] MEDS: SERTRALINE 100 MG TAB PO SCH (21:13)
[2019-04-01] VITALS (28 sets, daily range): BP systolic 123–164; BP diastolic 60–84; O2SAT 89–96
[2019-04-01] MEDS: PIPERACILLIN/TAZOBACTAM SOD 3.375 GM in D5W MINI-BAG PLUS 50 ML IV SCH ×4 (02:04→20:30)
[2019-04-01 05:51] LABS: BASO % 0.1 % (0.0-1.0); EOS # 0.3 10^3/uL (0.0-0.5); EOS % 2.1 % (0.0-3.0); HEMATOCRIT 22.4 % (36.0-47.0); LYMPH # 1.1 10^3/uL (1.5-5.0); LYMPH % 7.1 % (24.0-44.0); MEAN CORPUSCULAR HEMOGLOBIN 26.9 pg (27.0-33.0); MEAN CORPUSCULAR HGB CONC 31.3 g/dl (32.0-36.5); MEAN CORPUSCULAR VOLUME 86.2 fl (80.0-96.0); MONO # 0.4 10^3/uL (0.0-0.8); MONO % 2.5 % (0.0-5.0); NEUTROPHILS # 12.6 10^3/uL (1.5-8.5); NEUTROPHILS % 83.6 % (36.0-66.0); PLATELET COUNT, AUTOMATED 289 10^3/uL (150-450); WHITE BLOOD COUNT 15.1 10^3/uL (4.0-10.0)
[2019-04-01] MEDS: LEVOTHYROXINE 137MCG TABLET (0.137MG) PO SCH (05:53)
[2019-04-01] MEDS: SLF 3 ML SYR IV SCH ×3 (05:53→20:31)
[2019-04-01 06:22] LABS: ALBUMIN 1.5 GM/DL (3.2-5.2); ALT/SGPT 63 U/L (12-78); BLOOD UREA NITROGEN 25 MG/DL (7-18); CALCIUM LEVEL 8.3 MG/DL (8.5-10.1); CARBON DIOXIDE LEVEL 18 MEQ/L (21-32); CHLORIDE LEVEL 110 MEQ/L (98-107); CREATININE FOR GFR 0.98 MG/DL (0.55-1.30); GLOMERULAR FILTRATION RATE > 60.0 (>51); GLUCOSE, FASTING 97 MG/DL (70-100); POTASSIUM SERUM 4.3 MEQ/L (3.5-5.1); SODIUM LEVEL 137 MEQ/L (136-145)
[2019-04-01] MEDS: MEGESTROL 40 MG TAB PO SCH ×2 (09:01→20:30)
[2019-04-01] MEDS: NYSTATIN 500,000 U/5 ML SUSP UDC SS SCH ×4 (09:01→20:30)
[2019-04-01] MEDS: busPIRone 5 MG TAB PO SCH ×3 (09:01→20:30)
[2019-04-01] MEDS: GABAPENTIN 300 MG CAP PO SCH ×4 (09:01→20:30)
[2019-04-01] MEDS: ENOXAPARIN 30 MG/0.3 ML SYR (J1650) SC SCH (09:02)
[2019-04-01] MEDS: SODIUM CHLORIDE 1 GM TAB PO SCH ×3 (09:02→17:01)
[2019-04-01] MEDS: VANCOMYCIN HCL 1,000 MG, VIAL MATE ADAPTER 1 EACH in D5W 250 ML IV SCH (09:02)
[2019-04-01] MEDS: fentaNYL 100 MCG/HR PATCH TD SCH (09:03)
[2019-04-01] MEDS: SODIUM CHLORIDE 0.9% INJ 10 ML SYR XX SCH (09:03)
--- NOTE | 2019-04-01 11:36 | IPNPDOC ---
Text Note Date of Service The patient was seen on 04/01/19. NOTE Patient reports she is feeling well today. She has yet to discuss her recent wishes with all of her family and would like the medical team to meet with her sister, Felicitas, and her to go over the MOLST form later today around 14:30. HPI: Patient is a 53-year-old female with PMHx of Metastatic Endometrial CA, Hx of DVT (currently not on anticoagulation), Hx of Iron deficiency anemia, Hypothyroidism, Depression / Anxiety, who recently was found to have obstructive jaundice and had an external drain placed by interventional radiology on 03/19/2019 and subsequently sent home. Presented to the emergency room because she was sent by her oncologist for worsening jaundice and AMS. Emergency room, patient is found to have an elevation of her bilirubin. Hospital services consultation for further evaluation. Objective: Vitals (See below) General: Sick appearing female, in no acute distress, patient appears comfortable and is significantly more alert than days prior. HEENT: normocephalic, atraumatic. Icteric sclera. CVS: RRR, normal S1 and S2. Lungs: CTAB with diminished breath sounds bilaterally. No wheezes, crackles, or rhonchi. Abdomen: Soft, minimally tender to palpation in RUQ. Drain in place in RUQ with fluid draining into catheter bag. Extremities: Non-pitting edema Neuro: Alert and oriented, no asterixis noted on exam. Skin: jaundiced skin. Assessment and plan: Medical team will meet with family this afternoon to go over MOLST form. Hospice will likely see patient after that or tomorrow. Update: Myself, Dr. Gonzales, and Dr. De Leon met with patient, , and sisters Felicitas and Lulú. We again discussed the patient's options moving forward from full code/intervention, DNR/DNI with limited medical intervention, and hospice care. The patient is leaning toward hospice status at this point, but wants some more time to think about it and discuss her options with her family. We informed them that we would be available to answer any questions moving forward. Patient and family verbalized understanding and agreement. Patient's prognosis is poor. Cholangitis - Re-evaluated by Dr. Espinal with IR on 03/29. He replaced 8F for 10F drain. Drain initially placed on 03/19 for obstructive jaundice. - Gram stain from gallbladder fluid growing heavy amounts of yeast like orga nism, moderate amounts of corynebacterium species, and moderate staph epidermidis. Zosyn day 7. Bacteremia / Fungemia - possibly 2/2 line infection - 2/2 port - Blood cultures on 03/25: Yeast-like organisms, gram-positive rods, gram stain - Repeat preliminary blood cultures on 03/28 drawn prior to vanc, diflucan initiation show no growth. - Echo is negative for vegetations. - Continue with Zosyn (Day #7), Vancomycin (Day #4), micafungin (Day #3, antifungal day 5) - ID consulted, recommendations appreciated, they have changed diflucan to micafungin. Currently no plans to remove port although that is ID's recommendation if the infection fails to resolve. CT abd/pelvis showing new large subscapular fluid collection surrounding the right lobe of the liver that could represent hematoma or abscess. This could potentially represent some of the fluid that has been drained. May consider reaching out to Dr. Fang for his input into the situation. However, given that the patient is improving clinically, I suspect that an abscess is less likely. Hyperbilirubinemia -Improving. We suspect this is secondary to increased drainage since changing out the catheter. Normocytic anemia - likely 2/2 iron deficiency anemia and dilutional etiology - s/p 2 units PRBC, hgb has continued to trend down and was 7.4 today. Will transfuse if <7. BEATRICE - likely 2/2 pre-renal etiology -Resolved. Questionable LE swelling - Duplex US BL LE 03/28: negative Hypothyroidism - Continue Levothyroxine Depression / Anxiety - Continue Buspirone, Escitalopram, Sertraline Chronic pain 2/2 Metastatic endometrial carcinoma - Continue Fentanyl patch, Dilaudid, Gabapentin Endometrial carcinoma - Continue with Tamoxifen - Follows with oncology DVT prophylaxis - Lovenox VS,Fishbone, I+O VS, Fishbone, I+O Laboratory Tests 04/01/19 05:24 Red Blood Count 2.60 L, Mean Corpuscular Volume 86.2, Mean Corpuscular Hemoglobin 26.9 L, Mean Corpuscular Hemoglobin Concent 31.3 L, Red Cell Distribution Width 20.5 H, Neutrophils (%) (Auto) 83.6 H, Lymphocytes (%) (Auto) 7.1 L, Monocytes (%) (Auto) 2.5, Eosinophils (%) (Auto) 2.1, Basophils (%) (Auto) 0.1, Neutrophils # (Auto) 12.6 H, Lymphocytes # (Auto) 1.1 L, Monocytes # (Auto) 0.4, Eosinophils # (Auto) 0.3, Basophils # (Auto) 0.0, Calcium Level 8.3 L, Aspartate Amino Transf (AST/SGOT) 42 H, Alanine Aminotransferase (ALT/SGPT) 63, Alkaline Phosphatase 159 H, Total Bilirubin 4.0 H, Total Protein 6.0 L, Alb umin 1.5 L Vital Signs Date Time Temp Pulse Resp B/P (MAP) Pulse Ox O2 Delivery O2 Flow Rate FiO2 04/01/19 10:00 92 Room Air 04/01/19 09:33 20 04/01/19 07:58 96.9 74 123/60 (81) 03/31/19 06:00 1.0 I&O- Last 24 Hours up to 6 AM 04/01/19 06:00 Intake Total 1310 ml Output Total 1125 ml Balance 185 ml GME ATTESTATION GME ATTESTATION I saw and evaluated the patient. I agree with the findings and plan of care as documented in the above note THEO PACE DO Apr 01, 2019 11:36 SAMMY DE LEON MD Apr 05, 2019 14:16
[2019-04-01] MEDS: HYDROmorphone (DILAUDID) 4 MG TAB PO PRN (13:15)
[2019-04-01] MEDS: MICAFUNGIN SODIUM 100 MG in D5W MINI-BAG PLUS 100 ML IV SCH (17:01)
--- NOTE | 2019-04-01 19:43 | IPN ---
DATE: 04/01/2019 She is doing slightly better today. She is not lethargic. The patient family asked to see infectious disease team so I came to visit her. They would like to Ugalde catheter removed according to the patient's wishes. This two sisters are present at the bedside when of the older sister is healthcare proxy along with the who I agree with that removal of the Ugalde catheter. She complains of pain in the right upper quadrant. No fever or chills. Mild nausea but no vomiting. Blood culture 03/28 was still positive for yeast. Gallbladder culture had yeast growing bacterium and staph epidermidis. Blood cultures from 03/25 had Kourtney albicans in three separate cultures. Urine culture was negative. PHYSICAL EXAMINATION: Sick looking jaundice female in no acute distress, lethargic. Temperature is 96.7, pulse 81, respirations 18, blood pressure 138/768, O2 sat 94% on room air. Heart: Normal S1-S2. No murmurs, rubs or gallops. Lungs: Diminished breath sounds at the bases with review of pleuritic pain on inspiration. Abdomen: Soft, tender in the right upper quadrant. There is a drain in the right upper quadrant with bilious drainage. Oropharynx dry mucosa. Extremities, +2 pitting edema. LABORATORY DATA: White count is 15.1 down from 25 hemoglobin 7, hematocrit 22.4, platelets 289, 83% neutrophils, 7% lymphocytes, 2% monocytes. Sodium 137, potassium 4.3, chloride 110, bicarb 18, BUN 25, creatinine 0.98, glucose 97, calcium 8.3, bilirubin 4, down from 5.1 with direct bilirubin of 4.4 4.4, GGT of 268, AST 42, ALT 63, alk phos 159, albumin 1.5. Vancomycin trough was 3.1. Gallbladder fluid had yeastlike organism Corynebacterium species Epidermidis anaerobic cultures were negative. MEDICATIONS: Micafungin 100 mg every 24 hours currently day number 4, Vancomycin and 1 gram IV every 12 hours and Zosyn. IMAGING STUDIES: CT abdomen and pelvis done 03/30 shows diffuse bilateral lower infiltrate. No pleural effusion and a percutaneous biliary drainage catheter in a new large subcapsular fluid collection surrounding the right lobe of the liver. This could represent hematoma or abscess, not resent previously. The fluid collection present at the pigtail with the distal biliary drainage has decreased size. Sclerotic changes in the left iliac wing and left sacral wing are unchanged and soft tissue density adjacent is unchanged. IMPRESSION: 1. Kourtney albicans sepsis from most likely port infection. Patient with persistent candidemia and therefore I would recommend removal of Ugalde. The patient can transition to fluconazole orally. This is the family's wishes to try to be more aggressive and remove the Ugalde. 2. Next, obstructive jaundice from endometrial cancer status post drainage procedure. 3. Metastatic endometrial carcinoma with a nursing home prognosis of being very poor with less than 6 month life expectancy, mets to the bone. PLAN: 1. Per patient wishes and family members is to remove the Ugalde catheter and she could be switched to oral fluconazole if she does not have an IV access. Discontinue vancomycin. The staph epidermidis and Corynebacterium are less likely to be pathogens contributing to the infection. 2. Subcapsular collection around the liver may need drainage if this is the family wishes. May obtain followup ultrasound in the morning and drainage procedure if that is her wishes as the patient has persistent right upper quadrant pain. No matter what we do the patient's prognosis is very poor but at this point the sisters seem to be managing and dictating to her what she would like done by saying yes to what the sisters would like. I would suggest consulting Dr. Capone in the morning to remove the Ugalde. If peripheral IV cannot be obtained switch her to fluconazole 400 mg daily. And if wished by the family drain the of fluid collection around the liver to make sure it is not infectious. Obtain ultrasound guided aspiration
[2019-04-01] MEDS: ESCITALOPRAM OXALATE 5MG TABLET (LEXAPRO) PO SCH (20:30)
[2019-04-01] MEDS: SERTRALINE 100 MG TAB PO SCH (20:30)
[2019-04-02] VITALS (23 sets, daily range): BP systolic 130–157; BP diastolic 60–82; O2SAT 85–98
[2019-04-02] MEDS: PIPERACILLIN/TAZOBACTAM SOD 3.375 GM in D5W MINI-BAG PLUS 50 ML IV SCH ×2 (02:00→09:03)
[2019-04-02] MEDS: HYDROmorphone (DILAUDID) 4 MG TAB PO PRN (02:17)
[2019-04-02] MEDS: LEVOTHYROXINE 137MCG TABLET (0.137MG) PO SCH (05:26)
[2019-04-02] MEDS: SLF 3 ML SYR IV SCH ×3 (05:27→21:48)
[2019-04-02 06:24] LABS: HEMATOCRIT 22.4 % (36.0-47.0); MEAN CORPUSCULAR HEMOGLOBIN 27.3 pg (27.0-33.0); MEAN CORPUSCULAR HGB CONC 31.3 g/dl (32.0-36.5); MEAN CORPUSCULAR VOLUME 87.5 fl (80.0-96.0); PLATELET COUNT, AUTOMATED 285 10^3/uL (150-450); RED BLOOD COUNT 2.56 10^6/uL (4.00-5.40); WHITE BLOOD COUNT 15.7 10^3/uL (4.0-10.0)
[2019-04-02] MEDS ORDERED: FLUCONAZOLE 100 MG TAB PO SCH (09:00)
[2019-04-02] MEDS: SODIUM CHLORIDE 1 GM TAB PO SCH ×3 (09:02→18:00)
[2019-04-02] MEDS: ENOXAPARIN 30 MG/0.3 ML SYR (J1650) SC SCH (09:02)
[2019-04-02] MEDS: GABAPENTIN 300 MG CAP PO SCH ×4 (09:02→21:48)
[2019-04-02] MEDS: TAMOXIFEN CITRATE 10 MG TAB PO SCH (09:03)
[2019-04-02] MEDS: NYSTATIN 500,000 U/5 ML SUSP UDC SS SCH ×4 (09:03→21:47)
[2019-04-02] MEDS: busPIRone 5 MG TAB PO SCH ×4 (09:03→21:47)
[2019-04-02] MEDS: SODIUM CHLORIDE 0.9% INJ 10 ML SYR XX SCH (09:04)
--- NOTE | 2019-04-02 10:22 | IPNPDOC ---
Text Note Date of Service The patient was seen on 04/02/19. 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 The patient was initially placed on broad spectrum antibiotics and then anti-fungals for positive blood cultures. Multiple blood and biliary cultures showed heavy amounts of yeast growth. Since then, the patient's anti-fungal regimen has been adjusted accordingly by infectious disease and the biliary drain was exchanged to allow for better fluid drainage. After numerous conversations among various providers and consultants, the patient and her family have elected to remain DNR/DNI with full medical intervention. Objective: Vitals (See below) General: Sick appearing female, in no acute distress, patient appears comfortable and is alert. HEENT: normocephalic, atraumatic. Icteric sclera. CVS: RRR, normal S1 and S2. Lungs: CTAB with diminished breath sounds bilaterally. No wheezes, crackles, or rhonchi. Abdomen: Soft, minimally tender to palpation in RUQ. Drain in place in RUQ with fluid draining into catheter bag. Extremities: Non-pitting edema Neuro: Alert and oriented, no asterixis noted on exam. Skin: jaundiced skin. Assessment and plan: #. Cholangitis - Dr. Espinal with IR consulted and readjusted drain on 03/29. Help very much appreciated. Per ID recommendations, which are also appreciated, patient went down for evaluation of fluid collection present on CT abd/pelvis consistent with possible abscess formation. RUQ U/S confirmed the fluid collection was unchanged and Dr. Espinal was again consulted for IR guided drainage of this fluid collection. -Biliary fluid grew heavy amounts of yeast which has been covered with antifungals since 03/28, patient is currently on IV fluconazole per ID recc's. They suspect gram positive growth is likely contaminant and does not require coverage. #. Bacteremia / Fungemia - possibly 2/2 line infection - 2/2 port -Dr. Espinal with IR also removed port which was thought to serve as a nidus for patient's candidemia. Since that was the patient's main peripheral access, we also asked her to put in a midline. We very much appreciate her help. -Spoke with nurse practitioner from Dr. Ospina office regarding new port placement and she stated this would not need to be done this admission and could be re-evaluated at a follow up visit with Dr. Ospina after Nilsa is discharged. -Vancomycin and zosyn discontinued. Other gram positive bacterial growth likely a contaminant and not present in large quantities. #. Non-sustained Ventricular tachycardia -Patient had 8 beat run of NSVT in the setting of structural heart disease, would be considered for possible consideration of life vest, however given patient's DNR status, we will honor patient's wish, no further recommendations. #. Hyperbilirubinemia -Continues to improve, I suspect this will likely continue with ongoing biliary drainage. #. Normocytic anemia - likely 2/2 iron deficiency anemia and dilutional etiology - s/p 2 units PRBC, Will transfuse if <7. #. Hypothyroidism - Continue Levothyroxine #. Depression / Anxiety - Continue Buspirone, Escitalopram, Sertraline #. Chronic pain secondary to metastatic endometrial carcinoma - Continue Fentanyl patch, Dilaudid, Gabapentin #. Endometrial carcinoma - Continue with Tamoxifen - Follows with oncology DVT prophylaxis - Lovenox VS,Fishbone, I+O VS, Fishbone, I+O Laboratory Tests 04/02/19 05:17 Red Blood Count 2.56 L, Mean Corpuscular Volume 87.5, Mean Corpuscular Hemoglobin 27.3, Mean Corpuscular Hemoglobin Concent 31.3 L, Red Cell Distribution Width 21.2 H Vital Signs Date Time Temp Pulse Resp B/P (MAP) Pulse Ox O2 Delivery O2 Flow Rate FiO2 04/02/19 08:00 97.0 67 18 138/70 (92) 96 2.0 04/02/19 06:00 Room Air I&O- Last 24 Hours up to 6 AM 04/02/19 06:00 Intake Total 1650 ml Output Total 1290 ml Balance 360 ml GME ATTESTATION GME ATTESTATION I saw and evaluated the patient. I agree with the findings and plan of care as documented in the above note THEO PACE DO Apr 02, 2019 10:22 SAMMY DE LEON MD Apr 05, 2019 14:17
--- NOTE | 2019-04-02 10:59 | REP ---
RIGHT UPPER QUADRANT ULTRASOUND: Real-time sonographic evaluation of the right upper quadrant performed to evaluation abscess/fluid collection seen on CT of 03/30/2019. There is an extensive, large subcapsular fluid collection along the dome of the liver 14.3 x 15.7 cm, containing air and suspicious for abscess. The fluid is complex containing low level echoes. More inferiorly along the right lobe of the liver there are two other fluid collections, approximately 11 cm in diameter and 12 x 16 cm. The appearance is essentially unchanged correlating with the CT scan of 03/30/2019. Electronically Signed by Martin Ivy MD 04/02/2019 06:42 P
[2019-04-02] MEDS ORDERED: LIDOCAINE 1% MDV 20ML VIAL As Ordered ONE ×2 (12:02→12:11)
[2019-04-02] MEDS ORDERED: diphenhydrAMINE INJ 50MG/ML VIAL (J1200) As Ordered ONE (12:09)
[2019-04-02] MEDS ORDERED: MIDAZOLAM INJ 2 MG/2 ML VIAL (J2250) As Ordered ONE (12:10)
[2019-04-02] MEDS ORDERED: fentaNYL 100 MCG/2 ML INJECTION (J3010) As Ordered ONE (12:10)
--- NOTE | 2019-04-02 16:49 | REP ---
IR port removal. Clinical information: Blood cultures positive for Kourtney. Port removal request from ID. Physician: Dr. Espinal. Procedure: The patient was advised of the benefits, risks and alternatives of the procedure and informed consent was obtained. The time-out was performed with verification of the patient's name, MRN, site of procedure and type of procedure to be performed. The patient was positioned in the supine position on the angiographic table. The site was prepped and draped in the usual sterile fashion. The physician spent 30 minutes of continuous face to face time with the patient. A javascript ui developer radiograph reveals a left-sided port in place. The soft tissues overlying the port pocket were anesthetized with lidocaine. An incision was made over the port using an 15 blade scalpel in the location of the prior incision. The catheter was then freed with blunt dissection and extracted. Pressure was applied to obtain hemostasis. The port was then freed with blunt dissection and subsequently removed. The port pocket was packed with iodinated gauze for secondary healing. A Tegaderm was applied over the top. A follow-up radiograph demonstrates complete removal of the port. The patient tolerated the procedure well and was returned to PRU in stable condition. EBL: < 5 ml. Complications: None. Conclusion: 1. Successful explant of a left sided port. 2. The port pocket has been packed with Iodinated gauze for secondary healing. Patient to follow up in IR in 5 days. Thank you this referral. Electronically Signed by Janie Espinal MD 04/02/2019 04:47 P
--- NOTE | 2019-04-02 16:52 | REP ---
Procedure: Midline IV access Indication: Poor IV access. Port removed for infectious reasons. Procedure: The right arm was prepped and draped in a sterile manner. The right basilic vein was accessed with ultrasound guidance. An 018 wire was advanced into the vein and the needle was exchanged for peel-away sheath. The midline catheter was advanced through the peel-away sheath into the vein and peel away was removed. At the end of the procedure the catheter aspirates and flushes appropriately. Impression: Successful right arm venous access. Electronically Signed by Janie Espinal MD 04/02/2019 04:51 P
--- NOTE | 2019-04-02 17:01 | REP ---
IR abscess drainage using CT guidance. Clinical information: Biliary obstruction. Malignancy. Sub diaphragmatic collection. Pain. Physician: Dr. Espinal. Procedure: The patient was advised of the benefits, risks and alternatives of the procedure and informed consent was obtained. A time-out was performed with verification of the patient's name, MRN, site of procedure and type of procedure to be performed. The physician spent 30 minutes face to face time with the patient. The patient was placed in the supine position on the CT gantry and a scan was performed through the region of interest. This demonstrates a large sub diaphragmatic collection. After marking the overlying skin, the patient was prepped and draped in the usual sterile fashion. The soft tissues overlying the skin puncture site were anesthetized with lidocaine. Through this anesthetized region, an 18 gauge Chiba needle was passed into the collection with intermittent CT guidance. Brown fluid was aspirated. An Amplatz wire was advanced into the collection over which a 10-Bulgarian pigtail drainage catheter was passed. Subsequent localization CT was performed to confirm catheter location. 1 liter of fluid was removed. Post aspiration CT was performed and demonstrates complete resolution of the collection. The catheter was then locked, sutured in position and placed to gravity drainage. The flow specimen was labeled with the patient's name and medical record number and sent to the lab for further analysis. The patient tolerated the procedure well and was returned to the PRU in stable condition. EBL: Less than 5 ml. Complications: None. Impression: 1. CT demonstrates large subdiaphragmatic collection. 2. Successful CT guided drain placement and complete aspiration of the collection. The drain should be flushed with 10 ml sterile saline daily. 3. Patient to follow up in IR in 2 weeks. Thank you this referral. Electronically Signed by Janie Espinal MD 04/02/2019 04:59 P
[2019-04-02] MEDS: FLUCONAZOLE 400 MG in IV 1 EA IV SCH (17:13)
[2019-04-02] MEDS: oxyCODONE 5MG TAB PO PRN (18:15)
[2019-04-02] MEDS: SERTRALINE 100 MG TAB PO SCH (21:47)
[2019-04-02] MEDS: ESCITALOPRAM OXALATE 5MG TABLET (LEXAPRO) PO SCH (21:48)
[2019-04-03] VITALS (19 sets, daily range): BP systolic 120–134; BP diastolic 57–64; O2SAT 95–99
[2019-04-03] MEDS: HYDROmorphone (DILAUDID) 4 MG TAB PO PRN ×2 (04:30→16:52)
[2019-04-03] MEDS: SLF 3 ML SYR IV SCH ×2 (05:02→14:34)
[2019-04-03 05:13] LABS: HEMATOCRIT 23.9 % (36.0-47.0); HEMOGLOBIN 7.5 g/dl (12.0-15.5); MEAN CORPUSCULAR HEMOGLOBIN 28.2 pg (27.0-33.0); MEAN CORPUSCULAR HGB CONC 31.4 g/dl (32.0-36.5); MEAN CORPUSCULAR VOLUME 89.8 fl (80.0-96.0); PLATELET COUNT, AUTOMATED 298 10^3/uL (150-450); RED BLOOD COUNT 2.66 10^6/uL (4.00-5.40); WHITE BLOOD COUNT 17.6 10^3/uL (4.0-10.0)
[2019-04-03] MEDS: LEVOTHYROXINE 137MCG TABLET (0.137MG) PO SCH (05:14)
[2019-04-03] MEDS: SODIUM CHLORIDE 0.9% INJ 10 ML SYR IV SCH ×2 (05:15→18:00)
[2019-04-03 05:35] LABS: C REACTIVE PROTEIN QUANTITATIV 13.3 MG/DL (0.00-0.30); CALCIUM LEVEL 7.7 MG/DL (8.5-10.1); CREATININE FOR GFR 1.03 MG/DL (0.55-1.30); GLOMERULAR FILTRATION RATE 59.4 (>51); POTASSIUM SERUM 3.8 MEQ/L (3.5-5.1)
[2019-04-03] MEDS: SODIUM CHLORIDE 1 GM TAB PO SCH ×3 (08:56→18:00)
[2019-04-03] MEDS: busPIRone 5 MG TAB PO SCH ×3 (08:56→20:05)
[2019-04-03] MEDS: GABAPENTIN 300 MG CAP PO SCH ×4 (08:57→20:04)
[2019-04-03] MEDS: TAMOXIFEN CITRATE 10 MG TAB PO SCH (08:57)
[2019-04-03] MEDS: fentaNYL 25 MCG/HR PATCH TD SCH (08:58)
[2019-04-03] MEDS: NYSTATIN 500,000 U/5 ML SUSP UDC SS SCH ×4 (08:59→22:35)
[2019-04-03] MEDS: ENOXAPARIN 30 MG/0.3 ML SYR (J1650) SC SCH (09:00)
[2019-04-03] MEDS: SODIUM CHLORIDE 0.9% INJ 10 ML SYR XX SCH (11:08)
--- NOTE | 2019-04-03 12:10 | IPN ---
DATE OF SERVICE: 04/02/2019 Mrs. Petersen is doing very well today. She is alert, oriented. She is in her room with her . She was able to have a good conversation, stating that she would like to have all procedures done, including removal of Ugalde, as well as drainage of the subcapsular liver collection. I did discuss the case with Dr. Espinal, who agreed on doing both procedures today. The patient would like to have as much done to make her comfortable and then to be switched to oral antibiotics as soon as she is stable so she can have some good month at home. The patient has very poor prognosis, she is terminal. On physical examination, a sick-appearing female in no acute distress. Jaundiced. Alert and oriented. Heart: Normal S1, S2. No murmurs, rubs, or gallops. Lungs: Diminished breath sounds at the bases. Abdomen: Soft, tender in the right upper quadrant with drained with green bilious fluid in the catheter bag. Extremities: +2 pitting edema bilaterally. Neurologic examination: Alert and oriented. IMPRESSION: 1. Kourtney albicans line infection, status post removal of Ugalde catheter. The patient was on intravenous (IV) micafungin. She could be switched to fluconazole 400 mg daily. Once her fungi may resolve, she could be switched to oral antibiotics. 2. Subcapsular abscesses across the liver abscess. The patient going for drainage procedure today. Depending on results of culture, will decide whether she needs to be continued on gram-negative coverage with Zosyn and anaerobic coverage. For the time being, if she has IV access, please continue with IV Zosyn. 3. Endometrial cancer, metastatic to bones. On palliative care. PLAN: Remove Ugalde catheter today. Aspiration of subcapsular fluid collection to be done by Dr. Espinal today. Do not place any long-term catheter. Use peripheral IVs; and hopefully, the patient could be switched to oral antibiotics so she could go home. Please repeat blood cultures until yeast is no longer growing on blood cultures. Will obtain a blood culture for the morning. LABORATORIES: White count is 15.7, hemoglobin 7, hematocrit 22.4, platelets 285. Sodium 137, potassium 4.3, chloride 110, bicarbonate 11, BUN 25, creatinine 0.98, glucose 97, calcium 8.3, bilirubin 4, AST 42, ALT 63, albumin 1.5. MTDD
--- NOTE | 2019-04-03 14:10 | IPNPDOC ---
Text Note Date of Service The patient was seen on 04/03/19. 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 The patient was initially placed on broad spectrum antibiotics and then anti-fungals for positive blood cultures. Multiple blood and biliary cultures showed heavy amounts of yeast growth. Since then, the patient's anti-fungal regimen has been adjusted accordingly by infectious disease and the biliary drain was exchanged to allow for better fluid drainage. After numerous conversations among various providers and consultants, the patient and her family have elected to remain DNR/DNI with full medical intervention. No acute events overnight, patient denies any chest pain, shortness of breath, admits to same RUQ tenderness she has had as a result of the drain. She underwent port removal, midline insertion, and abscess drainage with IR yesterday and she feels she tolerated the procedure well. Objective: Vitals (See below) General: Sick appearing female, in no acute distress, patient appears comfortable and is alert. HEENT: normocephalic, atraumatic. Icteric sclera. CVS: RRR, normal S1 and S2. Lungs: CTAB with diminished breath sounds bilaterally. No wheezes, crackles, or rhonchi. Abdomen: Soft, minimally tender to palpation in RUQ. Drain in place in RUQ with fluid draining into catheter bag. Extremities: Non-pitting edema Neuro: Alert and oriented, no asterixis noted on exam. Skin: jaundiced skin. Assessment and plan: #. Cholangitis - Dr. Espinal with IR consulted and readjusted drain on 03/29. Help very much appreciated. Per ID recommendations, which are also appreciated, patient went down for evaluation of fluid collection present on CT abd/pelvis consistent with possible abscess formation. RUQ U/S confirmed the fluid collection was unchanged and Dr. Espinal was again consulted for IR guided drainage of this fluid collection. -Thoracentesis on 04/02 drained brown fluid that gram stain is showing was nega tive for cells, but positive for a few yeast like organisms. -Biliary fluid grew heavy amounts of yeast which has been covered with antifungals since 03/28, patient is currently on IV fluconazole per ID recc's. They suspect gram positive growth is likely contaminant and does not require coverage. #. Candidemia - possibly 2/2 line infection - 2/2 port -Dr. Espinal with IR removed port which was thought to serve as a nidus for patient's candidemia. Since that was the patient's main peripheral access, we also asked her to put in a midline. We very much appreciate her help. -Spoke with nurse practitioner from Dr. Ospina' office regarding new port placement and she stated this would not need to be done this admission and could be re-evaluated at a follow up visit with Dr. Ospina after Nilsa is discharged. -Vancomycin and zosyn discontinued. Other gram positive bacterial growth likely a contaminant and not present in large quantities. #. Non-sustained Ventricular tachycardia -Patient was asymptomatic during this run, but she is also DNR/DNI and given her structural heart disease, the next best step would be a life-vest which would go against her wishes. Discontinuing telemetry. #. Normocytic anemia - likely 2/2 iron deficiency anemia and dilutional etiology - s/p 2 units PRBC, to medically optimize the patient we will give 2 additional units of irradiated RBC's. #. Hyperbilirubinemia -Continues to improve, I suspect this will likely continue with ongoing biliary drainage. #. Hypothyroidism - Continue Levothyroxine #. Depression / Anxiety - Continue Buspirone, Escitalopram, Sertraline #. Chronic pain secondary to metastatic endometrial carcinoma - Continue Fentanyl patch, Dilaudid, Gabapentin #. Endometrial carcinoma - Continue with Tamoxifen - Follows with oncology DVT prophylaxis - Lovenox Prognosis: While patient has improved on anti-fungals this past week, overall prognosis in the setting of metastatic endometrial disease is poor. VS,Jaredbone, I+O VS, Fishbone, I+O Laboratory Tests 04/03/19 04:49 Red Blood Count 2.66 L, Mean Corpuscular Volume 89.8, Mean Corpuscular Hemoglobin 28.2, Mean Corpuscular Hemoglobin Concent 31.4 L, Red Cell Distribution Width 22.1 H, Calcium Level 7.7 L Vital Signs Date Time Temp Pulse Resp B/P (MAP) Pulse Ox O2 Delivery O2 Flow Rate FiO2 04/03/19 09:30 18 2.0 04/03/19 08:00 96.9 74 127/58 (81) 97 04/03/19 06:00 Room Air I&O- Last 24 Hours up to 6 AM 04/03/19 05:59 Intake Total 910 ml Output Total 1700 ml Balance -790 ml GME ATTESTATION GME ATTESTATION I saw and evaluated the patient. I agree with the findings and plan of care as documented in the above note THEO PACE DO Apr 03, 2019 14:09 SAMMY DE LEON MD Apr 05, 2019 14:17
[2019-04-03] MEDS: FLUCONAZOLE 400 MG in IV 1 EA IV SCH (14:33)
[2019-04-03] MEDS: ESCITALOPRAM OXALATE 5MG TABLET (LEXAPRO) PO SCH (20:04)
[2019-04-03] MEDS: SERTRALINE 100 MG TAB PO SCH (20:04)
[2019-04-04] VITALS (9 sets, daily range): BP systolic 99–185; BP diastolic 53–91; O2SAT 94–97
[2019-04-04] MEDS: SODIUM CHLORIDE 0.9% INJ 10 ML SYR IV SCH ×2 (01:01→17:48)
[2019-04-04] MEDS: HYDROmorphone (DILAUDID) 4 MG TAB PO PRN ×2 (04:14→13:55)
[2019-04-04] MEDS: LEVOTHYROXINE 137MCG TABLET (0.137MG) PO SCH (05:10)
--- NOTE | 2019-04-04 07:02 | REPVR ---
PROCEDURE INFORMATION: Exam: XR Chest, 1 View Exam date and time: 04/04/2019 6:23 AM Clinical history: 53 years old, female; Other: Hypoxia; Additional info: Hypoxia with reading TECHNIQUE: Imaging protocol: XR of the chest Views: 1 view. COMPARISON: CR POST BX CHEST 03/11/2019 3:10 PM FINDINGS: Lungs: There is a 2.6 x 2.5 cm left upper lobe masslike density. There is asymmetric increased density of the left lung as compared to the right likely due to diffuse infiltrates. Pleural space: Unremarkable. No pleural effusion. No pneumothorax. Heart/Mediastinum: Unremarkable. No cardiomegaly. Diaphragm: There is suggestion of air under the right hemidiaphragm. Catheter is seen coursing over the right upper abdomen. Bones/joints: Unremarkable. IMPRESSION: 1. 2.5 x 2.7 cm left upper lobe lung nodule, decreased in size as compared to the prior exam. 2. Suggestion of interval development of diffuse left lung ground glass infiltrate. 3. Interval development of air under the right hemidiaphragm. It is not clear if this represent distended interposed bowel loop or pneumoperitoneum. Correlate clinically. If indicated CT of the abdomen may be obtained for further evaluation. Electronically signed by: Simba Quinones On 04/04/2019 07:02:29 AM
[2019-04-04 07:06] LABS: MEAN CORPUSCULAR HEMOGLOBIN 28.3 pg (27.0-33.0); MEAN CORPUSCULAR HGB CONC 31.7 g/dl (32.0-36.5); MEAN CORPUSCULAR VOLUME 89.3 fl (80.0-96.0); PLATELET COUNT, AUTOMATED 248 10^3/uL (150-450); RED BLOOD COUNT 3.92 10^6/uL (4.00-5.40); WHITE BLOOD COUNT 4.9 10^3/uL (4.0-10.0)
[2019-04-04 07:19] LABS: CALCIUM LEVEL 7.9 MG/DL (8.5-10.1); CREATININE FOR GFR 1.12 MG/DL (0.55-1.30); HEMOGLOBIN 11.1 g/dl (12.0-15.5); POTASSIUM SERUM 3.8 MEQ/L (3.5-5.1)
[2019-04-04] MEDS: oxyCODONE 5MG TAB PO PRN (08:05)
[2019-04-04] MEDS: fentaNYL 100 MCG/HR PATCH TD SCH (08:47)
[2019-04-04] MEDS: NYSTATIN 500,000 U/5 ML SUSP UDC SS SCH ×4 (08:48→22:00)
[2019-04-04] MEDS: SODIUM CHLORIDE 1 GM TAB PO SCH ×3 (08:48→17:45)
[2019-04-04] MEDS: TAMOXIFEN CITRATE 10 MG TAB PO SCH (08:48)
[2019-04-04] MEDS: busPIRone 5 MG TAB PO SCH ×3 (08:49→22:00)
[2019-04-04] MEDS: ENOXAPARIN 30 MG/0.3 ML SYR (J1650) SC SCH (08:49)
[2019-04-04] MEDS: GABAPENTIN 300 MG CAP PO SCH ×4 (08:49→22:00)
[2019-04-04] MEDS: LORazepam 0.5 MG TAB PO PRN ×2 (08:50→17:45)
[2019-04-04] MEDS: FENTANYL REMOVAL DOCUMENTATION MISC XX SCH (10:39)
[2019-04-04] MEDS: SODIUM CHLORIDE 0.9% INJ 10 ML SYR XX SCH (11:00)
--- NOTE | 2019-04-04 12:55 | ECGEPIP ---
[facility] Test Date: 2019-04-04 Pat Name: AMADEO GARCIA Department: Room: [place] [address] Gender: Female [employer]ope [employer] Operator: MATILDE : 1965 Requested By: SAMMY DE LEON Order Number: [id number] Reading MD: Maxi Cohen Measurements Intervals [place] Rate: 109 P: 66 PA: 162 QRS: -44 QRSD: 105 T: 52 QT: 328 QTc: 442 Interpretive Statements SINUS TACHYCARDIA Left axis deviation Inferior wall OR, age indeterminate Anterior OR, age indeterminate Similar to tracing done 05-01-18 with increased rate Electronically Signed on 04-04-2019 12:55:53 EDT by Maxi Cohen
[2019-04-04] MEDS: FLUCONAZOLE 400 MG in IV 1 EA IV SCH (13:54)
--- NOTE | 2019-04-04 13:56 | REP ---
CT ABDOMEN AND PELVIS WITHOUT CONTRAST: CT abdomen and pelvis performed without oral or IV contrast. Sagittal and coronal reconstruction images are performed. Comparison made with prior study of 03/30/2019. Since that time, the patient has had CT guided drainage 04/02/2019 of perihepatic fluid collection. Visualized lung bases demonstrate a small right effusion. The diffuse subcapsular air and fluid collection of the liver is again noted and has decreased in size since the prior study of 03/30/2019. However, there is still moderate air and fluid along the dome of the liver, extending inferiorly into the subhepatic region. A small amount is seen along the lateral left lobe. The pigtail drainage catheter is seen inferiorly along the lateral aspect of the right lobe with the pigtail along the posterior margin of the right lobe of the liver within the fluid collection. Biliary drainage catheter is again noted in place. There is mild scattered biliary air predominately centrally. There is no free intraperitoneal air. The spleen, adrenals, pancreas and kidneys are unremarkable and unchanged. There is no hydronephrosis. There is no abdominal aortic aneurysm. I see no significant adenopathy. Air is seen in the gallbladder. I see no bowel wall thickening. There is no evidence of appendicitis with contrast filling the lumen of the appendix in the right lower quadrant. A small amount of free fluid is seen in the pelvis. The urinary bladder is not well distended and not well evaluated. IMPRESSION: Small right pleural effusion. Biliary drainage catheter again seen in place. Perihepatic pigtail drainage catheter is seen along the right lobe of the liver posteriorly, within a subcapsular air and fluid collection, which has decreased in size somewhat since the prior CT of 03/30/2019. There is a moderate amount of scattered subscapular air and fluid surrounding the right lobe of the liver. No free intraperitoneal air. Biliary air is again noted as well as some air in the gallbladder. There is mild free fluid in the pelvis. Electronically Signed by Martin Ivy MD 04/04/2019 06:04 P
--- NOTE | 2019-04-04 14:14 | IPNPDOC ---
Date Seen The patient was seen on 04/04/19. Progress Note Subjective: Patient tells me that she is feeling well today, she tells me she became short of breath earlier this morning but that has resolved and she has no shortness of breath at this time. She denies any abdominal pain nausea vomiting and is otherwise feeling better than she has in several days Objective: Vitals (See below) General: Obese female sitting on the edge of her bed accompanied by her , in no acute distress, patient appears comfortable and is alert. She remains jaundiced HEENT: normocephalic, atraumatic. Scleral icterus CVS: RRR, normal S1 and S2. Lungs: CTAB with diminished breath sounds bilaterally. No wheezes, crackles, or rhonchi. Abdomen: Soft, minimally tender to palpation in RUQ. Bilious fluid draining from her cholecystostomy tube as well as IR place some capsular liver fluid collection drained Extremities: Non-pitting edema Neuro: Alert and oriented, no asterixis noted on exam. Skin: jaundiced skin. Psychological: Appropriate Labs and imaging please see below DVT prophylaxis: Lovenox Assessment and plan: #1. Cholangitis: On the patient's cholecystostomy tube was exchanged, she had been on broad-spectrum antibiotics of and followed closely by infectious disease. Blood cultures were positive for yeast as has her abscess drained from the liver. At this time Zosyn has been discontinued after verbal conversation with infectious disease previously.The patient did have an episode of hypoxia this morning it appears be resolved she is comfortable speaking in complete sentences on room air today. There was evidence of free air under her right diaphragm I did call and discuss this with interventional radiology and it is expected following her recent drainage. I will recheck a CT scan of the abdomen to ensure no significant changes to monitor her closely today #2. Disseminated Candidemia she's had her Ugalde catheter removed. She is growing yeast in blood as well as subscapular liver fluid collection which has not been drained as well. She remains on IV fluconazole infectious disease help is greatly appreciated. At this time he does appear to be improving although s lowly. #3. Non-sustained Ventricular tachycardia: Patient is a DNR contraindication against any further interventions. #4. Normocytic anemia -likely multifactorial related to her ongoing stage IV m etastatic cancer, chemotherapy, iron deficiency. She is status post transfusion does appear improved today continue to monitor her counts regularly. She received several transfusions prior to this hospitalization #5. Hyperbilirubinemia: Have been related to biliary tree obstruction she is status post exchange of her cholecystostomy tube and IR guided fluid collection drainage from the liver. We'll recheck her T bili today #6. Hypothyroidism: Continue Levothyroxine #7. Depression / Anxiety : Continue Buspirone, Escitalopram, Sertraline #8.Chronic pain secondary to metastatic endometrial carcinoma: Continue Fentanyl patch, Gabapentin, she expressed displeasure with by mouth Dilaudid and as per her request I will transition her to Roxicodone #9. Endometrial carcinoma: Stage IV with worsening lung lesion in the face of third line chemotherapy. Objective is to medically stabilize her to the point that she could be discharged home and have outpatient follow-up with Dr. Maxi Ospina consider initiation of fourth line chemotherapy agents Prognosis: Poor, previously had lengthy goals of care discussions with the patient her healthcare proxy sister an additional sister and her significant other. The time being she remains a DNR/DNI she is aware that her prognosis is likely less than 6 months VS, I&O, 24H, Fishbone Vital Signs/I&O Vital Signs Date Time Temp Pulse Resp B/P (MAP) Pulse Ox O2 Delivery O2 Flow Rate FiO2 04/04/19 13:55 18 04/04/19 06:00 98 2.0 04/04/19 05:42 129 128/78 (95) 04/04/19 05:38 97.6 04/03/19 21:00 Room Air I&O- Last 24 Hours up to 6 AM 04/04/19 05:59 Intake Total 2253 ml Output Total 925 ml Balance 1328 ml Laboratory Data 24H LABS Laboratory Tests 2 04/04/19 06:41: Nucleated Red Blood Cells % (auto) 0.4H, Anion Gap 9, Glomerular Filtration Rate 54.0, Blood Urea Nitrogen 16, Creatinine 1.12, Sodium Level 134L, Potassium Level 3.8, Chloride Level 106, Carbon Dioxide Level 19L, Calcium Level 7.9L CBC/BMP Laboratory Tests 04/04/19 06:41 Red Blood Count 3.92 L, Mean Corpuscular Volume 89.3, Mean Corpuscular Hemoglobin 28.3, Mean Corpuscular Hemoglobin Concent 31.7 L, Red Cell Distribution Width 20.5 H, Calcium Level 7.9 L Microbiology Microbiology 04/03/19 Blood Culture - Preliminary, Resulted No growth after 24 hours . All specim... 04/02/19 Blood Culture - Preliminary, Resulted No Growth after 48 hours. All Specime... 03/28/19 Blood Culture - Final, Complete Yeast Like Organism 03/28/19 Blood Culture - Final, Complete Yeast Like Organism 03/28/19 Blood Culture - Final, Complete NO GROWTH AFTER 5 DAYS 03/25/19 - Final, Complete Kourtney Albicans 03/25/19 Blood Culture - Final, Complete Yeast Like Organism 03/25/19 Blood Culture - Final, Complete Yeast Like Organism Corynebacterium Sp. Not Jk 04/02/19 Anaerobic Culture, Received Pending 03/28/19 Gram Stain - Final, Complete 03/28/19 Body Fluid Culture - Final, Complete Yeast Like Organism Corynebacterium Species Staphylococcus Epidermidis 03/28/19 Anaerobic Culture - Final, Complete 03/28/19 Urine Culture - Final, Complete 04/02/19 Gram Stain - Final, Complete 04/02/19 Abscess Culture - Final, Complete Yeast Like Organism SAMMY DE LEON MD Apr 04, 2019 14:14
[2019-04-04 14:39] LABS: ALBUMIN 1.6 GM/DL (3.2-5.2); BILIRUBIN,DIRECT 4.5 MG/DL (0.0-0.2); BILIRUBIN,TOTAL 5.3 MG/DL (0.2-1.0); C REACTIVE PROTEIN QUANTITATIV 9.4 MG/DL (0.00-0.30); TOTAL PROTEIN 6.2 GM/DL (6.4-8.2)
[2019-04-04] MEDS: SERTRALINE 100 MG TAB PO SCH (22:00)
[2019-04-04] MEDS: ESCITALOPRAM OXALATE 5MG TABLET (LEXAPRO) PO SCH (22:00)
[2019-04-05] MEDS: SODIUM CHLORIDE 0.9% INJ 10 ML SYR IV SCH ×2 (05:17→16:50)
[2019-04-05] MEDS: LEVOTHYROXINE 137MCG TABLET (0.137MG) PO SCH (05:17)
[2019-04-05 06:00] VITALS: BP 124/60
[2019-04-05] MEDS: SODIUM CHLORIDE 0.9% INJ 10 ML SYR XX SCH (06:15)
[2019-04-05 07:29] LABS: HEMATOCRIT 27.2 % (36.0-47.0); MEAN CORPUSCULAR HEMOGLOBIN 28.8 pg (27.0-33.0); MEAN CORPUSCULAR HGB CONC 32.4 g/dl (32.0-36.5); MEAN CORPUSCULAR VOLUME 88.9 fl (80.0-96.0); PLATELET COUNT, AUTOMATED 174 10^3/uL (150-450); RED BLOOD COUNT 3.06 10^6/uL (4.00-5.40); WHITE BLOOD COUNT 8.5 10^3/uL (4.0-10.0)
[2019-04-05 07:34] LABS: HEMOGLOBIN 8.8 g/dl (12.0-15.5)
[2019-04-05 07:57] LABS: CALCIUM LEVEL 7.7 MG/DL (8.5-10.1); CREATININE FOR GFR 1.42 MG/DL (0.55-1.30); POTASSIUM SERUM 3.9 MEQ/L (3.5-5.1)
[2019-04-05] MEDS: ENOXAPARIN 30 MG/0.3 ML SYR (J1650) SC SCH (07:58)
[2019-04-05] MEDS: busPIRone 5 MG TAB PO SCH ×3 (07:59→20:44)
[2019-04-05] MEDS: TAMOXIFEN CITRATE 10 MG TAB PO SCH (07:59)
[2019-04-05] MEDS: LORazepam 0.5 MG TAB PO PRN (07:59)
[2019-04-05] MEDS: GABAPENTIN 300 MG CAP PO SCH ×4 (08:00→20:44)
[2019-04-05] MEDS: NYSTATIN 500,000 U/5 ML SUSP UDC SS SCH ×4 (08:00→21:00)
[2019-04-05] MEDS: SODIUM CHLORIDE 1 GM TAB PO SCH ×3 (08:00→16:47)
[2019-04-05] MEDS: oxyCODONE 5MG TAB PO PRN ×3 (08:01→16:49)
[2019-04-05] MEDS ORDERED: LORazepam 0.5 MG TAB PO PRN (08:45)
[2019-04-05] MEDS ORDERED: FUROSEMIDE 40 MG/4 ML VIAL (J1940) IV ONE (12:00)
[2019-04-05] MEDS: FLUCONAZOLE 400 MG in IV 1 EA IV SCH (13:39)
--- NOTE | 2019-04-05 13:53 | REP ---
Bilateral lower extremity duplex venous ultrasound: History: Leg swelling and pain. Comparison is made with two prior studies from March 28, 2019 and October 31, 2017. On October 31, 2017, there was acute nonocclusive DVT noted on the left from common femoral veins into the popliteal vein segment. Findings: The deep veins are anechoic and fully compressible in the right lower extremity on two-dimensional scanning from the groin to the popliteal fossa. Color flow and spectral Doppler interrogation are unremarkable on the right. There is no evidence of right-sided venous thrombosis. On the left however, there is lack of complete compressibility and some linear mural residual echogenic thrombus in the common femoral vein extending to its bifurcation but not beyond. This is similar in appearance but much improved in extent when compared with the October 31, 2017 prior study. Its echogenicity suggests chronic residual nonocclusive thrombus. It is questionably visible in retrospect on the more recent study of March 28, 2019 although appears more conspicuous on today's images . Otherwise, the deep veins are anechoic and fully compressible. No other evidence of venous thrombosis. Color flow and spectral Doppler interrogation are unremarkable. Impression: There is evidence of a small amount of nonocclusive mural venous thrombus or thickening along the anterior wall of the common femoral vein to its bifurcation. This is similar but much improved in extent to the findings from October 31, 2017. These are most compatible with chronic nonocclusive venous thrombosis. Electronically Signed by César Gunn MD 04/05/2019 05:17 P
[2019-04-05 14:00] VITALS: BP 110/65
--- NOTE | 2019-04-05 15:39 | IRPN ---
[facility] IR Progress Note IR Progress Note DATE: Apr 05, 2019 FOLLOW-UP: 3 days status post drain placement for right upper quadrant co llection. Patient doing well post-drain placement. No fevers or chills. Eating and drinking okay. No vomiting. Reports stools are black in color. Several loose motions per day. Abdominal pain is better now. Both bili tube and right upper quadrant drain draining well. ON EXAMINATION: Patient alert and oriented. Vitals stable. IMPRESSION: Post right upper quadrant drain placement for subcapsular collection and internal/external drain placement for biliary obstruction. Also port removal for Kourtney positive blood cultures. Patient doing better. Patient to come to IR tomorrow for gauze removal from Port pocket. Continue flushing drains. Will f ollow up in 2 weeks for ongoing drain management. Allergies Coded Allergies: azithromycin (Verified Allergy, Intermediate, RASH, 02/28/19) pregabalin (Verified Allergy, Intermediate, RASH, 02/28/19) baclofen (Verified Adverse Reaction, Intermediate, anxiety, 02/24/19) carisoprodol (Verified Adverse Reaction, Intermediate, anxiety, 02/24/19) cyclobenzaprine (Verified Adverse Reaction, Intermediate, anxiety, 02/24/19) diazepam (Verified Adverse Reaction, Intermediate, anxiety, 02/24/19) metaxalone (Verified Adverse Reaction, Intermediate, anxiety, 02/24/19) methocarbamol (Verified Adverse Reaction, Intermediate, anxiety, 02/24/19) tizanidine (Verified Adverse Reaction, Intermediate, anxiety, 02/24/19) Current Medications Current Medications Medications (Trade) Dose Ordered Sig/Campos Route PRN Reason Start Time Stop Time Status Last Admin Dose Admin Acetaminophen (Tylenol Tab) 1,000 mg Q6HP PRN PO PAIN 03/25/19 17:30 03/31/19 21:13 Buspirone HCl (Buspar) 7.5 mg TID PO 03/25/19 21:00 04/05/19 07:59 Calcium Carbonate (Tums) 1,000 mg Q4HP PRN PO HEARTBURN 03/26/19 13:15 Diatrizoate Meglum/ Diatrizoate Sod (Gastrografin) 10 ml Q30M PO 03/30/19 06:45 03/30/19 07:16 DC 03/30/19 07:22 Enoxaparin Sodium (Lovenox) 30 mg DAILY SC 03/26/19 09:00 04/05/19 07:58 Escitalopram Oxalate (Lexapro) 5 mg QHS PO 03/25/19 21:00 04/03/19 20:04 Fentanyl (Duragesic) 25 mcg Q3D TD 03/28/19 09:00 04/03/19 08:58 Fentanyl (Duragesic) 100 mcg Q3D TD 03/25/19 21:00 03/25/19 22:06 DC Fentanyl (Duragesic) 100 mcg Q3D TD 03/26/19 09:00 04/04/19 08:47 Fluconazole (Diflucan) 400 mg DAILY PO 04/02/19 09:00 04/02/19 11:58 DC Fluconazole 200 mg/IV Miscellaneous Supplies 100 ml @ 100 mls/hr Q24H IV 03/28/19 10:00 03/29/19 14:11 DC 03/29/19 13:48 Fluconazole 200 mg/IV Miscellaneous Supplies 100 ml @ 100 mls/hr Q24H IV 03/30/19 13:00 03/30/19 13:00 DC Fluconazole 400 mg/IV Miscellaneous Supplies 200 ml @ 100 mls/hr Q24H IV 04/02/19 12:00 04/05/19 13:39 Gabapentin (Neurontin) 600 mg QID PO 03/25/19 21:00 04/05/19 13:38 Heparin Sodium (Heparin (Flush)) 100 units ASDIRECTED PRN IV SEE LABEL COMMENTS 04/02/19 18:15 Heparin Sodium (Heparin (Flush)) 100 units BID@0600,1800 IV 04/03/19 06:00 04/05/19 05:17 Home Med (Med Rec Complete!) ASDIRECTED XX 03/25/19 14:30 03/25/19 14:30 DC Hydromorphone HCl (Dilaudid) 8 mg TIDP PRN PO PAIN 03/25/19 17:30 04/04/19 14:11 DC 04/04/19 13:55 Hyoscyamine/Lido/ Alumin/Mag/Simethi (Gi Cocktail) 50 ml Q6HP PRN PO GI UPSET 03/26/19 20:00 Levothyroxine Sodium (Synthroid) 137 mcg DAILY@0600 PO 03/26/19 06:00 04/05/19 05:17 Lidocaine/ Diphenhydr/Alum/ Mg/Simeth (Magic Mouthwash) 5ML Q4HP PRN SS DISCOMFORT 03/26/19 04:15 03/26/19 04:32 Lorazepam (Ativan) 0.5 mg QIDP PRN PO ANXIETY/AGITATION 04/05/19 08:45 Lorazepam (Ativan) 1 mg QIDP PRN PO ANXIETY/AGITATION 03/25/19 17:30 04/05/19 08:42 DC 04/05/19 07:59 Megestrol Acetate (Megace) 80 mg BID PO 03/26/19 09:00 04/01/19 21:01 DC 04/01/19 20:30 Micafungin Sodium 100 mg/Dextrose 100 ml @ 100 mls/hr Q24H IV 03/29/19 18:00 04/02/19 09:57 DC 04/01/19 17:01 Miscellaneous (Unresolved Clarification Entry) SEE LABEL COMMENTS DAILY XX 04/02/19 09:00 04/02/19 18:13 DC Miscellaneous (Unresolved Clarification Entry) SEE LABEL COMMENTS DAILY XX 04/03/19 09:00 04/04/19 07:16 DC Morphine Sulfate (Morphine Sulfate Inj) 4 mg Q30M PRN IV SEVERE PAIN (PS 8-10) 03/25/19 12:45 03/26/19 10:45 DC 03/26/19 10:45 Non-Formulary Medication ( See Comment Field Below ) SEE COMMENT SECTION ASDIRECTED XX 03/28/19 09:00 04/04/19 10:39 Non-Formulary Medication ( See Comment Field Below ) SEE COMMENTS SECTION ASDIRECTED XX 03/25/19 21:00 03/25/19 22:07 DC Non-Formulary Medication ( See Comment Field Below ) SEE COMMENTS SECTION ASDIRECTED XX 03/26/19 09:00 04/01/19 09:27 Nystatin (Mycostatin) 5 ml QID SS 03/26/19 09:00 04/05/19 13:38 Ondansetron HCl (Zofran) 4 mg Q6HP PRN PO NAUSEA OR VOMITING 03/25/19 17:30 04/05/19 08:00 Oxycodone HCl (Roxicodone, Oxyir) 5 mg Q4HP PRN PO PAIN 04/02/19 18:00 04/05/19 13:38 Oxycodone HCl (Roxicodone, Oxyir) 10 mg Q4HP PRN PO SEVERE PAIN (PS 8-10) 04/04/19 18:00 04/05/19 08:01 Piperacillin Sod/ Tazobactam Sod 3.375 gm/Dextrose 50 ml @ 50 mls/hr Q6H IV 03/25/19 20:00 04/02/19 09:57 DC 04/02/19 09:03 Potassium Chloride/Sodium Chloride 1,000 ml @ 150 mls/hr Q6H40M IV 03/27/19 09:30 03/29/19 10:04 DC 03/29/19 02:23 Potassium Chloride/Sodium Chloride 1,000 ml @ 250 mls/hr Q4H IV 03/25/19 17:30 03/26/19 06:40 DC 03/26/19 01:30 Senna (Senokot) 2 tab DAILYPRN PRN PO CONSTIPATION 03/25/19 17:30 04/04/19 04:14 Sertraline HCl (Zoloft) 100 mg QHS PO 03/25/19 21:00 04/03/19 20:04 Sodium Chloride 1,000 ml @ 70 mls/hr [id number] IV 03/26/19 15:00 03/27/19 08:59 DC 03/27/19 08:53 Sodium Chloride 1,000 ml @ 100 mls/hr Q10H IV 03/25/19 11:15 03/25/19 20:15 DC 03/25/19 12:43 Sodium Chloride (Saline Lock Flush) 2 ml ASDIRECTED PRN IV SEE LABEL COMMENTS 03/26/19 14:45 Cancel Sodium Chloride (Saline Lock Flush) 2 ml SLF IV 03/26/19 22:00 04/03/19 20:14 DC 04/03/19 14:34 Sodium Chloride (Saline Lock Flush) 10 ml ASDIRECTED PRN IV SEE LABEL COMMENTS 04/02/19 18:15 Sodium Chloride (Saline Lock Flush) 10 ml BID@0600,1800 IV 04/03/19 06:00 04/05/19 05:17 Sodium Chloride (Saline Lock Flush) 10 ml DAILY XX 03/29/19 09:00 04/05/19 06:15 Sodium Chloride (Sodium Chloride) 1 gm WM PO 03/26/19 12:30 04/05/19 13:38 Tamoxifen Citrate (Nolvadex) 40 mg DAILY PO 04/02/19 09:00 04/22/19 09:01 04/05/19 07:59 Vancomycin HCl 1000 mg/IV Miscellaneous Supplies 1 each/ Dextrose 270 ml @ 270 mls/hr Q12H IV 03/28/19 09:00 04/01/19 18:54 DC 04/01/19 09:02 VS,Fishbone, I+O VS, Fishbone, I+O Laboratory Tests 04/05/19 07:07 Red Blood Count 3.06 L, Mean Corpuscular Volume 88.9, Mean Corpuscular Hemoglobin 28.8, Mean Corpuscular Hemoglobin Concent 32.4, Red Cell Distribution Width 20.7 H, Calcium Level 7.7 L Vital Signs Date Time Temp Pulse Resp B/P (MAP) Pulse Ox O2 Delivery O2 Flow Rate FiO2 04/05/19 14:00 98.6 75 20 110/65 (80) 96 04/04/19 22:00 2.0 04/04/19 21:00 Room Air I&O- Last 24 Hours up to 6 AM 04/05/19 06:00 Intake Total 1130 ml Output Total 650 ml Balance 480 ml JASKARAN JO MD Apr 05, 2019 15:39
[2019-04-05 17:30] LABS: CALCIUM LEVEL 7.4 MG/DL (8.5-10.1); CREATININE FOR GFR 1.39 MG/DL (0.55-1.30); GLOMERULAR FILTRATION RATE 42.1 (>51); POTASSIUM SERUM 3.8 MEQ/L (3.5-5.1)
[2019-04-05] MEDS ORDERED: HEPARIN DRIP 25,000 UNITS in IV 1 EA IV SCH (18:09)
[2019-04-05] MEDS ORDERED: HEPARIN SOD (PORCINE) 5000 UNITS/ML VIAL IV PRN (18:15)
[2019-04-05 18:58] LABS: HEMATOCRIT 28.6 % (36.0-47.0); HEMOGLOBIN 9.1 g/dl (12.0-15.5); MEAN CORPUSCULAR HEMOGLOBIN 28.3 pg (27.0-33.0); MEAN CORPUSCULAR HGB CONC 31.8 g/dl (32.0-36.5); MEAN CORPUSCULAR VOLUME 89.1 fl (80.0-96.0); PLATELET COUNT, AUTOMATED 165 10^3/uL (150-450); RED BLOOD COUNT 3.21 10^6/uL (4.00-5.40); WHITE BLOOD COUNT 9.2 10^3/uL (4.0-10.0)
[2019-04-05] MEDS: SODIUM CHLORIDE 0.9% INJ 10 ML SYR IV PRN (20:26)
[2019-04-05 20:33] VITALS: BP 122/61
[2019-04-05] MEDS: SERTRALINE 100 MG TAB PO SCH (20:44)
[2019-04-05] MEDS: ESCITALOPRAM OXALATE 5MG TABLET (LEXAPRO) PO SCH (20:45)
[2019-04-05 21:00] VITALS: O2SAT 96
--- NOTE | 2019-04-05 21:08 | IPNPDOC ---
Subjective Date Seen The patient was seen on 04/05/19. Subjective Chief Complaint/HPI Nilsa was seen and examined this morning while lying in bed. Per the nursing staff, the gauze bandage over the site of her previous port in the left upper pectoral region has been saturated with drainage. Port was removed on Friday by Dr. Espinal. Gauze bandages around the site of biliary drainage catheter and liver drainage catheter shows signs of mild oozing discharge. The liver drainage catheter is draining brown-colored discharge. The biliary drainage catheter, which is more superior and lateral on the right side compared to the liver drainage catheter, is draining dark brown fluid. Patient says her pain is under control at this time and has no specific complaints. She is awake, alert and oriented 3. Patient's does state that over the last 24-48 hours, patient appears to be vocalizing statements that do not make sense/are appropriate. She continues to use bedside commode. Patient is accompanied today by her , Ed. General: Denies: Chills, Night Sweats Constitutional: Denies: Fever Eyes: Denies: Pain ENT: Denies: Head Aches, Dysphagia Pulmonary: Denies: Dyspnea, Pleuritic Chest Pain Cardiovascular: Denies: Chest Pain, Palpitations Gastrointestinal: Reports: Abdominal Pain; Denies: Nausea, Vomiting Genitourinary: Denies: Dysuria Musculoskeletal: Denies: Joint Pain, Muscle Pain Neurological: Denies: Numbness, Confusion Objective Physical Examination General Exam: Positive: Alert, Cooperative, Other (patient is an ill appearing female who responds appropriately to commands and questions but seems somewhat subdued) Eye Exam: Positive: PERRLA, EOMI, Sclera icteric (bilaterally) ENT Exam: Positive: Atraumatic, Tongue Midline, Other ENT (darkened colored areas over teeth in differing areas); Negative: Pharyngeal Edema Neck Exam: Negative: Supple, thyromegaly Chest Exam: Positive: Diminished (, diminished due to patient's overall c linical state), Other (. Symmetric chest expansion; there is gauze bandage over superior pectoral area where incision was made for port placement. Port is since been removed. There is dark brown colored saturation of overlying bandage.); Negative: Rhonchi, Wheezing Heart Exam: Positive: Regular Rhythm, Normal S1, Normal S2 Abdomen Exam: Positive: Normal bowel sounds, Tenderness (tenderness diffusely throughout. Abdomen on light palpation. There are 2 Right sided draining catheters. The superior more lateral, is a biliary drainage catheter draining dark brown fluid with mild leakage from site. The more inferior drain is a liver drainage catheter that is draining brown colored fluid.) Extremity Exam: Positive: Edema (bilateral lower extremity and pedal edema), Tenderness (bilateral lower extremity tenderness to palpation); Negative: Cyanosis Skin Exam: Positive: Other skin issue (, mild Jaundice of the face, neck, upper thorax) Neuro Exam: Positive: Sensation Intact (to light touch upper extremity, lower Taylor bilaterally) Psych Exam: Positive: Mood NL, Oriented x 3 Assessment /Plan Assessment #Cholangitis -Patient has right-sided biliary drainage catheter in place which is draining dark brown fluid. Patient was seen by Dr. Espinal today with recommendation for biliary stent placement down the line in approximately 2 weeks. -Patient remains jaundiced today, with scleral icterus bilaterally. -CT of the abdomen was ordered after evidence of free air under the diaphragm was visualized status post 04/02 Liver drainage catheter placement. On CT imaging today. There was no free intraperitoneal air seen. -Patient is speaking in complete sentences today and does not appear to be in respiratory distress. She complains of diffuse abdominal tenderness that remains unchanged from previous days. Blood cultures from drain for subscapular liver abscess were positive for yeast. -Patient is being followed by infectious disease and per the recommendation, fluconazole was switched from IV to by mouth today. #Disseminated candidemia -yeast was grown on previous blood cultures -IV fluconazole switched to by mouth per infectious disease. -Patient had left-sided chemotherapy port removed on Friday by interventional radiology. Interventional radiology evaluated for port site incision today and recommend open air healing. #Chronic nonocclusive left common femoral DVT -Patient had bilateral lower extremity and pedal edema on exam today. Bilateral duplex lower extremity ultrasound was ordered and results showed chronic left common femoral nonocclusive thrombus. -Patient had been on Lovenox subcutaneously for anticoagulation. Due to Lovenox being a water-soluble drug metabolized predominantly by kidney. The decision was made to switch to an alternative form of anticoagulation. -Patient was switched to heparin drip. This is a short-term measure. If patient tolerates heparin drip with no excessive bleeding, change to by mouth anticoagulation in the coming days is encouraged. #Acute kidney injury -Patient had creatinine this morning of 1.42, which remain elevated on recheck this afternoon at 1.39. Patient's baseline is around 1.2. We will continue to monitor on subsequent renal panels and avoid any nephrotoxic agents. #Nonsustained ventricular tachycardia -Patient has DNR status which conch indicates further intervention in this regard. #Normocytic anemia -Hemoglobin today was 9.1, improved from 8.8 yesterday. -Anemia is likely secondary to stage IV acetic endometrial cancer with chemother apy treatment and iron deficiency. She previously received transfusion on this hospital admission and has had several transfusions on prior hospitalizations in the past. We will continue to monitor her CBC #Hyperbilirubinemia -This is likely secondary to patient's biliary obstruction, which necessitated a biliary drainage catheter. Patient was seen by Dr. Espinal, of interventional radiology today and biliary stent placement is recommended in a couple weeks' time. -Patient underwent interventional radiology guided fluid collection drainage from subscapular liver abscess. #Hypothyroidism -We will continue with patient's levothyroxine #Depression/anxiety -We will continue with patient's sertraline, BuSpar, Gautam, and citalopram #Chronic pain secondary to metastatic endometrial cancer -Patient states her pain is relatively controlled at this time. We will continue with oxycodone, fentanyl, and Tylenol for pain. #Stage IV metastatic endometrial cancer -Pt has metastasis in the form of lung lesion. At this time. Hematology oncology is following with the patient and will evaluate for possible metastasis to biliary tree causing obstruction or if this is a new primary cancer. -Objective the hospitalist team. At this point is to stabilize. Patient medically, so that she can be discharged home and follow-up with hematology oncology to pursue further oncological care. Prognosis: Patient is a DNR, DNI and is aware of her prognosis of likely less than 6 months to live. I saw and evaluated the patient. I agree with the findings and plan of care as documented in the above note Plan/VTE VTE Prophylaxis Ordered?: Yes VS, I&O, 24H, Fishbone Vital Signs/I&O Vital Signs Date Time Temp Pulse Resp B/P (MAP) Pulse Ox O2 Delivery O2 Flow Rate FiO2 04/05/19 16:49 18 04/05/19 14:00 98.6 75 110/65 (80) 96 04/04/19 22:00 2.0 04/04/19 21:00 Room Air I&O- Last 24 Hours up to 6 AM 04/05/19 06:00 Intake Total 1130 ml Output Total 650 ml Balance 480 ml Laboratory Data 24H LABS Laboratory Tests 2 04/05/19 07:07: Nucleated Red Blood Cells % (auto) 0.0, Anion Gap 10, Glomerular Filtration Rate 41.0L, Blood Urea Nitrogen 22H, Creatinine 1.42H, Sodium Level 133L, Potassium Level 3.9, Chloride Level 104, Carbon Dioxide Level 19L, Calcium Level 7.7L 04/05/19 16:55: Anion Gap 11, Glomerular Filtration Rate 42.1L, Blood Urea Nitrogen 23H, Creatinine 1.39H, Sodium Level 136, Potassium Level 3.8, Chloride Level 103, Carbon Dioxide Level 22, Calcium Level 7.4L 04/05/19 18:40: Nucleated Red Blood Cells % (auto) 0.0, Activated Partial Thromboplast Time 32.4 CBC/BMP Laboratory Tests 04/05/19 07:07 Red Blood Count 3.06 L, Mean Corpuscular Volume 88.9, Mean Corpuscular Hemoglobin 28.8, Mean Corpuscular Hemoglobin Concent 32.4, Red Cell Distribution Width 20.7 H, Calcium Level 7.7 L 04/05/19 16:55 Calcium Level 7.4 L 04/05/19 18:40 Red Blood Count 3.21 L, Mean Corpuscular Volume 89.1, Mean Corpuscular Hemoglobin 28.3, Mean Corpuscular Hemoglobin Concent 31.8 L, Red Cell Distribution Width 20.9 H Microbiology Microbiology 04/03/19 Blood Culture - Preliminary, Resulted No Growth after 48 hours. All Specime... 04/02/19 Blood Culture - Preliminary, Resulted No Growth after 72 hours. All specime... 03/28/19 Blood Culture - Final, Complete Yeast Like Organism 03/28/19 Blood Culture - Final, Complete Yeast Like Organism 03/28/19 Blood Culture - Final, Complete NO GROWTH AFTER 5 DAYS 04/02/19 Anaerobic Culture, Received Pending 03/28/19 Gram Stain - Final, Complete 03/28/19 Body Fluid Culture - Final, Complete Yeast Like Organism Corynebacterium Species Staphylococcus Epidermidis 03/28/19 Anaerobic Culture - Final, Complete 03/28/19 Urine Culture - Final, Complete 04/02/19 Gram Stain - Final, Complete 04/02/19 Abscess Culture - Final, Complete Yeast Like Organism LEE HADLEY PGY-1 Apr 05, 2019 21:08 SAMMY DE LEON MD Apr 13, 2019 14:32
[2019-04-06] MEDS: SODIUM CHLORIDE 0.9% INJ 10 ML SYR IV SCH ×2 (04:08→18:31)
[2019-04-06 04:49] LABS: HEMATOCRIT 26.5 % (36.0-47.0); HEMOGLOBIN 8.3 g/dl (12.0-15.5); MEAN CORPUSCULAR HEMOGLOBIN 27.9 pg (27.0-33.0); MEAN CORPUSCULAR HGB CONC 31.3 g/dl (32.0-36.5); MEAN CORPUSCULAR VOLUME 89.2 fl (80.0-96.0); PLATELET COUNT, AUTOMATED 148 10^3/uL (150-450); RED BLOOD COUNT 2.97 10^6/uL (4.00-5.40); WHITE BLOOD COUNT 4.9 10^3/uL (4.0-10.0)
[2019-04-06 05:05] LABS: CALCIUM LEVEL 7.3 MG/DL (8.5-10.1); CREATININE FOR GFR 1.21 MG/DL (0.55-1.30); GLOMERULAR FILTRATION RATE 49.4 (>51); POTASSIUM SERUM 3.8 MEQ/L (3.5-5.1)
[2019-04-06] MEDS: LEVOTHYROXINE 137MCG TABLET (0.137MG) PO SCH (05:34)
[2019-04-06 05:59] VITALS: BP 124/60
--- NOTE | 2019-04-06 08:57 | IPN ---
DATE: 04/05/2019 Mrs. Petersen seems to be doing better today. She states she has some shortness of breath and lower extremity edema but that has improved. She has mild right upper quadrant pain where the drains are but that also has decreased. She has no nausea, vomiting or diarrhea. On physical exam she is jaundiced. Temperature is 98.6, pulse 75, respirations 20, blood pressure 110/65, O2 sat 96% on room air. Heart: Normal S1-S2. No murmurs, rubs or gallops. Lungs: Clear but decreased at the bases. Abdomen: Obese, soft, nontender with two drains, one in the subcapsular liver area and one in the common bile duct, common bile duct is draining greenish bilious fluid and the liver drain has more thick yellowish to greenish purulent drainage. LABORATORY DATA: White count 8.5, hemoglobin 8.8, hematocrit 27.2, platelets 174, sodium 136, potassium 3.8, chloride 103, bicarb 22, BUN 23, creatinine 1.39, glucose 88. Yesterday bilirubin was 5.32, direct bilirubin was 4.5, alk phos 151, CRP 9.4 down from 13.3. IMPRESSION: 1. Candidemia most likely source was acute cholangitis and subcapsular liver abscess status post drainage of the liver abscess. The Ugalde catheter was removed as there was also concerned that could have been a source of infection. The patient has currently a peripheral IV. 2. Metastatic endometrial cancer with very poor prognosis currently on tamoxifen and fentanyl patches 125 mcg daily. She is no longer a candidate for chemotherapy. 3. Obstructive jaundice status post upsize from an 8 to a 10-Hungarian drainage procedure. PLAN: Continue fluconazole for a total of 2 weeks from negative culture and removal of Ugalde catheter. Monitor liver function tests (LFTs) while on fluconazole 400 mg daily. Depending on clinical improvement the patient will need fluconazole for at least 2 weeks from removal of Ugalde and drainage which would be till April 16. Switch to by mouth fluconazole as bioavailability is 95-100%. Case has been discussed with Dr. Goldstein.
[2019-04-06 09:00] VITALS: O2SAT 96
[2019-04-06] MEDS ORDERED: ENOXAPARIN 100MG/1ML SYRINGE (J1650) SC SCH (09:00)
[2019-04-06] MEDS: SODIUM CHLORIDE 1 GM TAB PO SCH ×3 (09:16→18:31)
[2019-04-06] MEDS: TAMOXIFEN CITRATE 10 MG TAB PO SCH (09:16)
[2019-04-06] MEDS: GABAPENTIN 300 MG CAP PO SCH ×4 (09:17→21:40)
[2019-04-06] MEDS: FLUCONAZOLE 100 MG TAB PO SCH (09:17)
[2019-04-06] MEDS: NYSTATIN 500,000 U/5 ML SUSP UDC SS SCH ×4 (09:18→21:40)
[2019-04-06] MEDS: fentaNYL 25 MCG/HR PATCH TD SCH (09:18)
[2019-04-06] MEDS: busPIRone 5 MG TAB PO SCH ×3 (09:19→21:40)
[2019-04-06] MEDS: SODIUM CHLORIDE 0.9% INJ 10 ML SYR XX SCH (09:19)
[2019-04-06] MEDS: oxyCODONE 5MG TAB PO PRN ×3 (09:28→14:35)
[2019-04-06] MEDS: ENOXAPARIN 100MG/1ML SYRINGE (J1650) SC SCH ×2 (11:56→22:04)
[2019-04-06 15:39] VITALS: BP 125/60
--- NOTE | 2019-04-06 20:27 | IPNPDOC ---
Subjective Date Seen The patient was seen on 04/06/19. Subjective Chief Complaint/HPI Nilsa was seen and examined this morning while sitting upright on the side of her bed. Patient states she is eating solid foods, albeit still smaller portions. She is drinking without any issues and able to effectively take her PO medications. She is still in discomfort, particularly due to her abdominal pain that is most pronounced over her right flank at the site of her 2 draining catheters. She states she did not sleep much overnight. Patient denies any pain associated with bilateral lower extremity and pedal edema. Patient's (Ed) was present in the room at time of exam. General: Denies: Chills Constitutional: Reports: Weakness (generalized); Denies: Fever ENT: Denies: Head Aches, Dysphagia Pulmonary: Denies: Dyspnea, Cough, Pleuritic Chest Pain Cardiovascular: Denies: Chest Pain, Palpitations Gastrointestinal: Reports: Abdominal Pain (diffuse and is most pronounced over right flank at site of drain catheters); Denies: Nausea, Vomiting Genitourinary: Denies: Dysuria, Hematuria Musculoskeletal: Reports: Other Symptoms (right flank pain, most pronounced at sites of drainage catheters) Neurological: Denies: Numbness Objective Physical Examination General Exam: Positive: Alert, Cooperative, Other (patient is an ill appearing female who responds appropriately to commands and questions but seems somewhat subdued) Eye Exam: Positive: PERRLA, EOMI, Sclera icteric (bilaterally) ENT Exam: Positive: Atraumatic, Tongue Midline; Negative: Pharyngeal Edema Neck Exam: Negative: Supple, thyromegaly Chest Exam: Positive: Diminished (mildly diminished due to patient's overall clinical state), Other (Symmetric chest expansion with respiration; there is gauze bandage over superior pectoral area where incision was made for port placement. Port is since been removed. There is dark brown colored saturation of overlying bandage.); Negative: Rhonchi, Wheezing Heart Exam: Positive: Regular Rhythm, Normal S1, Normal S2 Abdomen Exam: Positive: Normal bowel sounds, Tenderness (tenderness diffusely throughout abdomen on light palpation. There are 2 Right sided draining catheters. The superior and more lateral catheter is a biliary drainage catheter draining dark green/brown fluid with a moderate amount of fluid collected at ti me of exam. The more inferior drain is a liver drainage catheter that is draining yellow-brown colored fluid and there is a moderate amount of fluid collected at time of exam.) Extremity Exam: Positive: Edema (bilateral lower extremity and pedal pitting edema), Normal pulses (. 2+ bilateral radial pulses, with difficult to appreciate bilateral posterior tibial pulses in the setting of lower extremity and pedal edema), Tenderness (, mild bilateral lower extremity tenderness to palpation that is less tender as compared to yesterday's exam), Other; Negative: Cyanosis Skin Exam: Positive: Other skin issue (, mild Jaundice of the face, neck, upper thorax; there is no visualized erythema over edematous bilateral lower extremities) Neuro Exam: Positive: Sensation Intact (to light touch upper extremity, lower Taylor bilaterally) Psych Exam: Positive: Mental status NL, Mood NL, Oriented x 3 Assessment /Plan Assessment #Cholangitis -Patient has right-sided biliary drainage catheter in place which is draining dark green brown fluid. Patient was seen by Dr. Espinal yesterday with recommendation for biliary stent placement down the line in approximately 2 weeks. Patient was also scheduled to have port pocket cleared today by IR. -Patient remains jaundiced today, with scleral icterus bilaterally. -CT of the abdomen was ordered after evidence of free air under the diaphragm was visualized status post 04/02 Liver drainage catheter placement. On CT imaging yesterday, there was no free intraperitoneal air seen. -Patient is speaking in complete sentences today and does not appear to be in respiratory distress. She complains of diffuse abdominal tenderness that remains unchanged from previous days. Blood cultures from drain for subscapular liver abscess were positive for yeast. -Patient is being followed by infectious disease and per their recommendation, fluconazole was switched from IV to by mouth today. #Disseminated candidemia -yeast was grown on previous blood cultures -IV fluconazole switched to by mouth per infectious disease. -Patient had left-sided chemotherapy port removed on Friday by interventional radiology. Interventional radiology evaluated for port site incision yesterday and recommend open air healing. -Patient was scheduled to have port pocket cleared today by IR. #Chronic nonocclusive left common femoral DVT -Patient had bilateral lower extremity and pedal edema on exam yesterday. Bilateral duplex lower extremity ultrasound was ordered and results showed chronic left common femoral nonocclusive thrombus. -Patient had been on Lovenox subcutaneously for anticoagulation. Due to Lovenox being a water-soluble drug metabolized predominantly by kidney, the decision was made yesterday to switch to an alternative form of anticoagulation. -Patient was switched to heparin drip yesterday. She has had no issues with bleeding since initiating heparin drip. Since the heparin drip was a short-term measure, patient's anticoagulation was changed back to Lovenox 90 twice a day. #Acute kidney injury -Patient had creatinine this morning of 1.2, which remains elevated from baseline, but mildly improved.. Patient's baseline is around 1.2. We will continue to monitor on subsequent renal panels and avoid any nephrotoxic agents. #Nonsustained ventricular tachycardia -Patient has DNR status which conch indicates further intervention in this regard. #Normocytic anemia -Hemoglobin today was 8.3, down from 9.1 yesterday. -Anemia is likely secondary to stage IV metastatic endometrial cancer with chemotherapy treatment and iron deficiency. Patient also had positive fecal occult result during this current admission. She previously received transfusion on this hospital admission and has had several transfusions on prior hospitalizations in the past. We will continue to monitor her CBC #Hyperbilirubinemia -This is likely secondary to patient's biliary obstruction, which necessitated a biliary drainage catheter. Patient was seen by Dr. Espinal, of interventional radiology yesterday and biliary stent placement is recommended in a couple weeks' time. -Patient underwent interventional radiology guided fluid collection drainage f rom subscapular liver abscess. #Hypothyroidism -We will continue with patient's levothyroxine #Depression/anxiety -We will continue with patient's sertraline, BuSpar, Gautam, and citalopram #Chronic pain secondary to metastatic endometrial cancer -Patient states her pain is relatively controlled at this time. We will continue with oxycodone, fentanyl, and Tylenol for pain. #Stage IV metastatic endometrial cancer -Pt has metastasis in the form of lung lesion. At this time, medical oncology is following with the patient and will evaluate for possible metastasis to biliary tree causing obstruction or if this is a new primary cancer. -Objective of the hospitalist team at this point is to stabilize patient medically, so that she can be discharged home and follow-up with hematology oncology as outpatient. #DVT prophylaxis -Patient is receiving 90 mg twice a day of Lovenox for chronic left common femoral nonocclusive thrombus that's been present since October 2017. Prognosis: Patient is a DNR, DNI and is aware of her prognosis of likely less than 6 months to live. Plan/VTE VTE Prophylaxis Ordered?: Yes VS, I&O, 24H, Fishbone Vital Signs/I&O Vital Signs Date Time Temp Pulse Resp B/P (MAP) Pulse Ox O2 Delivery O2 Flow Rate FiO2 04/06/19 15:05 18 04/06/19 09:00 96 Room Air 04/06/19 05:59 98.2 72 124/60 (81) 2.0 I&O- Last 24 Hours up to 6 AM 04/06/19 05:59 Intake Total 1300 ml Output Total 535 ml Balance 765 ml Laboratory Data 24H LABS Laboratory Tests 2 04/06/19 04:32: Nucleated Red Blood Cells % (auto) 0.0, Activated Partial Thromboplast Time 56.1H, Anion Gap 9, Glomerular Filtration Rate 49.4L, Blood Urea Nitrogen 21H, Creatinine 1.21, Sodium Level 137, Potassium Level 3.8, Chloride Level 107, Carbon Dioxide Level 21, Calcium Level 7.3L CBC/BMP Laboratory Tests 04/06/19 04:32 Red Blood Count 2.97 L, Mean Corpuscular Volume 89.2, Mean Corpuscular Hemoglobin 27.9, Mean Corpuscular Hemoglobin Concent 31.3 L, Red Cell Distribution Width 20.8 H, Calcium Level 7.3 L Microbiology Microbiology 04/03/19 Blood Culture - Preliminary, Resulted No Growth after 72 hours. All specime... 04/02/19 Blood Culture - Preliminary, Resulted No Growth after 72 hours. All specime... 03/28/19 Blood Culture - Final, Complete Yeast Like Organism 03/28/19 Blood Culture - Final, Complete Yeast Like Organism 03/28/19 Blood Culture - Final, Complete NO GROWTH AFTER 5 DAYS 04/02/19 Anaerobic Culture, Received Pending 03/28/19 Gram Stain - Final, Complete 03/28/19 Body Fluid Culture - Final, Complete Yeast Like Organism Corynebacterium Species Staphylococcus Epidermidis 03/28/19 Anaerobic Culture - Final, Complete 04/06/19 Stool Occult Blood (ALVIN) - Final, Complete 03/28/19 Urine Culture - Final, Complete 04/02/19 Gram Stain - Final, Complete 04/02/19 Abscess Culture - Final, Complete Yeast Like Organism GME ATTESTATION GME ATTESTATION My faculty preceptor for this patient encounter was physically present during the encounter and was fully available. All aspects of the patient interview, examination, medical decision making process, and medical care plan development were reviewed and approved by the faculty preceptor. The faculty preceptor is aware and concurs with the plan as stated in the body of this note and will attest to such by his/her cosignature. ATTENDING NOTE Patient was seen and examined by me this morning with the residents. Agree with the above assessment and plan LEE HADLEY PGY-1 Apr 06, 2019 20:27 ALO JASON MD Apr 07, 2019 13:13
[2019-04-06 20:43] VITALS: BP 113/50
[2019-04-06 21:00] VITALS: O2SAT 97
[2019-04-06] MEDS: ESCITALOPRAM OXALATE 5MG TABLET (LEXAPRO) PO SCH (21:40)
[2019-04-06] MEDS: SERTRALINE 100 MG TAB PO SCH (21:40)
[2019-04-07] MEDS: SODIUM CHLORIDE 0.9% INJ 10 ML SYR IV SCH ×2 (05:30→18:00)
[2019-04-07] MEDS: LEVOTHYROXINE 137MCG TABLET (0.137MG) PO SCH (05:30)
[2019-04-07 05:46] VITALS: BP 117/51
[2019-04-07 07:01] LABS: HEMATOCRIT 24.8 % (36.0-47.0); HEMOGLOBIN 7.8 g/dl (12.0-15.5); MEAN CORPUSCULAR HEMOGLOBIN 28.2 pg (27.0-33.0); MEAN CORPUSCULAR HGB CONC 31.5 g/dl (32.0-36.5); MEAN CORPUSCULAR VOLUME 89.5 fl (80.0-96.0); PLATELET COUNT, AUTOMATED 123 10^3/uL (150-450); RED BLOOD COUNT 2.77 10^6/uL (4.00-5.40); WHITE BLOOD COUNT 5.9 10^3/uL (4.0-10.0)
[2019-04-07 07:23] LABS: ALBUMIN 1.4 GM/DL (3.2-5.2); BILIRUBIN,DIRECT 3.6 MG/DL (0.0-0.2); BILIRUBIN,TOTAL 4.4 MG/DL (0.2-1.0); C REACTIVE PROTEIN QUANTITATIV 15.4 MG/DL (0.00-0.30); CALCIUM LEVEL 7.9 MG/DL (8.5-10.1); CREATININE FOR GFR 1.11 MG/DL (0.55-1.30); GLOMERULAR FILTRATION RATE 54.5 (>51); POTASSIUM SERUM 4.2 MEQ/L (3.5-5.1); TOTAL PROTEIN 5.7 GM/DL (6.4-8.2)
[2019-04-07 09:00] VITALS: O2SAT 99
[2019-04-07] MEDS: busPIRone 5 MG TAB PO SCH ×3 (10:02→21:46)
[2019-04-07] MEDS: TAMOXIFEN CITRATE 10 MG TAB PO SCH (10:02)
[2019-04-07] MEDS: GABAPENTIN 300 MG CAP PO SCH ×4 (10:02→21:46)
[2019-04-07] MEDS: SODIUM CHLORIDE 1 GM TAB PO SCH ×3 (10:02→18:00)
[2019-04-07] MEDS: FLUCONAZOLE 100 MG TAB PO SCH (10:02)
[2019-04-07] MEDS: SODIUM CHLORIDE 0.9% INJ 10 ML SYR XX SCH (10:03)
[2019-04-07] MEDS: fentaNYL 100 MCG/HR PATCH TD SCH (10:03)
[2019-04-07] MEDS: NYSTATIN 500,000 U/5 ML SUSP UDC SS SCH ×4 (10:03→21:45)
[2019-04-07] MEDS: ENOXAPARIN 100MG/1ML SYRINGE (J1650) SC SCH ×2 (11:49→21:46)
--- NOTE | 2019-04-07 12:18 | IPNPDOC ---
Text Note Date of Service The patient was seen on 04/07/19. Nilsa is known to me from [facility]. She reported to me today her pain is reasonably well controlled though she does not think oxycodone works as well as hydromorphone did. She is not sure when she will be going home. Her , Jose G, was present and he was concerned about ongoing problems with fluid leaking around her drainage tubes whenever she moves. Lorena apparently declined hospice care. While I was there hospitalist arrived and told Lorena her labs look fairly stable. A discussion was held regarding continuing on Lovenox on discharged due to her history of DVT. Lorena does not like to shots but indicated she felt she would want to continue Lovonox due to risk of clot. Hospitalist indicated piotentially she may be able to be discharged tomorrow. Lorena expressed concern to me she hopes she "isn't being discharged too soon". I gently explained to her given her cancer diagnosis and complications, it is very difficult to predict when or if she might develop further complications. She understands this, but worries nonetheless. She reported she has plenty of fentanyl patches and hydromorphone at home so will not need any pain medication on discharge. I will try to get over here from clinic tomorrow to followup on discharge plan. VS,Roya, I+O VS, Roya, I+O Laboratory Tests 04/07/19 06:29 Red Blood Count 2.77 L, Mean Corpuscular Volume 89.5, Mean Corpuscular Hemoglobin 28.2, Mean Corpuscular Hemoglobin Concent 31.5 L, Red Cell Distribution Width 20.8 H Vital Signs Date Time Temp Pulse Resp B/P (MAP) Pulse Ox O2 Delivery O2 Flow Rate FiO2 04/07/19 10:33 17 04/07/19 05:46 97.9 92 117/51 (73) 97 2.0 04/06/19 21:00 Room Air I&O- Last 24 Hours up to 6 AM 04/07/19 05:59 Intake Total 1647 ml Output Total 570 ml Balance 1077 ml Zoie CADENA CHEMICAL LAB TECHNICIAN Apr 07, 2019 12:16
[2019-04-07] MEDS ORDERED: LOVE0.8I SC (13:14)
[2019-04-07 14:30] VITALS: BP 118/62
[2019-04-07] MEDS: oxyCODONE 5MG TAB PO PRN (18:09)
--- NOTE | 2019-04-07 19:47 | IPNPDOC ---
Subjective Date Seen The patient was seen on 04/07/19. Subjective Chief Complaint/HPI Nilsa was seen and examined this morning while lying in bed. She states that she got a reasonable amount of sleep overnight. Her pain is well controlled and she reports that her abdominal pain from previous days is not present at this time. Patient endorses dry mouth this morning. She denies lower extremity pain or paresthesias. She continues to eat and drink without any issues. Patient had her former port incision site cleaned and opened this morning by interventional radiology. Her two right-sided draining catheters were re-bandaged this morning in the drains replaced. General: Denies: Chills, Night Sweats Constitutional: Denies: Fever ENT: Reports: Other Symptoms (dry mouth); Denies: Head Aches, Dysphagia Pulmonary: Denies: Dyspnea, Cough Cardiovascular: Denies: Chest Pain, Palpitations Gastrointestinal: Denies: Nausea, Vomiting, Abdominal Pain (abdominal pain on previous days has resolved) Hematologic: Denies: Bruising Neurological: Denies: Numbness, Confusion Objective Physical Examination General Exam: Positive: Alert, Cooperative, Other (patient is an ill appearing female who responds appropriately to commands and questions.. She is alert and oriented 3.) Eye Exam: Positive: PERRLA, EOMI, Sclera icteric (bilaterally, but significantly less prominent as compared to previous days) ENT Exam: Positive: Atraumatic, Tongue Midline; Negative: Pharyngeal Edema Neck Exam: Negative: Supple, thyromegaly Chest Exam: Positive: Diminished (mildly diminished due to patient's overall clinical state), Other (Symmetric chest expansion with respiration; there is gauze bandage over superior pectoral area where incision was made for port placement. Port is since been removed. There is dark brown colored saturation of overlying bandage.); Negative: Rhonchi, Wheezing Heart Exam: Positive: Regular Rhythm, Normal S1, Normal S2 Abdomen Exam: Positive: Normal bowel sounds, Other (there are 2 right flank sided draining catheters. One is a draining liver catheter that was recently replaced and repeat bandage. There is no active fluid in the drain of the liver catheter at this time. The other draining catheter is a common bile duct draining catheter, which was also replaced and repeat bandage this morning. There is a small amount of bilious-appearing green-brown fluid in the drain.); Negative: Tenderness (no tenderness to palpation in all quadrants.) Extremity Exam: Positive: Edema (bilateral lower extremity and pedal pitting edema), Normal pulses (. 2+ bilateral radial pulses, with difficult to appreciate bilateral posterior tibial pulses in the setting of lower extremity and pedal edema), Tenderness (mild bilateral lower extremity tenderness to palpation); Negative: Cyanosis Skin Exam: Positive: Other skin issue (, mild Jaundice of the face, neck, upper thorax; there is no visualized erythema over edematous bilateral lower extremities) Neuro Exam: Positive: Normal Speech, Sensation Intact (to light touch upper extremity, lower Taylor bilaterally) Psych Exam: Positive: Mental status NL, Mood NL, Oriented x 3 Assessment /Plan Assessment #Cholangitis -Patient has right-sided common bile duct draining catheter in place which is draining dark green brown fluid. Patient is being followed by interventional radiology. The plan is for patient to potentially undergo biliary stent placement in a couple weeks as outpatient through IR. -70mL were drained from liver draining catheter yesterday. When fluid amount is less than 50, we will consult IR about potentially removing it. -Patient remains jaundiced today, with scleral icterus still present bilaterally but less prominent as compared to previous days. Abdominal tenderness on previous days has resolved. -CT of the abdomen was ordered after evidence of free air under the diaphragm was visualized status post 04/02 liver drainage catheter placement. On CT imaging, there was no free intraperitoneal air seen. -Blood cultures from drain for subscapular liver abscess were positive for yeast. -Patient is being followed by infectious disease and, per their recommendation, fluconazole was switched from IV to PO on 04/05. #Disseminated candidemia -yeast was grown on previous blood cultures -IV fluconazole switched to by mouth per infectious disease. -Patient had left-sided chemotherapy port removed on Friday by interventional radiology. Interventional radiology evaluated for port site incision yesterday and recommend open air healing. -Patient was scheduled to have port pocket cleared today by IR. #Chronic nonocclusive left common femoral DVT -Patient has had bilateral lower extremity and pedal edema on exam the past few days. Bilateral duplex lower extremity ultrasound was ordered on 04/05 and results showed chronic left common femoral nonocclusive thrombus. -Patient is on Lovenox 90 bid for active DVT anticoagulation. #Acute kidney injury -Patient had elevated creatine on previous days that has now returned to baseline (around 1.2). We will continue to monitor on subsequent renal panels and avoid any nephrotoxic agents. #Nonsustained ventricular tachycardia -Patient has DNR status which contraindicates further intervention in this reg rudy. #Normocytic anemia -Hemoglobin today was 7.8, down from 8.3 yesterday. -Anemia is likely secondary to stage IV metastatic endometrial cancer with chemotherapy treatment and iron deficiency. Patient also had positive fecal occult result during this current admission. She previously received transfusion on this hospital admission and has had several transfusions on prior hospitalizations in the past. We will continue to monitor her CBC #Hyperbilirubinemia -This is likely secondary to patient's biliary obstruction, which necessitated a biliary drainage catheter. Interventional radiology is following pt and they recommend biliary stent placement in a couple weeks' time. -Patient underwent interventional radiology guided fluid collection drainage from subscapular liver abscess on 04/02. #Hypothyroidism -We will continue with patient's levothyroxine #Depression/anxiety -We will continue with patient's sertraline, BuSpar, and citalopram #Chronic pain secondary to metastatic endometrial cancer -Patient states her pain is relatively controlled at this time. We will continue with oxycodone, fentanyl, and Tylenol for pain. #Stage IV metastatic endometrial cancer -Pt has metastasis in the form of lung lesion. At this time, medical oncology is following with the patient and will evaluate for possible metastasis to biliary tree causing obstruction or if this is a new primary cancer. -Objective of the hospitalist team at this point is to stabilize patient medically, so that she can be discharged home and follow-up with hematology oncology as outpatient. #DVT prophylaxis -Patient is receiving 90 mg twice a day of Lovenox for chronic left common femoral nonocclusive thrombus that's been present since October 2017. Prognosis: Patient is a DNR, DNI and is aware of her prognosis of likely less than 6 months to live. Plan/VTE VTE Prophylaxis Ordered?: Yes VS, I&O, 24H, Fishbone Vital Signs/I&O Vital Signs Date Time Temp Pulse Resp B/P (MAP) Pulse Ox O2 Delivery O2 Flow Rate FiO2 04/07/19 10:33 17 04/07/19 09:00 99 Room Air 04/07/19 05:46 97.9 92 117/51 (73) 2.0 I&O- Last 24 Hours up to 6 AM 04/07/19 05:59 Intake Total 1647 ml Output Total 570 ml Balance 1077 ml Laboratory Data 24H LABS Laboratory Tests 2 04/07/19 06:29: Nucleated Red Blood Cells % (auto) 0.0, Anion Gap 8, Glomerular Filtration Rate 54.5, Calcium Level 7.9L, Aspartate Amino Transf (AST/SGOT) 29, Alanine Aminotransferase (ALT/SGPT) 28, Alkaline Phosphatase 144H, Total Bilirubin 4.4H, Direct Bilirubin 3.6H, C-Reactive Protein, Quantitative 15.40H, Total Protein 5.7L, Albumin 1.4L, Albumin/Globulin Ratio 0.33L CBC/BMP Laboratory Tests 04/07/19 06:29 Red Blood Count 2.77 L, Mean Corpuscular Volume 89.5, Mean Corpuscular Hemoglobin 28.2, Mean Corpuscular Hemoglobin Concent 31.5 L, Red Cell Distribution Width 20.8 H Microbiology Microbiology 04/06/19 Stool Occult Blood (ALVIN) - Final, Complete 04/03/19 Blood Culture - Preliminary, Resulted No Growth after 72 hours. All specime... 04/02/19 Gram Stain - Final, Resulted 04/02/19 Abscess Culture - Final, Resulted Yeast Like Organism 04/02/19 Anaerobic Culture, Received Pending 04/02/19 Blood Culture - Final, Complete NO GROWTH AFTER 5 DAYS 03/28/19 Blood Culture - Final, Complete Yeast Like Organism 03/28/19 Urine Culture - Final, Complete 03/28/19 Gram Stain - Final, Complete 03/28/19 Body Fluid Culture - Final, Complete Yeast Like Organism Corynebacterium Species Staphylococcus Epidermidis 03/28/19 Anaerobic Culture - Final, Complete 03/28/19 Blood Culture - Final, Complete Yeast Like Organism 03/28/19 Blood Culture - Final, Complete NO GROWTH AFTER 5 DAYS GME ATTESTATION GME ATTESTATION My faculty preceptor for this patient encounter was physically present during the encounter and was fully available. All aspects of the patient interview, examination, medical decision making process, and medical care plan development were reviewed and approved by the faculty preceptor. The faculty preceptor is aware and concurs with the plan as stated in the body of this note and will attest to such by his/her cosignature. ATTENDING NOTE Patient was seen and examined by me this morning with the residents. Agree with the above assessment and plan LEE HADLEY PGY-1 Apr 07, 2019 17:08 ALO JASON MD Apr 08, 2019 08:46
[2019-04-07] MEDS: ESCITALOPRAM OXALATE 5MG TABLET (LEXAPRO) PO SCH (21:46)
[2019-04-07] MEDS: SERTRALINE 100 MG TAB PO SCH (21:47)
[2019-04-07 22:00] VITALS: BP 121/58
[2019-04-08] MEDS: oxyCODONE 5MG TAB PO PRN ×2 (02:35→16:56)
[2019-04-08] MEDS: SODIUM CHLORIDE 0.9% INJ 10 ML SYR IV SCH ×2 (05:36→16:57)
[2019-04-08] MEDS: LEVOTHYROXINE 137MCG TABLET (0.137MG) PO SCH (05:36)
[2019-04-08 05:45] VITALS: BP 115/57
[2019-04-08 06:43] VITALS: BP 113/55
[2019-04-08] MEDS: GABAPENTIN 300 MG CAP PO SCH ×4 (08:15→20:31)
[2019-04-08] MEDS: NYSTATIN 500,000 U/5 ML SUSP UDC SS SCH ×4 (08:15→20:30)
[2019-04-08] MEDS: TAMOXIFEN CITRATE 10 MG TAB PO SCH (08:15)
[2019-04-08] MEDS: FLUCONAZOLE 100 MG TAB PO SCH (08:15)
[2019-04-08] MEDS: busPIRone 5 MG TAB PO SCH ×3 (08:16→20:31)
[2019-04-08] MEDS: SODIUM CHLORIDE 1 GM TAB PO SCH ×3 (08:16→16:55)
[2019-04-08] MEDS: SODIUM CHLORIDE 0.9% INJ 10 ML SYR XX SCH (08:16)
[2019-04-08 09:15] LABS: HEMATOCRIT 25.3 % (36.0-47.0); HEMOGLOBIN 8.1 g/dl (12.0-15.5); MEAN CORPUSCULAR HEMOGLOBIN 28.6 pg (27.0-33.0); MEAN CORPUSCULAR VOLUME 89.4 fl (80.0-96.0); PLATELET COUNT, AUTOMATED 113 10^3/uL (150-450); RED BLOOD COUNT 2.83 10^6/uL (4.00-5.40); WHITE BLOOD COUNT 7.3 10^3/uL (4.0-10.0)
[2019-04-08 09:42] LABS: CALCIUM LEVEL 7.4 MG/DL (8.5-10.1); CREATININE FOR GFR 1.29 MG/DL (0.55-1.30); GLOMERULAR FILTRATION RATE 45.8 (>51); POTASSIUM SERUM 4.2 MEQ/L (3.5-5.1)
[2019-04-08] MEDS: ENOXAPARIN 100MG/1ML SYRINGE (J1650) SC SCH (11:58)
[2019-04-08 15:30] VITALS: BP 120/80
[2019-04-08 18:14] LABS: HEMATOCRIT 25.6 % (36.0-47.0); HEMOGLOBIN 8.1 g/dl (12.0-15.5); MEAN CORPUSCULAR HEMOGLOBIN 28.6 pg (27.0-33.0); MEAN CORPUSCULAR HGB CONC 31.6 g/dl (32.0-36.5); MEAN CORPUSCULAR VOLUME 90.5 fl (80.0-96.0); PLATELET COUNT, AUTOMATED 117 10^3/uL (150-450); RED BLOOD COUNT 2.83 10^6/uL (4.00-5.40); WHITE BLOOD COUNT 6.6 10^3/uL (4.0-10.0)
--- NOTE | 2019-04-08 19:25 | IPNPDOC ---
Date Seen The patient was seen on 04/08/19. Progress Note SUBJECTIVE: Nilsa was seen and examined this morning while lying in bed. She remains very weak. She denies any abdominal pain, was present on previous days. She is eating and drinking without any issues, and states her appetite is not diminished. Her pain is well-controlled. She endorses generalized weakness. She denies fever, chills, night sweats, chest pain, chest pressure, shortness of breath, cough, feeling nauseated, vomiting, or paresthesias. OBJECTIVE PHYSICAL EXAMINATION: VITAL SIGNS: Please see below. GENERAL: Nilsa is a very ill appearing woman who is cooperative and pleasant. She seems somewhat subdued today and is speaking slowly, but responds to commands and questions appropriately. HEENT: Atraumatic, normocephalic. There is visible facial and neck jaundice. Scleral icterus is present. There is no cervical or supraclavicular lymphadenopathy appreciated. Mucous membranes are pink and somewhat dry appearing. CARDIOVASCULAR: Normal S1, S2 with no murmur appreciated. RESPIRATORY: Tidal volume is mildly diminished. There is symmetric chest expansion. No wheezing or rhonchi are appreciated. No accessory muscle use is visible during respiration. CHEST: There is an incision over the superior left pectoral area which is covered by Steri-Strips. This is an open and cleared former site of chemotherapy port that was removed on 04/02. ABDOMINAL: There are 2 draining catheters present over the right flank and right abdomen. There is malodorous fluid collection in the biliary duct drain that appears dark brownish and greenish in color.. There is little to no fluid collection in the liver drain. There is no visible leakage of fluid around drain entry sites. EXTREMITIES: There is bilateral lower extremity and pedal pitting edema that remains unchanged from previous days. There is a circumferential area of mild erythema over the left anterior us just superior to the level of the malleolus. Patient does not have any pain or tenderness when bilateral calf mus cles are palpated. Difficult to appreciate posterior tibial or dorsalis pedis pulses due to edema. NEUROLOGICAL: Patient is oriented to person, place and time but appears to be somewhat subdued and tired. She is responding appropriately to questions and concerns. PSYCHOLOGICAL: Appropriate affect and subdued mood. LABORATORY DATA, IMAGING STUDIES, MICROBIOLOGY: Please see below. ASSESSMENT AND PLAN: #Cholangitis -Patient has right-sided common bile duct draining catheter in place which is draining dark green brown malodorous fluid. There is also a right-sided liver draining catheter which has scant fluid in the drain. -Over last 24 hours, bile duct catheter drained approximately 200 mL of fluid, while liver draining catheter drained no appreciable amount of fluid. Patient is being followed by interventional radiology. -IR made patient nothing by mouth late this afternoon and is holding Lovenox tonight in order to up size one of the patient's draining catheters tomorrow. -The plan is for patient to potentially undergo biliary stent placement in a couple weeks as outpatient through IR. -Blood cultures from drain for subscapular liver abscess were positive for yeast. -Patient is being followed by infectious disease and, per their recommendation, fluconazole was switched from IV to PO on 04/05. #Disseminated candidemia -yeast was grown on previous blood cultures -Patient is on PO fluconazole and being followed by infectious disease. -Patient had former port site cleared and opened yesterday by IR. #Chronic nonocclusive left common femoral DVT -Patient has had bilateral lower extremity and pedal edema on exam the past few days. Bilateral duplex lower extremity ultrasound was ordered on 04/05 and results showed chronic left common femoral nonocclusive thrombus. -Patient is on Lovenox 90 bid for active DVT anticoagulation. #Acute kidney injury -Patient had elevated creatine on previous days that has now returned to baseline (around 1.2). -nephrotoxic agents are to be avoided. #Nonsustained ventricular tachycardia -Patient has DNR status which contraindicates further intervention in this regard. #Normocytic anemia -Hemoglobin today was 7.8, down from 8.3 yesterday. -Anemia is likely secondary to stage IV metastatic endometrial cancer with chemotherapy treatment and iron deficiency. Patient also had positive fecal occult result during this current admission. She previously received transfusion on this hospital admission and has had several transfusions on prior hospitalizations in the past. -We will continue to monitor her CBC #Hyperbilirubinemia -This is likely secondary to patient's biliary obstruction, which necessitated a biliary drainage catheter. Interventional radiology is following pt and they recommend biliary stent placement in a couple weeks' time. -Patient underwent interventional radiology guided fluid collection drainage from subscapular liver abscess on 04/02. #Hypothyroidism -We will continue with patient's levothyroxine #Depression/anxiety -We will continue with patient's sertraline, BuSpar, and citalopram #Chronic pain secondary to metastatic endometrial cancer -Patient states her pain is relatively controlled at this time, but she remains quite weak. -We will continue with oxycodone, fentanyl, and Tylenol for pain. #Stage IV metastatic endometrial cancer -Pt has metastasis in the form of lung lesion. At this time, medical oncology is following with the patient and will evaluate for possible metastasis to biliary tree causing obstruction or if this is a new primary cancer. -Objective of the hospitalist team at this point is to stabilize patient medically, so that she can be discharged home and follow-up with hematology oncology as outpatient. #DVT prophylaxis -Patient is receiving 90 mg twice a day of Lovenox for chronic left common femoral nonocclusive thrombus that's been present since October 2017. Prognosis: Patient is a DNR, DNI and is aware of her prognosis of likely less than 6 months to live. Hospitalist team had extensive conversation with patient and her family this afternoon regarding outpatient placement. She is not a candidate for acute or subacute rehabilitation due to diagnosis and does not want to pursue hospice either at home or at a hospice facility. Therefore, her options at this stage are skilled, long-term nursing facility, home with home health, versus just home. Patient is unsure of her desires at this stage and would like to speak more length with her . At this stage, there is nothing from the hospitalist team requiring her to remain an inpatient. We will we'll reassess outpatient placement planned tomorrow and target tomorrow for discharge. DISPOSITION: . VS, I&O, 24H, Fishbone Vital Signs/I&O Vital Signs Date Time Temp Pulse Resp B/P (MAP) Pulse Ox O2 Delivery O2 Flow Rate FiO2 04/08/19 17:26 16 04/08/19 06:43 98.0 104 113/55 (74) 92 04/07/19 22:00 04/07/19 09:00 Room Air I&O- Last 24 Hours up to 6 AM 04/08/19 06:00 Intake Total 700 ml Output Total 200 ml Balance 500 ml Laboratory Data 24H LABS Laboratory Tests 2 04/08/19 09:02: Nucleated Red Blood Cells % (auto) 0.0, Anion Gap 10, Glomerular Filtration Rate 45.8L, Blood Urea Nitrogen 18, Creatinine 1.29, Sodium Level 137, Potassium Level 4.2, Chloride Level 106, Carbon Dioxide Level 21, Calcium Level 7.4L 04/08/19 17:53: Nucleated Red Blood Cells % (auto) 0.0 CBC/BMP Laboratory Tests 04/08/19 09:02 Red Blood Count 2.83 L, Mean Corpuscular Volume 89.4, Mean Corpuscular Hemoglobin 28.6, Mean Corpuscular Hemoglobin Concent 32.0, Red Cell Distribution Width 20.7 H, Calcium Level 7.4 L 04/08/19 17:53 Red Blood Count 2.83 L, Mean Corpuscular Volume 90.5, Mean Corpuscular Hemoglobin 28.6, Mean Corpuscular Hemoglobin Concent 31.6 L, Red Cell Distribution Width 20.9 H Microbiology Microbiology 04/06/19 Stool Occult Blood (ALVIN) - Final, Complete 04/03/19 Blood Culture - Final, Complete NO GROWTH AFTER 5 DAYS 04/02/19 Gram Stain - Final, Complete 04/02/19 Abscess Culture - Final, Complete Yeast Like Organism Lactococcus Garvieae Corynebacterium Species 04/02/19 Anaerobic Culture - Final, Complete 04/02/19 Blood Culture - Final, Complete NO GROWTH AFTER 5 DAYS GME ATTESTATION GME ATTESTATION My faculty preceptor for this patient encounter was physically present during the encounter and was fully available. All aspects of the patient interview, examination, medical decision making process, and medical care plan development were reviewed and approved by the faculty preceptor. The faculty preceptor is aware and concurs with the plan as stated in the body of this note and will attest to such by his/her cosignature. ATTENDING NOTE Patient was seen and examined by me this morning with the residents. Agree with the above assessment and plan LEE HADLEY PGY-1 Apr 08, 2019 19:25 ALO JASON MD Apr 09, 2019 13:46
[2019-04-08] MEDS: ESCITALOPRAM OXALATE 5MG TABLET (LEXAPRO) PO SCH (20:31)
[2019-04-08] MEDS: SERTRALINE 100 MG TAB PO SCH (20:31)
[2019-04-08 21:10] VITALS: BP 116/58
[2019-04-08] MEDS: PIPERACILLIN/TAZOBACTAM SOD 3.375 GM in D5W MINI-BAG PLUS 50 ML IV SCH (23:21)
--- NOTE | 2019-04-08 23:44 | IPN ---
DATE: 04/08/2019 Nilsa complains of generalized weakness today. She is eating. She has no nausea or vomiting. She does complain of significant lower extremity edema and has erythematous lesion on the anterior aspect of both legs measuring about 6 x 4 cm, tender to touch. She denies any chest pain or shortness of breath. When I came into the room, there was a foul-smelling odor and the dressing from the right upper quadrant was soaked with bilious foul-smelling drainage, and there was no drainage in the right upper quadrant bag. In the midabdominal drain, there is a large amount of yellowish mucus fluid. On physical exam, she is an ill-looking female in no acute distress, alert and oriented. Heart: Normal S1, S2. No murmurs appreciated. Lungs: Diminished breath sounds both bases. No wheezes or rhonchi. Abdomen: Obese, soft, nontender. Liver ascites. Lower extremity with +2 to 3 pitting edema with erythema along both the anterior shins, left more than right. Abdomen: There is a midabdominal catheter draining the subcapsular abscess with a large amount of yellowish mucousy drainage. The right upper quadrant, which is in the common bile duct, has no drainage and surrounding it, there is a large amount of bilious drainage, which is foul-smelling. IMPRESSION: 1. Cholangitis with a common bile duct drainage system that is not functioning well. The patient had cultures positive for Kourtney and Corynebacterium, staph coag negative. The patient is currently only on oral fluconazole. IV Zosyn will be resumed. 2. Disseminated candidemia with concern for port infection and therefore, her [id number] was removed. 3. Subcapsular abscess, liver abscess with culture positive for Lactococcus yeastlike organism and Corynebacterium. Due to the increased amount of drainage from the subcapsular drainage system, I am going to resume IV Zosyn until the patient is ready for discharge as her CRP has increased and her drainage seems to be significant. 4. Lower extremity edema with a history of deep vein thrombosis (DVT) to left lower extremity. She had a vascular ultrasound done on 04/05/2019. There is a nonocclusive mural venous thrombus along the common femoral vein compatible with chronic nonocclusive venous thrombosis. LABORATORY DATA: White count 6.6, hemoglobin 8.1, hematocrit 25.6, platelets 117. Sodium 137, potassium 4.2, chloride 106, bicarbonate 21, BUN 18, creatinine 1.2, glucose 89, calcium 7.4, bilirubin 4.4, AST 29, ALT 28, alkaline phosphatase 144, CRP 15.4, which has increased from 9.4. PLAN: Resume IV Zosyn until the patient is ready for discharge, to cover for gram-negative anaerobes that could have been in the collection as well. Even though the pathogens identified are just Corynebacterium and Lactococcus, these could be pathogenic in this situation and therefore will resume IV Zosyn, continue oral fluconazole 400 mg daily.
[2019-04-09] MEDS: LEVOTHYROXINE 137MCG TABLET (0.137MG) PO SCH (05:28)
[2019-04-09] MEDS: PIPERACILLIN/TAZOBACTAM SOD 3.375 GM in D5W MINI-BAG PLUS 50 ML IV SCH ×4 (05:28→23:45)
[2019-04-09] MEDS: SODIUM CHLORIDE 0.9% INJ 10 ML SYR IV PRN (05:29)
[2019-04-09] MEDS: SODIUM CHLORIDE 0.9% INJ 10 ML SYR IV SCH ×2 (05:30→17:18)
[2019-04-09] MEDS: oxyCODONE 5MG TAB PO PRN (05:49)
[2019-04-09 05:58] VITALS: BP 115/58
[2019-04-09] MEDS ORDERED: ISOVUE-300 61% 50ML VIAL (Q9967) As Ordered ONE (06:24)
[2019-04-09] MEDS ORDERED: LIDOCAINE 1% MDV 20ML VIAL As Ordered ONE (06:24)
[2019-04-09] MEDS ORDERED: diphenhydrAMINE INJ 50MG/ML VIAL (J1200) As Ordered ONE (06:47)
[2019-04-09] MEDS ORDERED: MIDAZOLAM INJ 2 MG/2 ML VIAL (J2250) As Ordered ONE (06:47)
[2019-04-09] MEDS ORDERED: fentaNYL 100 MCG/2 ML INJECTION (J3010) As Ordered ONE (06:47)
[2019-04-09 06:50] LABS: HEMATOCRIT 23.3 % (36.0-47.0); HEMOGLOBIN 7.3 g/dl (12.0-15.5); MEAN CORPUSCULAR HEMOGLOBIN 28.4 pg (27.0-33.0); MEAN CORPUSCULAR HGB CONC 31.3 g/dl (32.0-36.5); MEAN CORPUSCULAR VOLUME 90.7 fl (80.0-96.0); PLATELET COUNT, AUTOMATED 110 10^3/uL (150-450); RED BLOOD COUNT 2.57 10^6/uL (4.00-5.40); WHITE BLOOD COUNT 6.5 10^3/uL (4.0-10.0)
[2019-04-09] MEDS ORDERED: PROMETHAZINE INJ 25 MG/ML VIAL (J2550) As Ordered ONE (07:09)
[2019-04-09 07:18] LABS: CALCIUM LEVEL 7.7 MG/DL (8.5-10.1); CREATININE FOR GFR 1.23 MG/DL (0.55-1.30); GLOMERULAR FILTRATION RATE 48.4 (>51); POTASSIUM SERUM 3.9 MEQ/L (3.5-5.1)
[2019-04-09] MEDS ORDERED: cefTRIAXone SOD 1 GM VIAL (J0696) As Ordered ONE (07:27)
[2019-04-09] MEDS: SODIUM CHLORIDE 1 GM TAB PO SCH ×3 (08:00→17:17)
--- NOTE | 2019-04-09 08:15 | POST-OPPD ---
Postoperative Procedure Note Date Of Procedure: Apr 09, 2019 Time Of Procedure: 08:14 PREOPERATIVE DIAGNOSIS: biliary obstruction and leak POSTOPERATIVE DIAGNOSIS: biliary obstruction and leak FINDINGS: biliary obstruction and leak PROCEDURE: biliary tube check, change and reposition SURGEON: osmani ESTIMATED BLOOD LOSS: < 5 ml COMPLICATIONS: none POSTOPERATIVE CONDITION: stable JASKARAN JO MD Apr 09, 2019 08:15
[2019-04-09] MEDS: SODIUM CHLORIDE 0.9% INJ 10 ML SYR XX SCH (09:00)
[2019-04-09] MEDS: NYSTATIN 500,000 U/5 ML SUSP UDC SS SCH ×4 (10:32→20:30)
[2019-04-09] MEDS: fentaNYL 25 MCG/HR PATCH TD SCH (10:32)
[2019-04-09] MEDS: TAMOXIFEN CITRATE 10 MG TAB PO SCH (10:33)
[2019-04-09] MEDS: GABAPENTIN 300 MG CAP PO SCH ×4 (10:34→20:31)
[2019-04-09] MEDS: busPIRone 5 MG TAB PO SCH ×3 (10:34→20:31)
[2019-04-09] MEDS: FLUCONAZOLE 100 MG TAB PO SCH (10:34)
--- NOTE | 2019-04-09 11:34 | IPNPDOC ---
Text Note Date of Service The patient was seen on 04/09/19. NOTE I stopped into see Lorena today along with [facility] Palliative Care manager social media, Georgette Mckeon LMSW. She anticipates disharge to home tomorrow. She has to come back next week to have her biliary tube upsized due to leakage around the insertion site when she moves. Lorena reported her pain was well controlled overall, but she is having problems with lower abdominal pain that she stated began earlier this morning. She is moving her bowels and passing flatus. Lorena is very jaundiced, but was alert and oriented and in no acute distress. She was eating a breakfast sandwich when I arrived but reported overall her appetite is poor. She will have some home health services when she goes home but they won't commence until April 13. Lorena has fentanyl patches and hydromorphone at home so will not need any pain medication ordered on discharge. She will call me next week to let me know when she will be coming to the hospital for her tube change. I will reach out to [facility] to let them know of my relationship with Lorena and her family and give them my contact information. VS,Roya, I+O VS, Roya, I+O Laboratory Tests 04/08/19 17:53 Red Blood Count 2.83 L, Mean Corpuscular Volume 90.5, Mean Corpuscular He moglobin 28.6, Mean Corpuscular Hemoglobin Concent 31.6 L, Red Cell Distribution Width 20.9 H 04/09/19 06:34 Red Blood Count 2.57 L, Mean Corpuscular Volume 90.7, Mean Corpuscular Hemoglobin 28.4, Mean Corpuscular Hemoglobin Concent 31.3 L, Red Cell Distribution Width 21.2 H, Calcium Level 7.7 L Vital Signs Date Time Temp Pulse Resp B/P (MAP) Pulse Ox O2 Delivery O2 Flow Rate FiO2 04/09/19 10:32 16 04/09/19 08:03 128 100 04/09/19 07:57 2 04/09/19 07:06 97.5 04/09/19 05:58 115/58 (77) 04/07/19 09:00 Room Air I&O- Last 24 Hours up to 6 AM 04/09/19 05:59 Intake Total 1640 ml Output Total 0 ml Balance 1640 ml SURINDER,Zoie J SORORITY MOTHER Apr 09, 2019 11:34
[2019-04-09 16:14] VITALS: BP 113/57
--- NOTE | 2019-04-09 17:08 | REP ---
IR Biliary catheter exchange. Clinical information: Malignant biliary obstruction. Leaking at skin. Procedure: The patient was advised of the benefits, risks and alternatives of the procedure and informed consent was obtained. The time-out was performed with verification of the patient's name, MRN, site of procedure and type of procedure to be performed. The patient was positioned in the supine position on the angiographic table. The site was prepped and draped in the usual sterile fashion. Moderate sedation was not performed. The physician spent 45 minutes of continuous face to face time with the patient. A supervisor painting radiograph reveals an internal external biliary drainage catheter in expected location. The soft tissues surrounding the catheter insertion site were anesthetized with lidocaine. The sutures securing the catheter was cut. A cholangiogram through the preexisting catheter demonstrates patent catheter. An Amplatz wire was advanced through the catheter into the small bowel. The catheter was exchanged over the wire for a a new 10.5 F internal external biliary drainage catheter which was advanced over the wire under fluoroscopy guidance and positioned with the pigtail in the distal duodenum. Repeat cholangiogram confirms appropriate location of the distal pigtails and side holes communicating with the intrahepatic bile ducts. The catheter was secured to the skin with 2-0 Prolene. A sterile dressing was applied. The catheter was attached to a gravity drainage bag. The subcapsular drain was also injected with contrast. This demonstrates good positioning and large abscess cavity remaining. This drain is also to remain in place. The patient tolerated the procedure well and was returned to the PRU in stable condition. EBL: Less than 5 ml. Complications: None. Conclusion: 1. Percutaneous cholangiogram demonstrates decompression of the intrahepatic biliary system. 2. Successful exchange and upsize of internal external biliary drainage catheter to 10.5 [place] with repositioning so that distal pigtail is further antegrade in the small bowel. This is to encourage antegrade drainage. Patient to follow up next week for larger special order 14-[place] biliary drain. Thank you this referral. Electronically Signed by Janie Espinal MD 04/09/2019 05:07 P
--- NOTE | 2019-04-09 18:06 | IPNPDOC ---
Date Seen The patient was seen on 04/09/19. Progress Note SUBJECTIVE: Nilsa was seen and examined this morning while lying in bed. She states her pain has been relatively well-controlled since yesterday's visit. She continues to eat and drink without any issues, and her appetite is improved from a few days ago. She remains weak, but is interactive and responds to questions and commands appropriately. She denies any abdominal pain or discomfort that had been present on exam from previous days, and states she is not tender around her two draining catheter sites. She endorses generalized weakness. She denies feeling feverish, chills, night sweats, confusion, chest pain, chest pressure, palpitations, shortness of breath, healing, nausea, vomiting, numbness, or paresthesias. She had her common bile duct catheter drain replaced this morning by interventional radiology. For the past 2 days, no appreciable amount of fluid was drained from this catheter. Interventional radiology replaced the previous draining catheter with a re-sized one. OBJECTIVE PHYSICAL EXAMINATION: VITAL SIGNS: Please see below. GENERAL: Nilsa is a very ill appearing woman who is cooperative and pleasant. She appears tired, yet responds to commands and questions appropriately. HEENT: Atraumatic, normocephalic. There is visible facial and neck jaundice. Scleral icterus is present. There is no cervical or supraclavicular lymphadenopathy appreciated. Mucous membranes are pink and somewhat dry appearing. CARDIOVASCULAR: Normal S1, S2 with no murmur appreciated. RESPIRATORY: Tidal volume is mildly diminished. There is symmetric chest expansion. No wheezing or rhonchi are appreciated. No accessory muscle use is visible during respiration. CHEST: There is an incision over the superior left pectoral area which is covered by Steri-Strips. There is no discharge from the incision site. There is no erythema or swelling around/of the incision site. This is an open and cleared former site of chemotherapy port. ABDOMINAL: There are 2 draining catheters present over the right flank and right abdomen. One is a common bile duct draining catheter emanating from the right lateral flank, while the second drain is a subscapular liver drain catheter emanating from the right upper abdominal quadrant. There is a moderate amount of dark brown collected fluid in the subscapular liver drain. There is little to no fluid collection present in the newly replaced common bile duct drain. There is no visible leakage of fluid around either of the drain entry sites and the bandages encircling both insertion sites appear recently replaced and are not saturated with any discharge or blood. EXTREMITIES: There is bilateral lower extremity and pedal pitting edema that remains unchanged from previous days. There is a circumferential area of mild erythema over the left anterior us, just superior to the level of the malleolus, that appears to have significantly decreased in size from yesterday. There is mild warmth to this erythematous area, but no induration or pain upon palpation. Patient does not have any pain or tenderness when bilateral calf muscles are palpated. Difficult to appreciate posterior tibial or dorsalis pedis pulses due to presence of bilateral pitting edema edema. NEUROLOGICAL: Patient is oriented to person, place and time but appears to be somewhat subdued and tired. She is responding appropriately to questions and concerns. PSYCHOLOGICAL: Appropriate affect and subdued mood. LABORATORY DATA, IMAGING STUDIES, MICROBIOLOGY: Please see below. ASSESSMENT AND PLAN: This is a 53-year-old female who is terminally ill. History of stage IV metastatic endometrial cancer with progression to lungs, previously. She presented to the emergency department with jaundice and right upper abdominal pain after having a draining catheter placed in her common bile duct due to biliary obstruction from likely mass. During inpatient stay, imaging showed patient had a subscapular liver abscess which necessitated insertion of a draining catheter on 04/02 from which cultures grew yeast. The common bile duct catheter and drain had become somewhat occluded and was replaced with a re-sized catheter and drain on 04/09. Patient had been on antibio tics which were stopped and she was ordered on IV fluconazole. Fluconazole was switched to po upon request from infectious disease. Per medical oncology, patient has been made aware that she is no longer a candidate for chemotherapy. She continues to take tamoxifen for her estrogen receptor/progesterone receptor positive endometrial cancer. Extensive discussions have occurred with the family, involving both the hospitalist team and medical oncology, and the patient has been made aware of her poor prognosis of 6 months or fewer to live. #Cholangitis -Patient has upper abdominal subscapular liver draining catheter in place which continues to drain a moderate amount (approximately 200 mL) of dark brown fluid. -Patient also has a right flank common bile duct catheter and drain which had drained a scant amount of fluid over the past 48 hours. Interventional radiology assessed the patient yesterday and deemed the catheter to be somewhat occluded. IR removed the catheter and drain this morning and replaced it with a resized catheter drain. -Patient may potentially be a candidate for biliary stent placement in a couple weeks as an outpatient through IR. -Blood cultures from drain for subscapular liver abscess were positive for yeast. -Patient is being followed by infectious disease and, per their recommendation, fluconazole was switched from IV to PO on 04/05. #Disseminated candidemia -yeast was grown on previous blood cultures -Patient is on PO fluconazole and being followed by infectious disease. -Patient had former port site cleared of bandage packaging and opened to air. #Chronic nonocclusive left common femoral DVT -Patient has had bilateral lower extremity and pedal edema on exam the past few days. Bilateral duplex lower extremity ultrasound was ordered on 04/05 and resu lts showed chronic left common femoral nonocclusive thrombus. -Patient does not have any tenderness to palpation of bilateral calf muscles. -Area of erythema over left anterior distal us, just superior to the level of the malleolus, has decreased in size from yesterday. -Patient is on Lovenox 90 bid for active DVT anticoagulation. The Lovenox had been held last night prior to patient's IR draining catheter replacement procedure. After the procedure, the Lovenox was restarted. #Acute kidney injury -Patient had elevated creatine on previous days that has now returned to baseline (around 1.2). -nephrotoxic agents are to be avoided. #Nonsustained ventricular tachycardia -Patient has DNR status which contraindicates further intervention in this regard. #Normocytic anemia -Hemoglobin today was 7.3, down from 8.1 yesterday. -Anemia is likely secondary to stage IV metastatic endometrial cancer with chemotherapy treatment and iron deficiency. Patient also had positive fecal occult result during this current admission. She previously received transfusion on this hospital admission and has had several transfusions on prior hospitalizations in the past. -We will continue to monitor her CBC #Hyperbilirubinemia -This is likely secondary to patient's biliary obstruction, which necessitated a biliary drainage catheter. -Interventional radiology is following pt and a shunt may be a candidate for biliary stent placement in a couple weeks' time as an outpatient. -Patient underwent interventional radiology guided fluid collection drainage from subscapular liver abscess on 04/02. #Hypothyroidism -We will continue with patient's levothyroxine #Depression/anxiety -We will continue with patient's sertraline, BuSpar, and citalopram #Chronic pain secondary to metastatic endometrial cancer -Patient states her pain is relatively controlled at this time, but she remains quite weak. -We will continue with oxycodone, fentanyl, and Tylenol for pain. #Stage IV metastatic endometrial cancer -Pt has metastasis in the form of lung lesion. At this time, medical oncology is following with the patient and will evaluate for possible metastasis to biliary tree causing obstruction or if this is a new primary cancer. -Objective of the hospitalist team at this point is to stabilize patient med ically, so that she can be discharged home and follow-up with hematology oncology as outpatient. #DVT prophylaxis -Patient is receiving 90 mg twice a day of Lovenox for chronic left common femoral nonocclusive thrombus that's been present since October 2017. Prognosis: Patient is a DNR, DNI and is aware of her prognosis of likely less than 6 months to live. Hospitalist team had extensive conversation with patient and her family yesterday and today regarding outpatient placement. She is not a candidate for acute or subacute rehabilitation due to diagnosis and does not want to pursue hospice either at home or at a hospice facility. Therefore, her options at this stage are skilled, long-term nursing facility, home with home health, versus just home. Patient chose today to be discharged home with home health. Hospitalist team will target tomorrow for discharge. VS, I&O, 24H, Fishbone Vital Signs/I&O Vital Signs Date Time Temp Pulse Resp B/P (MAP) Pulse Ox O2 Delivery O2 Flow Rate FiO2 04/09/19 16:14 98.7 87 15 113/57 (75) 97 04/09/19 07:57 2 04/07/19 09:00 Room Air I&O- Last 24 Hours up to 6 AM 04/09/19 06:00 Intake Total 1920 ml Output Total 0 ml Balance 1920 ml Laboratory Data 24H LABS Laboratory Tests 2 04/09/19 00:12: Activated Partial Thromboplast Time 42.7H 04/09/19 06:34: Activated Partial Thromboplast Time 39.1H, Nucleated Red Blood Cells % (auto) 0.0, Anion Gap 6L, Glomerular Filtration Rate 48.4L, Blood Urea Nitrogen 18, Creatinine 1.23, Sodium Level 137, Potassium Level 3.9, Chloride Level 106, Carbon Dioxide Level 25, Calcium Level 7.7L 04/09/19 13:05: Activated Partial Thromboplast Time 35.0 CBC/BMP Laboratory Tests 04/09/19 06:34 Red Blood Count 2.57 L, Mean Corpuscular Volume 90.7, Mean Corpuscular Hemoglobin 28.4, Mean Corpuscular Hemoglobin Concent 31.3 L, Red Cell Distribution Width 21.2 H, Calcium Level 7.7 L Microbiology Microbiology 04/06/19 Stool Occult Blood (ALVIN) - Final, Complete 04/03/19 Blood Culture - Final, Complete NO GROWTH AFTER 5 DAYS 04/02/19 Gram Stain - Final, Complete 04/02/19 Abscess Culture - Final, Complete Yeast Like Organism Lactococcus Garvieae Corynebacterium Species 04/02/19 Anaerobic Culture - Final, Complete 04/02/19 Blood Culture - Final, Complete NO GROWTH AFTER 5 DAYS GME ATTESTATION GME ATTESTATION My faculty preceptor for this patient encounter was physically present during the encounter and was fully available. All aspects of the patient interview, examination, medical decision making process, and medical care plan development were reviewed and approved by the faculty preceptor. The faculty preceptor is aware and concurs with the plan as stated in the body of this note and will attest to such by his/her cosignature. ATTENDING NOTE Patient was seen and examined by me this morning with the residents. Agree with the above assessment and plan LEE HADLEY PGY-1 Apr 09, 2019 18:06 ALO JASON MD Apr 10, 2019 16:58
[2019-04-09] MEDS: SERTRALINE 100 MG TAB PO SCH (20:32)
[2019-04-09] MEDS: ESCITALOPRAM OXALATE 5MG TABLET (LEXAPRO) PO SCH (20:32)
[2019-04-09 22:24] VITALS: BP 96/51
[2019-04-09] MEDS: ENOXAPARIN 100MG/1ML SYRINGE (J1650) SC SCH (23:46)
[2019-04-10] MEDS ORDERED: LIDOCAINE 1% MDV 20ML VIAL IM ONE (01:30)
--- NOTE | 2019-04-10 02:10 | IPNPDOC ---
Text Note Date of Service The patient was seen on 04/10/19. NOTE PROCEDURAL NOTE: Procedure: Surgical incision closure Indication: Reduce risk of infection Location: Left upper chest Preprocedure diagnosis: Open, non-approximated surgical incision Postprocedure diagnosis: Closed, centrally approximated surgical incision A timeout was performed and informed consent was obtained prior to starting the procedure. PROCEDURE: The area was prepped and draped in a sterile fashion. Local anesthesia was ach ieved using 3 mL of lidocaine 1% without epinephrine. A single 3-0 Ethilon interrupted suture was placed in the center of the surgical incision. Wound margins were appropriately approximated. Estimated blood loss was less than 0.5 ml. Sterile gauze and overlying foam dressing were applied to the area. Patient tolerated the procedure well without any complications. CONTINUED CARE: Incision should be reviewed by primary team in the morning. Signs of infection including: fever, redness, pus, odorous discharge, red streaking, swelling or increased pain should be monitored. Wound culture was performed prior to closure. Incision should be kept dry for at least 24 hours. Sutures should remain in place for 7-10 days. VS,Fishbone, I+O VS, Fishbone, I+O Laboratory Tests 04/09/19 06:34 Red Blood Count 2.57 L, Mean Corpuscular Volume 90.7, Mean Corpuscular Hemoglobin 28.4, Mean Corpuscular Hemoglobin Concent 31.3 L, Red Cell Distribution Width 21.2 H, Calcium Level 7.7 L Vital Signs Date Time Temp Pulse Resp B/P (MAP) Pulse Ox O2 Delivery O2 Flow Rate FiO2 04/09/19 22:24 98.0 66 20 96/51 (66) 98 04/09/19 07:57 2 04/07/19 09:00 Room Air I&O- Last 24 Hours up to 6 AM 04/10/19 06:00 Intake Total 840 ml Balance 840 ml GME ATTESTATION GME ATTESTATION The faculty preceptor is awarewith the plan as stated in the body of this note and will attest to such by his/her cosignature. NOE DANIELS DO Apr 10, 2019 02:10 GARY CODY MD Apr 12, 2019 05:55
[2019-04-10] MEDS: PIPERACILLIN/TAZOBACTAM SOD 3.375 GM in D5W MINI-BAG PLUS 50 ML IV SCH ×2 (05:29→11:22)
[2019-04-10] MEDS: LEVOTHYROXINE 137MCG TABLET (0.137MG) PO SCH (05:29)
[2019-04-10] MEDS: SODIUM CHLORIDE 0.9% INJ 10 ML SYR IV SCH (05:30)
[2019-04-10 05:55] VITALS: BP 101/56
[2019-04-10] MEDS: SODIUM CHLORIDE 1 GM TAB PO SCH ×2 (09:29→13:15)
[2019-04-10] MEDS: TAMOXIFEN CITRATE 10 MG TAB PO SCH (09:30)
[2019-04-10] MEDS: busPIRone 5 MG TAB PO SCH (09:30)
[2019-04-10] MEDS: FLUCONAZOLE 100 MG TAB PO SCH (09:30)
[2019-04-10] MEDS: GABAPENTIN 300 MG CAP PO SCH ×2 (09:30→13:15)
[2019-04-10] MEDS: NYSTATIN 500,000 U/5 ML SUSP UDC SS SCH ×2 (09:30→13:15)
[2019-04-10] MEDS: SODIUM CHLORIDE 0.9% INJ 10 ML SYR XX SCH (09:32)
[2019-04-10] MEDS: fentaNYL 100 MCG/HR PATCH TD SCH (09:32)
[2019-04-10] MEDS: ENOXAPARIN 100MG/1ML SYRINGE (J1650) SC SCH (11:21)
[2019-04-10] MEDS ORDERED: Hyoscyamine/Maalox/Lidoca Visc PO (12:10)
[2019-04-10] MEDS ORDERED: SODI1TAB6 PO (12:10)
[2019-04-10] MEDS ORDERED: ATIV1TAB10 PO (12:10)
[2019-04-10] MEDS ORDERED: OXYCO5TA PO (12:10)
[2019-04-10] MEDS ORDERED: NYST50SS SS (12:10)
[2019-04-10] MEDS ORDERED: FLUC10TA PO (12:10)
[2019-04-10] MEDS ORDERED: CALC200T15 PO (12:10)
[2019-04-10] MEDS ORDERED: MAGICMW SS (12:10)
--- NOTE | 2019-04-11 22:18 | DS.PDOC ---
Discharge Summary General Date of Admission Mar 25, 2019 at 17:19 Date of Discharge 04/10/2019 Attending Physician: ALO JASON MD Specialist/Consultants Involve: Ubaldo Alvarez MD Specialist/Consultants Involve Dr. Janie Espinal M.D.; Dr. Delmis Ospina M.D. Discharge Summary PROCEDURES PERFORMED DURING STAY: Guidance fluoroscopy, 03/25 Guidance fluoroscopy, 03/29. Midline insertion, 04/02 Guidance fluoroscopy, 04/02 Ugalde port removal, 04/02 Guidance fluoroscopy, 04/09. One suture of open laceration wound from pre-existing Ugalde port, 04/10 ADMITTING DIAGNOSES: Biliary obstruction. Suspected cholangitis. Hypothyroidism. Chronic pain syndrome. History of depression. Metastatic endometrial cancer. Hyponatremia. Hypokalemia. Acute kidney injury DISCHARGE DIAGNOSES: Cholangitis. Disseminated candidemia. Chronic nonocclusive left common femoral DVT. Acute kidney injury. Nonsustained ventricular tachycardia. Normocytic anemia Hyperbilirubinemia. Hypothyroidism Depression/anxiety. Chronic pain secondary to metastatic cancer. Metastatic endometrial cancer COMPLICATIONS/CHIEF COMPLAINT: Acute Cholangitis. HISTORY OF PRESENT ILLNESS & HOSPITAL COURSE: Nilsa is a 53-year-old woman who is terminally ill with a pertinent past medical history of metastatic endometrial cancer, chronic left femoral DVT since 2017, recent biliary obstruction requiring placement of common bile duct draining catheter, who presented to the [facility] emergency department upon referral from medical oncology. She had been at the cancer center for a regularly scheduled oncology visit when she was noticed to be jaundice. She underwent the insertion of a common bile duct draining catheter and drain on 03/19/19 with interventional radiology due to biliary obstruction, likely secondary to metastases. She was admitted a hospital to the general medical floor for observation and workup of jaundice. She was suspected of having cholangitis and was put on antibiotics. Imaging revealed a subscapular liver abscess which ne cessitated the placement of a second draining catheter drain. Cultures from this subscapular liver abscess draining catheter grew yeast. Patient was switched off of antibiotics to IV fluconazole per infectious disease. Infectious disease continued to follow patient throughout stay. Patient now had these two right flank and upper abdominal draining catheters, the one draining from the common bile duct and the other from the site of the subscapular liver abscess. At one point the common bile duct draining catheter was not draining appreciable amount of fluid and interventional radiology did a revision and resizing of this draining catheter. The patient's Ugalde port located in the superior left pectoral region was removed on 04/02 by interventional radiology as it was thought to be a possible source of patient's disseminated candidemia. The wound from the former port site was packed with bandaging. The bandages over this former port site became saturated with dark brown colored discharge and interventional radiology removed bandaging to allow for open air cleaning. On the physical therapist assistant of 04/10, the overnight team put a single suture through the middle of the roughly three-quarter inch former port incision wound. At no point had any swelling, tenderness, induration or erythema of or around this former port incision wound. Patient had bilateral lower extremity and pedal pitting edema over the last 5-6 days of admission stay. Lower extremity ultrasound revealed that patient had a chronic nonocclusive left common femoral DVT that was somewhat improved from when it was first imaged in October 2017. Patient had silver dollar sized area of erythema over the distal left anterior us and therefore was placed on anticoagulation in the form of Lovenox. At one point, due to patient's acute kidney injury during this admission stay, she was switched off Lovenox due to potential renal effects, and had a roughly 24-hour heparin drip started. Once patient did not experience bleeding while on heparin drip, she was switched back to Lovenox for anticoagulation. As outpatient post discharge, patient will continue with Lovenox administration. Patient's pain medications were continued throughout her stay. Infectious disease resumed IV Zosyn late in admission stay to cover for gram-negative anaerobes. IV Zosyn was discontinued upon discharge. Patient remained afebrile without night sweats through at least the last 6 days of her admission stay. At the end of her admission stay, she no longer complained of any tenderness or pain over her abdomen and was eating and drinking without any issues and had a decent appetite. After extensive conversations with hospitalist team and case management, patient and her family decided that upon discharge, she will be going home with home health. She declined to pursue hospice at home or at a hospice facility and was not a candidate for acute rehabilitation or subacute rehabilitation. DISCHARGE MEDICATIONS: Please see below. ALLERGIES: Please see below. PHYSICAL EXAMINATION ON DISCHARGE: VITAL SIGNS: Please see below. GENERAL: Nilsa is a very ill appearing woman who is cooperative and pleasant. She appears more alert and energetic than she did during examinations of the last few days.she responds to commands and questions appropriately. HEENT: Atraumatic, normocephalic. There is visible facial and neck jaundice. Scleral icterus is present. There is no cervical or supraclavicular l ymphadenopathy appreciated. Mucous membranes are pink and somewhat dry appearing. CARDIOVASCULAR: Normal S1, S2 with no murmur appreciated. RESPIRATORY: Tidal volume is mildly diminished. There is symmetric chest expansion. No wheezing or rhonchi are appreciated. No accessory muscle use is visible during respiration. CHEST: There is an three-quarter inch incision over the superior left pectoral area that has 1 suture sewn through the middle. There is no discharge from the incision site. There is no erythema or swelling around/of the incision site. This is an open and cleared former site of chemotherapy port. ABDOMINAL: There are 2 draining catheters present over the right flank and right abdomen. One is a common bile duct draining catheter emanating from the right lateral flank, while the second drain is a subscapular liver drain catheter emanating from the right upper abdominal quadrant. There is a moderate amount of dark brown collected fluid in the subscapular liver drain. There is little to no fluid collection present in the newly replaced common bile duct drain. There is no visible leakage of fluid around either of the drain entry sites and the bandages encircling both insertion sites appear recently replaced and are not saturated with any discharge or blood. EXTREMITIES: There is bilateral lower extremity and pedal pitting edema that remains unchanged from previous days. There is a circumferential area of mild erythema over the left anterior us, just superior to the level of the malleolus, that appears to have significantly decreased in size from yesterday. There is mild warmth to this erythematous area, but no induration or pain upon palpation. Patient does not have any pain or tenderness when bilateral calf muscles are palpated. Difficult to appreciate posterior tibial or dorsalis pedis pulses due to presence of bilateral pitting edema edema. NEUROLOGICAL: Patient is oriented to person, place and time but appears to be somewhat subdued and tired. She is responding appropriately to questions and concerns. PSYCHOLOGICAL: Appropriate affect and subdued mood. LABORATORY DATA: Please see below. IMAGING: Abdominal ultrasound, 03/25: Sludge and stones in the gallbladder without gallbladder wall thickening. Significant biliary dilatation, common bile duct measures 18 mm. Mild complex perihepatic fluid. Slight dilatation of the pancreatic duct at 4 mm. Abdominal x-ray, 03/25: Percutaneous transhepatic biliary drainage catheter in what appears to be good position. There is a collection of peritoneal air lateral to the liver which may be related to the catheter Vascular ultrasound, 03/28: There is no ultrasonographic evidence of deep venous thrombosis involving any of the visualized deep venous structures of the bilateral thighs, as described above. CT abdomen/pelvis, 03/30: There are diffuse bilateral lower lobe infiltrates as an interval change. No pleural effusion. Interval placement of a percutaneous biliary drainage catheter. There is a new large subcapsular fluid collection surrounding the right lobe of the liver. There is an air-fluid level in the nondependent portion of this fluid collection. This could represent hematoma or abscess.. This was not present previously. There is pneumobilia. Small fluid collection adjacent to the pigtail of the distal biliary drainage catheter, decreased in size from 02/27/2019. This is nonspecific and could represent a cyst in the duodenal wall or a cyst in the pancreatic uncinate process or a duodenal intraluminal fluid collection. The aortocaval adenopathy is unchanged. The sclerotic changes in the left iliac wing and left sacral wing are unchanged. The soft tissue density adjacent to the sclerotic areas is unchanged. There is a small volume of ascites in the pelvis. There is end edema in the subcutaneous soft tissues. Abdominal ultrasound, 04/02: Real-time sonographic evaluation of the right upper quadrant performed to evaluation abscess/fluid collection seen on CT of 03/30/2019. There is an extensive, large subcapsular fluid collection along the dome of the liver 14.3 x 15.7 cm, containing air and suspicious for abscess. The fluid is complex containing low level echoes. More inferiorly along the right lobe of the liver there are two other fluid collections, approximately 11 cm in diameter and 12 x 16 cm. The appearance is essentially unchanged correlating with the CT scan of 03/30/2019. CT abscess drainage, 04/02: CT demonstrates large subdiaphragmatic collection. Successful CT guided drain placement and complete aspiration of the collection. The drain should be flushed with 10 ml sterile saline daily. Patient to follow up in IR in 2 weeks. Chest x-ray, 04/04: 2.5 x 2.7 cm left upper lobe lung nodule, decreased in size as compared to the prior exam. 2. Suggestion of interval development of diffuse left lung ground glass infiltrate. 3. Interval development of air under the right hemidiaphragm. It is not clear if this represent distended interposed bowel loop or pneumoperitoneum. Correlate clinically. If indicated CT of the abdomen may be obtained for further evaluation. CT abdomen/pelvis, 04/04: Small right pleural effusion. Biliary drainage catheter again seen in place. Perihepatic pigtail drainage catheter is seen along the right lobe of the liver posteriorly, within a subcapsular air and fluid collection, which has decreased in size somewhat since the prior CT of 03/30/2019. There is a moderate amount of scattered subscapular air and fluid surrounding the right lobe of the liver. No free intraperitoneal air. Biliary air is again noted as well as some air in the gallbladder. There is mild free fluid in the pelvis. Vascular ultrasound, 04/05: There is evidence of a small amount of nonocclusive mural venous thrombus or thickening along the anterior wall of the common femoral vein to its bifurcation. This is similar but much improved in extent to the findings from October 31, 2017. These are most compatible with chronic nonocclusive venous thrombosis. PROGNOSIS: Terminal ACTIVITY: As tolerated DIET: As tolerated DISPOSITION: 06 Home Health Service. DISCHARGE & OUTPATIENT FOLLOW-UP INSTRUCTIONS: -Follow-up with interventional radiology next week for assessment two draining catheters and of former port incision wound site -Continue with oral fluconazole 400 mg daily until April 16. This fluconazole will been continued for 2 weeks from negative culture and the removal of the Ugalde port. -Follow-up with infectious disease as outpatient as needed within the next 2-3 weeks -Follow-up with medical oncology as outpatient within next 2-3 weeks -Follow-up with primary care physician in the next 7 to 10 days -If symptoms that necessitated admission to the hospital for this inpatient stay should return and/or worsen, or patient should experience an acute medical emergency of any kind, patient is instructed to return to the emergency department DISCHARGE CONDITION: Stable TIME SPENT ON DISCHARGE: Total time spent on discharge including coordination of care, but not including procedures of any kind, was greater than 35 minutes. Vital Signs/I&Os Vital Signs Date Time Temp Pulse Resp B/P (MAP) Pulse Ox O2 Delivery O2 Flow Rate FiO2 04/10/19 10:02 18 04/10/19 05:55 96.9 65 101/56 (71) 98 04/09/19 07:57 2 04/07/19 09:00 Room Air I&O- Last 24 Hours up to 6 AM 04/11/19 06:00 Output Total 240 ml Balance -240 ml Laboratory Data Labs 24H Laboratory Tests 2 04/11/19 12:21: Lab Scanned Report Transfusion Record Microbiology Microbiology 04/10/19 Wound Culture, Received Pending 04/06/19 Stool Occult Blood (ALVIN) - Final, Complete 04/03/19 Blood Culture - Final, Complete NO GROWTH AFTER 5 DAYS 04/02/19 Gram Stain - Final, Complete 04/02/19 Abscess Culture - Final, Complete Yeast Like Organism Lactococcus Garvieae Corynebacterium Species 04/02/19 Anaerobic Culture - Final, Complete 04/02/19 Blood Culture - Final, Complete NO GROWTH AFTER 5 DAYS Discharge Medications Scheduled Buspirone HCl (Buspirone HCl) 7.5 Mg Tab, 7.5 MG PO TID, (Reported) Enoxaparin Sodium (Lovenox) 100 Mg/1 Ml Syringe, 90 MG SC Q12H Escitalopram Oxalate (Lexapro) 5 Mg Tablet, 5 MG PO QHS, (Reported) Fentanyl (Fentanyl) 25 Mcg Patch.td72, 25 MCG TD Q3RD, (Reported) 125MCG TOTAL DOSE Fentanyl (Fentanyl) 100 Mcg Patch.td72, 100 MCG TD Q3RD, (Reported) 125MCG TOTAL DOSE Fluconazole (Diflucan) 100 Mg Tablet, 400 MG PO DAILY Gabapentin (Gabapentin) 600 Mg Tab, 600 MG PO QID, (Reported) Levothyroxine Sodium (Synthroid) 137 Mcg Tablet, 137 MCG PO DAILY Magnesium Oxide (Magnesium Oxide) 250 Mg Tablet, 250 MG PO QHS, (Reported) Megestrol Acetate (Megestrol Acetate) 20 Mg Tablet, 80 MG PO BID, (Reported) ALTERNATES EVERY 3 WEEKS WITH TAMOXIFEN Nystatin (Nystatin Oral Susp) 100,000 Unit/1 Ml Oral.susp, 5 ML SS QID Sertraline Hcl (Zoloft) 100 Mg Tab, 100 MG PO QHS, (Reported) Sodium Chloride (Sodium Chloride) 1 Gm Tablet, 1 GM PO WM Tamoxifen Citrate (Tamoxifen Citrate) 20 Mg Tab, 40 MG PO DAILY for endomtrial cancer take 2 tabs daily for 3 weeks alternating with megestrol for 3 weeks Scheduled PRN Acetaminophen (Mapap) 500 Mg Tab, 1,000 MG PO Q6H PRN for PAIN, (Reported) Calcium Carbonate (Calcium Carbonate) 200 Mg Tab.chew, 1,000 MG PO Q4HP PRN for HEARTBURN Hydromorphone HCl (Hydromorphone HCl) 8 Mg Tablet, 8 MG PO TID PRN for PAIN, (Reported) Lorazepam (Ativan) 0.5 Mg Tab, 1 MG PO QID PRN for ANXIETY/AGITATION, (Reported) Lorazepam (Ativan) 0.5 Mg Tablet, 0.5 MG PO QIDP PRN for ANXIETY/AGITATION Magic Mouthwash (First-Mouthwash Blm) 1 Ea Susp, 0 EA SS Q4HP PRN for DISCOMFORT Ondansetron HCl (Zofran) 4 Mg Tab, 4 MG PO Q6H PRN for NAUSEA OR VOMITING, (Reported) Oxycodone HCl (Oxycodone HCl) 5 Mg Tablet, 5 MG PO Q4HP PRN for PAIN Oxycodone HCl (Oxycodone HCl) 5 Mg Tablet, 10 MG PO Q4HP PRN for SEVERE PAIN (PS 8-10) Sennosides (Senna) 8.6 Mg Tablet, 2 TAB PO DAILY PRN for CONSTIPATION, (Reported) [Hyoscyamine/Maalox/Lidoca Visc] 50 ML SUSP, 50 ML PO Q6HP PRN for GI UPSET Allergies Coded Allergies: azithromycin (Verified Allergy, Intermediate, RASH, 02/28/19) pregabalin (Verified Allergy, Intermediate, RASH, 02/28/19) baclofen (Verified Adverse Reaction, Intermediate, anxiety, 02/24/19) carisoprodol (Verified Adverse Reaction, Intermediate, anxiety, 02/24/19) cyclobenzaprine (Verified Adverse Reaction, Intermediate, anxiety, 02/24/19) diazepam (Verified Adverse Reaction, Intermediate, anxiety, 02/24/19) metaxalone (Verified Adverse Reaction, Intermediate, anxiety, 02/24/19) methocarbamol (Verified Adverse Reaction, Intermediate, anxiety, 02/24/19) tizanidine (Verified Adverse Reaction, Intermediate, anxiety, 02/24/19) LEE HADLEY PGY-1 Apr 11, 2019 22:18
--- NOTE | 2019-04-12 20:58 | IPN ---
DATE: 04/09/2019 Nilsa wants to go home tomorrow. She was seen by palliative care nurse, Zoie Fournier, who also has that in the plan. She had Dr. Espinal up to change her biliary tube and reposition it. It is draining much better. She denies any fever, chills. No nausea, vomiting, or diarrhea. She is somewhat lethargic. Falls asleep when we talk to her. She still has significant lower extremity edema. LABORATORY DATA: White count 6.5, hemoglobin 7.3, hematocrit 23.3, platelets 110. Sodium 137, potassium 3.9, chloride 106, bicarbonate 25, BUN 18, creatinine 1.23, glucose 93, calcium 7.7. HEART: Normal S1, S2, tachycardiac. LUNGS: Diminished breath sounds bilaterally. ABDOMEN: Obese, soft, nontender with ascites. EXTREMITIES: Pitting edema +2-3. There is erythema along the shins on the left side more than the right, but this is stable compared to yesterday. IMPRESSION: 1. Candidemia, on oral fluconazole, doing fairly well. 2. Acute cholangitis, on oral fluconazole and intravenous (IV) Zosyn that was restarted yesterday, as there was increased drainage from the common bile duct and the right upper quadrant drain. This could be discontinued once the patient goes home. 3. Endometrial cancer with metastasis, poor prognosis. PLAN: Continue oral fluconazole until April 17. Hopefully the patient could be discharged home tomorrow. Discontinue IV Zosyn tomorrow.
== END 2019-04-10 14:45 | disposition home health service (06) | DRG 261 ==
LOC: M ED 10:44 → M ED INP 17:19 → M PCU 19:35 → M MS5PR 04-03 15:34
PROVIDERS: ADMIT Family Medicine; ATTEND Internal Medicine
PROC: BF10YZZ Fluoroscopy of Bile Ducts using Other Contrast (ICD-10-PCS; 2019-03-25)
PROC: 30233N1 Transfusion of Nonautologous Red Blood Cells into Peripheral Vein, Percutaneous Approach (ICD-10-PCS; principal; 2019-03-27)
PROC: BF10YZZ Fluoroscopy of Bile Ducts using Other Contrast (ICD-10-PCS; 2019-03-29)
PROC: 0FPB7DZ Removal of Intraluminal Device from Hepatobiliary Duct, Via Natural or Artificial Opening (ICD-10-PCS; 2019-03-29)
PROC: 0F7 Hepatobiliary System and Pancreas, Dilation (ICD-10-PCS; 2019-03-29)
PROC: 0JPT0WZ Removal of Totally Implantable Vascular Access Device from Trunk Subcutaneous Tissue and Fascia, Open Approach (ICD-10-PCS; 2019-04-02)
PROC: 02PYX3Z Removal of Infusion Device from Great Vessel, External Approach (ICD-10-PCS; 2019-04-02)
PROC: 0W9G30Z Drainage of Peritoneal Cavity with Drainage Device, Percutaneous Approach (ICD-10-PCS; 2019-04-02)
PROC: 0FPB7DZ Removal of Intraluminal Device from Hepatobiliary Duct, Via Natural or Artificial Opening (ICD-10-PCS; 2019-04-09)
PROC: 0F7 Hepatobiliary System and Pancreas, Dilation (ICD-10-PCS; 2019-04-09)
PROC: BF10YZZ Fluoroscopy of Bile Ducts using Other Contrast (ICD-10-PCS; 2019-04-09)
DX: K80.33 Calculus of bile duct with acute cholangitis with obstruction (principal); K75.0 Abscess of liver; N17.9 Acute kidney failure, unspecified; C78.02 Secondary malignant neoplasm of left lung; B37.7 Candidal sepsis; R78.81 Bacteremia; C78.89 Secondary malignant neoplasm of other digestive organs; B37.0 Candidal stomatitis; C79.51 Secondary malignant neoplasm of bone; E87.2 Acidosis; E87.1 Hypo-osmolality and hyponatremia; T85.79XA Infection and inflammatory reaction due to other internal prosthetic devices, implants and grafts, initial encounter; I82.512 Chronic embolism and thrombosis of left femoral vein; T85.638A Leakage of other specified internal prosthetic devices, implants and grafts, initial encounter; C54.1 Malignant neoplasm of endometrium; E03.9 Hypothyroidism, unspecified; F41.9 Anxiety disorder, unspecified; F32.9 Major depressive disorder, single episode, unspecified; G89.3 Neoplasm related pain (acute) (chronic); D50.9 Iron deficiency anemia, unspecified; Z79.899 Other long term (current) drug therapy; Z88.8 Allergy status to other drugs, medicaments and biological substances; Z66 Do not resuscitate; E87.6 Hypokalemia; E86.0 Dehydration; K59.00 Constipation, unspecified; F11.90 Opioid use, unspecified, uncomplicated; Z45.2 Encounter for adjustment and management of vascular access device